=== PATIENT | male | born 1945 | race American Indian/Alaskan Native ===

== ENCOUNTER 2016-09-23 05:39 | Inpatient (IN) | payer MEDICARE ==
[2016-09-23] MEDS ORDERED: NACL 0.9% 1000 ML 1,000 ML ONE (06:32)
[2016-09-23] MEDS ORDERED: CARDIZEM IV ONE (06:32)
--- NOTE | 2016-09-23 06:32 | Emergency Department Report ---
ED Altered Mental Status HPI - General Chief Complaint: Altered Mental Status Stated Complaint: ALTERED MENTAL STATUS Time Seen by Provider: 09/23/16 06:21 Source: patient, EMS Mode of arrival: Stretcher Limitations: Altered Mental Status - History of Present Illness Initial Comments: 71-year-old -[place] male presented to the emergency department via EMS for evaluation of altered mental status. Per report, EMS states that patient was not acting his normal self when they picked him up for dialysis this morning. Patient states that he feels weak and was unable to walk. Other than that, he denies complaints. MD Complaint: altered mental status, weakness -: unknown Severity: mild Consistency of Symptoms: constant Context: unknown Associated Symptoms: weakness - Related Data Home Medications Medication Instructions Recorded Confirmed Last Taken Carvedilol [Coreg] 3.125 mg PO BID 09/23/16 09/23/16 Unknown Clopidogrel [Plavix] 75 mg PO QDAY 09/23/16 09/23/16 Unknown Furosemide [Lasix TAB] 40 mg PO QDAY 09/23/16 09/23/16 Unknown Hydralazine HCl [Apresoline TAB] 50 mg PO BID 09/23/16 09/23/16 Unknown ISOSORBIDE MONOnitrate [Monoket] 20 mg PO BID 09/23/16 09/23/16 Unknown Pantoprazole [Protonix] 40 mg PO QDAY 09/23/16 09/23/16 Unknown Sennosides/Docusate Sodium [Stool 1 each PO PRN PRN 09/23/16 09/23/16 Unknown Softener Tablet] Simvastatin [Zocor TAB] 20 mg PO QHS 09/23/16 09/23/16 Unknown Vit B Complex & C No.13/FA/D3 1 each PO AC 09/23/16 09/23/16 Unknown [Nephrocaps Qt Tablet] amLODIPine [Norvasc] 10 mg PO DAILY 09/23/16 09/23/16 Unknown cloNIDine [Catapres] 0.1 mg PO BID 09/23/16 09/23/16 Unknown Allergies Allergy/AdvReac Type Severity Reaction Status Date / Time No Known Allergies Allergy Verified 11/08/15 09:09 ED Review of Systems ROS: Stated complaint: ALTERED MENTAL STATUS Other details as noted in HPI Comment: All other systems reviewed and negative Constitutional: weakness ED Past Medical Hx - Past Medical History Previous Medical History?: Yes Hx Hypertension: Yes Hx Diabetes: Yes Hx Renal Disease: Yes ( HD M,W,F) - Surgical History Past Surgical History?: Yes Additional Surgical History: FISTULA LEFT ARM. BACK SURGERY - Family History Family history: no significant - Social History Smoking Status: Never Smoker Substance Use Type: None - Medications Home Medications: Home Medications Medication Instructions Recorded Confirmed Last Taken Type Carvedilol [Coreg] 3.125 mg PO BID 09/23/16 09/23/16 Unknown History Clopidogrel [Plavix] 75 mg PO QDAY 09/23/16 09/23/16 Unknown History Furosemide [Lasix TAB] 40 mg PO QDAY 09/23/16 09/23/16 Unknown History Hydralazine HCl [Apresoline TAB] 50 mg PO BID 09/23/16 09/23/16 Unknown History ISOSORBIDE MONOnitrate [Monoket] 20 mg PO BID 09/23/16 09/23/16 Unknown History Pantoprazole [Protonix] 40 mg PO QDAY 09/23/16 09/23/16 Unknown History Sennosides/Docusate Sodium [Stool 1 each PO PRN PRN 09/23/16 09/23/16 Unknown History Softener Tablet] Simvastatin [Zocor TAB] 20 mg PO QHS 09/23/16 09/23/16 Unknown History Vit B Complex & C No.13/FA/D3 1 each PO AC 09/23/16 09/23/16 Unknown History [Nephrocaps Qt Tablet] amLODIPine [Norvasc] 10 mg PO DAILY 09/23/16 09/23/16 Unknown History cloNIDine [Catapres] 0.1 mg PO BID 09/23/16 09/23/16 Unknown History ED Physical Exam - General Limitations: Altered Mental Status General appearance: alert, in no apparent distress, other (unkempt) - Head Head exam: Present: atraumatic, normocephalic - Eye Eye exam: Present: normal appearance, PERRL, EOMI - ENT ENT exam: Present: normal exam, normal orophraynx, mucous membranes moist - Neck Neck exam: Present: normal inspection, full ROM. Absent: tenderness - Respiratory Respiratory exam: Present: normal lung sounds bilaterally. Absent: respiratory distress - Cardiovascular Cardiovascular Exam: Present: tachycardia, irregular rhythm, normal heart sounds - GI/Abdominal GI/Abdominal exam: Present: soft, normal bowel sounds. Absent: distended, tenderness - Extremities Exam Extremities exam: Present: full ROM. Absent: normal inspection (AV fistula to left upper extremity with palpable thrill. 3+ edema noted to the right lower extremity, which is unchanged per EMS), tenderness - Back Exam Back exam: Present: normal inspection, full ROM. Absent: tenderness - Neurological Exam Neurological exam: Present: alert, oriented X3. Absent: motor sensory deficit - Skin Skin exam: Present: warm, dry, intact ED Course Vital Signs 09/23/16 09/23/16 09/23/16 05:50 06:00 06:03 Temperature 97.5 F L Pulse Rate 138 H 138 H 159 H Respiratory 15 19 18 Rate Blood Pressure 113/60 113/60 Blood Pressure 113/60 [Right] O2 Sat by Pulse 95 Oximetry 09/23/16 09/23/16 09/23/16 06:39 06:47 06:50 Temperature Pulse Rate 137 H 128 H Respiratory 18 16 Rate Blood Pressure 106/73 Blood Pressure 106/73 [Right] O2 Sat by Pulse 97 Oximetry 09/23/16 09/23/16 07:00 08:41 Temperature Pulse Rate 139 H 128 H Respiratory 25 H 21 Rate Blood Pressure 106/74 110/80 Blood Pressure [Right] O2 Sat by Pulse 95 91 Oximetry - Lab Data Result diagrams: 09/23/16 06:33 09/23/16 06:33 Lab Results 09/23/16 09/23/16 09/23/16 Range/Units 05:44 06:33 06:33 WBC 14.4 H (4.5-11.0) K/mm3 RBC 2.60 L (3.65-5.03) M/mm3 Hgb 8.4 L (11.8-15.2) gm/dl Hct 30.4 L (35.5-45.6) % MCV 117 H (84-94) fl MCH 32 (28-32) pg MCHC 28 L (32-34) % RDW 21.4 H (13.2-15.2) % Plt Count 176 (140-440) K/mm3 Baso % (Auto) Training Facilitator PT (12.2-14.9) Sec. INR (0.87-1.13) Sodium 133 L (137-145) mmol/L Potassium 5.4 H (3.6-5.0) mmol/L Carbon Dioxide 15 L (22-30) mmol/L BUN 96 H (9-20) mg/dL Creatinine 11.4 H (0.8-1.5) mg/dL Estimated GFR 5 ml/min BUN/Creatinine Ratio 8.42 % Glucose 228 H (75-100) mg/dL POC Glucose 247 H (70-105) Lactic Acid (0.7-2.0) mmol/L Calcium 9.5 (8.4-10.2) mg/dL Magnesium (1.7-2.3) mg/dL Troponin T 0.240 H* (0.00-0.029) ng/mL Triglycerides 199 H (2-149) mg/dL Cholesterol 140 (50-199) mg/dL LDL Cholesterol Direct 76 (50-130) mg/dL HDL Cholesterol 25 L (40-59) mg/dL Cholesterol/HDL Ratio 5.60 % 09/23/16 09/23/16 09/23/16 Range/Units 06:33 06:33 06:33 WBC (4.5-11.0) K/mm3 RBC (3.65-5.03) M/mm3 Hgb (11.8-15.2) gm/dl Hct (35.5-45.6) % MCV (84-94) fl MCH (28-32) pg MCHC (32-34) % RDW (13.2-15.2) % Plt Count (140-440) K/mm3 Baso % (Auto) PT 15.7 H (12.2-14.9) Sec. INR 1.26 H (0.87-1.13) Sodium (137-145) mmol/L Potassium (3.6-5.0) mmol/L Carbon Dioxide (22-30) mmol/L BUN (9-20) mg/dL Creatinine (0.8-1.5) mg/dL Estimated GFR ml/min BUN/Creatinine Ratio % Glucose (75-100) mg/dL POC Glucose (70-105) Lactic Acid 2.3 H* (0.7-2.0) mmol/L Calcium (8.4-10.2) mg/dL Magnesium 0.9 L* (1.7-2.3) mg/dL Troponin T (0.00-0.029) ng/mL Triglycerides (2-149) mg/dL Cholesterol (50-199) mg/dL LDL Cholesterol Direct (50-130) mg/dL HDL Cholesterol (40-59) mg/dL Cholesterol/HDL Ratio % - EKG Data -: EKG Interpreted by Me EKG shows normal: axis, QRS complexes Rate: tachycardia When compared to previous EKG there are: previous EKG unavailable Interpretation: nonspecific ST-T wave rossana, other (atrial fibrillation with rapid ventricular response) - Medical Decision Making Lab results reviewed and discussed with the patient. Following a 50 mg bolus of diltiazem, the patient's heart rate decreased from the 150s to the 120s. I have spoken with Dr. oRb, nephrology. Patient will be scheduled for dialysis once his heart rate is better under control. I have spoken with Dr. Contreras, cardiology. Patient is to be started on a Cardizem drip. Patient is to be admitted by the hospitalist. - Differential Diagnosis new-onset A. fib, electrolyte abnormality Critical Care Time: Yes Critical care time in (mins) excluding proc time.: 60 Critical care attestation.: If time is entered above; I have spent that time in minutes in the direct care of this critically ill patient, excluding procedure time. Critical Care Time: The high probability of a clinically significant, sudden or life threatening deterioration of the cardiovascular system(s) required my full and direct attention, intervention and personal management. The aggregate critical care time was 60 minutes. This time is in addition to time spent performing reported procedures but includes the following: [x] Data Review and interpretation [x] Patient assessment and monitoring of vital signs [x] Documentation [x] Medication orders and management ED Disposition Clinical Impression: New onset atrial fibrillation, End-stage renal disease on hemodialysis Disposition: OP ADMITTED IP TO THIS HOSP Is pt being admited?: Yes Condition: Stable Time of Disposition: 09:03
[2016-09-23 06:49] LABS: Mean Corpuscular HGB Conc 28 % (32-34); Mean Corpuscular Hemoglobin 32 pg (28-32); Platelet Count 176 K/mm3 (140-440); White Blood Count 14.4 K/mm3 (4.5-11.0)
[2016-09-23 06:54] LABS: Hematocrit 30.4 % (35.5-45.6); Hemoglobin 8.4 gm/dl (11.8-15.2); Mean Corpuscular Volume 117 fl (84-94); Red Cell Distribution Width 21.4 % (13.2-15.2)
[2016-09-23 07:01] LABS: INR 1.26 (0.87-1.13)
[2016-09-23 07:09] LABS: BUN/Creatinine Ratio 8.42; Calcium 9.5 mg/dL (8.4-10.2); Chloride 86.1 mmol/L (98-107); Potassium 5.4 mmol/L (3.6-5.0)
[2016-09-23] MEDS ORDERED: MAGNESIUM SULFATE 2GM/50ML 50 ML IV ONE (07:42)
--- NOTE | 2016-09-23 07:42 | Consultation ---
History of Present Illness - Reason for Consult Consult date: 09/23/16 end stage renal disease Requesting physician: ALYCE VIRK - History of Present Illness 71-year-old -Iranian male presented to the emergency department via EMS for evaluation of altered mental status. Per report, EMS states that patient was not acting his normal self when they picked him up for dialysis this morning. Patient states that he feels weak and was unable to walk. Other than that, he denies complaints. Past History Past Medical History: atrial fib, arrhythmia, anemia, dialysis, ESRD, hypertension, renal failure Past Surgical History: Other (av access) Social history: denies: prescription drug abuse, IV drug use Family history: hypertension Medications and Allergies Allergies Allergy/AdvReac Type Severity Reaction Status Date / Time No Known Allergies Allergy Verified 11/08/15 09:09 Home Medications Medication Instructions Recorded Confirmed Last Taken Type Carvedilol [Coreg] 3.125 mg PO BID 09/23/16 09/23/16 Unknown History Clopidogrel [Plavix] 75 mg PO QDAY 09/23/16 09/23/16 Unknown History Furosemide [Lasix TAB] 40 mg PO QDAY 09/23/16 09/23/16 Unknown History Hydralazine HCl [Apresoline TAB] 50 mg PO BID 09/23/16 09/23/16 Unknown History ISOSORBIDE MONOnitrate [Monoket] 20 mg PO BID 09/23/16 09/23/16 Unknown History Pantoprazole [Protonix] 40 mg PO QDAY 09/23/16 09/23/16 Unknown History Sennosides/Docusate Sodium [Stool 1 each PO PRN PRN 09/23/16 09/23/16 Unknown History Softener Tablet] Simvastatin [Zocor TAB] 20 mg PO QHS 09/23/16 09/23/16 Unknown History Vit B Complex & C No.13/FA/D3 1 each PO AC 09/23/16 09/23/16 Unknown History [Nephrocaps Qt Tablet] amLODIPine [Norvasc] 10 mg PO DAILY 09/23/16 09/23/16 Unknown History cloNIDine [Catapres] 0.1 mg PO BID 09/23/16 09/23/16 Unknown History Review of Systems Constitutional: anorexia, fatigue, weakness, malaise Cardiovascular: rapid/irregular heart beat, high blood pressure, decreased exercise tolerance Respiratory: dyspnea on exertion Exam - Vital Signs Vital signs: Vital Signs Temp Pulse Resp BP Pulse Ox 97.5 F L 159 H 18 113/60 95 09/23/16 06:03 09/23/16 06:03 09/23/16 06:03 09/23/16 06:03 09/23/16 06:03 - Physical Exam Narrative exam: - General Limitations: Altered Mental Status General appearance: alert, in no apparent distress, other (unkempt) - Head Head exam: Present: atraumatic, normocephalic - Eye Eye exam: Present: normal appearance, PERRL, EOMI - ENT ENT exam: Present: normal exam, normal orophraynx, mucous membranes moist - Neck Neck exam: Present: normal inspection, full ROM. Absent: tenderness - Respiratory Respiratory exam: Present: normal lung sounds bilaterally. Absent: respiratory distress - Cardiovascular Cardiovascular Exam: Present: tachycardia, irregular rhythm, normal heart sounds - GI/Abdominal GI/Abdominal exam: Present: soft, normal bowel sounds. Absent: distended, tenderness - Extremities Exam Extremities exam: Present: full ROM. Absent: normal inspection (AV fistula to left upper extremity with palpable thrill. 3+ edema noted to the right lower extremity, which is unchanged per EMS), tenderness - Back Exam Back exam: Present: normal inspection, full ROM. Absent: tenderness - Neurological Exam Neurological exam: Present: alert, oriented X3. Absent: motor sensory deficit - Skin Skin exam: Present: warm, dry, intact Results - Lab Results 09/23/16 06:33 09/23/16 06:33 Most recent lab results Calcium 9.5 mg/dL (8.4-10.2) 09/23/16 06:33 Magnesium 0.9 mg/dL (1.7-2.3) L* 09/23/16 06:33 Assessment and Plan Impression: * esrd * afib with rvr * anemia in esrd * htn * encephalopathy * hyperkalemia * metabolic acidosis Plan: * hd once arrythymia controlled today * follow up daily lytes * uf with hd at tolerated * replete mag * strict i/os * renal diet * cards to see
[2016-09-23] MEDS ORDERED: CARDIZEM/D5W 100MG/100ML 100 ML IV SCH (09:00)
--- NOTE | 2016-09-23 09:27 | XRay Report ---
PORTABLE CHEST: INDICATION: Altered mental status. COMPARISON: 05/07/2008 FINDINGS: Portable, frontal chest radiograph again demonstrates normal cardiomediastinal silhouette. Mild, approximately 3 mm peripheral right midlung density is new, possibly atelectasis or scarring. Clear remainder lungs, though inspiration somewhat poorer. Approximately 1.2 cm left paraspinal/hilar calcification also possible. EKG leads. Mild bony degenerative changes. CONCLUSION: Mild peripheral right midlung density, possibly atelectasis or scarring, though new since 2007. Follow-up on subsequent chest imaging as well. Thank you for the opportunity to participate in this patient's care.
--- NOTE | 2016-09-23 10:02 | Admit Criteria Form ---
Admission Criteria Documentation: ATRIAL FIBRILLATION Clinical Indications for Admission to Inpatient Care (Place 'X' for any and all applicable criteria): Admission indicated for ANY ONE of the following(1)(2)(3)(4)(5) : [ ]I. Myocardial ischemia [ ]II. Dyspnea or hypoxemia [ ]III. Hemodynamic instability [ ]IV. Heart failure (e.g., pulmonary edema) (7) [X ]V. New-onset (less than 48 hours) atrial fibrillation with high risk for causing complications secondary to comorbidities (eg, symptomatic heart failure ) [ ]. Altered mental status [ ]VII. Syncope [ ]VIII. Patient has implantable cardioverter defibrillator that has fired more than once within past 24hr or needs immediate adjustment of settings that cannot be done other than in inpatient setting. (8) [ ]IX. Suspected accessory pathway (e.g., [id number]-[id number]-Jznmh syndrome) on ECG [ ]X. Recent systemic thromboembolism (eg, stroke) [ ]XI. Medication toxicity (e.g., digitalis) causing arrhythmia(9) [ ]XII. Underlying medical condition that necessitates inpatient care (e.g., thyrotoxicosis, pneumonia) (10) [ ]XIII. Continuous ECG monitoring is required for condition causing arrhythmia (e.g., severe hyperkalemia, hypokalemia, acid-base disturbance).(11)(12)(13) [ ]XIV. Initiation of antiarrhythmic drug therapy is needed in patient at high risk of adverse effects as indicated by ANY ONE of the following: [ ]a) Significant structural heart disease (e.g., reduced ejection fraction, congenital heart disease, valvular heart disease) [ ]b) Prolonged QT interval [ ]c) Underlying sinus node or atrioventricular conduction disturbances [ ]d) Need for treatment with antiarrhythmic drugs that have significant proarrhythmic potential (e.g., dofetilide, sotalol, procainamide) [ ]e) Patient whose sinus rhythm has never been observed on ECG [ ]XV. Intolerable symptoms despite optimal outpatient treatment [ ]XVI. Elective or urgent cardioversion that cannot be performed on outpatient basis or during observation care. [A] (Use also Atrial Fibrillation: Observation Care ) as appropriate.(14) [ ]XVII.Contraindications and/or Inappropriate clinical situations for Observational Care in patients with Atrial Fibrillation, when ANY ONE of the following is required: [ ]a) Patient with High risk of cardiac embolism (e.g, patients with previous cardiac embolism, LVEF < 40%, age >75 and patients with prosthetic valve) 18 [ ]b) Patient with Moderate risk including DM patient, CAD and patient aged 65-75 18 [ ]c) Patient with any change in cardiac biomarker especially troponin should be managed as high risk in an inpatient setting 19 [ ]d) Physician judgement irrespective of ECG and other diagnostic findings 20 [X ]XVIII.General contraindications and/or Inappropriate clinical situations for Observational Care in patients with Atrial Fibrillation, when ANY ONE of the following is required: [X ]a) Prediction of prolongation of LOS based on ANY ONE of the following may be considered as a contraindication for observational care 2, 3, 4, 5, 6, 7, 8, 9, 10, 11 [ X]i) Age > 65 yrs. [ ]ii) Patient arriving by ambulance [ ]iii) Patient with high acuity [ ]iv) Patient requiring vital sign monitoring [ ]v) Patient on IV medication [ ]b) Systolic blood pressures 180mmHg 3,12 [ ]c) Patient with altered mental status including delirium and other alteration of consciousness3 [ ]d) Patient whose discharge disposition will be to a long-term home or rehabilitation home should not be managed in Emergency Department Observation Unit. CMS rule requires 3 days hospital stay before such placement.3,13 [ ]e) Patient with failure to thrive due to broad array of etiologies 3,16,17 [ ]f) Inability to ambulate 3,14 Extended stay beyond goal length of stay may be needed for (1)(25)(26): [ ]a) Unstable comorbidities [ ]b) Persistently uncontrolled atrial fibrillation or other arrhythmias [ ]c) Acute thromboembolic event (e.g., stroke, limb ischemia) [ ]d) Need for inpatient attainment of full anticoagulation The original [email or web address] content created by [email or web address] has been revised. The portions of the content which have been revised are identified through the use of italic text or in bold, and [facility] has neither reviewed nor approved the modified material. All other unmodified content is copyright [facility]. Please see references footnoted in the original [facility] edition 2016 Admission Criteria Met: Yes
[2016-09-23] MEDS ORDERED: SENOKOT S PO PRN (11:12)
[2016-09-23] MEDS ORDERED: ZOFRAN IV PRN (11:13)
[2016-09-23] MEDS ORDERED: MILK OF MAGNESIA PO PRN (11:13)
[2016-09-23] MEDS ORDERED: SODIUM CHLORIDE FLUSH SYRINGE 10 ML IV PRN (11:13)
[2016-09-23] MEDS ORDERED: DULCOLAX PR PRN (11:13)
[2016-09-23] MEDS ORDERED: D50W (25GM) IV PRN ×2 (11:13→17:36)
[2016-09-23] MEDS ORDERED: TYLENOL PO PRN (11:13)
--- NOTE | 2016-09-23 11:24 | History and Physical Report ---
History of Present Illness Chief complaint: weakness History of present illness: 71M with ESRD, when he was picked up for HD this morning, he was noted to not be quite himself. He admits to feeling very tired and generalized weakness, he denies CP, palpitations or SOB. he is compliant with his meds and rx. He has been feeling poorly for about a day now Past History Past Medical History: atrial fib, arrhythmia, anemia, dialysis, ESRD, hypertension, renal failure Past Surgical History: Other (av access) Social history: denies: prescription drug abuse, IV drug use Family history: hypertension Medications and Allergies Allergies Allergy/AdvReac Type Severity Reaction Status Date / Time No Known Allergies Allergy Verified 11/08/15 09:09 Home Medications Medication Instructions Recorded Confirmed Last Taken Type Carvedilol [Coreg] 3.125 mg PO BID 09/23/16 09/23/16 Unknown History Clopidogrel [Plavix] 75 mg PO QDAY 09/23/16 09/23/16 Unknown History Furosemide [Lasix TAB] 40 mg PO QDAY 09/23/16 09/23/16 Unknown History Hydralazine HCl [Apresoline TAB] 50 mg PO BID 09/23/16 09/23/16 Unknown History ISOSORBIDE MONOnitrate [Monoket] 20 mg PO BID 09/23/16 09/23/16 Unknown History Pantoprazole [Protonix] 40 mg PO QDAY 09/23/16 09/23/16 Unknown History Sennosides/Docusate Sodium [Stool 1 each PO PRN PRN 09/23/16 09/23/16 Unknown History Softener Tablet] Simvastatin [Zocor TAB] 20 mg PO QHS 09/23/16 09/23/16 Unknown History Vit B Complex & C No.13/FA/D3 1 each PO AC 09/23/16 09/23/16 Unknown History [Nephrocaps Qt Tablet] amLODIPine [Norvasc] 10 mg PO DAILY 09/23/16 09/23/16 Unknown History cloNIDine [Catapres] 0.1 mg PO BID 09/23/16 09/23/16 Unknown History Active Meds: Active Medications Acetaminophen (Tylenol) 650 mg PO Q4H PRN PRN Reason: Pain MILD(1-3)/Fever >100.5/POSADAS Amlodipine Besylate (Norvasc) 10 mg PO DAILY [facility] Bisacodyl (Dulcolax) 10 mg [place] QDAY PRN PRN Reason: Constipation unrelieved by MOM Carvedilol (Coreg) 3.125 mg PO BID [facility] Clonidine HCl (Catapres) 0.1 mg PO BID [facility] Clopidogrel Bisulfate (Plavix) 75 mg PO QDAY [facility] Dextrose (D50w (25gm)) 50 ml IV PRN PRN PRN Reason: Hypoglycemia Furosemide (Lasix) 40 mg PO QDAY [facility] Heparin Sodium (Porcine) (Heparin) 5,000 unit SUB-Q Q8HR [facility] Diltiazem HCl (Cardizem/D5w 100mg/100ml) 100 mls @ 5 mls/hr IV TITR [facility]; 5 MG/ HR PRN Reason: Protocol Last Titration: 09/23/16 09:39 Dose: 10 mg/hr Insulin Aspart (Novolog) 0 units SUB-Q AC [facility] PRN Reason: Protocol Isosorbide Mononitrate (Monoket) 20 mg PO BID [facility] Magnesium Hydroxide (Milk Of Magnesia) 30 ml PO Q4H PRN PRN Reason: Constipation Miscellaneous Medication (Hydralazine Hcl [Apresoline Tab]) 50 mg PO BID [facility] Miscellaneous Medication (Vit B Complex & C No.13/Fa/D3 [Nephrocaps Qt Tablet]) 1 each PO AC [facility] Ondansetron HCl (Zofran) 4 mg IV Q8H PRN PRN Reason: N/V unrelieved by Reglan Pantoprazole Sodium (Protonix) 40 mg PO QDAY [facility] Senna/Docusate Sodium (Senokot S) 1 tab PO PRN PRN PRN Reason: Constipation Simvastatin (Zocor) 20 mg PO QHS [facility] Sodium Chloride (Sodium Chloride Flush Syringe 10 Ml) 10 ml IV PRN PRN PRN Reason: LINE FLUSH Review of Systems All systems: negative Constitutional: fatigue, weakness, malaise, lethargy Cardiovascular: no chest pain, no orthopnea, no palpitations, no rapid/ irregular heart beat Exam - Constitutional Vitals: Temp Pulse Resp BP Pulse Ox 97.5 F L 123 H 18 105/62 94 09/23/16 06:03 09/23/16 10:00 09/23/16 10:00 09/23/16 10:00 09/23/16 10:00 General appearance: Present: no acute distress, well-nourished, other (appears exhausted) - EENT Eyes: Present: PERRL ENT: hearing intact, other (dry mucus membranes) - Neck Neck: Present: supple, normal ROM - Respiratory Respiratory effort: normal Respiratory: bilateral: CTA - Cardiovascular Heart Sounds: Present: S1 & S2. Absent: rub, click - Extremities Extremities: pulses symmetrical, No edema Peripheral Pulses: within normal limits - Abdominal General gastrointestinal: Present: soft, non-tender, non-distended, normal bowel sounds Male genitourinary: Present: normal - Integumentary Integumentary: Present: clear, warm, dry - Musculoskeletal Musculoskeletal: gait normal, strength equal bilaterally - Psychiatric Psychiatric: appropriate mood/affect, intact judgment & insight - Neurologic Neurologic: CNII-XII intact, moves all extremities Results - Labs CBC & Chem 7: 09/23/16 06:33 09/23/16 06:33 Labs: Laboratory Last Values WBC 14.4 K/mm3 (4.5-11.0) H 09/23/16 06:33 RBC 2.60 M/mm3 (3.65-5.03) L 09/23/16 06:33 Hgb 8.4 gm/dl (11.8-15.2) L 09/23/16 06:33 Hct 30.4 % (35.5-45.6) L 09/23/16 06:33 MCV 117 fl (84-94) H 09/23/16 06:33 MCH 32 pg (28-32) 09/23/16 06:33 MCHC 28 % (32-34) L 09/23/16 06:33 RDW 21.4 % (13.2-15.2) H 09/23/16 06:33 Plt Count 176 K/mm3 (140-440) 09/23/16 06:33 Baso % (Auto) Hydraulic Billet Maker 09/23/16 06:33 PT 15.7 Sec. (12.2-14.9) H 09/23/16 06:33 INR 1.26 (0.87-1.13) H 09/23/16 06:33 Sodium 133 mmol/L (137-145) L 09/23/16 06:33 Potassium 5.4 mmol/L (3.6-5.0) H 09/23/16 06:33 Carbon Dioxide 15 mmol/L (22-30) L 09/23/16 06:33 BUN 96 mg/dL (9-20) H 09/23/16 06:33 Creatinine 11.4 mg/dL (0.8-1.5) H 09/23/16 06:33 Estimated GFR 5 ml/min 09/23/16 06:33 BUN/Creatinine Ratio 8.42 % 09/23/16 06:33 Glucose 228 mg/dL (75-100) H 09/23/16 06:33 POC Glucose 247 (70-105) H 09/23/16 05:44 Lactic Acid 2.3 mmol/L (0.7-2.0) H* 09/23/16 06:33 Calcium 9.5 mg/dL (8.4-10.2) 09/23/16 06:33 Magnesium 0.9 mg/dL (1.7-2.3) L* 09/23/16 06:33 Troponin T 0.240 ng/mL (0.00-0.029) H* 09/23/16 06:33 Triglycerides 199 mg/dL (2-149) H 09/23/16 06:33 Cholesterol 140 mg/dL (50-199) 09/23/16 06:33 LDL Cholesterol Direct 76 mg/dL (50-130) 09/23/16 06:33 HDL Cholesterol 25 mg/dL (40-59) L 09/23/16 06:33 Cholesterol/HDL Ratio 5.60 % 09/23/16 06:33 - Imaging and Cardiology Chest x-ray: image reviewed (no infiltrate) Assessment and Plan Assessment and plan: 1. Afib with RVR on cardizem drip, will get TSH, T4, echo cardiology consulted will discuss with them if anticoagulation is recommended 2. HTN continue home meds 3. ESRD HD per renal 4. Weakness PT consult 5. DVT ppx heparin sq 6. Hyperkalemia, Hypomagnesemia will be rx with HD Plan of care discussed with patient/family: Yes
[2016-09-23] MEDS ORDERED: NOVOLOG SUB-Q SCH (11:30)
[2016-09-23] MEDS ORDERED: [UNRECOGNIZED DRUG - REMARK] PO SCH (11:30)
[2016-09-23 12:04] LABS: Creatine Kinase MB 4.2 ng/mL (0.0-4.0)
[2016-09-23] MEDS ORDERED: LOPRESSOR PO SCH (12:17)
[2016-09-23] MEDS ORDERED: LOPRESSOR ONE (12:20)
[2016-09-23] MEDS: PLAVIX PO SCH (12:26)
[2016-09-23] MEDS: Renal Caps PO SCH ×2 (13:30→15:36)
[2016-09-23] MEDS ORDERED: NACL 0.9% 1000 ML 100 ML IV PRN (13:35)
[2016-09-23 13:38] LABS: Basophils % (Manual) 0 % (0.0-1.8); Blastocytes % (Manual) 0 %; Eosinophils % (Manual) 0 % (0.0-4.3)
[2016-09-23 13:42] LABS: Anisocytosis 1+; Macrocytosis 1+
[2016-09-23 13:43] LABS: Smudge Cells 2+
[2016-09-23 13:44] LABS: Diff Status Complete; Polychromasia Few
[2016-09-23] MEDS: HEPARIN SUB-Q SCH ×2 (16:12→23:57)
[2016-09-23] MEDS: DUONEB 0.5 MG-3 MG/3 ML SOLN IH SCH ×2 (16:22→21:15)
[2016-09-23 17:20] LABS: Creatine Kinase MB 4.3 ng/mL (0.0-4.0)
[2016-09-23 19:52] LABS: Creatine Kinase MB 4.3 ng/mL (0.0-4.0)
[2016-09-23] MEDS ORDERED: NACL 0.9 (PRIMING MACHINE ONLY DIALYSIS) MC ONE (20:00)
[2016-09-23] MEDS ORDERED: PROCRIT ONE (20:02)
[2016-09-23] MEDS ORDERED: NON-FORMULARY (Hydralazine Hcl [Apresoline Tab] 50 MG) PO SCH (22:00)
[2016-09-23] MEDS ORDERED: COREG PO SCH (22:00)
[2016-09-23] MEDS: PROCRIT IV PRN (22:51)
[2016-09-23] MEDS: ZOCOR PO SCH (23:56)
[2016-09-23] MEDS: APRESOLINE PO SCH (23:58)
[2016-09-23] MEDS: CATAPRES PO SCH (23:59)
[2016-09-23] MEDS: MONOKET PO SCH (23:59)
[2016-09-24] MEDS: Renal Caps PO SCH ×4 (00:05→23:29)
[2016-09-24] MEDS: CARDIZEM PO SCH ×4 (00:06→17:35)
[2016-09-24] MEDS: LOPRESSOR PO SCH ×5 (00:07→17:35)
[2016-09-24] MEDS: DUONEB 0.5 MG-3 MG/3 ML SOLN IH SCH ×4 (01:13→19:58)
--- NOTE | 2016-09-24 05:03 | Consultation ---
HISTORY OF PRESENT ILLNESS: The patient is a 71-year-old gentleman with a history of multiple medical problems including end-stage renal disease, hypertension, diabetes, hyperlipidemia and multiple strokes. He was noted to have a change in mental status today. He was weak and unable to walk. When he was brought in, he was found to be in atrial fibrillation with a rapid ventricle response, which is listed as one of his previous medical problems as well. He is disoriented and unable to give a detailed history. He did not describe any heart failure, coronary artery disease, chest pain, but he has had some shortness of breath today. He states that he has had the rapid heart rate in the past. 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 As far as we know, he has been compliant with dialysis and his medications. PAST HISTORY AND MEDICATIONS: See the nurse's list. ALLERGIES: None. SOCIAL HISTORY: Smoking: Prior smoker. Alcohol: No heavy use described. PREVIOUS SURGERIES: Left arm fistula and back surgery. REVIEW OF SYSTEMS: No other complaints or medical problems described at this time. PHYSICAL EXAMINATION: GENERAL: Well-developed, well-nourished, no acute distress. HEENT: Alert, cooperative, disoriented, dysarthric speech. EYES, NOSE, AND THROAT: Unremarkable. NECK: Reveals JVD. There are no bruits. Neck is supple, no masses. LUNGS: A few scattered crackles without clear cut rales or rhonchi. No labored respirations at this time. CARDIOVASCULAR: Irregular rhythm. Tachycardia. No rubs, murmurs, gallops appreciable. ABDOMEN: Soft, nontender, no masses. EXTREMITIES: No cyanosis or clubbing. There is trace pedal edema. There are chronic changes on the lower extremities in the skin and no diminished pulses. NEUROLOGIC: Grossly there is severe right hemiparesis, left extremities are somewhat weak. LABORATORY DATA: EKG shows atrial fibrillation, rapid ventricular response, possible previous septal infarction, nonspecific ST-T changes. IMPRESSION: 1. Atrial fibrillation with a rapid ventricular response resulting in some shortness of breath, but no clearcut evidence of congestive heart failure. 2. End-stage renal disease, on hemodialysis with chronic anemia. 3. Hypertension: Controlled. 4. Diabetes. 5. Hyperlipidemia: Fair control. 6. History of three previous strokes with severe right hemiparesis. 7. Abnormal chest x-ray: The findings could be scar tissue or atelectasis, follow up chest x-ray would be in order. 8. Severe hypomagnesemia and hyperkalemia per nephrology. 9. Troponin of 0.2, consistent with chronic kidney disease, no suggestion of acute coronary syndrome. We will consider underlying coronary disease. Check for previous workup. 10. Evidence of peripheral vascular disease. PLAN: Heart rate control with calcium channel blockers and beta block, echocardiogram, anticoagulation, check for previous cardiac workup. Thank you for this consultation. JOB# [id number] ELMIRA/MARILEE
[2016-09-24 06:47] LABS: BUN/Creatinine Ratio 8.48; Calcium 8.8 mg/dL (8.4-10.2); Magnesium 2.5 mg/dL (1.7-2.3); Potassium 4.9 mmol/L (3.6-5.0)
[2016-09-24] MEDS: HEPARIN SUB-Q SCH (07:25)
--- NOTE | 2016-09-24 09:00 | Echocardiography Report ---
Transthoracic Echocardiogram Indication: A-fib BP: 117/56 Conclusions *1. Technically difficult study. *2. Well preserved LV systolic function, EF 50-55%. *3. Poor visualization of R heart chambers. Findings Procedure Info: The study quality is technically difficult. The study is technically limited due to poor acoustic windows. The study was technically limited due to the patient's inability to lay in the left lateral decubitus position. Left Ventricle: The left ventricle is not well visualized. The left ventricular chamber size is normal. Mild concentric left ventricular hypertrophy is observed. Global left ventricular systolic function is normal. The estimated ejection fraction is 50-55%. Left Atrium: The left atrium is not well visualized. The left atrial chamber size is normal. Right Ventricle: The right ventricle is not well visualized. The right ventricular cavity size is normal. Right Atrium: The right atrium is not well visualized. The right atrial cavity size is normal. The interatrial septum appears normal. Aortic Valve: The aortic valve is not well visualized. The aortic valve is trileaflet. The aortic valve leaflets are mildly thickened. There is no evidence of aortic regurgitation. There is no evidence of aortic stenosis. Mitral Valve: The mitral valve is not well visualized. The mitral valve leaflets appear myxomatous. The mitral valve leaflets are mildly thickened. Mild mitral leaflet calcification is visualized. There is trace of mitral regurgitation. There is no evidence of mitral stenosis. Tricuspid Valve: The tricuspid valve is not well visualized. The tricuspid valve leaflets are normal. There is mild tricuspid regurgitation. The right ventricular systolic pressure is calculated at 44 mmHg. There is evidence of mild pulmonary hypertension. There is no tricuspid stenosis. Pulmonic Valve: The pulmonic valve is not well visualized. Pericardium: There is no pericardial effusion. Aorta: There is no dilatation of the aortic root. Venous: The inferior vena cava is dilated. Measurements Chambers MM Name Value Normal Range Ao root diameter (MM) 3.4 cm (2 - 3.7) LA dimension (AP) MM 3.9 cm (1.9 - 4) LA:Ao ratio (MM) 1.15 ratio - AV cusp separation (MM) 1.6 cm (1.5 - 2.6) Chambers 2D Name Value Normal Range IVSd (2D) 1.07 cm (0.6 - 1.1) LVPWd (2D) 1.02 cm (0.6 - 1.1) IVS:LVPW ratio (2D) 1.05 ratio - LVIDd (2D) 3.74 cm (3.7 - 5.6) LVIDs (2D) 3.04 cm (2 - 3.8) LV FS (Teichholz) (2D) 18.7 % - LV FS (cube) (2D) 18.7 % - EF Teichholz (2D) 39.3 % - LA dimension (AP) 2D 3.7 cm (1.9 - 4) Volumes/Mass Name Value Normal Range LA ESV SP 4CH (MOD) 52 ml - LA ESV SP 2CH (MOD) 33 ml - LA ESV BP (MOD) 44 ml - LA ESV BP (MOD) index 21.9 ml/m2 - Diastolic/Systolic Function Name Value Normal Range MV E-wave Vmax 0.84 m/sec - MV deceleration time 144 msec - MV A-wave Vmax 0.72 m/sec - MV E:A ratio 1.2 ratio - LV septal e' Vmax 0.08 m/sec - LV lateral e' Vmax 0.09 m/sec - LV E:e' septal ratio 10.5 ratio - LV E:e' lateral ratio 9.7 ratio - Aortic Valve Name Value Normal Range AV VTI 25.5 cm - AV mean gradient 4 mmHg - LVOT diameter 2 cm - LVOT VTI 17.9 cm - LVOT mean gradient 2 mmHg - SV LVOT 56 ml - DARY (continuity VTI) 2.2 cm2 - Mitral Valve Name Value Normal Range MV PHT 48 msec - MVA (PHT) 4.58 cm2 - Tricuspid Valve Name Value Normal Range TR Vmax 3.01 m/sec - TR peak gradient 36 mmHg - RAP 8 mmHg - RVSP 44 mmHg -
[2016-09-24] MEDS ORDERED: NORVASC PO SCH (10:00)
[2016-09-24] MEDS ORDERED: Renal Caps PO SCH ×2 (10:00)
[2016-09-24] MEDS: MONOKET PO SCH ×2 (10:33→23:28)
[2016-09-24] MEDS: APRESOLINE PO SCH ×2 (10:33→22:45)
[2016-09-24] MEDS: LASIX PO SCH (10:33)
[2016-09-24] MEDS: PLAVIX PO SCH (10:33)
[2016-09-24] MEDS: PROTONIX PO SCH (10:33)
[2016-09-24] MEDS: CATAPRES PO SCH ×2 (10:34→22:45)
[2016-09-24] MEDS: NOVOLOG SUB-Q SCH ×3 (10:35→16:55)
--- NOTE | 2016-09-24 10:35 | Progress Note ---
Assessment and Plan Altered mental status -resolved Atrial fibrillation rate controlled; on cardizem and metoprolol ESRD on HD Hypertension Prior CVA Echocardiogram reports a technical difficult study, ejection fraction 50-55% Will recommend oral anticoagulation with low dose eliquis for stroke prophylaxis if no contraindications. Continue current medication for rate control of atrial fibrillation. Persantine stress thallium in the morning. Subjective Date of service: 09/24/16 Interval history: Patient alert and oriented. He denies chest pain, shortness of breath and palpitations. Objective Vital Signs Temp Pulse Pulse Pulse Resp Resp BP 09/24/16 09:27 50 L 20 09/24/16 09:17 46 L 18 09/24/16 07:32 97.5 F L 70 20 09/24/16 05:05 97.5 F L 47 L 22 09/24/16 01:23 98 H 09/24/16 01:21 90 22 09/24/16 01:10 91 H 24 09/24/16 00:25 97.7 F 101 H 22 09/24/16 00:06 101 H 116/60 09/23/16 22:45 97.5 F L 87 16 114/51 09/23/16 22:30 102 H 97/49 09/23/16 22:15 95 H 102/53 09/23/16 22:00 94 H 92/50 09/23/16 21:45 88 95/52 09/23/16 21:30 100 H 91/56 09/23/16 21:15 92 H 96/47 09/23/16 21:00 97 H 98/50 09/23/16 20:45 93 H 95/52 09/23/16 20:30 89 103/59 09/23/16 20:15 89 105/57 09/23/16 20:00 87 114/61 09/23/16 19:45 82 108/58 09/23/16 19:30 73 102/64 09/23/16 19:25 97.5 F L 84 18 106/52 09/23/16 17:59 97.6 F 108 H 16 09/23/16 17:15 83 17 106/47 09/23/16 17:00 80 15 109/54 09/23/16 16:56 87 17 117/63 09/23/16 16:46 94 H 16 117/63 09/23/16 16:30 81 16 90/52 09/23/16 16:15 82 15 100/54 09/23/16 16:00 92 H 18 101/60 09/23/16 15:45 88 16 105/59 09/23/16 15:42 84 09/23/16 15:34 87 18 104/62 09/23/16 15:30 79 18 104/62 09/23/16 15:16 109/61 09/23/16 15:14 109/61 09/23/16 14:45 85 21 110/63 09/23/16 14:30 82 16 102/57 09/23/16 14:15 79 19 102/68 09/23/16 14:00 83 15 107/77 09/23/16 13:45 84 17 117/78 09/23/16 13:30 80 18 116/80 09/23/16 13:15 85 13 111/73 09/23/16 13:06 90 14 116/80 09/23/16 13:00 105 H 20 116/80 09/23/16 12:45 106 H 19 121/77 09/23/16 12:30 116 H 19 109/77 09/23/16 12:26 112 H 115/72 09/23/16 12:15 107 H 16 119/72 09/23/16 12:00 107 H 17 128/75 09/23/16 11:45 112 H 22 119/81 09/23/16 11:33 121 H 20 113/65 09/23/16 11:30 112 H 14 113/65 09/23/16 11:15 123 H 13 120/71 BP Pulse Ox 09/24/16 09:27 09/24/16 09:17 99 09/24/16 07:32 116/63 99 09/24/16 05:05 117/56 96 09/24/16 01:23 09/24/16 01:21 09/24/16 01:10 09/24/16 00:25 116/60 98 09/24/16 00:06 09/23/16 22:45 09/23/16 22:30 09/23/16 22:15 09/23/16 22:00 09/23/16 21:45 09/23/16 21:30 09/23/16 21:15 09/23/16 21:00 09/23/16 20:45 09/23/16 20:30 09/23/16 20:15 09/23/16 20:00 09/23/16 19:45 09/23/16 19:30 09/23/16 19:25 09/23/16 17:59 89/48 100 09/23/16 17:15 96 09/23/16 17:00 92 09/23/16 16:56 94 09/23/16 16:46 93 09/23/16 16:30 94 09/23/16 16:15 96 09/23/16 16:00 97 09/23/16 15:45 97 09/23/16 15:42 09/23/16 15:34 97 09/23/16 15:30 100 09/23/16 15:16 98 09/23/16 15:14 96 09/23/16 14:45 97 09/23/16 14:30 95 09/23/16 14:15 94 09/23/16 14:00 85 09/23/16 13:45 92 09/23/16 13:30 97 09/23/16 13:15 98 09/23/16 13:06 98 09/23/16 13:00 94 09/23/16 12:45 96 09/23/16 12:30 99 09/23/16 12:26 09/23/16 12:15 96 09/23/16 12:00 96 09/23/16 11:45 96 09/23/16 11:33 96 09/23/16 11:30 95 09/23/16 11:15 93 - Physical Examination General: No Apparent Distress HEENT: Positive: PERRL Cardiac: Positive: irregularly irregular Lungs: Positive: Decreased Breath Sounds - Labs and Meds Cardiac Enzymes 09/23/16 09/23/16 09/23/16 Range/Units 11:28 16:42 18:42 CK-MB (CK-2) 4.2 H 4.3 H 4.3 H (0.0-4.0) ng/mL Comprehensive Metabolic Panel 09/24/16 Range/Units 04:59 Sodium 140 D (137-145) mmol/L Potassium 4.9 (3.6-5.0) mmol/L Chloride 94.0 L (98-107) mmol/L Carbon Dioxide 21 L (22-30) mmol/L BUN 67 H (9-20) mg/dL Creatinine 7.9 H (0.8-1.5) mg/dL Glucose 216 H (75-100) mg/dL Calcium 8.8 (8.4-10.2) mg/dL
--- NOTE | 2016-09-24 11:10 | Progress Note ---
Assessment and Plan Impression: * ESRD on HD MWF * Afib with RVR * Hypertension * Encephalopathy * Hyperkalemia - resolved * Anemia secondary to ESRD * Secondary hyperparathyroidism Plan: * HD MWF * UF as tolerated * Cardiology recommendations noted * Rate control and anticoagulation per cardiology * Note plans for stress test * Renal diet Subjective Date of service: 09/24/16 Interval history: Patient has no complaints today. Objective - Vital Signs Vital signs: Vital Signs - 12hr 09/24/16 09/24/16 09/24/16 00:06 00:25 01:10 Temperature 97.7 F Pulse Rate 101 H Pulse Rate [ 91 H Bilateral Throughout] Pulse Rate [ 101 H From Monitor] Respiratory 22 Rate Respiratory 24 Rate [Bilateral Throughout] Blood Pressure 116/60 Blood Pressure 116/60 [Left Arm] O2 Sat by Pulse 98 Oximetry 09/24/16 09/24/16 09/24/16 01:21 01:23 05:05 Temperature 97.5 F L Pulse Rate 98 H Pulse Rate [ 90 Bilateral Throughout] Pulse Rate [ 47 L From Monitor] Respiratory 22 Rate Respiratory 22 Rate [Bilateral Throughout] Blood Pressure Blood Pressure 117/56 [Left Arm] O2 Sat by Pulse 96 Oximetry 09/24/16 09/24/16 09/24/16 07:32 09:17 09:27 Temperature 97.5 F L Pulse Rate Pulse Rate [ 46 L 50 L Bilateral Throughout] Pulse Rate [ 70 From Monitor] Respiratory 20 Rate Respiratory 18 20 Rate [Bilateral Throughout] Blood Pressure Blood Pressure 116/63 [Left Arm] O2 Sat by Pulse 99 99 Oximetry - General Appearance General appearance: well-developed EENT: ATNC Respiratory: Present: Clear to Ascultation Cardiology: regular, S1S2 Gastrointestinal: normal Integumentary: other (Bilateral LE bandaged) Psychiatric: cooperative - Lab 09/23/16 06:33 09/24/16 04:59 Most recent lab results Calcium 8.8 mg/dL (8.4-10.2) 09/24/16 04:59 Magnesium 2.5 mg/dL (1.7-2.3) H 09/24/16 04:59
[2016-09-24] MEDS ORDERED: NACL 0.9% 250ML 250 ML IV ONE (18:12)
[2016-09-24] MEDS: ZOCOR PO SCH (23:28)
[2016-09-24] MEDS: ELIQUIS PO SCH (23:28)
[2016-09-25] MEDS: LOPRESSOR PO SCH ×5 (00:40→23:56)
[2016-09-25] MEDS: CARDIZEM PO SCH ×5 (00:40→23:56)
[2016-09-25] MEDS: DUONEB 0.5 MG-3 MG/3 ML SOLN IH SCH ×4 (01:18→19:41)
[2016-09-25] MEDS ORDERED: THORAZINE PO ONE ×2 (03:35→05:00)
[2016-09-25 06:44] LABS: BUN/Creatinine Ratio 9.65; Calcium 8.3 mg/dL (8.4-10.2); Chloride 91.6 mmol/L (98-107); Potassium 5.5 mmol/L (3.6-5.0)
--- NOTE | 2016-09-25 07:41 | Progress Note ---
Assessment and Plan Altered mental status -resolved Atrial fibrillation/flutter rate controlled; on cardizem and metoprolol ESRD on HD Hypertension Prior CVA Echocardiogram reports a technical difficult study, ejection fraction 50-55% Plan: Continue oral anticoagulation with low dose eliquis for stroke prophylaxis. Continue cardizem and metoprolol for rate control of atrial fibrillation. For persantine stress thallium today. Subjective Date of service: 09/25/16 Interval history: For persantine stress thallium today. Brief episode of wide complex tachycardia overnight. Patient remained asymptomatic. Objective Vital Signs Temp Pulse Pulse Pulse Resp Resp BP 09/25/16 06:09 128 H 123/67 09/25/16 06:08 128 H 123/67 09/25/16 04:15 97.4 F L 128 H 22 09/25/16 01:19 52 L 14 09/25/16 01:00 138 H 09/25/16 00:40 50 L 90/52 09/25/16 00:05 97.2 F L 50 L 22 09/24/16 22:45 48 L 89/53 09/24/16 22:00 48 L 18 09/24/16 21:38 52 L 14 09/24/16 20:22 97.3 F L 48 L 24 09/24/16 20:00 52 L 15 09/24/16 16:55 97.6 F 47 L 20 09/24/16 14:05 100 H 20 09/24/16 13:55 104 H 20 09/24/16 12:11 97.6 F 125 H 20 09/24/16 09:27 50 L 20 09/24/16 09:17 46 L 18 BP Pulse Ox 09/25/16 06:09 09/25/16 06:08 09/25/16 04:15 123/67 99 09/25/16 01:19 09/25/16 01:00 09/25/16 00:40 09/25/16 00:05 90/52 97 09/24/16 22:45 09/24/16 22:00 09/24/16 21:38 09/24/16 20:22 89/53 97 09/24/16 20:00 09/24/16 16:55 86/53 100 09/24/16 14:05 09/24/16 13:55 12/29/16 12:11 115/68 98 09/24/16 09:27 09/24/16 09:17 99 - Physical Examination General: No Apparent Distress Cardiac: Positive: Reg Rate and Rhythm - Labs and Meds Comprehensive Metabolic Panel 09/25/16 Range/Units 04:47 Sodium 137 (137-145) mmol/L Potassium 5.5 H (3.6-5.0) mmol/L Chloride 91.6 L (98-107) mmol/L Carbon Dioxide 17 L (22-30) mmol/L BUN 84 H (9-20) mg/dL Creatinine 8.7 H (0.8-1.5) mg/dL Glucose 225 H (75-100) mg/dL Calcium 8.3 L (8.4-10.2) mg/dL
--- NOTE | 2016-09-25 08:36 | Progress Note ---
Assessment and Plan Impression: * esrd * afib with rvr * anemia in esrd * htn * encephalopathy * hyperkalemia * metabolic acidosis Plan: * hd MWF * follow up daily lytes * uf with hd at tolerated * replete mag * strict i/os * renal diet * cards following, plans noted * home once ok with cardiology Subjective Date of service: 09/25/16 Principal diagnosis: esrd Interval history: resting well in bed today Objective - Exam Narrative Exam: - General Limitations: Altered Mental Status General appearance: alert, in no apparent distress, other (unkempt) - Head Head exam: Present: atraumatic, normocephalic - Eye Eye exam: Present: normal appearance, PERRL, EOMI - ENT ENT exam: Present: normal exam, normal orophraynx, mucous membranes moist - Neck Neck exam: Present: normal inspection, full ROM. Absent: tenderness - Respiratory Respiratory exam: Present: normal lung sounds bilaterally. Absent: respiratory distress - Cardiovascular Cardiovascular Exam: Present: tachycardia, irregular rhythm, normal heart sounds - GI/Abdominal GI/Abdominal exam: Present: soft, normal bowel sounds. Absent: distended, tenderness - Extremities Exam Extremities exam: Present: full ROM. Absent: normal inspection (AV fistula to left upper extremity with palpable thrill. 3+ edema noted to the right lower extremity, which is unchanged per EMS), tenderness - Back Exam Back exam: Present: normal inspection, full ROM. Absent: tenderness - Neurological Exam Neurological exam: Present: alert, oriented X3. Absent: motor sensory deficit - Skin Skin exam: Present: warm, dry, intact - Vital Signs Vital signs: Vital Signs - 12hr 09/24/16 09/24/16 09/24/16 21:38 22:00 22:45 Temperature Pulse Rate 48 L Pulse Rate [ 52 L Bilateral Throughout] Pulse Rate [ 48 L From Monitor] Respiratory 18 Rate Respiratory 14 Rate [Bilateral Throughout] Blood Pressure 89/53 Blood Pressure [Left Arm] O2 Sat by Pulse Oximetry 09/25/16 09/25/16 09/25/16 00:05 00:40 01:00 Temperature 97.2 F L Pulse Rate 50 L 138 H Pulse Rate [ Bilateral Throughout] Pulse Rate [ 50 L From Monitor] Respiratory 22 Rate Respiratory Rate [Bilateral Throughout] Blood Pressure 90/52 Blood Pressure 90/52 [Left Arm] O2 Sat by Pulse 97 Oximetry 09/25/16 09/25/16 09/25/16 01:19 04:15 06:08 Temperature 97.4 F L Pulse Rate 128 H Pulse Rate [ 52 L Bilateral Throughout] Pulse Rate [ 128 H From Monitor] Respiratory 22 Rate Respiratory 14 Rate [Bilateral Throughout] Blood Pressure 123/67 Blood Pressure 123/67 [Left Arm] O2 Sat by Pulse 99 Oximetry 09/25/16 09/25/16 06:09 07:48 Temperature 97.4 F L Pulse Rate 128 H Pulse Rate [ Bilateral Throughout] Pulse Rate [ 114 H From Monitor] Respiratory 20 Rate Respiratory Rate [Bilateral Throughout] Blood Pressure 123/67 Blood Pressure 104/56 [Left Arm] O2 Sat by Pulse 94 Oximetry - Lab 09/23/16 06:33 09/25/16 04:47 Most recent lab results Calcium 8.3 mg/dL (8.4-10.2) L 09/25/16 04:47 Magnesium 2.5 mg/dL (1.7-2.3) H 09/24/16 04:59
--- NOTE | 2016-09-25 10:26 | Progress Note ---
Assessment and Plan Assessment and plan: 1. Afib with RVR and NSTEMI cardiology input appreciatd NSTEMI likely due to Afib, still needs eval for ischemic cardiac disease continue rate control meds, still uncontrolled -Awaiting stress test, when HR is better controlled -continue eliquis for CVA ppx 2. Hypotension due to uncontrolled afib, rx underlying cause 3. ESRD HD per renal 4. Weakness PT consult 5. DVT ppx heparin sq Dispo: To SNF vs home with services, fup PT note History Interval history: continues to complain of weakness, and fatigue, no chest pain Hospitalist Physical - Physical exam Narrative exam: appears chronically ill HEENT: MMM, EOMI cardiac: S1-S2 heard lungs: clear to auscultation, abdomen: soft, nontender, nondistended bowel sounds positive extremities: no edema clubbing or cyanosis Skin: no rash or lesion Neuro: no focal deficit Psych: appropriate behavior and mood, cognition intact - Constitutional Vitals: Temp Pulse Resp BP Pulse Ox 97.4 F L 91 H 22 104/56 94 09/25/16 07:48 09/25/16 09:20 09/25/16 09:20 09/25/16 07:48 09/25/16 07:48 General appearance: Present: no acute distress, well-nourished, other (appears exhausted) Results - Labs CBC & Chem 7: 09/23/16 06:33 09/26/16 04:45 Labs: Laboratory Last Values WBC 14.4 K/mm3 (4.5-11.0) H 09/23/16 06:33 RBC 2.60 M/mm3 (3.65-5.03) L 09/23/16 06:33 Hgb 8.4 gm/dl (11.8-15.2) L 09/23/16 06:33 Hct 30.4 % (35.5-45.6) L 09/23/16 06:33 MCV 117 fl (84-94) H 09/23/16 06:33 MCH 32 pg (28-32) 09/23/16 06:33 MCHC 28 % (32-34) L 09/23/16 06:33 RDW 21.4 % (13.2-15.2) H 09/23/16 06:33 Plt Count 176 K/mm3 (140-440) 09/23/16 06:33 Baso % (Auto) [place] Machine Operator 09/23/16 06:33 Add Manual Diff Complete 09/23/16 06:33 Total Counted 100 09/23/16 06:33 Seg Neuts % (Manual) 71.0 % (40.0-70.0) H 09/23/16 06:33 Band Neutrophils % 5.0 % 09/23/16 06:33 Lymphocytes % (Manual) 13.0 % (13.4-35.0) L 09/23/16 06:33 Reactive Lymphs % (Man) 0 % 09/23/16 06:33 Monocytes % (Manual) 11.0 % (0.0-7.3) H 09/23/16 06:33 Eosinophils % (Manual) 0 % (0.0-4.3) 09/23/16 06:33 Basophils % (Manual) 0 % (0.0-1.8) 09/23/16 06:33 Metamyelocytes % 0 % 09/23/16 06:33 Myelocytes % 0 % 09/23/16 06:33 Promyelocytes % 0 % 09/23/16 06:33 Blast Cells % 0 % 09/23/16 06:33 Nucleated RBC % Not Reportable 09/23/16 06:33 Seg Neutrophils # Man 10.2 K/mm3 (1.8-7.7) H 09/23/16 06:33 Band Neutrophils # 0.7 K/mm3 09/23/16 06:33 Lymphocytes # (Manual) 1.9 K/mm3 (1.2-5.4) 09/23/16 06:33 Abs React Lymphs (Man) 0.0 K/mm3 09/23/16 06:33 Monocytes # (Manual) 1.6 K/mm3 (0.0-0.8) H 09/23/16 06:33 Eosinophils # (Manual) 0.0 K/mm3 (0.0-0.4) 09/23/16 06:33 Basophils # (Manual) 0.0 K/mm3 (0.0-0.1) 09/23/16 06:33 Metamyelocytes # 0.0 K/mm3 09/23/16 06:33 Myelocytes # 0.0 K/mm3 09/23/16 06:33 Promyelocytes # 0.0 K/mm3 09/23/16 06:33 Blast Cells # 0.0 K/mm3 09/23/16 06:33 Pathologist Review 09/23/16 06:33 WBC Morphology Not Reportable 09/23/16 06:33 Hypersegmented Neuts Not Reportable 09/23/16 06:33 Hyposegmented Neuts Not Reportable 09/23/16 06:33 Hypogranular Neuts Not Reportable 09/23/16 06:33 Smudge Cells 2+ 09/23/16 06:33 Toxic Granulation Not Reportable 09/23/16 06:33 Toxic Vacuolation Not Reportable 09/23/16 06:33 Dohle Bodies Not Reportable 09/23/16 06:33 Pelger-Huet Anomaly Not Reportable 09/23/16 06:33 Kody Rods Not Reportable 09/23/16 06:33 Platelet Estimate Not Reportable 09/23/16 06:33 Clumped Platelets Not Reportable 09/23/16 06:33 Plt Clumps, EDTA Not Reportable 09/23/16 06:33 Large Platelets Not Reportable 09/23/16 06:33 Giant Platelets Not Reportable 09/23/16 06:33 Platelet Satelliting Not Reportable 09/23/16 06:33 Plt Morphology Comment Not Reportable 09/23/16 06:33 RBC Morphology Not Reportable 09/23/16 06:33 Dimorphic RBCs Not Reportable 09/23/16 06:33 Polychromasia Few 09/23/16 06:33 Hypochromasia Not Reportable 09/23/16 06:33 Poikilocytosis Not Reportable 09/23/16 06:33 Anisocytosis 1+ 09/23/16 06:33 Microcytosis Not Reportable 09/23/16 06:33 Macrocytosis 1+ 09/23/16 06:33 Spherocytes Not Reportable 09/23/16 06:33 Pappenheimer Bodies Not Reportable 09/23/16 06:33 Sickle Cells Not Reportable 09/23/16 06:33 Target Cells Not Reportable 09/23/16 06:33 Tear Drop Cells Not Reportable 09/23/16 06:33 Ovalocytes Not Reportable 09/23/16 06:33 Helmet Cells Not Reportable 09/23/16 06:33 Cramer-[place] Bodies Not Reportable 09/23/16 06:33 [place] Rings Not Reportable 09/23/16 06:33 [place] Cells Not Reportable 09/23/16 06:33 Bite Cells Not Reportable 09/23/16 06:33 Crenated Cell Not Reportable 09/23/16 06:33 Elliptocytes Not Reportable 09/23/16 06:33 Acanthocytes (Spur) Not Reportable 09/23/16 06:33 Rouleaux Not Reportable 09/23/16 06:33 Hemoglobin C Crystals Not Reportable 09/23/16 06:33 Schistocytes Not Reportable 09/23/16 06:33 Malaria parasites Not Reportable 09/23/16 06:33 [place] Bodies Not Reportable 09/23/16 06:33 Hem Pathologist Commnt Sent to pathology 09/23/16 06:33 PT 15.7 Sec. (12.2-14.9) H 09/23/16 06:33 INR 1.26 (0.87-1.13) H 09/23/16 06:33 Sodium 137 mmol/L (137-145) 09/25/16 04:47 Potassium 5.5 mmol/L (3.6-5.0) H 09/25/16 04:47 Chloride 91.6 mmol/L (98-107) L 09/25/16 04:47 Carbon Dioxide 17 mmol/L (22-30) L 09/25/16 04:47 Anion Gap 34 mmol/L 09/25/16 04:47 BUN 84 mg/dL (9-20) H 09/25/16 04:47 Creatinine 8.7 mg/dL (0.8-1.5) H 09/25/16 04:47 Estimated GFR 7 ml/min 09/25/16 04:47 BUN/Creatinine Ratio 9.65 % 09/25/16 04:47 Glucose 225 mg/dL (75-100) H 09/25/16 04:47 POC Glucose 278 (70-105) H 09/24/16 16:04 Lactic Acid 2.3 mmol/L (0.7-2.0) H* 09/23/16 06:33 Calcium 8.3 mg/dL (8.4-10.2) L 09/25/16 04:47 Magnesium 2.5 mg/dL (1.7-2.3) H 09/24/16 04:59 Total Creatine Kinase 914 units/L (55-170) H 09/23/16 18:42 CK-MB (CK-2) 4.3 ng/mL (0.0-4.0) H 09/23/16 18:42 CK-MB (CK-2) Rel Index 0.4 (0-4) 09/23/16 18:42 Troponin T 0.221 ng/mL (0.00-0.029) H* 09/23/16 18:42 Triglycerides 199 mg/dL (2-149) H 09/23/16 06:33 Cholesterol 140 mg/dL (50-199) 09/23/16 06:33 LDL Cholesterol Direct 76 mg/dL (50-130) 09/23/16 06:33 HDL Cholesterol 25 mg/dL (40-59) L 09/23/16 06:33 Cholesterol/HDL Ratio 5.60 % 09/23/16 06:33 TSH 0.074 mlU/mL (0.270-4.200) L 09/23/16 11:28 Thyroxine (T4) 4.6 ug/dL (4.0-12.0) 09/23/16 11:28
[2016-09-25] MEDS: NOVOLOG SUB-Q SCH ×3 (13:24→19:46)
[2016-09-25] MEDS: Renal Caps PO SCH ×3 (13:58→23:55)
[2016-09-25] MEDS: PLAVIX PO SCH (14:02)
[2016-09-25] MEDS: ELIQUIS PO SCH ×2 (17:07→23:56)
[2016-09-25] MEDS: PROTONIX PO SCH (17:07)
[2016-09-25] MEDS: APRESOLINE PO SCH ×2 (17:09→23:55)
[2016-09-25] MEDS: CATAPRES PO SCH ×2 (17:09→23:56)
[2016-09-25] MEDS: MONOKET PO SCH ×2 (17:10→23:57)
[2016-09-25] MEDS: LASIX PO SCH (19:46)
[2016-09-25] MEDS: ZOCOR PO SCH (23:57)
[2016-09-26] MEDS: DUONEB 0.5 MG-3 MG/3 ML SOLN IH SCH ×4 (01:35→21:19)
[2016-09-26 06:06] LABS: BUN/Creatinine Ratio 9.4; Calcium 8.3 mg/dL (8.4-10.2); Potassium 5.3 mmol/L (3.6-5.0)
[2016-09-26] MEDS: CARDIZEM PO SCH ×5 (06:12→23:01)
[2016-09-26] MEDS: LOPRESSOR PO SCH ×6 (06:13→23:01)
[2016-09-26] MEDS ORDERED: NACL 0.9% 1000 ML 100 ML IV PRN (07:47)
--- NOTE | 2016-09-26 07:47 | Progress Note ---
Assessment and Plan Impression: * esrd * afib with rvr * anemia in esrd * htn * encephalopathy * hyperkalemia * metabolic acidosis Plan: * hd MWF, attempted yesterday but due to tachycardia, treatment stopped, plan on hd today if hr allows * follow up daily lytes * uf with hd at tolerated * replete mag * strict i/os * renal diet * cards following, plans noted Subjective Date of service: 09/26/16 Principal diagnosis: esrd Interval history: resting well in bed today Objective - Exam Narrative Exam: - General Limitations: Altered Mental Status General appearance: alert, in no apparent distress, other (unkempt) - Head Head exam: Present: atraumatic, normocephalic - Eye Eye exam: Present: normal appearance, PERRL, EOMI - ENT ENT exam: Present: normal exam, normal orophraynx, mucous membranes moist - Neck Neck exam: Present: normal inspection, full ROM. Absent: tenderness - Respiratory Respiratory exam: Present: normal lung sounds bilaterally. Absent: respiratory distress - Cardiovascular Cardiovascular Exam: Present: tachycardia, irregular rhythm, normal heart sounds - GI/Abdominal GI/Abdominal exam: Present: soft, normal bowel sounds. Absent: distended, tenderness - Extremities Exam Extremities exam: Present: full ROM. Absent: normal inspection (AV fistula to left upper extremity with palpable thrill. 3+ edema noted to the right lower extremity, which is unchanged per EMS), tenderness - Back Exam Back exam: Present: normal inspection, full ROM. Absent: tenderness - Neurological Exam Neurological exam: Present: alert, oriented X3. Absent: motor sensory deficit - Skin Skin exam: Present: warm, dry, intact - Vital Signs Vital signs: Vital Signs - 12hr 09/25/16 09/25/16 09/25/16 19:51 20:27 21:00 Temperature 97.8 F Pulse Rate 136 H 136 H Pulse Rate [ 72 Anterior Bilateral Throughout] Pulse Rate [ Right Radial] Respiratory 20 Rate Respiratory 20 Rate [Anterior Bilateral Throughout] Blood Pressure 106/58 Blood Pressure [Right Radial Artery] O2 Sat by Pulse Oximetry 09/25/16 09/25/16 09/25/16 21:15 21:30 21:45 Temperature Pulse Rate 147 H 144 H 140 H Pulse Rate [ Anterior Bilateral Throughout] Pulse Rate [ Right Radial] Respiratory Rate Respiratory Rate [Anterior Bilateral Throughout] Blood Pressure 108/66 97/56 96/58 Blood Pressure [Right Radial Artery] O2 Sat by Pulse Oximetry 09/25/16 09/25/16 09/26/16 22:00 23:56 00:58 Temperature 97.8 F Pulse Rate 137 H 142 H Pulse Rate [ Anterior Bilateral Throughout] Pulse Rate [ 137 H Right Radial] Respiratory 20 22 Rate Respiratory Rate [Anterior Bilateral Throughout] Blood Pressure 103/69 Blood Pressure 104/64 [Right Radial Artery] O2 Sat by Pulse 99 Oximetry 09/26/16 09/26/16 09/26/16 01:00 01:36 01:51 Temperature Pulse Rate 104 H Pulse Rate [ 52 L 78 Anterior Bilateral Throughout] Pulse Rate [ Right Radial] Respiratory Rate Respiratory 18 18 Rate [Anterior Bilateral Throughout] Blood Pressure Blood Pressure [Right Radial Artery] O2 Sat by Pulse Oximetry 09/26/16 09/26/16 09/26/16 02:09 05:59 06:12 Temperature 98.7 F Pulse Rate 92 H Pulse Rate [ 82 Anterior Bilateral Throughout] Pulse Rate [ 87 Right Radial] Respiratory 20 Rate Respiratory 18 Rate [Anterior Bilateral Throughout] Blood Pressure Blood Pressure 105/58 [Right Radial Artery] O2 Sat by Pulse 100 Oximetry 09/26/16 07:07 Temperature 98.9 F Pulse Rate Pulse Rate [ Anterior Bilateral Throughout] Pulse Rate [ 109 H Right Radial] Respiratory 22 Rate Respiratory Rate [Anterior Bilateral Throughout] Blood Pressure Blood Pressure 144/54 [Right Radial Artery] O2 Sat by Pulse 96 Oximetry - Lab 09/23/16 06:33 09/26/16 04:45 Most recent lab results Calcium 8.3 mg/dL (8.4-10.2) L 09/26/16 04:45 Magnesium 2.5 mg/dL (1.7-2.3) H 09/24/16 04:59
[2016-09-26] MEDS: NOVOLOG SUB-Q SCH ×4 (09:00→22:54)
[2016-09-26] MEDS: ELIQUIS PO SCH ×2 (10:00→22:54)
[2016-09-26] MEDS: APRESOLINE PO SCH (10:00)
[2016-09-26] MEDS: CATAPRES PO SCH (10:00)
[2016-09-26] MEDS: MONOKET PO SCH ×2 (11:40→23:05)
[2016-09-26] MEDS: LASIX PO SCH (11:40)
[2016-09-26] MEDS: PROTONIX PO SCH (11:40)
[2016-09-26] MEDS: Renal Caps PO SCH ×4 (11:40→23:05)
[2016-09-26] MEDS: PLAVIX PO SCH (11:40)
--- NOTE | 2016-09-26 11:46 | Progress Note ---
Assessment and Plan Assessment and plan: 1. Afib with RVR and NSTEMI cardiology input appreciatd Echo report reviewed, shows preserved systolic function NSTEMI likely due to Afib, still needs eval for ischemic cardiac disease continue rate control meds, heart rate is better controlled today -Awaiting stress test -continue eliquis for CVA ppx 2. Hypotension Was most likely due to uncontrolled A. fib, has improved and at the rate is better controlled 3. ESRD HD per renal 4. Weakness PT consult 5. DVT ppx heparin sq Dispo: To SNF vs home with services, fup PT note History Interval history: continues to complain of weakness, and fatigue, no chest pain Hospitalist Physical - Physical exam Narrative exam: appears chronically ill HEENT: MMM, EOMI cardiac: S1-S2 heard lungs: clear to auscultation, abdomen: soft, nontender, nondistended bowel sounds positive extremities: no edema clubbing or cyanosis Skin: no rash or lesion Neuro: no focal deficit Psych: appropriate behavior and mood, cognition intact - Constitutional Vitals: Temp Pulse Resp BP Pulse Ox 98.9 F 88 20 144/54 96 09/26/16 07:07 09/26/16 09:02 09/26/16 09:02 09/26/16 07:07 09/26/16 08:58 General appearance: Present: no acute distress, well-nourished, other (appears exhausted) Results - Labs CBC & Chem 7: 09/23/16 06:33 09/26/16 04:45 Labs: Laboratory Last Values WBC 14.4 K/mm3 (4.5-11.0) H 09/23/16 06:33 RBC 2.60 M/mm3 (3.65-5.03) L 09/23/16 06:33 Hgb 8.4 gm/dl (11.8-15.2) L 09/23/16 06:33 Hct 30.4 % (35.5-45.6) L 09/23/16 06:33 MCV 117 fl (84-94) H 09/23/16 06:33 MCH 32 pg (28-32) 09/23/16 06:33 MCHC 28 % (32-34) L 09/23/16 06:33 RDW 21.4 % (13.2-15.2) H 09/23/16 06:33 Plt Count 176 K/mm3 (140-440) 09/23/16 06:33 Baso % (Auto) Cell Plasterer 09/23/16 06:33 Add Manual Diff Complete 09/23/16 06:33 Total Counted 100 09/23/16 06:33 Seg Neuts % (Manual) 71.0 % (40.0-70.0) H 09/23/16 06:33 Band Neutrophils % 5.0 % 09/23/16 06:33 Lymphocytes % (Manual) 13.0 % (13.4-35.0) L 09/23/16 06:33 Reactive Lymphs % (Man) 0 % 09/23/16 06:33 Monocytes % (Manual) 11.0 % (0.0-7.3) H 09/23/16 06:33 Eosinophils % (Manual) 0 % (0.0-4.3) 09/23/16 06:33 Basophils % (Manual) 0 % (0.0-1.8) 09/23/16 06:33 Metamyelocytes % 0 % 09/23/16 06:33 Myelocytes % 0 % 09/23/16 06:33 Promyelocytes % 0 % 09/23/16 06:33 Blast Cells % 0 % 09/23/16 06:33 Nucleated RBC % Not Reportable 09/23/16 06:33 Seg Neutrophils # Man 10.2 K/mm3 (1.8-7.7) H 09/23/16 06:33 Band Neutrophils # 0.7 K/mm3 09/23/16 06:33 Lymphocytes # (Manual) 1.9 K/mm3 (1.2-5.4) 09/23/16 06:33 Abs React Lymphs (Man) 0.0 K/mm3 09/23/16 06:33 Monocytes # (Manual) 1.6 K/mm3 (0.0-0.8) H 09/23/16 06:33 Eosinophils # (Manual) 0.0 K/mm3 (0.0-0.4) 09/23/16 06:33 Basophils # (Manual) 0.0 K/mm3 (0.0-0.1) 09/23/16 06:33 Metamyelocytes # 0.0 K/mm3 09/23/16 06:33 Myelocytes # 0.0 K/mm3 09/23/16 06:33 Promyelocytes # 0.0 K/mm3 09/23/16 06:33 Blast Cells # 0.0 K/mm3 09/23/16 06:33 Pathologist Review 09/23/16 06:33 WBC Morphology Not Reportable 09/23/16 06:33 Hypersegmented Neuts Not Reportable 09/23/16 06:33 Hyposegmented Neuts Not Reportable 09/23/16 06:33 Hypogranular Neuts Not Reportable 09/23/16 06:33 Smudge Cells 2+ 09/23/16 06:33 Toxic Granulation Not Reportable 09/23/16 06:33 Toxic Vacuolation Not Reportable 09/23/16 06:33 Dohle Bodies Not Reportable 09/23/16 06:33 Pelger-Huet Anomaly Not Reportable 09/23/16 06:33 Kody Rods Not Reportable 09/23/16 06:33 Platelet Estimate Not Reportable 09/23/16 06:33 Clumped Platelets Not Reportable 09/23/16 06:33 Plt Clumps, EDTA Not Reportable 09/23/16 06:33 Large Platelets Not Reportable 09/23/16 06:33 Giant Platelets Not Reportable 09/23/16 06:33 Platelet Satelliting Not Reportable 09/23/16 06:33 Plt Morphology Comment Not Reportable 09/23/16 06:33 RBC Morphology Not Reportable 09/23/16 06:33 Dimorphic RBCs Not Reportable 09/23/16 06:33 Polychromasia Few 09/23/16 06:33 Hypochromasia Not Reportable 09/23/16 06:33 Poikilocytosis Not Reportable 09/23/16 06:33 Anisocytosis 1+ 09/23/16 06:33 Microcytosis Not Reportable 09/23/16 06:33 Macrocytosis 1+ 09/23/16 06:33 Spherocytes Not Reportable 09/23/16 06:33 Pappenheimer Bodies Not Reportable 09/23/16 06:33 Sickle Cells Not Reportable 09/23/16 06:33 Target Cells Not Reportable 09/23/16 06:33 Tear Drop Cells Not Reportable 09/23/16 06:33 Ovalocytes Not Reportable 09/23/16 06:33 Helmet Cells Not Reportable 09/23/16 06:33 Cramer-[place] Bodies Not Reportable 09/23/16 06:33 [place] Rings Not Reportable 09/23/16 06:33 [place] Cells Not Reportable 09/23/16 06:33 Bite Cells Not Reportable 09/23/16 06:33 Crenated Cell Not Reportable 09/23/16 06:33 Elliptocytes Not Reportable 09/23/16 06:33 Acanthocytes (Spur) Not Reportable 09/23/16 06:33 Rouleaux Not Reportable 09/23/16 06:33 Hemoglobin C Crystals Not Reportable 09/23/16 06:33 Schistocytes Not Reportable 09/23/16 06:33 Malaria parasites Not Reportable 09/23/16 06:33 Marcelino Bodies Not Reportable 09/23/16 06:33 Hem Pathologist Commnt Sent to pathology 09/23/16 06:33 PT 15.7 Sec. (12.2-14.9) H 09/23/16 06:33 INR 1.26 (0.87-1.13) H 09/23/16 06:33 Sodium 138 mmol/L (137-145) 09/26/16 04:45 Potassium 5.3 mmol/L (3.6-5.0) H 09/26/16 04:45 Chloride 93.0 mmol/L (98-107) L 09/26/16 04:45 Carbon Dioxide 20 mmol/L (22-30) L 09/26/16 04:45 Anion Gap 30 mmol/L 09/26/16 04:45 BUN 79 mg/dL (9-20) H 09/26/16 04:45 Creatinine 8.4 mg/dL (0.8-1.5) H 09/26/16 04:45 Estimated GFR 8 ml/min 09/26/16 04:45 BUN/Creatinine Ratio 9.40 % 09/26/16 04:45 Glucose 200 mg/dL (75-100) H 09/26/16 04:45 POC Glucose 321 (70-105) H 09/26/16 07:11 Lactic Acid 2.3 mmol/L (0.7-2.0) H* 09/23/16 06:33 Calcium 8.3 mg/dL (8.4-10.2) L 09/26/16 04:45 Magnesium 2.5 mg/dL (1.7-2.3) H 09/24/16 04:59 Total Creatine Kinase 914 units/L (55-170) H 09/23/16 18:42 CK-MB (CK-2) 4.3 ng/mL (0.0-4.0) H 09/23/16 18:42 CK-MB (CK-2) Rel Index 0.4 (0-4) 09/23/16 18:42 Troponin T 0.221 ng/mL (0.00-0.029) H* 09/23/16 18:42 Triglycerides 199 mg/dL (2-149) H 09/23/16 06:33 Cholesterol 140 mg/dL (50-199) 09/23/16 06:33 LDL Cholesterol Direct 76 mg/dL (50-130) 09/23/16 06:33 HDL Cholesterol 25 mg/dL (40-59) L 09/23/16 06:33 Cholesterol/HDL Ratio 5.60 % 09/23/16 06:33 TSH 0.074 mlU/mL (0.270-4.200) L 09/23/16 11:28 Thyroxine (T4) 4.6 ug/dL (4.0-12.0) 09/23/16 11:28
--- NOTE | 2016-09-26 12:16 | Progress Note ---
Assessment and Plan 1. Atrial fibrillation flutter currently stable 2. End-stage renal disease on hemodialysis 3. Essential hypertension 4. History of CVA 5. Dementia Plan. Continue present management not to candidate for invasive management at this time I will continue anticoagulation as well as ventricular rate control management strategy Subjective Date of service: 09/26/16 Principal diagnosis: Atrial fib Interval history: No specific cardiac problems. Objective Vital Signs Temp Pulse Pulse Pulse Pulse Pulse Resp 09/26/16 09:02 88 09/26/16 08:58 09/26/16 08:55 75 75 09/26/16 07:07 98.9 F 109 H 22 09/26/16 06:12 92 H 09/26/16 05:59 98.7 F 87 20 09/26/16 02:09 82 09/26/16 01:51 78 09/26/16 01:36 52 L 09/26/16 01:00 104 H 09/26/16 00:58 137 H 22 09/25/16 23:56 142 H 09/25/16 22:00 97.8 F 137 H 20 09/25/16 21:45 140 H 09/25/16 21:30 144 H 09/25/16 21:15 147 H 09/25/16 21:00 97.8 F 136 H 20 09/25/16 20:27 136 H 09/25/16 19:51 72 09/25/16 19:42 97.5 F L 66 18 09/25/16 19:41 68 09/25/16 16:09 97.8 F 95 H 20 09/25/16 15:30 71 09/25/16 15:20 70 09/25/16 14:02 130 H 09/25/16 14:01 130 H Resp Resp BP BP BP Pulse Ox 09/26/16 09:02 20 09/26/16 08:58 96 09/26/16 08:55 18 18 09/26/16 07:07 144/54 96 09/26/16 06:12 09/26/16 05:59 105/58 100 09/26/16 02:09 18 09/26/16 01:51 18 09/26/16 01:36 18 09/26/16 01:00 09/26/16 00:58 104/64 99 09/25/16 23:56 09/25/16 22:00 103/69 09/25/16 21:45 96/58 09/25/16 21:30 97/56 09/25/16 21:15 108/66 09/25/16 21:00 106/58 09/25/16 20:27 09/25/16 19:51 20 09/25/16 19:42 108/59 100 09/25/16 19:41 18 98 09/25/16 16:09 102/58 98 09/25/16 15:30 18 09/25/16 15:20 18 09/25/16 14:02 104/56 09/25/16 14:01 - Physical Examination General: No Apparent Distress HEENT: Positive: PERRL Neck: Positive: trachea midline. Negative: neck supple, JVD/HJR Cardiac: Positive: irregularly irregular, S1/S2, PMI, Laterally Displaced Lungs: Positive: clear to auscultation, No Wheeze, Rales, Rhonchi Extremities: Absent: edema - Labs and Meds Comprehensive Metabolic Panel 09/26/16 Range/Units 04:45 Sodium 138 (137-145) mmol/L Potassium 5.3 H (3.6-5.0) mmol/L Chloride 93.0 L (98-107) mmol/L Carbon Dioxide 20 L (22-30) mmol/L BUN 79 H (9-20) mg/dL Creatinine 8.4 H (0.8-1.5) mg/dL Glucose 200 H (75-100) mg/dL Calcium 8.3 L (8.4-10.2) mg/dL
[2016-09-26] MEDS ORDERED: VANCOMYCIN PHARMACY TO DOSE IV SCH (16:00)
[2016-09-26] MEDS ORDERED: NACL ONE (16:32)
[2016-09-26] MEDS ORDERED: VANCOMYCIN VIAL 1,500 MG in NACL 0.9% 500 ML 500 ML IV ONE (17:00)
[2016-09-26] MEDS: ZOCOR PO SCH (22:54)
[2016-09-26] MEDS: ZOSYN/NS 2.25 GM/50ML 50 ML IV SCH (22:55)
[2016-09-27] MEDS: DUONEB 0.5 MG-3 MG/3 ML SOLN IH SCH ×4 (01:12→23:31)
[2016-09-27] MEDS: ZOSYN/NS 2.25 GM/50ML 50 ML IV SCH ×3 (01:28→17:37)
[2016-09-27] MEDS: CATAPRES PO SCH ×3 (01:28→22:45)
[2016-09-27] MEDS: APRESOLINE PO SCH ×3 (01:28→22:45)
[2016-09-27] MEDS: CARDIZEM PO SCH ×3 (05:21→18:37)
[2016-09-27] MEDS: LOPRESSOR PO SCH ×3 (05:22→18:37)
[2016-09-27] MEDS: NOVOLOG SUB-Q SCH ×3 (09:36→16:30)
--- NOTE | 2016-09-27 10:17 | Progress Note ---
Assessment and Plan Assessment and plan: 1. Afib with RVR cardiology input appreciatd Echo report reviewed, shows preserved systolic function continue rate control meds, heart rate is better controlled today -Cardiology believes patient is not stable for invasive management at this time. -continue eliquis for CVA ppx 2. NSTEMI. As above. 2. Hypotension Etiology was most likely due to uncontrolled A. fib, has improved and at the rate is better controlled 3. ESRD Continued HD per renal 4. Generalized Weakness PT consult pending 5. DVT ppx Patient currently on eliquis 6. RLE stasis ulcer. Suspected infection. Follow-up CT scan and wound cultures of the lower extremity. Continue IV antibiotics and local wound care. 7. Disposition. Patient will be discharged to SNF per PT recommendations. History Interval history: No new issues overnight. No reports of chest pain or shortness of breath. Hospitalist Physical - Constitutional Vitals: Temp Pulse Resp BP Pulse Ox 98.8 F 94 H 20 111/59 99 09/27/16 08:20 09/27/16 08:20 09/27/16 08:20 09/27/16 08:20 09/27/16 08:20 General appearance: Present: no acute distress, well-nourished, other (appears exhausted) - EENT Eyes: Present: PERRL, EOM intact ENT: hearing intact, clear oral mucosa, dentition normal - Neck Neck: Present: supple, normal ROM - Respiratory Respiratory effort: normal Respiratory: bilateral: diminished - Cardiovascular Rhythm: irregularly irregular Heart Sounds: Present: S1 & S2. Absent: gallop, rub - Extremities Extremities: Full ROM Extremity abnormal: other (right foot stasis ulcer--dressing clean dry and intact) - Abdominal General gastrointestinal: soft, non-tender, non-distended, normal bowel sounds - Integumentary Integumentary: Present: clear, warm, dry - Neurologic Neurologic: CNII-XII intact, moves all extremities Results - Labs CBC & Chem 7: 09/23/16 06:33 09/26/16 04:45 Labs: Laboratory Last Values WBC 14.4 K/mm3 (4.5-11.0) H 09/23/16 06:33 RBC 2.60 M/mm3 (3.65-5.03) L 09/23/16 06:33 Hgb 8.4 gm/dl (11.8-15.2) L 09/23/16 06:33 Hct 30.4 % (35.5-45.6) L 09/23/16 06:33 MCV 117 fl (84-94) H 09/23/16 06:33 MCH 32 pg (28-32) 09/23/16 06:33 MCHC 28 % (32-34) L 09/23/16 06:33 RDW 21.4 % (13.2-15.2) H 09/23/16 06:33 Plt Count 176 K/mm3 (140-440) 09/23/16 06:33 Baso % (Auto) Rubber Flap Tuber Machine Operator 09/23/16 06:33 Add Manual Diff Complete 09/23/16 06:33 Total Counted 100 09/23/16 06:33 Seg Neuts % (Manual) 71.0 % (40.0-70.0) H 09/23/16 06:33 Band Neutrophils % 5.0 % 09/23/16 06:33 Lymphocytes % (Manual) 13.0 % (13.4-35.0) L 09/23/16 06:33 Reactive Lymphs % (Man) 0 % 09/23/16 06:33 Monocytes % (Manual) 11.0 % (0.0-7.3) H 09/23/16 06:33 Eosinophils % (Manual) 0 % (0.0-4.3) 09/23/16 06:33 Basophils % (Manual) 0 % (0.0-1.8) 09/23/16 06:33 Metamyelocytes % 0 % 09/23/16 06:33 Myelocytes % 0 % 09/23/16 06:33 Promyelocytes % 0 % 09/23/16 06:33 Blast Cells % 0 % 09/23/16 06:33 Nucleated RBC % Not Reportable 09/23/16 06:33 Seg Neutrophils # Man 10.2 K/mm3 (1.8-7.7) H 09/23/16 06:33 Band Neutrophils # 0.7 K/mm3 09/23/16 06:33 Lymphocytes # (Manual) 1.9 K/mm3 (1.2-5.4) 09/23/16 06:33 Abs React Lymphs (Man) 0.0 K/mm3 09/23/16 06:33 Monocytes # (Manual) 1.6 K/mm3 (0.0-0.8) H 09/23/16 06:33 Eosinophils # (Manual) 0.0 K/mm3 (0.0-0.4) 09/23/16 06:33 Basophils # (Manual) 0.0 K/mm3 (0.0-0.1) 09/23/16 06:33 Metamyelocytes # 0.0 K/mm3 09/23/16 06:33 Myelocytes # 0.0 K/mm3 09/23/16 06:33 Promyelocytes # 0.0 K/mm3 09/23/16 06:33 Blast Cells # 0.0 K/mm3 09/23/16 06:33 Pathologist Review 09/23/16 06:33 WBC Morphology Not Reportable 09/23/16 06:33 Hypersegmented Neuts Not Reportable 09/23/16 06:33 Hyposegmented Neuts Not Reportable 09/23/16 06:33 Hypogranular Neuts Not Reportable 09/23/16 06:33 Smudge Cells 2+ 09/23/16 06:33 Toxic Granulation Not Reportable 09/23/16 06:33 Toxic Vacuolation Not Reportable 09/23/16 06:33 Dohle Bodies Not Reportable 09/23/16 06:33 Pelger-Huet Anomaly Not Reportable 09/23/16 06:33 Kody Rods Not Reportable 09/23/16 06:33 Platelet Estimate Not Reportable 09/23/16 06:33 Clumped Platelets Not Reportable 09/23/16 06:33 Plt Clumps, EDTA Not Reportable 09/23/16 06:33 Large Platelets Not Reportable 09/23/16 06:33 Giant Platelets Not Reportable 09/23/16 06:33 Platelet Satelliting Not Reportable 09/23/16 06:33 Plt Morphology Comment Not Reportable 09/23/16 06:33 RBC Morphology Not Reportable 09/23/16 06:33 Dimorphic RBCs Not Reportable 09/23/16 06:33 Polychromasia Few 09/23/16 06:33 Hypochromasia Not Reportable 09/23/16 06:33 Poikilocytosis Not Reportable 09/23/16 06:33 Anisocytosis 1+ 09/23/16 06:33 Microcytosis Not Reportable 09/23/16 06:33 Macrocytosis 1+ 09/23/16 06:33 Spherocytes Not Reportable 09/23/16 06:33 Pappenheimer Bodies Not Reportable 09/23/16 06:33 Sickle Cells Not Reportable 09/23/16 06:33 Target Cells Not Reportable 09/23/16 06:33 Tear Drop Cells Not Reportable 09/23/16 06:33 Ovalocytes Not Reportable 09/23/16 06:33 Helmet Cells Not Reportable 09/23/16 06:33 Cramer-[place] Bodies Not Reportable 09/23/16 06:33 [place] Rings Not Reportable 09/23/16 06:33 Mary Cells Not Reportable 09/23/16 06:33 Bite Cells Not Reportable 09/23/16 06:33 Crenated Cell Not Reportable 09/23/16 06:33 Elliptocytes Not Reportable 09/23/16 06:33 Acanthocytes (Spur) Not Reportable 09/23/16 06:33 Rouleaux Not Reportable 09/23/16 06:33 Hemoglobin C Crystals Not Reportable 09/23/16 06:33 Schistocytes Not Reportable 09/23/16 06:33 Malaria parasites Not Reportable 09/23/16 06:33 Marcelino Bodies Not Reportable 09/23/16 06:33 Hem Pathologist Commnt Sent to pathology 09/23/16 06:33 PT 15.7 Sec. (12.2-14.9) H 09/23/16 06:33 INR 1.26 (0.87-1.13) H 09/23/16 06:33 Sodium 138 mmol/L (137-145) 09/26/16 04:45 Potassium 5.3 mmol/L (3.6-5.0) H 09/26/16 04:45 Chloride 93.0 mmol/L (98-107) L 09/26/16 04:45 Carbon Dioxide 20 mmol/L (22-30) L 09/26/16 04:45 Anion Gap 30 mmol/L 09/26/16 04:45 BUN 79 mg/dL (9-20) H 09/26/16 04:45 Creatinine 8.4 mg/dL (0.8-1.5) H 09/26/16 04:45 Estimated GFR 8 ml/min 09/26/16 04:45 BUN/Creatinine Ratio 9.40 % 09/26/16 04:45 Glucose 200 mg/dL (75-100) H 09/26/16 04:45 POC Glucose 197 (70-105) H 09/26/16 22:23 Lactic Acid 2.3 mmol/L (0.7-2.0) H* 09/23/16 06:33 Calcium 8.3 mg/dL (8.4-10.2) L 09/26/16 04:45 Magnesium 2.5 mg/dL (1.7-2.3) H 09/24/16 04:59 Total Creatine Kinase 914 units/L (55-170) H 09/23/16 18:42 CK-MB (CK-2) 4.3 ng/mL (0.0-4.0) H 09/23/16 18:42 CK-MB (CK-2) Rel Index 0.4 (0-4) 09/23/16 18:42 Troponin T 0.221 ng/mL (0.00-0.029) H* 09/23/16 18:42 Triglycerides 199 mg/dL (2-149) H 09/23/16 06:33 Cholesterol 140 mg/dL (50-199) 09/23/16 06:33 LDL Cholesterol Direct 76 mg/dL (50-130) 09/23/16 06:33 HDL Cholesterol 25 mg/dL (40-59) L 09/23/16 06:33 Cholesterol/HDL Ratio 5.60 % 09/23/16 06:33 TSH 0.074 mlU/mL (0.270-4.200) L 09/23/16 11:28 Thyroxine (T4) 4.6 ug/dL (4.0-12.0) 09/23/16 11:28
[2016-09-27] MEDS: Renal Caps PO SCH ×3 (10:23→22:45)
[2016-09-27] MEDS: LASIX PO SCH (10:24)
[2016-09-27] MEDS: MONOKET PO SCH ×2 (10:24→22:45)
[2016-09-27] MEDS: PROTONIX PO SCH (10:24)
[2016-09-27] MEDS: ELIQUIS PO SCH ×2 (10:24→22:45)
[2016-09-27] MEDS: PLAVIX PO SCH (10:24)
--- NOTE | 2016-09-27 10:54 | Progress Note ---
Assessment and Plan 1. Atrial fibrillation flutter currently stable 2. End-stage renal disease on hemodialysis 3. Essential hypertension 4. History of CVA 5. Dementia Plan. Continue present management not to candidate for invasive management at this time I will continue anticoagulation as well as ventricular rate control management strategy Subjective Date of service: 09/27/16 Principal diagnosis: Atrial fib Interval history: No specific cardiac problems. Patient is demented Objective Vital Signs Temp Pulse Pulse Pulse Pulse Resp Resp 09/27/16 08:20 98.8 F 94 H 20 09/27/16 07:45 09/27/16 05:22 123 H 09/27/16 05:21 123 H 09/27/16 04:52 98.3 F 78 20 09/27/16 01:28 09/27/16 01:11 97.5 F L 99 H 20 09/27/16 01:00 123 H 09/26/16 23:01 102 H 09/26/16 22:19 98.1 F 104 H 20 09/26/16 20:15 97.4 F L 138 H 18 09/26/16 20:00 144 H 09/26/16 19:45 135 H 09/26/16 19:30 115 H 09/26/16 19:15 109 H 09/26/16 19:00 103 H 09/26/16 18:45 105 H 09/26/16 18:30 103 H 09/26/16 18:15 92 H 09/26/16 18:00 93 H 09/26/16 17:45 97.4 F L 87 18 09/26/16 16:09 97.4 F L 99 H 22 09/26/16 15:19 92 H 20 09/26/16 15:12 96 H 20 09/26/16 13:17 73 09/26/16 13:00 79 BP BP Pulse Ox 09/27/16 08:20 111/59 99 09/27/16 07:45 95 09/27/16 05:22 09/27/16 05:21 09/27/16 04:52 120/66 100 09/27/16 01:28 93/51 09/27/16 01:11 93/57 09/27/16 01:00 09/26/16 23:01 09/26/16 22:19 118/64 94 09/26/16 20:15 117/72 09/26/16 20:00 113/67 09/26/16 19:45 109/61 09/26/16 19:30 114/63 09/26/16 19:15 100/66 09/26/16 19:00 118/64 09/26/16 18:45 117/73 09/26/16 18:30 123/63 09/26/16 18:15 114/55 09/26/16 18:00 116/64 09/26/16 17:45 120/56 09/26/16 16:09 140/56 96 09/26/16 15:19 09/26/16 15:12 09/26/16 13:17 100/54 09/26/16 13:00 - Physical Examination General: No Apparent Distress HEENT: Positive: PERRL Neck: Positive: trachea midline. Negative: neck supple, JVD/HJR Cardiac: Positive: Regular Rate, S1/S2, S3 Lungs: Positive: clear to auscultation, No Wheeze, Rales, Rhonchi Neuro: Positive: Grossly Intact Abdomen: Positive: Unremarkable, Soft Extremities: Absent: edema
--- NOTE | 2016-09-27 12:33 | Cat Scan Report ---
CT RIGHT FOOT AND ANKLE WITHOUT CONTRAST: 09/26/16 15:54:00 CLINICAL: Leg infection. TECHNIQUE: Volumetric acquisition and 1.25 mm axial scans reconstructions without contrast. Sagittal and coronal reformats performed. FINDINGS: The fifth toe is abnormal with penciling of the distal aspect of the proximal phalanx and disarticulation with the distal phalanx. There is extensive soft tissue edema involving the lower leg, ankle and foot in a generalized fashion. Extensive soft tissue air in the deep soft tissues of the forefoot with greater air laterally associated with the fifth toe. Deep soft tissue fluid collection to suggest abscess. The bones of the midfoot, hindfoot and lower leg are normal except for diffuse heterogeneous density which is typical of renal osteodystrophy. IMPRESSION: Cellulitis of the forefoot with osteomyelitis of the fifth toe and partial destruction of the proximal phalanx of the fifth toe. No other bones are suspect for osteomyelitis. Renal osteodystrophy. No abscess.
--- NOTE | 2016-09-27 13:35 | Progress Note ---
Assessment and Plan Impression: * esrd * afib with rvr * anemia in esrd * htn * encephalopathy * hyperkalemia * metabolic acidosis Plan: * hd MWF, attempted yesterday but due to tachycardia, treatment stopped, plan on hd in am if hr allows * follow up daily lytes * uf with hd at tolerated * replete mag * strict i/os * renal diet * cards following, plans noted Subjective Date of service: 09/27/16 Principal diagnosis: Atrial fib Interval history: resting well in bed today Objective - Exam Narrative Exam: - General Limitations: Altered Mental Status General appearance: alert, in no apparent distress, other (unkempt) - Head Head exam: Present: atraumatic, normocephalic - Eye Eye exam: Present: normal appearance, PERRL, EOMI - ENT ENT exam: Present: normal exam, normal orophraynx, mucous membranes moist - Neck Neck exam: Present: normal inspection, full ROM. Absent: tenderness - Respiratory Respiratory exam: Present: normal lung sounds bilaterally. Absent: respiratory distress - Cardiovascular Cardiovascular Exam: Present: tachycardia, irregular rhythm, normal heart sounds - GI/Abdominal GI/Abdominal exam: Present: soft, normal bowel sounds. Absent: distended, tenderness - Extremities Exam Extremities exam: Present: full ROM. Absent: normal inspection (AV fistula to left upper extremity with palpable thrill. 3+ edema noted to the right lower extremity, which is unchanged per EMS), tenderness - Back Exam Back exam: Present: normal inspection, full ROM. Absent: tenderness - Neurological Exam Neurological exam: Present: alert, oriented X3. Absent: motor sensory deficit - Skin Skin exam: Present: warm, dry, intact - Vital Signs Vital signs: Vital Signs - 12hr 09/27/16 09/27/16 09/27/16 04:52 05:21 05:22 Temperature 98.3 F Pulse Rate 123 H 123 H Pulse Rate [ Left Radial] Pulse Rate [ 78 Right Radial] Respiratory 20 Rate Blood Pressure 120/66 [Right Radial Artery] O2 Sat by Pulse 100 Oximetry 09/27/16 09/27/16 09/27/16 07:45 08:20 12:34 Temperature 98.8 F 98.3 F Pulse Rate Pulse Rate [ 94 H 99 H Left Radial] Pulse Rate [ Right Radial] Respiratory 20 20 Rate Blood Pressure 111/59 89/53 [Right Radial Artery] O2 Sat by Pulse 95 99 100 Oximetry - Lab 09/23/16 06:33 09/26/16 04:45 Most recent lab results Calcium 8.3 mg/dL (8.4-10.2) L 09/26/16 04:45 Magnesium 2.5 mg/dL (1.7-2.3) H 09/24/16 04:59
[2016-09-27 14:33] LABS: BUN/Creatinine Ratio 8.93; Calcium 7.9 mg/dL (8.4-10.2)
[2016-09-27 16:32] LABS: Chloride 90.1 mmol/L (98-107); Potassium 4.6 mmol/L (3.6-5.0)
[2016-09-27] MEDS: ZOCOR PO SCH (22:45)
[2016-09-28] MEDS: ZOSYN/NS 2.25 GM/50ML 50 ML IV SCH ×3 (01:30→20:01)
[2016-09-28] MEDS: DUONEB 0.5 MG-3 MG/3 ML SOLN IH SCH ×4 (02:01→19:24)
[2016-09-28] MEDS: CARDIZEM PO SCH ×4 (06:07→18:49)
[2016-09-28] MEDS: LOPRESSOR PO SCH ×4 (06:09→20:01)
[2016-09-28 06:19] LABS: Hematocrit 34.1 % (35.5-45.6); Hemoglobin 10.9 gm/dl (11.8-15.2); Mean Corpuscular HGB Conc 32 % (32-34); Mean Corpuscular Hemoglobin 32 pg (28-32); Mean Corpuscular Volume 100 fl (84-94); Red Blood Count 3.43 M/mm3 (3.65-5.03); Red Cell Distribution Width 17.4 % (13.2-15.2)
[2016-09-28 06:23] LABS: White Blood Count 28.6 K/mm3 (4.5-11.0)
[2016-09-28 07:05] LABS: Anion Gap TNR mmol/L; Blood Urea Nitrogen TNR mg/dL (9-20); Carbon Dioxide TNR mmol/L (22-30); Chloride TNR mmol/L (98-107); Sodium TNR mmol/L (137-145)
[2016-09-28 07:07] LABS: BUN/Creatinine Ratio TNR; Calcium TNR mg/dL (8.4-10.2); Glucose TNR mg/dL (75-100); Potassium TNR mmol/L (3.6-5.0)
[2016-09-28 08:06] LABS: Basophils % (Manual) 0 % (0.0-1.8); Blastocytes % (Manual) 0 %; Eosinophils % (Manual) 0 % (0.0-4.3)
[2016-09-28 08:07] LABS: Anisocytosis 1+
[2016-09-28 08:08] LABS: Diff Status Complete; Polychromasia Few
[2016-09-28 08:14] LABS: BUN/Creatinine Ratio 9.76; Calcium 8.1 mg/dL (8.4-10.2); Chloride 92.5 mmol/L (98-107); Potassium 4.8 mmol/L (3.6-5.0)
[2016-09-28 08:29] LABS: Platelet Count 192 K/mm3 (140-440)
[2016-09-28] MEDS: NOVOLOG SUB-Q SCH ×3 (08:47→16:35)
[2016-09-28] MEDS: Renal Caps PO SCH ×3 (08:48→20:01)
--- NOTE | 2016-09-28 09:16 | Progress Note ---
Assessment and Plan 1. Atrial fibrillation Fib with a rapid ventricular response 2. End-stage renal disease on hemodialysis 3. Essential hypertension 4. History of CVA 5. Dementia Plan. Continue present management not to candidate for invasive management at this time I will continue anticoagulation as well as ventricular rate control management strategy increase metoprolol dose to 50 mg Subjective Date of service: 09/28/16 Principal diagnosis: Atrial fib Interval history: No specific cardiac problems. Patient is demented Objective Vital Signs Temp Pulse Pulse Pulse Pulse Pulse Resp 09/28/16 08:41 117 H 117 H 09/28/16 07:17 98.4 F 108 H 20 09/28/16 04:00 98.2 F 117 H 22 09/28/16 02:55 106 H 09/28/16 01:20 98.2 F 107 H 22 09/27/16 22:00 09/27/16 21:32 97.9 F 89 22 09/27/16 16:16 98.5 F 100 H 20 09/27/16 15:50 85 09/27/16 12:34 98.3 F 99 H 20 Resp Resp BP Pulse Ox 09/28/16 08:41 20 20 09/28/16 07:17 103/71 98 09/28/16 04:00 112/60 99 09/28/16 02:55 09/28/16 01:20 105/68 100 09/27/16 22:00 98 09/27/16 21:32 96/57 98 09/27/16 16:16 101/57 99 09/27/16 15:50 09/27/16 12:34 89/53 100 - Physical Examination General: No Apparent Distress HEENT: Positive: PERRL Neck: Positive: trachea midline. Negative: neck supple, JVD/HJR Cardiac: Positive: irregularly irregular, PMI, Dilated, Laterally Displaced Lungs: Positive: clear to auscultation, No Wheeze, Rales, Rhonchi Neuro: Positive: Grossly Intact Abdomen: Positive: Unremarkable, Soft Extremities: Absent: edema - Labs and Meds CBC 09/28/16 Range/Units 04:22 WBC 28.6 H (4.5-11.0) K/mm3 RBC 3.43 L (3.65-5.03) M/mm3 Hgb 10.9 L (11.8-15.2) gm/dl Hct 34.1 L (35.5-45.6) % Plt Count 192 (140-440) K/mm3 Comprehensive Metabolic Panel 09/27/16 09/28/16 09/28/16 Range/Units 13:35 04:22 07:52 Sodium 131 L D TNR 134 L (137-145) mmol/L Potassium 4.6 TNR 4.8 (3.6-5.0) mmol/L Chloride 90.1 L TNR 92.5 L (98-107) mmol/L Carbon Dioxide 22 TNR 21 L (22-30) mmol/L BUN 67 H TNR 84 H (9-20) mg/dL Creatinine 7.5 H TNR 8.6 H (0.8-1.5) mg/dL Glucose 242 H TNR 158 H (75-100) mg/dL Calcium 7.9 L TNR 8.1 L (8.4-10.2) mg/dL
[2016-09-28] MEDS: MONOKET PO SCH ×2 (09:59→22:22)
[2016-09-28] MEDS: PROTONIX PO SCH (09:59)
[2016-09-28] MEDS: LASIX PO SCH (09:59)
[2016-09-28] MEDS: APRESOLINE PO SCH (09:59)
[2016-09-28] MEDS: ELIQUIS PO SCH ×2 (09:59→22:22)
[2016-09-28] MEDS: PLAVIX PO SCH (09:59)
[2016-09-28] MEDS: CATAPRES PO SCH (09:59)
--- NOTE | 2016-09-28 12:43 | Progress Note ---
Assessment and Plan Assessment and plan: 1. Afib with RVR cardiology input appreciatd Echo report reviewed, shows preserved systolic function continue rate control meds, heart rate is better controlled today -Cardiology believes patient is not stable for invasive management at this time. -continue eliquis for CVA ppx -increase metoprolol dose to 50mg 2. NSTEMI. As above. 2. Hypotension Etiology was most likely due to uncontrolled A. fib. Resolving 3. ESRD Continued HD per renal 4. Generalized Weakness PT consult pending 5. DVT ppx Patient currently on eliquis 6. RLE cellulitis. CT scan reveals findings of cellulitis of the forefoot. Continue IV antibiotics and local wound care. ID consultation 7. Left fifth toe Osteomyelitis. I did consultation pending. 8. Disposition. Patient will be discharged to SNF per PT recommendations. History Interval history: No new issues overnight. No reports of chest pain or shortness of breath. Hospitalist Physical - Constitutional Vitals: Temp Pulse Resp BP Pulse Ox 98.9 F 134 H 20 92/59 96 09/28/16 12:21 09/28/16 12:21 09/28/16 12:21 09/28/16 12:21 09/28/16 12:21 General appearance: Present: no acute distress, well-nourished, other (appears exhausted) - EENT Eyes: Present: PERRL, EOM intact ENT: hearing intact, clear oral mucosa, dentition normal - Neck Neck: Present: supple, normal ROM - Respiratory Respiratory effort: normal Respiratory: bilateral: CTA - Cardiovascular Rhythm: regular Heart Sounds: Present: S1 & S2. Absent: gallop, rub - Extremities Extremities: no ischemia, No edema, Full ROM - Abdominal General gastrointestinal: soft, non-tender, non-distended, normal bowel sounds - Integumentary Integumentary: Present: clear, warm, dry - Neurologic Neurologic: CNII-XII intact, moves all extremities Results - Labs CBC & Chem 7: 09/28/16 04:22 09/28/16 07:52 Labs: Laboratory Last Values WBC 28.6 K/mm3 (4.5-11.0) H 09/28/16 04:22 RBC 3.43 M/mm3 (3.65-5.03) L 09/28/16 04:22 Hgb 10.9 gm/dl (11.8-15.2) L 09/28/16 04:22 Hct 34.1 % (35.5-45.6) L 09/28/16 04:22 MCV 100 fl (84-94) H 09/28/16 04:22 MCH 32 pg (28-32) 09/28/16 04:22 MCHC 32 % (32-34) 09/28/16 04:22 RDW 17.4 % (13.2-15.2) H 09/28/16 04:22 Plt Count 192 K/mm3 (140-440) 09/28/16 04:22 Baso % (Auto) International Account Manager 09/23/16 06:33 Add Manual Diff Complete 09/28/16 04:22 Total Counted 100 09/28/16 04:22 Seg Neutrophils % International Account Manager 09/28/16 04:22 Seg Neuts % (Manual) 91.0 % (40.0-70.0) H 09/28/16 04:22 Band Neutrophils % 1.0 % 09/28/16 04:22 Lymphocytes % (Manual) 3.0 % (13.4-35.0) L 09/28/16 04:22 Reactive Lymphs % (Man) 0 % 09/28/16 04:22 Monocytes % (Manual) 5.0 % (0.0-7.3) 09/28/16 04:22 Eosinophils % (Manual) 0 % (0.0-4.3) 09/28/16 04:22 Basophils % (Manual) 0 % (0.0-1.8) 09/28/16 04:22 Metamyelocytes % 0 % 09/28/16 04:22 Myelocytes % 0 % 09/28/16 04:22 Promyelocytes % 0 % 09/28/16 04:22 Blast Cells % 0 % 09/28/16 04:22 Nucleated RBC % Not Reportable 09/28/16 04:22 Seg Neutrophils # Man 26.0 K/mm3 (1.8-7.7) H 09/28/16 04:22 Band Neutrophils # 0.3 K/mm3 09/28/16 04:22 Lymphocytes # (Manual) 0.9 K/mm3 (1.2-5.4) L 09/28/16 04:22 Abs React Lymphs (Man) 0.0 K/mm3 09/28/16 04:22 Monocytes # (Manual) 1.4 K/mm3 (0.0-0.8) H 09/28/16 04:22 Eosinophils # (Manual) 0.0 K/mm3 (0.0-0.4) 09/28/16 04:22 Basophils # (Manual) 0.0 K/mm3 (0.0-0.1) 09/28/16 04:22 Metamyelocytes # 0.0 K/mm3 09/28/16 04:22 Myelocytes # 0.0 K/mm3 09/28/16 04:22 Promyelocytes # 0.0 K/mm3 09/28/16 04:22 Blast Cells # 0.0 K/mm3 09/28/16 04:22 Pathologist Review 09/23/16 06:33 WBC Morphology Not Reportable 09/28/16 04:22 Hypersegmented Neuts Not Reportable 09/28/16 04:22 Hyposegmented Neuts Not Reportable 09/28/16 04:22 Hypogranular Neuts Not Reportable 09/28/16 04:22 Smudge Cells Not Reportable 09/28/16 04:22 Toxic Granulation Not Reportable 09/28/16 04:22 Toxic Vacuolation Not Reportable 09/28/16 04:22 Dohle Bodies Not Reportable 09/28/16 04:22 Pelger-Huet Anomaly Not Reportable 09/28/16 04:22 Kody Rods Not Reportable 09/28/16 04:22 Platelet Estimate Not Reportable 09/28/16 04:22 Clumped Platelets Not Reportable 09/28/16 04:22 Plt Clumps, EDTA Not Reportable 09/28/16 04:22 Large Platelets Not Reportable 09/28/16 04:22 Giant Platelets Not Reportable 09/28/16 04:22 Platelet Satelliting Not Reportable 09/28/16 04:22 Plt Morphology Comment Not Reportable 09/28/16 04:22 RBC Morphology Not Reportable 09/28/16 04:22 Dimorphic RBCs Not Reportable 09/28/16 04:22 Polychromasia Few 09/28/16 04:22 Hypochromasia Not Reportable 09/28/16 04:22 Poikilocytosis Not Reportable 09/28/16 04:22 Anisocytosis 1+ 09/28/16 04:22 Microcytosis Not Reportable 09/28/16 04:22 Macrocytosis Not Reportable 09/28/16 04:22 Spherocytes Not Reportable 09/28/16 04:22 Pappenheimer Bodies Not Reportable 09/28/16 04:22 Sickle Cells Not Reportable 09/28/16 04:22 Target Cells Not Reportable 09/28/16 04:22 Tear Drop Cells Not Reportable 09/28/16 04:22 Ovalocytes Not Reportable 09/28/16 04:22 Helmet Cells Not Reportable 09/28/16 04:22 C[place] Bodies Not Reportable 09/28/16 04:22 [place] Rings Not Reportable 09/28/16 04:22 Mary Cells Not Reportable 09/28/16 04:22 Bite Cells Not Reportable 09/28/16 04:22 Crenated Cell Not Reportable 09/28/16 04:22 Elliptocytes Not Reportable 09/28/16 04:22 Acanthocytes (Spur) Not Reportable 09/28/16 04:22 Rouleaux Not Reportable 09/28/16 04:22 Hemoglobin C Crystals Not Reportable 09/28/16 04:22 Schistocytes Not Reportable 09/28/16 04:22 Malaria parasites Not Reportable 09/28/16 04:22 Marcelino Bodies Not Reportable 09/28/16 04:22 Hem Pathologist Commnt No 09/28/16 04:22 PT 15.7 Sec. (12.2-14.9) H 09/23/16 06:33 INR 1.26 (0.87-1.13) H 09/23/16 06:33 Sodium 134 mmol/L (137-145) L 09/28/16 07:52 Potassium 4.8 mmol/L (3.6-5.0) 09/28/16 07:52 Chloride 92.5 mmol/L (98-107) L 09/28/16 07:52 Carbon Dioxide 21 mmol/L (22-30) L 09/28/16 07:52 Anion Gap 25 mmol/L 09/28/16 07:52 BUN 84 mg/dL (9-20) H 09/28/16 07:52 Creatinine 8.6 mg/dL (0.8-1.5) H 09/28/16 07:52 Estimated GFR 7 ml/min 09/28/16 07:52 BUN/Creatinine Ratio 9.76 % 09/28/16 07:52 Glucose 158 mg/dL (75-100) H 09/28/16 07:52 POC Glucose 202 (70-105) H 09/27/16 23:51 Lactic Acid 2.3 mmol/L (0.7-2.0) H* 09/23/16 06:33 Calcium 8.1 mg/dL (8.4-10.2) L 09/28/16 07:52 Magnesium 2.5 mg/dL (1.7-2.3) H 09/24/16 04:59 Total Creatine Kinase 914 units/L (55-170) H 09/23/16 18:42 CK-MB (CK-2) 4.3 ng/mL (0.0-4.0) H 09/23/16 18:42 CK-MB (CK-2) Rel Index 0.4 (0-4) 09/23/16 18:42 Troponin T 0.221 ng/mL (0.00-0.029) H* 09/23/16 18:42 Triglycerides 199 mg/dL (2-149) H 09/23/16 06:33 Cholesterol 140 mg/dL (50-199) 09/23/16 06:33 LDL Cholesterol Direct 76 mg/dL (50-130) 09/23/16 06:33 HDL Cholesterol 25 mg/dL (40-59) L 09/23/16 06:33 Cholesterol/HDL Ratio 5.60 % 09/23/16 06:33 TSH 0.074 mlU/mL (0.270-4.200) L 09/23/16 11:28 Thyroxine (T4) 4.6 ug/dL (4.0-12.0) 09/23/16 11:28
--- NOTE | 2016-09-28 14:34 | Fluoroscopy Report ---
Modified barium swallow: Examination performed in conjunction with speech therapy. The patient was given different consistencies of opaque material. There was delay and difficulty in swallowing. Mild pooling in the valleculae and piriform sinuses. No aspiration.
[2016-09-28] MEDS: PROCRIT IV PRN (16:56)
[2016-09-28] MEDS: VANCOMYCIN/NS 1 GM/250 ML 250 ML IV SCH (20:01)
[2016-09-28] MEDS ORDERED: PROVENTIL IH PRN (22:02)
[2016-09-28] MEDS: ZOCOR PO SCH (22:22)
[2016-09-29] MEDS: APRESOLINE PO SCH ×3 (00:53→22:32)
[2016-09-29] MEDS: CATAPRES PO SCH ×3 (00:54→22:32)
[2016-09-29] MEDS: CARDIZEM PO SCH ×4 (00:55→18:01)
[2016-09-29] MEDS: ZOSYN/NS 2.25 GM/50ML 50 ML IV SCH ×3 (00:55→18:01)
[2016-09-29 06:46] LABS: Hematocrit 31.4 % (35.5-45.6); Hemoglobin 10.1 gm/dl (11.8-15.2); Mean Corpuscular HGB Conc 32 % (32-34); Mean Corpuscular Hemoglobin 32 pg (28-32); Mean Corpuscular Volume 99 fl (84-94); Platelet Count 219 K/mm3 (140-440); Red Blood Count 3.18 M/mm3 (3.65-5.03); Red Cell Distribution Width 16.8 % (13.2-15.2)
[2016-09-29 06:50] LABS: White Blood Count 29.9 K/mm3 (4.5-11.0)
[2016-09-29 07:01] LABS: BUN/Creatinine Ratio 8.48; Calcium 7.9 mg/dL (8.4-10.2); Chloride 93.6 mmol/L (98-107); Potassium 4.1 mmol/L (3.6-5.0)
[2016-09-29 07:43] LABS: Anisocytosis 1+; Basophils % (Manual) 0 % (0.0-1.8); Blastocytes % (Manual) 0 %; Diff Status Complete; Eosinophils % (Manual) 0 % (0.0-4.3); Hypochromasia Few; Large Platelets Rare; Poikilocytosis 1+; Polychromasia Few; Target Cells Few
[2016-09-29] MEDS: ELIQUIS PO SCH ×2 (10:18→22:34)
[2016-09-29] MEDS: PROTONIX PO SCH (10:18)
[2016-09-29] MEDS: Renal Caps PO SCH ×3 (10:18→22:35)
[2016-09-29] MEDS: MONOKET PO SCH ×2 (10:18→22:34)
[2016-09-29] MEDS: LOPRESSOR PO SCH ×3 (10:18→22:35)
[2016-09-29] MEDS: LASIX PO SCH (10:18)
[2016-09-29] MEDS: PLAVIX PO SCH (10:18)
--- NOTE | 2016-09-29 10:23 | Progress Note ---
Assessment and Plan Impression: * esrd * afib with rvr * anemia in esrd * htn * encephalopathy * hyperkalemia * metabolic acidosis Plan: * hd MWF, * Patient had uneventful hemodialysis yesterday * follow up daily lytes * uf with hd at tolerated * Recheck magnesium level * strict i/os * renal diet * cards following, plans noted Subjective Date of service: 09/29/16 Principal diagnosis: Atrial fib Interval history: Patient is comfortable this morning. Denies any shortness of breath. Objective - Vital Signs Vital signs: Vital Signs - 12hr 09/29/16 09/29/16 09/29/16 00:28 00:53 04:00 Temperature 98.4 F 97.6 F Pulse Rate Pulse Rate [ 116 H 121 H Left Radial] Pulse Rate [ Right Radial] Respiratory 22 20 Rate Blood Pressure 99/53 Blood Pressure 99/57 93/57 [Right Radial Artery] O2 Sat by Pulse 98 Oximetry 09/29/16 09/29/16 09/29/16 05:00 05:49 07:33 Temperature 98.4 F Pulse Rate 105 H 111 H Pulse Rate [ Left Radial] Pulse Rate [ 95 H Right Radial] Respiratory 20 Rate Blood Pressure Blood Pressure 98/58 [Right Radial Artery] O2 Sat by Pulse 99 Oximetry 09/29/16 09:11 Temperature Pulse Rate Pulse Rate [ Left Radial] Pulse Rate [ Right Radial] Respiratory Rate Blood Pressure Blood Pressure [Right Radial Artery] O2 Sat by Pulse 98 Oximetry - General Appearance General appearance: well-developed, well-nourished, appears stated age EENT: PERRL, mucous membranes moist Neck: no JVD, no thyromegaly, no carotid bruit, supple Respiratory: Present: Clear to Ascultation Cardiology: irregularly irregular Gastrointestinal: normal, normoactive bowel sounds Integumentary: other (AV fistula in his left upper arm. Good bruit and thrill. Right foot wrapped with a bandage) - Lab 09/29/16 05:40 09/29/16 05:40 Most recent lab results Calcium 7.9 mg/dL (8.4-10.2) L 09/29/16 05:40 Magnesium 2.5 mg/dL (1.7-2.3) H 09/24/16 04:59
--- NOTE | 2016-09-29 10:29 | Query-Infection ---
Rigoberto Victor___Reji Date:____09/29/16 Paperhanger Supervisor/CDS:____Glynn Ruvalcaba Phone#:__[phone] Exercise your independent professional judgment when responding to this query. Questions asked do not imply a particular answer is desired or expected. We greatly appreciate your clarification on this issue. Clinical Documentation States: 71 year old male was admitted on 09/23/16. The progress note (09/27/16) states " RLE stasis ulcer. Suspected infection. Continue IV antibiotics " The Progress note (09/28/16) states " RLE cellulitis. Continue IV antibiotics", and " left fifith toe osteomyelitis " 09/23/16 09/28/16 09/29/16 WBC: 14.4 28.6 29.9 Pulse: 102 131 111 Temperature: 97.2 Clinical findings show: (please check applicable parameters) Infection, known /suspected, with some of the following indicators; Specify the infection: 3 General parameters [ ] Fever (core temp >38.30C or 100.40F) [x] Hypothermia (core temp <36C) [x] Heart rate >90 bpm [ ] Tachypnea: >20 bpm or pCO2 < 32 mmHg [ ] Altered mental status [ ] Significant edema / +ve fluid balance (>20 ml/kg 24 h) [ ] Hyperglycemia (Bl. glucose >110 mg/dl) w/o diabetes Inflammatory parameters [x] Leukocytosis (white blood cell count >12,000/l) [ ] Leukopenia (white blood cell count <4,000/l) [ ] Bandemia (immature WBC > 10%) [ ] Leucocyte Left Shift [ ] Plasma procalcitonin>2 SD above the normal value Hemodynamic and tissue perfusion parameters [ ] Arterial hypotension(SBP <90 mmHg, MAP <70 mmHg,or a SBP drop >40 mmHg in adults) [ ] Hyperlactatemia (>3 mmol/l) [ ] Anion Gap (> 11mEG/l) [ ] Decreased capillary refill or mottling Organ dysfunction parameters [ ] Arterial hypoxemia (PaO2/FIO2 <300) [ ] Creatinine increase =0.5 mg/dl [ ] Acute oliguria (urine output <0.5 ml | kg |h or 45 mM/l for at least 2 hrs) [ ] Coagulation abnormalities (INR >1.5 or activated partial thromboplastin time >60 s) [ ] Ileus (absent reilly wel sounds) [ ] Thrombocytopenia (platelet count <100,000/l) [ ] Hyperbilirubinemia (plasma total bilirubin >4 mg/dl) According to the clinical indications above, can Bacteremia be further specified? If so, please indicate below and in your Progress Notes and/ or Discharge Summary. Indicate if the condition was present on admission. PHYSICIAN RESPONSE: [ ] Sepsis [ ] Severe Sepsis [ ] Septic Shock [ ] Septicemia [ ] Sepsis now resolved [ ] SIRS due to non-infectious cause with organ dysfunction [ ] SIRS due to non-infectious cause without organ dysfunction [ ] Other: [ ] Comment/Explanation: Present on Admission: [ ] Yes (Y) [ ] Clinically undeterminable (W) [ ] No ( N) [ ] Ruled Out Please also document response in your Progress Notes and/or Discharge Summary and indicate if the condition was present on admission Notes: SIRS/ SIRS WITH ORGAN DYSFUNCTION Systemic inflammatory response syndrome (SIRS) generally refers to the systemic response to trauma/gaines or other insult such as Acute Myocardial Infarction, Acute Pancreatitis, and Major Surgery with symptoms including fever, tachycardia , tachypnea, and leukocytosis (1). BACTEREMIA Presence of viable bacteria in the circulating blood (2). This term is reserved for patients that do not manifest above SIRS response. SEPTICEMIA Generally refers to a systemic disease associated with the presence of pathological microorganisms or toxins in the blood, which can include bacteria, viruses, fungi or other organisms (1). SEPSIS Generally refers to SIRS due infection (1). SEVERE SEPSIS Generally refers to sepsis associated with acute organ dysfunction (1). SEPTIC SHOCK Generally refers to circulatory failure associated with severe sepsis (2), and defined as hypotension or hypoperfusion despite adequate fluid resuscitation (1 hour) (3). REFERENCES: 1. [employer]/Society of Critical Care Medicine Consensus Conference. Definitions for sepsis and organ failure and guidelines for the use of innovative therapies in sepsis. Critical Care Med 1992;20:864 - 74. 2. Juan joshi MM, Kevin MP, Claudio KIKI, Toan E, Vazquez D, Wayne D, Monroy J, Lancaster SM , Cristobal JL, Julianna G; International Sepsis Definitions Conference. 2001 SCCM/ESICM/ACCP/ATS/SIS International Sepsis Definitions Conference. Intensive Care Med. 2002;29(4):530-8. Epub 2002Dec 22. Review. PubMed PMID:[id number] 3. ICD-9-CM Official Guidelines for Coding and Reporting 4. Medscape Drugs, Diseases and Procedures references 5. [employer] Textbook of Internal Medicine. 18th Edition MTDD
[2016-09-29] MEDS: NOVOLOG SUB-Q SCH ×2 (12:51→18:00)
--- NOTE | 2016-09-29 13:16 | Consultation ---
History of Present Illness - Reason for Consult Consult date: 09/29/16 Right foot infection Requesting physician: MICKEY KHAN - History of Present Illness Jacoby Shoemaker is a 71-year-old male with end-stage renal failure on maintenance HD , previous left hemispheral stroke with right hemiparesis, hypertension, chronic atrial fibrillation and anemia who was admitted to [facility] on 09/23/16 with increased lethargy at the dialysis center. He has evidence of a right foot infection. Currently he has no specific complaints but is somewhat lethargic and actually dozes off during my interview. He is not having any pain and is not aware that his foot is infected. He has had no subjective chills nor fever. He has no history of previous foot infections. He does have chronic bilateral lower extremity edema. Review of systems General: See HPI HEENT: no odynophagia, no dysphagia, no oral lesions, no vision changes CV: no chest pain, no palpitations Chest: no dyspnea, no cough GI: no abdominal pain, no N/V, no diarrhea : no change in urinary frequency, no dysuria, no hematuria Skin: He HPI Ext: See HPI Neuro: Right sided weakness as per HPI Endocrine: No history of diabetes. Psych: no anxiety, no depression Infectious diseases: No HIV risk factors, No history of STDs, No significant travel or animal contact history. Past History Past Medical History: atrial fib, arrhythmia, anemia, dialysis, ESRD, hypertension, renal failure Past Surgical History: Other (av access) Social history: denies: prescription drug abuse, IV drug use Family history: hypertension Medications and Allergies Allergies Allergy/AdvReac Type Severity Reaction Status Date / Time No Known Allergies Allergy Verified 11/08/15 09:09 Home Medications Medication Instructions Recorded Confirmed Last Taken Type Carvedilol [Coreg] 3.125 mg PO BID 09/23/16 09/23/16 Unknown History Clopidogrel [Plavix] 75 mg PO QDAY 09/23/16 09/23/16 Unknown History Furosemide [Lasix TAB] 40 mg PO QDAY 09/23/16 09/23/16 Unknown History Hydralazine HCl [Apresoline TAB] 50 mg PO BID 09/23/16 09/23/16 Unknown History ISOSORBIDE MONOnitrate [Monoket] 20 mg PO BID 09/23/16 09/23/16 Unknown History Pantoprazole [Protonix] 40 mg PO QDAY 09/23/16 09/23/16 Unknown History Sennosides/Docusate Sodium [Stool 1 each PO PRN PRN 09/23/16 09/23/16 Unknown History Softener Tablet] Simvastatin [Zocor TAB] 20 mg PO QHS 09/23/16 09/23/16 Unknown History Vit B Complex & C No.13/FA/D3 1 each PO AC 09/23/16 09/23/16 Unknown History [Nephrocaps Qt Tablet] amLODIPine [Norvasc] 10 mg PO DAILY 09/23/16 09/23/16 Unknown History cloNIDine [Catapres] 0.1 mg PO BID 09/23/16 09/23/16 Unknown History Active Meds: Active Medications Acetaminophen (Tylenol) 650 mg PO Q4H PRN PRN Reason: Pain MILD(1-3)/Fever >100.5/POSADAS Albuterol (Proventil) 2.5 mg IH Q4HRT PRN PRN Reason: Shortness Of Breath Apixaban (Eliquis) 2.5 mg PO Q12HR [facility] Last Admin: 09/29/16 10:18 Dose: 2.5 mg Bisacodyl (Dulcolax) 10 mg NH QDAY PRN PRN Reason: Constipation unrelieved by MOM Clonidine HCl (Catapres) 0.1 mg PO BID [facility] Last Admin: 09/29/16 10:18 Dose: Not Given Clopidogrel Bisulfate (Plavix) 75 mg PO QDAY [facility] Last Admin: 09/29/16 10:18 Dose: 75 mg Dextrose (D50w (25gm)) 50 ml IV PRN PRN PRN Reason: Hypoglycemia Diltiazem HCl (Cardizem) 30 mg PO Q6HR [facility] Last Admin: 09/29/16 12:52 Dose: 30 mg Epoetin Pedro (Procrit) 10,000 unit IV ILENE PRN PRN Reason: hemodialysis Last Admin: 09/28/16 16:56 Dose: 10,000 unit Furosemide (Lasix) 40 mg PO QDAY [facility] Last Admin: 09/29/16 10:18 Dose: 40 mg Hydralazine HCl (Apresoline) 50 mg PO BID [facility] Last Admin: 09/29/16 10:18 Dose: Not Given Sodium Chloride (Nacl 0.9% 1000 Ml) 100 mls @ 999 mls/hr IV ILENE PRN PRN Reason: Hypotension Piperacillin Sod/Tazobactam Sod (Zosyn/Ns 2.25 Gm/50ml) 50 mls @ 100 mls/hr IV Q8H BRYSON PRN Reason: Protocol Last Admin: 09/29/16 10:17 Dose: 100 mls/hr Vancomycin HCl (Vancomycin/Ns 1 Gm/250 Ml) 250 mls @ 166.667 mls/hr IV MoWeFr [facility] Last Admin: 09/28/16 20:01 Dose: 166.667 mls/hr Insulin Aspart (Novolog) 0 units SUB-Q AC [facility] PRN Reason: Protocol Last Admin: 09/29/16 12:51 Dose: Not Given Isosorbide Mononitrate (Monoket) 20 mg PO BID [facility] Last Admin: 09/29/16 10:18 Dose: 20 mg Metoprolol Tartrate (Lopressor) 50 mg PO TID [facility] Last Admin: 09/29/16 10:18 Dose: 50 mg Multivit/Ca Carb/B Cmplx/FA/Prenat (Renal Caps) 1 cap PO TID [facility] Last Admin: 09/29/16 10:18 Dose: 1 cap Ondansetron HCl (Zofran) 4 mg IV Q8H PRN PRN Reason: N/V unrelieved by Reglan Pantoprazole Sodium (Protonix) 40 mg PO QDAY [facility] Last Admin: 09/29/16 10:18 Dose: 40 mg Senna/Docusate Sodium (Senokot S) 1 tab PO PRN PRN PRN Reason: Constipation Simvastatin (Zocor) 20 mg PO QHS [facility] Last Admin: 09/28/16 22:22 Dose: 20 mg Sodium Chloride (Sodium Chloride Flush Syringe 10 Ml) 10 ml IV PRN PRN PRN Reason: LINE FLUSH Vancomycin HCl (Vancomycin Pharmacy To Dose) 1 each IV PKCONSULT [facility] PRN Reason: Protocol Physical Examination - Physical Exam Narrative exam: GENERAL: Well-developed, clinically ill-appearing male is alert and in no acute distress but somewhat lethargic. HEAD: Normocephalic. No lesions seen. EYES: Pupils are equal reactive to light and accommodation. There is no scleral icterus. Optic fundi are not examined. Bilateral arcus senilis. EARS: External ears are normal. THROAT: Oropharynx is normal with no evidence of oral candidiasis or pharyngitis. Patient has extremely poor dentition with multiple missing teeth but no obvious dental infection. NECK: Supple. No enlargement of the thyroid gland. No significant cervical lymphadenopathy. No jugular venous distention at 30. LUNGS: Clear with no adventitious sounds. HEART: Irregularly irregular. There are no gallops, clicks or rubs heard. There is a grade III/ FELIX heard over the left upper sternal border. I hear no diastolic murmur. ABDOMEN: Soft and nontender. Liver and spleen are not palpably enlarged or tender. No palpable masses. Bowel sounds are normoactive. EXTREMITIES: Marked bilateral lower extremity edema with chronic stasis changes. There is an ulcer over the lateral aspect of the right foot involving the right fifth toe with some ischemic changes and marked purulent, malodorous drainage resident. There is mild surrounding erythema and warmth. Peripheral pulses are difficult to palpate in the lower extremities but exam is difficult because of the marked edema. SKIN: As above. AV graft in the left upper extremity with no signs of infection and good palpable thrill and audible bruit. : Normal external male except for some testicular atrophy. NEUROLOGIC: Right-sided weakness. - Constitutional Vitals: Vital Signs Temp Pulse Resp BP Pulse Ox 98.2 F 129 H 24 110/61 99 09/29/16 12:08 09/29/16 12:08 09/29/16 12:08 09/29/16 12:08 09/29/16 12:08 Temperature -Last 24 Hours Temperature 98.2 F Temperature 98.4 F Temperature 97.6 F Temperature 98.4 F Temperature 97.5 F Temperature 98.2 F Temperature 98.2 F Temperature 98.9 F Results - Labs CBC & Chem 7: 09/29/16 05:40 09/29/16 05:40 Labs: Abnormal lab results Microbiology 09/27/16 Unknown Foot - Right Wound Culture - Final Proteus mirabilis (resistant only to tetracycline) Gram stain: No PMNs, moderate gram-negative rods and few gram-positive cocci. Imagin/1: CT right foot: Cellulitis of the forefoot with osteomyelitis of the fifth toe and partial destruction of the proximal phalanx of the fifth toe. Extensive soft tissue edema involving the lower leg ankle and foot. Extensive soft tissue air in the deep soft tissues of the forefoot with greater air laterally associated with the fifth toe. Deep soft tissue fluid collection suggesting abscess. Assessment and Plan Current antibiotics: Vancomycin (pulse dosed) 09/26 --> Zosyn 2.25 g IV q8h 09/26 --> ASSESSMENT: Jacoby Shoemaker is a 71-year-old male with end-stage renal failure on maintenance HD , previous left hemispheral stroke with right hemiparesis, hypertension, chronic atrial fibrillation and anemia who was admitted to [facility] on 09/23/16 with increased lethargy at the dialysis center. He has evidence of a right foot infection. Problem list: 1. Right foot infection -CT scan shows evidence of osteomyelitis of the fifth toe as well as abscess formation in the forefoot -Likely mixed aerobic and anaerobic pathogens with the marked malodorous drainage 2. End-stage renal failure -Hemodialysis dependent 3. Hypertension 4. Chronic atrial fibrillation -Rapid ventricular response on admission with rate controlled now 5. Status post left hemispheral stroke -Chronic right hemiparesis 6. Leukocytosis -Secondary to #1 PLAN: 1. Will check blood cultures 2. Continue empiric antibiotics with Zosyn and vancomycin 3. Agree with orthopedic evaluation. Patient will need at least debridement possibly amputation 4. Aggressive local wound care Thank you for this consultation. We will follow with you. Lino Singh MD [facility] Office: [phone]
--- NOTE | 2016-09-29 13:17 | Progress Note ---
Assessment and Plan The patient is frail, cachectic, has multiple co-morbidities, not on optimal candidate for aggressive evaluation and therapies. We will recommend a conservative cardiac approach, with medical therapy for underlying cardiac disease and troph fibrillation. Subjective Date of service: 09/29/16 Principal diagnosis: Atrial fib Interval history: Patient appears lethargic, breathing comfortably no acute distress. Objective Vital Signs Temp Pulse Pulse Pulse Pulse Resp Resp 09/29/16 12:08 98.2 F 129 H 24 09/29/16 09:11 09/29/16 07:33 98.4 F 95 H 20 09/29/16 05:49 111 H 09/29/16 05:00 105 H 09/29/16 04:00 97.6 F 121 H 20 09/29/16 00:53 09/29/16 00:28 98.4 F 116 H 22 09/28/16 20:35 97.5 F L 112 H 22 09/28/16 19:37 102 H 18 09/28/16 19:30 09/28/16 19:25 101 H 18 09/28/16 17:35 98.2 F 108 H 18 09/28/16 17:30 102 H 09/28/16 17:18 111 H 09/28/16 17:15 103 H 09/28/16 17:00 104 H 09/28/16 16:45 97 H 09/28/16 16:30 99 H 09/28/16 16:17 98.2 F 95 H 20 09/28/16 16:15 100 H 09/28/16 16:00 95 H 09/28/16 15:45 100 H 09/28/16 15:30 98 H 09/28/16 15:15 108 H 09/28/16 15:00 97 H 09/28/16 14:45 111 H 09/28/16 14:30 131 H 09/28/16 14:25 98.9 F 130 H 20 09/28/16 13:24 BP BP Pulse Ox Pulse Ox 09/29/16 12:08 110/61 99 09/29/16 09:11 98 09/29/16 07:33 98/58 99 09/29/16 05:49 09/29/16 05:00 09/29/16 04:00 93/57 98 09/29/16 00:53 99/53 09/29/16 00:28 99/57 09/28/16 20:35 101/60 100 09/28/16 19:37 09/28/16 19:30 101 H 09/28/16 19:25 09/28/16 17:35 102/58 09/28/16 17:30 103/51 09/28/16 17:18 09/28/16 17:15 101/52 09/28/16 17:00 104/57 09/28/16 16:45 106/58 09/28/16 16:30 103/60 09/28/16 16:17 103/61 98 09/28/16 16:15 108/58 09/28/16 16:00 103/61 09/28/16 15:45 102/65 09/28/16 15:30 109/56 09/28/16 15:15 102/56 09/28/16 15:00 105/65 09/28/16 14:45 107/59 09/28/16 14:30 103/53 09/28/16 14:25 100/66 98 09/28/16 13:24 98 - Physical Examination General: No Apparent Distress, Cachectic HEENT: Positive: PERRL Neck: Positive: trachea midline. Negative: neck supple, JVD/HJR Cardiac: Positive: Reg Rate and Rhythm Lungs: Positive: Decreased Breath Sounds Neuro: Positive: Grossly Intact Abdomen: Positive: Unremarkable, Soft Skin: Positive: Clear Extremities: Absent: edema - Labs and Meds CBC 09/29/16 Range/Units 05:40 WBC 29.9 H (4.5-11.0) K/mm3 RBC 3.18 L (3.65-5.03) M/mm3 Hgb 10.1 L (11.8-15.2) gm/dl Hct 31.4 L (35.5-45.6) % Plt Count 219 (140-440) K/mm3 Comprehensive Metabolic Panel 09/29/16 Range/Units 05:40 Sodium 137 (137-145) mmol/L Potassium 4.1 (3.6-5.0) mmol/L Chloride 93.6 L (98-107) mmol/L Carbon Dioxide 24 (22-30) mmol/L BUN 56 H (9-20) mg/dL Creatinine 6.6 H (0.8-1.5) mg/dL Glucose 211 H (75-100) mg/dL Calcium 7.9 L (8.4-10.2) mg/dL
--- NOTE | 2016-09-29 16:16 | Progress Note ---
Assessment and Plan Assessment and plan: 1. Afib with RVR- cardiology input appreciated; cotn cardizema and metoprolol and adjust as needed; cotn eliquis; f/u cardiology 2. NSTEMI- cotn plavix; imdur; metoprolol; statin 3. ESRD- Continued HD per renal 4. Generalized Weakness - PT 5. Sepsis due to RLE cellulitis with necrosis and infected foot - consult ID; Continue IV antibiotics zosyn and vancomycin; local wound care. ID consultation appreciated; increasing WBC 6. Left fifth toe Osteomyelitis- consult ortho; cotn antibiotics 7. DVT prophylaxis-eliquis History Interval history: f/u RT foot infection; Lt foot OM; Atrial fibrillation Patient seen at the bedside; no complaints; foul smelling odor from the RT foot Hospitalist Physical - Constitutional Vitals: Temp Pulse Resp BP Pulse Ox 98.2 F 129 H 24 110/61 99 09/29/16 12:08 09/29/16 12:08 09/29/16 12:08 09/29/16 12:08 09/29/16 12:08 General appearance: Present: no acute distress, well-nourished, other (appears exhausted) - EENT Eyes: Present: PERRL, EOM intact. Absent: scleral icterus, conjunctival injection ENT: hearing intact, clear oral mucosa, no oropharyngeal erythema - Neck Neck: Present: supple, normal ROM. Absent: enlarged thyroid, masses or JVD - Respiratory Respiratory effort: normal Respiratory: bilateral: diminished, negative: rales, rhonchi, wheezing - Cardiovascular Rhythm: regular Heart Sounds: Present: S1 & S2. Absent: gallop - Extremities Extremity abnormal: other (ulcaer to lateral border of foot; foul smelling purulent discharge ) - Abdominal General gastrointestinal: soft, non-tender, non-distended - Integumentary Integumentary: Present: clear - Psychiatric Psychiatric: appropriate mood/affect, intact judgment & insight - Neurologic Neurologic: CNII-XII intact, moves all extremities Results - Labs CBC & Chem 7: 09/29/16 05:40 09/29/16 05:40 Labs: Laboratory Last Values WBC 29.9 K/mm3 (4.5-11.0) H 09/29/16 05:40 RBC 3.18 M/mm3 (3.65-5.03) L 09/29/16 05:40 Hgb 10.1 gm/dl (11.8-15.2) L 09/29/16 05:40 Hct 31.4 % (35.5-45.6) L 09/29/16 05:40 MCV 99 fl (84-94) H 09/29/16 05:40 MCH 32 pg (28-32) 09/29/16 05:40 MCHC 32 % (32-34) 09/29/16 05:40 RDW 16.8 % (13.2-15.2) H 09/29/16 05:40 Plt Count 219 K/mm3 (140-440) 09/29/16 05:40 Baso % (Auto) [employer] 09/23/16 06:33 Add Manual Diff Complete 09/29/16 05:40 Total Counted 100 09/29/16 05:40 Seg Neutrophils % [employer] 09/29/16 05:40 Seg Neuts % (Manual) 91.0 % (40.0-70.0) H 09/28/16 04:22 Band Neutrophils % 1.0 % 09/29/16 05:40 Lymphocytes % (Manual) 1.0 % (13.4-35.0) L 09/29/16 05:40 Reactive Lymphs % (Man) 0 % 09/29/16 05:40 Monocytes % (Manual) 2.0 % (0.0-7.3) 09/29/16 05:40 Eosinophils % (Manual) 0 % (0.0-4.3) 09/29/16 05:40 Basophils % (Manual) 0 % (0.0-1.8) 09/29/16 05:40 Metamyelocytes % 0 % 09/29/16 05:40 Myelocytes % 0 % 09/29/16 05:40 Promyelocytes % 0 % 09/29/16 05:40 Blast Cells % 0 % 09/29/16 05:40 Nucleated RBC % Not Reportable 09/29/16 05:40 Seg Neutrophils # Man 28.7 K/mm3 (1.8-7.7) H 09/29/16 05:40 Band Neutrophils # 0.3 K/mm3 09/29/16 05:40 Lymphocytes # (Manual) 0.3 K/mm3 (1.2-5.4) L 09/29/16 05:40 Abs React Lymphs (Man) 0.0 K/mm3 09/29/16 05:40 Monocytes # (Manual) 0.6 K/mm3 (0.0-0.8) 09/29/16 05:40 Eosinophils # (Manual) 0.0 K/mm3 (0.0-0.4) 09/29/16 05:40 Basophils # (Manual) 0.0 K/mm3 (0.0-0.1) 09/29/16 05:40 Metamyelocytes # 0.0 K/mm3 09/29/16 05:40 Myelocytes # 0.0 K/mm3 09/29/16 05:40 Promyelocytes # 0.0 K/mm3 09/29/16 05:40 Blast Cells # 0.0 K/mm3 09/29/16 05:40 Pathologist Review 09/23/16 06:33 WBC Morphology Not Reportable 09/29/16 05:40 Hypersegmented Neuts Not Reportable 09/29/16 05:40 Hyposegmented Neuts Not Reportable 09/29/16 05:40 Hypogranular Neuts Not Reportable 09/29/16 05:40 Smudge Cells Not Reportable 09/29/16 05:40 Toxic Granulation Not Reportable 09/29/16 05:40 Toxic Vacuolation Not Reportable 09/29/16 05:40 Dohle Bodies Not Reportable 09/29/16 05:40 Pelger-Huet Anomaly Not Reportable 09/29/16 05:40 Kody Rods Not Reportable 09/29/16 05:40 Platelet Estimate Appears normal 09/29/16 05:40 Clumped Platelets Not Reportable 09/29/16 05:40 Plt Clumps, EDTA Not Reportable 09/29/16 05:40 Large Platelets Rare 09/29/16 05:40 Giant Platelets Not Reportable 09/29/16 05:40 Platelet Satelliting Not Reportable 09/29/16 05:40 Plt Morphology Comment Not Reportable 09/29/16 05:40 RBC Morphology Not Reportable 09/29/16 05:40 Dimorphic RBCs Not Reportable 09/29/16 05:40 Polychromasia Few 09/29/16 05:40 Hypochromasia Few 09/29/16 05:40 Poikilocytosis 1+ 09/29/16 05:40 Anisocytosis 1+ 09/29/16 05:40 Microcytosis Not Reportable 09/29/16 05:40 Macrocytosis Not Reportable 09/29/16 05:40 Spherocytes Not Reportable 09/29/16 05:40 Pappenheimer Bodies Not Reportable 09/29/16 05:40 Sickle Cells Not Reportable 09/29/16 05:40 Target Cells Few 09/29/16 05:40 Tear Drop Cells Not Reportable 09/29/16 05:40 Ovalocytes Not Reportable 09/29/16 05:40 Helmet Cells Not Reportable 09/29/16 05:40 Cramer-Selah Bodies Not Reportable 09/29/16 05:40 Center Rings Not Reportable 09/29/16 05:40 Mouth Of Wilson Cells Not Reportable 09/29/16 05:40 Bite Cells Not Reportable 09/29/16 05:40 Crenated Cell Not Reportable 09/29/16 05:40 Elliptocytes Not Reportable 09/29/16 05:40 Acanthocytes (Spur) Not Reportable 09/29/16 05:40 Rouleaux Not Reportable 09/29/16 05:40 Hemoglobin C Crystals Not Reportable 09/29/16 05:40 Schistocytes Not Reportable 09/29/16 05:40 Malaria parasites Not Reportable 09/29/16 05:40 Marcelino Bodies Not Reportable 09/29/16 05:40 Hem Pathologist Commnt No 09/29/16 05:40 PT 15.7 Sec. (12.2-14.9) H 09/23/16 06:33 INR 1.26 (0.87-1.13) H 09/23/16 06:33 Sodium 137 mmol/L (137-145) 09/29/16 05:40 Potassium 4.1 mmol/L (3.6-5.0) 09/29/16 05:40 Chloride 93.6 mmol/L (98-107) L 09/29/16 05:40 Carbon Dioxide 24 mmol/L (22-30) 09/29/16 05:40 Anion Gap 24 mmol/L 09/29/16 05:40 BUN 56 mg/dL (9-20) H 09/29/16 05:40 Creatinine 6.6 mg/dL (0.8-1.5) H 09/29/16 05:40 Estimated GFR 10 ml/min 09/29/16 05:40 BUN/Creatinine Ratio 8.48 % 09/29/16 05:40 Glucose 211 mg/dL (75-100) H 09/29/16 05:40 POC Glucose 275 (70-105) H 09/29/16 15:39 Lactic Acid 2.3 mmol/L (0.7-2.0) H* 09/23/16 06:33 Calcium 7.9 mg/dL (8.4-10.2) L 09/29/16 05:40 Magnesium 2.5 mg/dL (1.7-2.3) H 09/24/16 04:59 Total Creatine Kinase 914 units/L (55-170) H 09/23/16 18:42 CK-MB (CK-2) 4.3 ng/mL (0.0-4.0) H 09/23/16 18:42 CK-MB (CK-2) Rel Index 0.4 (0-4) 09/23/16 18:42 Troponin T 0.221 ng/mL (0.00-0.029) H* 09/23/16 18:42 Triglycerides 199 mg/dL (2-149) H 09/23/16 06:33 Cholesterol 140 mg/dL (50-199) 09/23/16 06:33 LDL Cholesterol Direct 76 mg/dL (50-130) 09/23/16 06:33 HDL Cholesterol 25 mg/dL (40-59) L 09/23/16 06:33 Cholesterol/HDL Ratio 5.60 % 09/23/16 06:33 TSH 0.074 mlU/mL (0.270-4.200) L 09/23/16 11:28 Thyroxine (T4) 4.6 ug/dL (4.0-12.0) 09/23/16 11:28 CT right foot: Cellulitis of the forefoot with osteomyelitis of the fifth toe and partial destruction of the proximal phalanx of the fifth toe. Extensive soft tissue edema involving the lower leg ankle and foot. Extensive soft tissue air in the deep soft tissues of the forefoot with greater air laterally associated with the fifth toe. Deep soft tissue fluid collection suggesting abscess.
--- NOTE | 2016-09-29 17:31 | Consultation ---
History of Present Illness - HPI Consult date: 09/29/16 Consult reason: other History of present illness: 71-year-old man seen on consultation for open wound drainage is foul smell over the lateral aspect of the right foot, going on for 2 weeks or so. He does not give any history of injury He is known with diabetes mellitus, end-stage renal disease. Past History Past Medical History: atrial fib, arrhythmia, anemia, dialysis, ESRD, hypertension, renal failure Past Surgical History: Other (av access) Social history: denies: prescription drug abuse, IV drug use Family history: hypertension Medications and Allergies Allergies Allergy/AdvReac Type Severity Reaction Status Date / Time No Known Allergies Allergy Verified 11/08/15 09:09 Home Medications Medication Instructions Recorded Confirmed Last Taken Type Carvedilol [Coreg] 3.125 mg PO BID 09/23/16 09/23/16 Unknown History Clopidogrel [Plavix] 75 mg PO QDAY 09/23/16 09/23/16 Unknown History Furosemide [Lasix TAB] 40 mg PO QDAY 09/23/16 09/23/16 Unknown History Hydralazine HCl [Apresoline TAB] 50 mg PO BID 09/23/16 09/23/16 Unknown History ISOSORBIDE MONOnitrate [Monoket] 20 mg PO BID 09/23/16 09/23/16 Unknown History Pantoprazole [Protonix] 40 mg PO QDAY 09/23/16 09/23/16 Unknown History Sennosides/Docusate Sodium [Stool 1 each PO PRN PRN 09/23/16 09/23/16 Unknown History Softener Tablet] Simvastatin [Zocor TAB] 20 mg PO QHS 09/23/16 09/23/16 Unknown History Vit B Complex & C No.13/FA/D3 1 each PO AC 09/23/16 09/23/16 Unknown History [Nephrocaps Qt Tablet] amLODIPine [Norvasc] 10 mg PO DAILY 09/23/16 09/23/16 Unknown History cloNIDine [Catapres] 0.1 mg PO BID 09/23/16 09/23/16 Unknown History Active Meds: Active Medications Acetaminophen (Tylenol) 650 mg PO Q4H PRN PRN Reason: Pain MILD(1-3)/Fever >100.5/POSADAS Albuterol (Proventil) 2.5 mg IH Q4HRT PRN PRN Reason: Shortness Of Breath Apixaban (Eliquis) 2.5 mg PO Q12HR [facility] Last Admin: 09/29/16 10:18 Dose: 2.5 mg Bisacodyl (Dulcolax) 10 mg NC QDAY PRN PRN Reason: Constipation unrelieved by MOM Clonidine HCl (Catapres) 0.1 mg PO BID [facility] Last Admin: 09/29/16 10:18 Dose: Not Given Clopidogrel Bisulfate (Plavix) 75 mg PO QDAY [facility] Last Admin: 09/29/16 10:18 Dose: 75 mg Dextrose (D50w (25gm)) 50 ml IV PRN PRN PRN Reason: Hypoglycemia Diltiazem HCl (Cardizem) 30 mg PO Q6HR [facility] Last Admin: 09/29/16 12:52 Dose: 30 mg Epoetin Pedro (Procrit) 10,000 unit IV ILENE PRN PRN Reason: hemodialysis Last Admin: 09/28/16 16:56 Dose: 10,000 unit Furosemide (Lasix) 40 mg PO QDAY [facility] Last Admin: 09/29/16 10:18 Dose: 40 mg Hydralazine HCl (Apresoline) 50 mg PO BID [facility] Last Admin: 09/29/16 10:18 Dose: Not Given Sodium Chloride (Nacl 0.9% 1000 Ml) 100 mls @ 999 mls/hr IV ILENE PRN PRN Reason: Hypotension Piperacillin Sod/Tazobactam Sod (Zosyn/Ns 2.25 Gm/50ml) 50 mls @ 100 mls/hr IV Q8H [facility] PRN Reason: Protocol Last Admin: 09/29/16 10:17 Dose: 100 mls/hr Vancomycin HCl (Vancomycin/Ns 1 Gm/250 Ml) 250 mls @ 166.667 mls/hr IV MoWeFr [facility] Last Admin: 09/28/16 20:01 Dose: 166.667 mls/hr Insulin Aspart (Novolog) 0 units SUB-Q AC [facility] PRN Reason: Protocol Last Admin: 09/29/16 12:51 Dose: Not Given Isosorbide Mononitrate (Monoket) 20 mg PO BID [facility] Last Admin: 09/29/16 10:18 Dose: 20 mg Metoprolol Tartrate (Lopressor) 50 mg PO TID [facility] Last Admin: 09/29/16 13:23 Dose: 50 mg Multivit/Ca Carb/B Cmplx/FA/Prenat (Renal Caps) 1 cap PO TID [facility] Last Admin: 09/29/16 13:23 Dose: 1 cap Ondansetron HCl (Zofran) 4 mg IV Q8H PRN PRN Reason: N/V unrelieved by Reglan Pantoprazole Sodium (Protonix) 40 mg PO QDAY [facility] Last Admin: 09/29/16 10:18 Dose: 40 mg Senna/Docusate Sodium (Senokot S) 1 tab PO PRN PRN PRN Reason: Constipation Simvastatin (Zocor) 20 mg PO QHS [facility] Last Admin: 09/28/16 22:22 Dose: 20 mg Sodium Chloride (Sodium Chloride Flush Syringe 10 Ml) 10 ml IV PRN PRN PRN Reason: LINE FLUSH Vancomycin HCl (Vancomycin Pharmacy To Dose) 1 each IV PKCONSULT [facility] PRN Reason: Protocol Review of Systems All systems: negative Physical Examination - Physical exam Eyes: PERRL ENT: Positive: clear oral mucosa Respiratory effort: normal Respiratory: bilateral: CTA Rhythm: regular Heart Sounds: Positive: S1 & S2 General gastrointestinal: Positive: soft, non-tender, non-distended, normal bowel sounds Integumentary: clear, warm, dry Neurologic: Positive: CNII-XII intact, moves all extremities, gait normal. Negative: focal deficits - Ankle & Foot right Foot appearance: other (Right foot with mild diffuse swelling, extending into the ankle and distal leg. There is open wound over the lateral aspect of the big toe possibly 1-2 cm in length with purulent drainage, for swelling. Sensations are diminished. Discoloration of the toe.) - Cervical Spine Neck pain: none Tenderness with palpation: none Full ROM: yes ROM: flexion: normal ROM: extension: normal ROM: rotation right: normal ROM: rotation left: normal ROM: lateral flexion right: normal ROM: lateral flexion left: normal - Lumbar Spine Back pain: none Tenderness with palpation: none Appearance: normal Full ROM: yes ROM: flexion: normal ROM: extension: normal ROM: rotation right: normal ROM: rotation left: normal ROM: lateral flexion right: normal ROM: lateral flexion left: normal Assessment and Plan - Patient Problems (1) Right foot infection Current Visit: Yes Status: Chronic Plan to address problem: need debridment, ? amputation, will scheduleWith ongoing for smelling drainage, bony destruction, diabetes with possible neuropathy recommended extensive debridement, open wound management. There is significant risk of amputation of the toes, may need a proximal level amputation depending on what condition. I have discussed this with him, we'll tentatively scheduled for tomorrow.
[2016-09-29] MEDS: ZOCOR PO SCH (22:34)
[2016-09-30] MEDS: CARDIZEM PO SCH ×3 (00:57→21:50)
[2016-09-30] MEDS: ZOSYN/NS 2.25 GM/50ML 50 ML IV SCH (00:58)
[2016-09-30 05:58] LABS: Hematocrit 31.2 % (35.5-45.6); Hemoglobin 10.3 gm/dl (11.8-15.2); Mean Corpuscular HGB Conc 33 % (32-34); Mean Corpuscular Hemoglobin 32 pg (28-32); Mean Corpuscular Volume 98 fl (84-94); Platelet Count 228 K/mm3 (140-440); Red Blood Count 3.18 M/mm3 (3.65-5.03); Red Cell Distribution Width 16.9 % (13.2-15.2)
[2016-09-30 06:06] LABS: White Blood Count 27.6 K/mm3 (4.5-11.0)
[2016-09-30 06:13] LABS: BUN/Creatinine Ratio 8.73; Calcium 8.3 mg/dL (8.4-10.2); Chloride 90.8 mmol/L (98-107); Magnesium 2.2 mg/dL (1.7-2.3)
[2016-09-30 08:48] LABS: Basophils % (Manual) 0 % (0.0-1.8); Blastocytes % (Manual) 0 %; Eosinophils % (Manual) 0 % (0.0-4.3)
[2016-09-30 08:49] LABS: Anisocytosis 1+; Diff Status Complete; Large Platelets Rare; Platelet Clumps Rare; Polychromasia Few
--- NOTE | 2016-09-30 09:22 | Progress Note ---
Assessment and Plan Impression: * esrd * afib with rvr * anemia in esrd * htn * encephalopathy * hyperkalemia * metabolic acidosis * Leukocytosis * Right foot infection Plan: * Continue hd MWF, * uf with hd at tolerated * magnesium level is better at 2.2 * strict i/os * renal diet * Infectious disease and cardiology notes appreciated Subjective Date of service: 09/30/16 Principal diagnosis: Atrial fib Interval history: Patient is comfortable today. Denies any shortness of breath. Objective - Vital Signs Vital signs: Vital Signs - 12hr 09/29/16 09/29/16 09/29/16 22:32 22:35 23:38 Temperature Pulse Rate 111 H Pulse Rate [ Left Radial] Respiratory Rate Blood Pressure 95/59 95/59 Blood Pressure [Right Radial Artery] O2 Sat by Pulse Oximetry 09/29/16 09/30/16 09/30/16 23:49 00:00 04:00 Temperature 97.3 F L 98.7 F Pulse Rate Pulse Rate [ 111 H 116 H 104 H Left Radial] Respiratory 22 20 20 Rate Blood Pressure Blood Pressure 98/62 97/60 [Right Radial Artery] O2 Sat by Pulse 98 100 Oximetry 09/30/16 09/30/16 07:10 07:19 Temperature 97.0 F L Pulse Rate Pulse Rate [ 99 H Left Radial] Respiratory 20 Rate Blood Pressure Blood Pressure 114/65 [Right Radial Artery] O2 Sat by Pulse 96 97 Oximetry - General Appearance General appearance: well-developed, well-nourished, appears stated age EENT: PERRL, mucous membranes moist Neck: no JVD, no thyromegaly, no carotid bruit, supple Respiratory: Present: Clear to Ascultation Cardiology: regular, irregularly irregular Gastrointestinal: normal, normoactive bowel sounds Integumentary: other (AV fistula in his left upper arm. Good bruit and thrill. Right foot wrapped with a bandage) - Lab 09/30/16 04:38 09/30/16 04:38 Most recent lab results Calcium 8.3 mg/dL (8.4-10.2) L 09/30/16 04:38 Magnesium 2.2 mg/dL (1.7-2.3) 09/30/16 04:38
[2016-09-30] MEDS: Renal Caps PO SCH ×2 (09:39→21:37)
[2016-09-30] MEDS: MONOKET PO SCH ×2 (09:39→21:33)
[2016-09-30] MEDS: PROTONIX PO SCH (09:39)
[2016-09-30] MEDS: LOPRESSOR PO SCH ×2 (09:40→21:38)
[2016-09-30] MEDS: NOVOLOG SUB-Q SCH (09:42)
--- NOTE | 2016-09-30 09:56 | Progress Note ---
Assessment and Plan Altered mental status -resolved Atrial fibrillation/flutter rate controlled on cardizem and metoprolol ESRD on HD Hypertension Prior CVA Osteomyelitis needing wound debridment and possible toe amputation Echocardiogram reports a technical difficult study, ejection fraction 50-55% Recommendations: Continue cardizem and metoprolol for rate control of atrial fibrillation/ flutter. Resume eliquis when surgically feasible. Would favor local/regional anesthesia vs general anesthesia Moderate to high CV risk based on afib/flutter and episodes of NSVT Subjective Date of service: 09/30/16 Principal diagnosis: Atrial fib Interval history: Patient denies chest pain or shortness of breath this morning Tele is showing evidence of atrial flutter and occasional episodes of NSVT Objective Vital Signs Temp Pulse Pulse Pulse Resp BP BP 09/30/16 07:19 09/30/16 07:10 97.0 F L 99 H 20 114/65 09/30/16 04:00 98.7 F 104 H 20 97/60 09/30/16 00:00 97.3 F L 116 H 20 98/62 09/29/16 23:49 111 H 22 09/29/16 23:38 111 H 09/29/16 22:35 95/59 09/29/16 22:32 95/59 09/29/16 20:48 97.5 F L 109 H 20 95/59 09/29/16 16:23 98.0 F 131 H 22 102/66 09/29/16 12:08 98.2 F 129 H 24 110/61 Pulse Ox 09/30/16 07:19 97 09/30/16 07:10 96 09/30/16 04:00 100 09/30/16 00:00 98 09/29/16 23:49 09/29/16 23:38 09/29/16 22:35 09/29/16 22:32 09/29/16 20:48 99 09/29/16 16:23 98 09/29/16 12:08 99 - Physical Examination General: No Apparent Distress, Cachectic HEENT: Positive: PERRL Neck: Positive: trachea midline. Negative: neck supple, JVD/HJR Cardiac: Positive: irregularly irregular Lungs: Positive: Normal Breath Sounds Neuro: Positive: Grossly Intact Abdomen: Positive: Unremarkable, Soft Skin: Positive: Clear Extremities: Absent: edema - Labs and Meds CBC 09/30/16 Range/Units 04:38 WBC 27.6 H (4.5-11.0) K/mm3 RBC 3.18 L (3.65-5.03) M/mm3 Hgb 10.3 L (11.8-15.2) gm/dl Hct 31.2 L (35.5-45.6) % Plt Count 228 (140-440) K/mm3 Comprehensive Metabolic Panel 09/30/16 Range/Units 04:38 Sodium 136 L (137-145) mmol/L Potassium 4.0 (3.6-5.0) mmol/L Chloride 90.8 L (98-107) mmol/L Carbon Dioxide 22 (22-30) mmol/L BUN 69 H (9-20) mg/dL Creatinine 7.9 H (0.8-1.5) mg/dL Glucose 191 H (75-100) mg/dL Calcium 8.3 L (8.4-10.2) mg/dL
--- NOTE | 2016-09-30 10:05 | Anesthesia Consultation ---
Anesthesia Consult and Med Hx Date of service: 09/30/16 - Airway Anesthetic Teeth Evaluation: Poor ROM Head & Neck: Adequate Mental/Hyoid Distance: Adequate Mallampati Class: Class III Intubation Access Assessment: Probably Good - Pre-Operative Health Status ASA Pre-Surgery Classification: ASA3 Proposed Anesthetic Plan: General - Pre-Anesthesia Comment Pre-Anesthesia Comments: "Moderate to high CV risk based on Afib/flutter and episodes of NSVT" per cardiology 09/23/16. EF 50-55%. Lymphedema on left hand - Pulmonary Hx Smoking: No Home Oxygen Therapy: Yes (on oxygen NC on the floor) - Cardiovascular System Hx Hypertension: Yes - Central Nervous System CVA: Yes (3 years ago, right side weakness) - Endocrine Hx Renal Disease: Yes ( HD M,W,F) Hx End Stage Renal Disease: Yes Hx Non-Insulin Dependent Diabetes: Yes - Additional Comments Anesthesia Medical History Comments: NAC
--- NOTE | 2016-09-30 12:01 | Progress Note ---
Assessment and Plan Current antibiotics: Vancomycin (pulse dosed) 09/26 --> Zosyn 2.25 g IV q8h 09/26 --> ASSESSMENT: Jacoby Shoemaker is a 71-year-old male with end-stage renal failure on maintenance HD , previous left hemispheral stroke with right hemiparesis, hypertension, chronic atrial fibrillation and anemia who was admitted to [facility] on 09/23/16 with increased lethargy at the dialysis center. He has evidence of a right foot infection. Problem list: 1. Right foot infection -CT scan shows evidence of osteomyelitis of the fifth toe as well as abscess formation in the forefoot -Likely mixed aerobic and anaerobic pathogens with the marked malodorous drainage 2. End-stage renal failure -Hemodialysis dependent 3. Hypertension 4. Chronic atrial fibrillation -Rapid ventricular response on admission with rate controlled now 5. Status post left hemispheral stroke -Chronic right hemiparesis 6. Leukocytosis -Secondary to #1 PLAN: 1. Will follow-up on blood cultures (NGTD) 2. Continue empiric antibiotics with Zosyn and vancomycin 3. Dr. Salter's consult reviewed and appreciated. Patient for surgery later today. 4. Aggressive local wound care Lino Singh MD [facility] Office: [phone] Subjective Date of service: 09/30/16 Principal diagnosis: Atrial fib Objective - Exam Narrative Exam: GENERAL: Well-developed, clinically ill-appearing male is alert and in no acute distress but somewhat lethargic. HEAD: Normocephalic. No lesions seen. EYES: Pupils are equal reactive to light and accommodation. There is no scleral icterus. Optic fundi are not examined. Bilateral arcus senilis. EARS: External ears are normal. THROAT: Oropharynx is normal with no evidence of oral candidiasis or pharyngitis. Patient has extremely poor dentition with multiple missing teeth but no obvious dental infection. NECK: Supple. No enlargement of the thyroid gland. No significant cervical lymphadenopathy. No jugular venous distention at 30. LUNGS: Clear with no adventitious sounds. HEART: Irregularly irregular. There are no gallops, clicks or rubs heard. There is a grade III/ FELIX heard over the left upper sternal border. I hear no diastolic murmur. ABDOMEN: Soft and nontender. Liver and spleen are not palpably enlarged or tender. No palpable masses. Bowel sounds are normoactive. EXTREMITIES: Marked bilateral lower extremity edema with chronic stasis changes. There is an ulcer over the lateral aspect of the right foot involving the right fifth toe with some ischemic changes and marked purulent, malodorous drainage resident. There is mild surrounding erythema and warmth. Peripheral pulses are difficult to palpate in the lower extremities but exam is difficult because of the marked edema. SKIN: As above. AV graft in the left upper extremity with no signs of infection and good palpable thrill and audible bruit. : Normal external male except for some testicular atrophy. NEUROLOGIC: Right-sided weakness. - Constitutional Vitals: Vital Signs Temp Pulse Resp BP Pulse Ox 97.0 F L 99 H 20 114/65 97 09/30/16 07:10 09/30/16 07:10 09/30/16 07:10 09/30/16 07:10 09/30/16 07:19 Temperature -Last 24 Hours Temperature 97.0 F Temperature 98.7 F Temperature 97.3 F Temperature 97.5 F Temperature 98.0 F Temperature 98.2 F - Labs CBC & Chem 7: 09/30/16 04:38 09/30/16 04:38 Labs: Abnormal lab results Microbiology 09/29/16 16:18 Peripheral/Venous Blood Culture - Preliminary Culture in Progress 09/29/16 16:18 Peripheral/Venous Blood Culture - Preliminary Culture in Progress 09/27/16 Unknown Foot - Right Wound Culture - Final Proteus Mirabilis (resistant only to tetracycline)
--- NOTE | 2016-09-30 13:31 | Progress Note ---
Assessment and Plan Assessment and plan: 1. Sepsis due to RLE cellulitis with necrosis and infected foot - consult ID from appreciated; Continue IV antibiotics zosyn and vancomycin; local wound care ; f/u ortho for debridement or amputation 2. Afib with RVR- cardiology input appreciated; cotn cardizem and metoprolol and adjust as needed; cotn eliquis; f/u cardiology 3. NSTEMI- stable; imdur; metoprolol; statin; plavix held for debridement / amputation 4. ESRD- Continued HD per renal 5. Generalized Weakness - PT 6. DVT prophylaxis-eliquis on hold for amputation/ debridement History Interval history: f/u RT foot infection; Lt foot OM; Atrial fibrillation Patient seen at the bedside; no complaints; for debridement / amputation today Hospitalist Physical - Constitutional Vitals: Temp Pulse Resp BP Pulse Ox 97.6 F 114 H 20 105/65 97 09/30/16 12:06 09/30/16 12:06 09/30/16 12:06 09/30/16 12:06 09/30/16 12:06 General appearance: Present: no acute distress, well-nourished, other (appears exhausted) - EENT Eyes: Present: PERRL, EOM intact. Absent: scleral icterus, conjunctival injection ENT: hearing intact, clear oral mucosa, no oropharyngeal erythema, no poor dentition - Neck Neck: Present: supple, normal ROM. Absent: enlarged thyroid, masses or JVD - Respiratory Respiratory effort: normal Respiratory: negative: diminished, rales, rhonchi, wheezing - Cardiovascular Rhythm: regular Heart Sounds: Present: S1 & S2. Absent: gallop - Extremities Extremities: no ischemia, pulses intact, pulses symmetrical, No edema Extremity abnormal: other (dressing to RT foot; foul smelling) Peripheral Pulses: within normal limits - Abdominal General gastrointestinal: soft, non-tender, non-distended - Integumentary Integumentary: Present: warm - Psychiatric Psychiatric: cooperative - Neurologic Neurologic: CNII-XII intact Results - Labs CBC & Chem 7: 09/30/16 04:38 09/30/16 04:38 Labs: Laboratory Last Values WBC 27.6 K/mm3 (4.5-11.0) H 09/30/16 04:38 RBC 3.18 M/mm3 (3.65-5.03) L 09/30/16 04:38 Hgb 10.3 gm/dl (11.8-15.2) L 09/30/16 04:38 Hct 31.2 % (35.5-45.6) L 09/30/16 04:38 MCV 98 fl (84-94) H 09/30/16 04:38 MCH 32 pg (28-32) 09/30/16 04:38 MCHC 33 % (32-34) 09/30/16 04:38 RDW 16.9 % (13.2-15.2) H 09/30/16 04:38 Plt Count 228 K/mm3 (140-440) 09/30/16 04:38 Baso % (Auto) Staff [employer]mar[employer] 09/23/16 06:33 Add Manual Diff Complete 09/30/16 04:38 Total Counted 200 09/30/16 04:38 Seg Neutrophils % Staff [employer]isubmarine Officer 09/30/16 04:38 Seg Neuts % (Manual) 95.0 % (40.0-70.0) H 09/30/16 04:38 Band Neutrophils % 1.5 % 09/30/16 04:38 Lymphocytes % (Manual) 0.5 % (13.4-35.0) L 09/30/16 04:38 Reactive Lymphs % (Man) 0 % 09/30/16 04:38 Monocytes % (Manual) 2.5 % (0.0-7.3) 09/30/16 04:38 Eosinophils % (Manual) 0 % (0.0-4.3) 09/30/16 04:38 Basophils % (Manual) 0 % (0.0-1.8) 09/30/16 04:38 Metamyelocytes % 0.5 % 09/30/16 04:38 Myelocytes % 0 % 09/30/16 04:38 Promyelocytes % 0 % 09/30/16 04:38 Blast Cells % 0 % 09/30/16 04:38 Nucleated RBC % Not Reportable 09/30/16 04:38 Seg Neutrophils # Man 26.2 K/mm3 (1.8-7.7) H 09/30/16 04:38 Band Neutrophils # 0.4 K/mm3 09/30/16 04:38 Lymphocytes # (Manual) 0.1 K/mm3 (1.2-5.4) L 09/30/16 04:38 Abs React Lymphs (Man) 0.0 K/mm3 09/30/16 04:38 Monocytes # (Manual) 0.7 K/mm3 (0.0-0.8) 09/30/16 04:38 Eosinophils # (Manual) 0.0 K/mm3 (0.0-0.4) 09/30/16 04:38 Basophils # (Manual) 0.0 K/mm3 (0.0-0.1) 09/30/16 04:38 Metamyelocytes # 0.1 K/mm3 09/30/16 04:38 Myelocytes # 0.0 K/mm3 09/30/16 04:38 Promyelocytes # 0.0 K/mm3 09/30/16 04:38 Blast Cells # 0.0 K/mm3 09/30/16 04:38 Pathologist Review 09/23/16 06:33 WBC Morphology Not Reportable 09/30/16 04:38 Hypersegmented Neuts Not Reportable 09/30/16 04:38 Hyposegmented Neuts Not Reportable 09/30/16 04:38 Hypogranular Neuts Not Reportable 09/30/16 04:38 Smudge Cells Not Reportable 09/30/16 04:38 Toxic Granulation Not Reportable 09/30/16 04:38 Toxic Vacuolation Not Reportable 09/30/16 04:38 Dohle Bodies Not Reportable 09/30/16 04:38 Pelger-Huet Anomaly Not Reportable 09/30/16 04:38 Kody Rods Not Reportable 09/30/16 04:38 Platelet Estimate Appears normal 09/30/16 04:38 Clumped Platelets Rare 09/30/16 04:38 Plt Clumps, EDTA Not Reportable 09/30/16 04:38 Large Platelets Rare 09/30/16 04:38 Giant Platelets Not Reportable 09/30/16 04:38 Platelet Satelliting Not Reportable 09/30/16 04:38 Plt Morphology Comment Not Reportable 09/30/16 04:38 RBC Morphology Not Reportable 09/30/16 04:38 Dimorphic RBCs Not Reportable 09/30/16 04:38 Polychromasia Few 09/30/16 04:38 Hypochromasia Not Reportable 09/30/16 04:38 Poikilocytosis Not Reportable 09/30/16 04:38 Anisocytosis 1+ 09/30/16 04:38 Microcytosis Not Reportable 09/30/16 04:38 Macrocytosis Not Reportable 09/30/16 04:38 Spherocytes Not Reportable 09/30/16 04:38 Pappenheimer Bodies Not Reportable 09/30/16 04:38 Sickle Cells Not Reportable 09/30/16 04:38 Target Cells Not Reportable 09/30/16 04:38 Tear Drop Cells Not Reportable 09/30/16 04:38 Ovalocytes Not Reportable 09/30/16 04:38 Helmet Cells Not Reportable 09/30/16 04:38 Cramer-Assaria Bodies Not Reportable 09/30/16 04:38 [place] Rings Not Reportable 09/30/16 04:38 Mary Cells Not Reportable 09/30/16 04:38 Bite Cells Not Reportable 09/30/16 04:38 Crenated Cell Not Reportable 09/30/16 04:38 Elliptocytes Not Reportable 09/30/16 04:38 Acanthocytes (Spur) Not Reportable 09/30/16 04:38 Rouleaux Not Reportable 09/30/16 04:38 Hemoglobin C Crystals Not Reportable 09/30/16 04:38 Schistocytes Not Reportable 09/30/16 04:38 Malaria parasites Not Reportable 09/30/16 04:38 Marcelino Bodies Not Reportable 09/30/16 04:38 Hem Pathologist Commnt No 09/30/16 04:38 PT 15.7 Sec. (12.2-14.9) H 09/23/16 06:33 INR 1.26 (0.87-1.13) H 09/23/16 06:33 Sodium 136 mmol/L (137-145) L 09/30/16 04:38 Potassium 4.0 mmol/L (3.6-5.0) 09/30/16 04:38 Chloride 90.8 mmol/L (98-107) L 09/30/16 04:38 Carbon Dioxide 22 mmol/L (22-30) 09/30/16 04:38 Anion Gap 27 mmol/L 09/30/16 04:38 BUN 69 mg/dL (9-20) H 09/30/16 04:38 Creatinine 7.9 mg/dL (0.8-1.5) H 09/30/16 04:38 Estimated GFR 8 ml/min 09/30/16 04:38 BUN/Creatinine Ratio 8.73 % 09/30/16 04:38 Glucose 191 mg/dL (75-100) H 09/30/16 04:38 POC Glucose 267 (70-105) H 09/29/16 22:06 Lactic Acid 2.3 mmol/L (0.7-2.0) H* 09/23/16 06:33 Calcium 8.3 mg/dL (8.4-10.2) L 09/30/16 04:38 Magnesium 2.2 mg/dL (1.7-2.3) 09/30/16 04:38 Total Creatine Kinase 914 units/L (55-170) H 09/23/16 18:42 CK-MB (CK-2) 4.3 ng/mL (0.0-4.0) H 09/23/16 18:42 CK-MB (CK-2) Rel Index 0.4 (0-4) 09/23/16 18:42 Troponin T 0.221 ng/mL (0.00-0.029) H* 09/23/16 18:42 Triglycerides 199 mg/dL (2-149) H 09/23/16 06:33 Cholesterol 140 mg/dL (50-199) 09/23/16 06:33 LDL Cholesterol Direct 76 mg/dL (50-130) 09/23/16 06:33 HDL Cholesterol 25 mg/dL (40-59) L 09/23/16 06:33 Cholesterol/HDL Ratio 5.60 % 09/23/16 06:33 TSH 0.074 mlU/mL (0.270-4.200) L 09/23/16 11:28 Thyroxine (T4) 4.6 ug/dL (4.0-12.0) 09/23/16 11:28 Microbiology 09/29/16 16:18 Peripheral/Venous Blood Culture - Preliminary Culture in Progress 09/29/16 16:18 Peripheral/Venous Blood Culture - Preliminary Culture in Progress 09/27/16 Unknown Foot - Right Wound Culture - Final Proteus Mirabilis
[2016-09-30] MEDS ORDERED: XYLOCAINE MPF 2% ONE (15:00)
[2016-09-30] MEDS ORDERED: DIPRIVAN 10 MG/ML IV ONE (15:39)
[2016-09-30] MEDS ORDERED: DILAUDID ONE (15:41)
[2016-09-30] MEDS ORDERED: NACL 0.9% 100 ML ONE (16:11)
[2016-09-30] MEDS ORDERED: NEO SYNEPHRINE ONE (16:11)
[2016-09-30] MEDS ORDERED: [UNRECOGNIZED DRUG - OTHER] IV SCH (16:15)
[2016-09-30] MEDS ORDERED: NEOSPORIN GU IR ONE (16:20)
[2016-09-30] MEDS ORDERED: NACL 0.9% IR ONE (16:21)
--- NOTE | 2016-09-30 16:30 | Procedure Note ---
Date of procedure: 09/30/16 Pre-op diagnosis: infection right foot Post-op diagnosis: same Procedure: Excisional debridment/ of foot/ray amputation of 5th toe. 4th metatarsal Anesthesia: GETA Surgeon: VANIA LOCKWOOD Estimated blood loss: minimal Pathology: list Specimen disposition: to lab Condition: stable Disposition: PACU
[2016-09-30] MEDS ORDERED: NORCO 5/325 PO PRN (16:33)
[2016-09-30] MEDS ORDERED: MORPHINE IV PRN (16:33)
[2016-09-30] MEDS ORDERED: ZOFRAN ONE (16:56)
[2016-09-30] MEDS ORDERED: OFIRMEV 1000 MG/100 ML IV SCH (17:00)
--- NOTE | 2016-09-30 17:24 | Post Anesthesia Evaluation ---
- Post Anesthesia Evaluation Patient Participated: Yes Airway Patent: Yes Stable Respiratory Function: Yes Nausea/Vomiting: No Temp > 96.8F: Yes Pain Manageable: Yes Adequeate Hydration: Yes Anesthesia Complications: No Block Receding Appropriately: Not Applicable Patient on Ventilator: No
--- NOTE | 2016-09-30 17:25 | Anesthesia Day of Surgery ---
Anesthesia Day of Surgery - Day of Surgery Patient Examined: Yes Patient H&P Reviewed: Yes Patient is NPO: Yes
--- NOTE | 2016-09-30 18:54 | Operative Report ---
PREOPERATIVE DIAGNOSIS: Diabetic gangrene, right foot with abscess formation. POSTOPERATIVE DIAGNOSIS: Diabetic gangrene, right foot with abscess formation. OPERATIVE PROCEDURE: Extensive debridement, excision of right foot with ray amputation fifth toe, excision of fourth metatarsal. SURGEON: Desiree Salter MD ACLS NURSE: Chio Arriaga CSA. ANESTHESIA: General. BLOOD LOSS: Minimal. DESCRIPTION OF PROCEDURE: The patient was taken to surgery suite. Satisfactory analgesia obtained via general anesthetics. The right lower limb was prepped and satisfactorily draped in the standard fashion. The abscess was noticed over the lateral aspect of the fifth metatarsal head region. Necrotic tissue approximately 3 cm surrounding and a very severe foul-smelling drainage. Incision was made in the abscess cavity and the cavity was explored, was found extending for approximately 3 inches into the plantar aspect of the foot at the base of the second metatarsal, into the plantar arch and dorsally into the third and fourth tarsometatarsal region, severe necrosis of the muscle layers were noticed over the plantar aspect of the foot. The necrotic tissues were excised by sharp dissection and the fifth metatarsal appeared severely osteoporotic with purulent drainage exuding from the metatarsal shaft. Therefore, it was resected at the base and it was removed along with the fifth toe. Fourth metatarsal also appeared in a similar fashion. The metatarsal was debrided of the infected necrotic bone. The proximal half of the proximal phalanx of the fourth toe was excised. The distal portion was left intact as the skin appears relatively satisfactory. Necrotic tissue appeared extending into the plantar arch. This was excised by sharp and blunt dissection. Wound was then irrigated with pulse irrigation system and open packed with iodoform gauze. The patient was transferred to recovery room in satisfactory condition. He tolerated the procedure well and at the completion of procedure, counts were accurate. Prognosis is extremely poor due to the severe diabetic necrotic gangrene of the foot and the leg appears very precarious circulation. It is my belief that he would be better of with an above knee amputation as an urgent elective procedure once acute condition was stabilized. Therefore, I will also request a vascular surgery evaluation to evaluate for any circulatory status whether there was adequate blood flow that a below knee amputation would be feasible. JOB# [id number] JORGE LUISN/NTS
[2016-09-30] MEDS: VANCOMYCIN/NS 1 GM/250 ML 250 ML IV SCH (21:32)
[2016-09-30] MEDS: APRESOLINE PO SCH (21:33)
[2016-09-30] MEDS: CATAPRES PO SCH (21:36)
[2016-09-30] MEDS: ZOCOR PO SCH (21:37)
[2016-10-01] MEDS: ZOSYN/NS 2.25 GM/50ML 50 ML IV SCH ×4 (01:09→17:48)
[2016-10-01] MEDS: CARDIZEM PO SCH ×4 (01:11→15:11)
[2016-10-01 08:00] LABS: Hematocrit 31.8 % (35.5-45.6); Hemoglobin 10.1 gm/dl (11.8-15.2); Mean Corpuscular HGB Conc 32 % (32-34); Mean Corpuscular Hemoglobin 32 pg (28-32); Mean Corpuscular Volume 100 fl (84-94); Platelet Count 255 K/mm3 (140-440); Red Blood Count 3.19 M/mm3 (3.65-5.03); Red Cell Distribution Width 16.9 % (13.2-15.2)
[2016-10-01 08:05] LABS: White Blood Count 43.3 K/mm3 (4.5-11.0)
[2016-10-01 08:16] LABS: BUN/Creatinine Ratio 8.33; Calcium 8.1 mg/dL (8.4-10.2); Chloride 94.6 mmol/L (98-107); Potassium 4.2 mmol/L (3.6-5.0)
[2016-10-01] MEDS: NOVOLOG SUB-Q SCH ×4 (09:02→17:46)
[2016-10-01] MEDS: LOPRESSOR PO SCH ×4 (09:03→22:08)
[2016-10-01] MEDS: Renal Caps PO SCH ×4 (09:04→22:06)
[2016-10-01 09:13] LABS: Hematocrit 32.6 % (35.5-45.6); Hemoglobin 10.4 gm/dl (11.8-15.2); Mean Corpuscular HGB Conc 32 % (32-34); Mean Corpuscular Hemoglobin 32 pg (28-32); Mean Corpuscular Volume 99 fl (84-94); Platelet Count 231 K/mm3 (140-440); Red Blood Count 3.29 M/mm3 (3.65-5.03); Red Cell Distribution Width 16.6 % (13.2-15.2)
[2016-10-01 09:25] LABS: White Blood Count 38.9 K/mm3 (4.5-11.0)
--- NOTE | 2016-10-01 09:26 | Progress Note ---
Assessment and Plan Impression: * esrd * afib with rvr * anemia in esrd * htn * encephalopathy * hyperkalemia * metabolic acidosis * Leukocytosis * Right foot infection Plan: * Continue hd MWF, * uf with hd at tolerated * magnesium level is better at 2.2 * strict i/os * renal diet * Infectious disease and cardiology notes appreciated * Status post debridement of right foot and amputation of right fifth toe on 09/30/2016 Subjective Date of service: 10/01/16 Principal diagnosis: Atrial fib Interval history: Status post debridement of his right foot and amputation of fifth toe. Patient is comfortable. Uneventful hemodialysis yesterday. Objective - Vital Signs Vital signs: Vital Signs - 12hr 09/30/16 09/30/16 09/30/16 21:30 21:36 21:38 Temperature Pulse Rate 122 H 127 H 127 H Pulse Rate [ Left Radial] Pulse Rate [ Right Radial] Respiratory Rate Blood Pressure 114/74 124/74 124/74 Blood Pressure [Right Radial Artery] O2 Sat by Pulse Oximetry 09/30/16 09/30/16 09/30/16 21:45 21:50 22:00 Temperature Pulse Rate 125 H 127 H 126 H Pulse Rate [ 120 H Left Radial] Pulse Rate [ Right Radial] Respiratory 22 Rate Blood Pressure 118/79 124/74 130/73 Blood Pressure [Right Radial Artery] O2 Sat by Pulse Oximetry 09/30/16 09/30/16 09/30/16 22:15 22:30 23:00 Temperature 98.1 F Pulse Rate 141 H 142 H 138 H Pulse Rate [ Left Radial] Pulse Rate [ Right Radial] Respiratory 20 Rate Blood Pressure 120/70 107/74 116/69 Blood Pressure [Right Radial Artery] O2 Sat by Pulse Oximetry 09/30/16 10/01/16 10/01/16 23:56 01:11 04:00 Temperature 98.1 F 98.4 F Pulse Rate 90 Pulse Rate [ Left Radial] Pulse Rate [ 95 H 129 H Right Radial] Respiratory 20 22 Rate Blood Pressure 100/68 Blood Pressure 107/72 115/73 [Right Radial Artery] O2 Sat by Pulse 100 99 Oximetry 10/01/16 10/01/16 10/01/16 05:52 07:18 09:03 Temperature 97.2 F L Pulse Rate 129 H Pulse Rate [ 113 H Left Radial] Pulse Rate [ Right Radial] Respiratory 20 Rate Blood Pressure 105/64 104/71 Blood Pressure 104/65 [Right Radial Artery] O2 Sat by Pulse 96 Oximetry - General Appearance General appearance: well-developed, well-nourished, appears stated age EENT: PERRL, mucous membranes moist Neck: no JVD, no thyromegaly, no carotid bruit, supple Respiratory: Present: Clear to Ascultation Cardiology: regular, S1S2 Gastrointestinal: normal, normoactive bowel sounds Integumentary: no rash, warm and dry, other (AV fistula in his left upper arm. Good bruit and thrill) Neurologic: no focal deficit - Lab 10/01/16 07:42 10/01/16 07:42 Most recent lab results Calcium 8.1 mg/dL (8.4-10.2) L 10/01/16 07:42 Magnesium 2.2 mg/dL (1.7-2.3) 09/30/16 04:38
[2016-10-01] MEDS: APRESOLINE PO SCH ×2 (09:45→22:09)
[2016-10-01 10:00] LABS: Anisocytosis 1+; Basophils % (Manual) 0 % (0.0-1.8); Blastocytes % (Manual) 0 %; Eosinophils % (Manual) 0 % (0.0-4.3); Polychromasia Few; Target Cells 1+
[2016-10-01] MEDS: CATAPRES PO SCH ×3 (10:00→22:10)
[2016-10-01 10:03] LABS: Diff Status Complete; Platelet Clumps Few
--- NOTE | 2016-10-01 11:16 | Progress Note ---
Assessment and Plan Patient is status post orthopedic surgery with right foot and toe amputation. Continue medical therapy for atrial fibrillation rate control, and contemplate long-term oral anticoagulation. Subjective Date of service: 10/01/16 Principal diagnosis: Atrial fib Interval history: The patient is lethargic, but breathing comfortably, no new cardiac complaints. Objective Vital Signs Temp Pulse Pulse Pulse Resp BP BP 10/01/16 09:03 104/71 10/01/16 07:18 97.2 F L 113 H 20 104/65 10/01/16 05:52 129 H 105/64 10/01/16 04:00 98.4 F 129 H 22 115/73 10/01/16 01:11 90 100/68 09/30/16 23:56 98.1 F 95 H 20 107/72 09/30/16 23:00 98.1 F 138 H 20 116/69 09/30/16 22:30 142 H 107/74 09/30/16 22:15 141 H 120/70 09/30/16 22:00 126 H 120 H 22 130/73 09/30/16 21:50 127 H 124/74 09/30/16 21:45 125 H 118/79 09/30/16 21:38 127 H 124/74 09/30/16 21:36 127 H 124/74 09/30/16 21:30 122 H 114/74 09/30/16 21:15 122 H 122/64 09/30/16 21:00 122 H 102/70 09/30/16 20:45 126 H 109/65 09/30/16 20:30 125 H 118/70 09/30/16 20:15 123 H 107/66 09/30/16 20:00 125 H 108/65 09/30/16 19:45 125 H 111/67 09/30/16 19:30 123 H 107/65 09/30/16 19:25 98.2 F 130 H 20 100/62 09/30/16 18:15 98.2 F 119 H 13 113/67 09/30/16 18:00 122 H 13 107/76 09/30/16 17:45 107 H 15 99/65 09/30/16 17:30 99 H 13 93/66 09/30/16 17:15 105 H 105 H 108/67 09/30/16 17:00 121 H 19 95/65 09/30/16 16:55 105 H 19 101/65 09/30/16 16:50 108 H 19 /09/30/16 16:45 122 H 19 101/65 09/30/16 16:42 98.6 F 93 H 18 93/61 09/30/16 12:06 97.6 F 114 H 20 105/65 Pulse Ox 10/01/16 09:03 10/01/16 07:18 96 10/01/16 05:52 10/01/16 04:00 99 10/01/16 01:11 09/30/16 23:56 100 09/30/16 23:00 09/30/16 22:30 09/30/16 22:15 09/30/16 22:00 09/30/16 21:50 09/30/16 21:45 09/30/16 21:38 09/30/16 21:36 09/30/16 21:30 09/30/16 21:15 09/30/16 21:00 09/30/16 20:45 09/30/16 20:30 09/30/16 20:15 09/30/16 20:00 09/30/16 19:45 09/30/16 19:30 09/30/16 19:25 09/30/16 18:15 97 09/30/16 18:00 99 09/30/16 17:45 100 09/30/16 17:30 100 09/30/16 17:15 100 09/30/16 17:00 100 09/30/16 16:55 100 09/30/16 16:50 100 09/30/16 16:45 100 09/30/16 16:42 98 09/30/16 12:06 97 - Physical Examination General: No Apparent Distress, Cachectic HEENT: Positive: PERRL Neck: Positive: trachea midline. Negative: neck supple, JVD/HJR Cardiac: Positive: Irregularly Regular Lungs: Positive: Decreased Breath Sounds Neuro: Positive: Grossly Intact Abdomen: Positive: Unremarkable, Soft Skin: Positive: Clear Extremities: Absent: edema - Labs and Meds CBC 10/01/16 10/01/16 Range/Units 07:42 09:08 WBC 43.3 H* 38.9 H (4.5-11.0) K/mm3 RBC 3.19 L 3.29 L (3.65-5.03) M/mm3 Hgb 10.1 L 10.4 L (11.8-15.2) gm/dl Hct 31.8 L 32.6 L (35.5-45.6) % Plt Count 255 231 (140-440) K/mm3 Comprehensive Metabolic Panel 10/01/16 Range/Units 07:42 Sodium 140 (137-145) mmol/L Potassium 4.2 (3.6-5.0) mmol/L Chloride 94.6 L (98-107) mmol/L Carbon Dioxide 18 L (22-30) mmol/L BUN 55 H (9-20) mg/dL Creatinine 6.6 H (0.8-1.5) mg/dL Glucose 148 H (75-100) mg/dL Calcium 8.1 L (8.4-10.2) mg/dL
--- NOTE | 2016-10-01 12:45 | Consultation ---
History of Present Illness - Reason for Consult Consult date: 10/01/16 ESRD with RLE abscess Requesting physician: VANIA LOCKWOOD - History of Present Illness 71-year-old male with end-stage renal failure on maintenance HD, previous left hemispheral stroke with right hemiparesis, hypertension, chronic atrial fibrillation and anemia who was admitted to [facility] on 09/23/16 with increased lethargy at the dialysis center and found to have a right foot infection. The patient is status post debridement by Dr. Lockwood, and the abscess was deeper than expected and encompassed most of the midfoot making the foot not salvageable. Dr. Lockwood consult at [facility] vascular to assess for AKA versus BKA. Vascular ultrasound was performed. The patient currently denies any pain in his right lower extremity despite a large open wound, and has decreased sensation of his right lower extremity. He still has motor function of his right lower extremity. The patient reports that home he was ambulatory, and upon discussion with his sister, the patient was ambulating with rolling walker at home. He would like to preserve as much tissue as possible. Past History Past Medical History: atrial fib, arrhythmia, anemia, dialysis, ESRD, hypertension, renal failure Past Surgical History: Other (av access) Social history: denies: prescription drug abuse, IV drug use Family history: hypertension Medications and Allergies Allergies Allergy/AdvReac Type Severity Reaction Status Date / Time No Known Allergies Allergy Verified 11/08/15 09:09 Home Medications Medication Instructions Recorded Confirmed Last Taken Type Carvedilol [Coreg] 3.125 mg PO BID 09/23/16 09/23/16 Unknown History Clopidogrel [Plavix] 75 mg PO QDAY 09/23/16 09/23/16 Unknown History Furosemide [Lasix TAB] 40 mg PO QDAY 09/23/16 09/23/16 Unknown History Hydralazine HCl [Apresoline TAB] 50 mg PO BID 09/23/16 09/23/16 Unknown History ISOSORBIDE MONOnitrate [Monoket] 20 mg PO BID 09/23/16 09/23/16 Unknown History Pantoprazole [Protonix] 40 mg PO QDAY 09/23/16 09/23/16 Unknown History Sennosides/Docusate Sodium [Stool 1 each PO PRN PRN 09/23/16 09/23/16 Unknown History Softener Tablet] Simvastatin [Zocor TAB] 20 mg PO QHS 09/23/16 09/23/16 Unknown History Vit B Complex & C No.13/FA/D3 1 each PO AC 09/23/16 09/23/16 Unknown History [Nephrocaps Qt Tablet] amLODIPine [Norvasc] 10 mg PO DAILY 09/23/16 09/23/16 Unknown History cloNIDine [Catapres] 0.1 mg PO BID 09/23/16 09/23/16 Unknown History Active Meds: Active Medications Acetaminophen (Tylenol) 650 mg PO Q4H PRN PRN Reason: Pain MILD(1-3)/Fever >100.5/POSADAS Acetaminophen/Hydrocodone Bitart (Marlow 5/325) 1 each PO Q6H PRN PRN Reason: Pain, Moderate (4-6) Albuterol (Proventil) 2.5 mg IH Q4HRT PRN PRN Reason: Shortness Of Breath Bisacodyl (Dulcolax) 10 mg [place] QDAY PRN PRN Reason: Constipation unrelieved by MOM Clonidine HCl (Catapres) 0.1 mg PO BID [facility] Last Admin: 09/30/16 21:36 Dose: Not Given Dextrose (D50w (25gm)) 50 ml IV PRN PRN PRN Reason: Hypoglycemia Diltiazem HCl (Cardizem) 30 mg PO Q6HR [facility] Last Admin: 10/01/16 05:52 Dose: 30 mg Epoetin Pedro (Epogen) 10,000 unit IV ILENE PRN PRN Reason: hemodialysis Last Admin: 09/30/16 21:43 Dose: 10,000 unit Furosemide (Lasix) 40 mg PO QDAY [facility] Last Admin: 09/29/16 10:18 Dose: 40 mg Hydralazine HCl (Apresoline) 50 mg PO BID [facility] Last Admin: 09/29/16 22:32 Dose: Not Given Sodium Chloride (Nacl 0.9% 1000 Ml) 100 mls @ 999 mls/hr IV ILENE PRN PRN Reason: Hypotension Piperacillin Sod/Tazobactam Sod (Zosyn/Ns 2.25 Gm/50ml) 50 mls @ 100 mls/hr IV Q8H BRYSON PRN Reason: Protocol Last Admin: 10/01/16 09:01 Dose: Not Given Vancomycin HCl (Vancomycin/Ns 1 Gm/250 Ml) 250 mls @ 166.667 mls/hr IV MoWeFr [facility] Last Admin: 09/30/16 21:32 Dose: 166.667 mls/hr Insulin Aspart (Novolog) 0 units SUB-Q AC [facility] PRN Reason: Protocol Last Admin: 10/01/16 09:02 Dose: Not Given Isosorbide Mononitrate (Monoket) 20 mg PO BID [facility] Last Admin: 09/30/16 21:33 Dose: 20 mg Metoprolol Tartrate (Lopressor) 50 mg PO TID [facility] Last Admin: 10/01/16 09:03 Dose: Not Given Morphine Sulfate (Morphine) 2 mg IV Q4H PRN PRN Reason: Pain , Severe (7-10) Multivit/Ca Carb/B Cmplx/FA/Prenat (Renal Caps) 1 cap PO TID [facility] Last Admin: 10/01/16 09:04 Dose: Not Given Ondansetron HCl (Zofran) 4 mg IV Q8H PRN PRN Reason: N/V unrelieved by Reglan Pantoprazole Sodium (Protonix) 40 mg PO QDAY [facility] Last Admin: 09/30/16 09:39 Dose: 40 mg Senna/Docusate Sodium (Senokot S) 1 tab PO PRN PRN PRN Reason: Constipation Simvastatin (Zocor) 20 mg PO QHS [facility] Last Admin: 09/30/16 21:37 Dose: 20 mg Sodium Chloride (Sodium Chloride Flush Syringe 10 Ml) 10 ml IV PRN PRN PRN Reason: LINE FLUSH Vancomycin HCl (Vancomycin Pharmacy To Dose) 1 each IV PKCONSULT [facility] PRN Reason: Protocol Review of Systems All systems: negative (see HPI) Exam - Constitutional Vitals: Temp Pulse Resp BP Pulse Ox 97.1 F L 124 H 22 112/68 96 10/01/16 12:06 10/01/16 12:06 10/01/16 12:06 10/01/16 12:06 10/01/16 12:06 General appearance: Present: no acute distress - EENT Eyes: Present: EOM intact ENT: hearing intact - Respiratory Respiratory effort: normal - Cardiovascular Rhythm: irregularly irregular - Extremities Extremities: normal temperature Extremity abnormal: pulses diminished (RLE), other (large defect in the right midfoot with exposed tissue without evidence of significant purulence; amputation of the right fifth digit) - Psychiatric Psychiatric: cooperative Results - Labs CBC & Chem 7: 10/01/16 09:08 10/01/16 07:42 Labs: Abnormal lab results 09/30/16 09/30/16 10/01/16 Range/Units 07:05 11:36 00:01 WBC (4.5-11.0) K/mm3 RBC (3.65-5.03) M/mm3 Hgb (11.8-15.2) gm/dl Hct (35.5-45.6) % MCV (84-94) fl RDW (13.2-15.2) % Seg Neuts % (Manual) (40.0-70.0) % Lymphocytes % (Manual) (13.4-35.0) % Seg Neutrophils # Man (1.8-7.7) K/mm3 Lymphocytes # (Manual) (1.2-5.4) K/mm3 Monocytes # (Manual) (0.0-0.8) K/mm3 Chloride (98-107) mmol/L Carbon Dioxide (22-30) mmol/L BUN (9-20) mg/dL Creatinine (0.8-1.5) mg/dL Glucose (75-100) mg/dL POC Glucose 236 H 183 H 147 H (70-105) Calcium (8.4-10.2) mg/dL 10/01/16 10/01/16 10/01/16 Range/Units 01:28 07:42 07:42 WBC 43.3 H* (4.5-11.0) K/mm3 RBC 3.19 L (3.65-5.03) M/mm3 Hgb 10.1 L (11.8-15.2) gm/dl Hct 31.8 L (35.5-45.6) % MCV 100 H (84-94) fl RDW 16.9 H (13.2-15.2) % Seg Neuts % (Manual) 93.0 H (40.0-70.0) % Lymphocytes % (Manual) 2.0 L (13.4-35.0) % Seg Neutrophils # Man 40.3 H (1.8-7.7) K/mm3 Lymphocytes # (Manual) 0.9 L (1.2-5.4) K/mm3 Monocytes # (Manual) 1.7 H (0.0-0.8) K/mm3 Chloride 94.6 L (98-107) mmol/L Carbon Dioxide 18 L (22-30) mmol/L BUN 55 H (9-20) mg/dL Creatinine 6.6 H (0.8-1.5) mg/dL Glucose 148 H (75-100) mg/dL POC Glucose 155 H (70-105) Calcium 8.1 L (8.4-10.2) mg/dL 10/01/16 Range/Units 09:08 WBC 38.9 H (4.5-11.0) K/mm3 RBC 3.29 L (3.65-5.03) M/mm3 Hgb 10.4 L (11.8-15.2) gm/dl Hct 32.6 L (35.5-45.6) % MCV 99 H (84-94) fl RDW 16.6 H (13.2-15.2) % Seg Neuts % (Manual) (40.0-70.0) % Lymphocytes % (Manual) (13.4-35.0) % Seg Neutrophils # Man (1.8-7.7) K/mm3 Lymphocytes # (Manual) (1.2-5.4) K/mm3 Monocytes # (Manual) (0.0-0.8) K/mm3 Chloride (98-107) mmol/L Carbon Dioxide (22-30) mmol/L BUN (9-20) mg/dL Creatinine (0.8-1.5) mg/dL Glucose (75-100) mg/dL POC Glucose (70-105) Calcium (8.4-10.2) mg/dL - Imaging and Cardiology Venous US: report reviewed, image reviewed (arterial) Assessment and Plan 31-year-old male with end-stage renal disease and right diabetic foot infection status post debridement by Dr. Lockwood with unsalvageable right lower extremity due to the extent of the infection. The patient was ambulatory at home and would benefit from a below-knee amputation if possible. Arterial Doppler demonstrates monophasic waveforms in the profunda and popliteal of the right lower extremity and he would benefit from pre below-knee amputation angiography with revascularization. The patient was made nothing by mouth except for meds, but unfortunately his leukocytosis has increased significantly. This was discussed with Dr. Lockwood. The patient may benefit from guillotine/open below-knee amputation prior to revascularization with definitive below-knee amputation performed afterwards. Once leukocytosis improves, angiography can be performed.
--- NOTE | 2016-10-01 13:17 | Progress Note ---
Assessment and Plan alert oprientated in NAD Dressing dry, no complaits.. Doing well after amputation toes. Subjective Date of service: 10/01/16 Principal diagnosis: Atrial fib Objective Vital signs: Vital Signs - 12hr 10/01/16 10/01/16 10/01/16 04:00 05:52 07:18 Temperature 98.4 F 97.2 F L Pulse Rate 129 H Pulse Rate [ 113 H Left Radial] Pulse Rate [ 129 H Right Radial] Respiratory 22 20 Rate Blood Pressure 105/64 Blood Pressure 115/73 104/65 [Right Radial Artery] O2 Sat by Pulse 99 96 Oximetry 10/01/16 10/01/16 09:03 12:06 Temperature 97.1 F L Pulse Rate Pulse Rate [ 124 H Left Radial] Pulse Rate [ Right Radial] Respiratory 22 Rate Blood Pressure 104/71 Blood Pressure 112/68 [Right Radial Artery] O2 Sat by Pulse 96 Oximetry - Labs CBC & BMP: 10/01/16 09:08 10/01/16 07:42 Labs: Abnormal lab results 09/30/16 09/30/16 10/01/16 Range/Units 07:05 11:36 00:01 WBC (4.5-11.0) K/mm3 RBC (3.65-5.03) M/mm3 Hgb (11.8-15.2) gm/dl Hct (35.5-45.6) % MCV (84-94) fl RDW (13.2-15.2) % Seg Neuts % (Manual) (40.0-70.0) % Lymphocytes % (Manual) (13.4-35.0) % Seg Neutrophils # Man (1.8-7.7) K/mm3 Lymphocytes # (Manual) (1.2-5.4) K/mm3 Monocytes # (Manual) (0.0-0.8) K/mm3 Chloride (98-107) mmol/L Carbon Dioxide (22-30) mmol/L BUN (9-20) mg/dL Creatinine (0.8-1.5) mg/dL Glucose (75-100) mg/dL POC Glucose 236 H 183 H 147 H (70-105) Calcium (8.4-10.2) mg/dL 10/01/16 10/01/16 10/01/16 Range/Units 01:28 07:42 07:42 WBC 43.3 H* (4.5-11.0) K/mm3 RBC 3.19 L (3.65-5.03) M/mm3 Hgb 10.1 L (11.8-15.2) gm/dl Hct 31.8 L (35.5-45.6) % MCV 100 H (84-94) fl RDW 16.9 H (13.2-15.2) % Seg Neuts % (Manual) 93.0 H (40.0-70.0) % Lymphocytes % (Manual) 2.0 L (13.4-35.0) % Seg Neutrophils # Man 40.3 H (1.8-7.7) K/mm3 Lymphocytes # (Manual) 0.9 L (1.2-5.4) K/mm3 Monocytes # (Manual) 1.7 H (0.0-0.8) K/mm3 Chloride 94.6 L (98-107) mmol/L Carbon Dioxide 18 L (22-30) mmol/L BUN 55 H (9-20) mg/dL Creatinine 6.6 H (0.8-1.5) mg/dL Glucose 148 H (75-100) mg/dL POC Glucose 155 H (70-105) Calcium 8.1 L (8.4-10.2) mg/dL 10/01/16 Range/Units 09:08 WBC 38.9 H (4.5-11.0) K/mm3 RBC 3.29 L (3.65-5.03) M/mm3 Hgb 10.4 L (11.8-15.2) gm/dl Hct 32.6 L (35.5-45.6) % MCV 99 H (84-94) fl RDW 16.6 H (13.2-15.2) % Seg Neuts % (Manual) (40.0-70.0) % Lymphocytes % (Manual) (13.4-35.0) % Seg Neutrophils # Man (1.8-7.7) K/mm3 Lymphocytes # (Manual) (1.2-5.4) K/mm3 Monocytes # (Manual) (0.0-0.8) K/mm3 Chloride (98-107) mmol/L Carbon Dioxide (22-30) mmol/L BUN (9-20) mg/dL Creatinine (0.8-1.5) mg/dL Glucose (75-100) mg/dL POC Glucose (70-105) Calcium (8.4-10.2) mg/dL
--- NOTE | 2016-10-01 13:51 | Progress Note ---
Assessment and Plan Current antibiotics: Vancomycin (pulse dosed) 09/26 --> Zosyn 2.25 g IV q8h 09/26 --> ASSESSMENT: Jacoby Shoemaker is a 71-year-old male with end-stage renal failure on maintenance HD , previous left hemispheral stroke with right hemiparesis, hypertension, chronic atrial fibrillation and anemia who was admitted to [facility] on 09/23/16 with increased lethargy at the dialysis center. He has evidence of a right foot infection. Problem list: 1. Right foot infection -CT scan shows evidence of osteomyelitis of the fifth toe as well as abscess formation in the forefoot -Likely mixed aerobic and anaerobic pathogens with the marked malodorous drainage -Status post abscess drainage and right fifth toe and fourth metatarsal amputation 09/30 -Limb not felt to be salvageable as per Dr. Salter's note 2. End-stage renal failure -Hemodialysis dependent 3. Hypertension 4. Chronic atrial fibrillation -Rapid ventricular response on admission with rate controlled now 5. Status post left hemispheral stroke -Chronic right hemiparesis 6. Leukocytosis -Secondary to #1 PLAN: 1. Continue empiric antibiotics with Zosyn and vancomycin pending surgical cultures 3. Discussed with Dr. Corbett and patient could have BKA as opposed to AKA 4. Continue aggressive local wound care Lino Singh MD [facility] Office: [phone] Subjective Date of service: 10/01/16 Principal diagnosis: Atrial fib Interval history: No complaints at present. No significant pain. Status post drainage of an abscess and amputation of the right fifth toe and fourth metatarsal by Dr. Salter on 09/30. Objective - Exam Narrative Exam: GENERAL: Well-developed, clinically ill-appearing male is alert and in no acute distress but somewhat lethargic. HEAD: Normocephalic. No lesions seen. EYES: Pupils are equal reactive to light and accommodation. There is no scleral icterus. Optic fundi are not examined. Bilateral arcus senilis. EARS: External ears are normal. THROAT: Oropharynx is normal with no evidence of oral candidiasis or pharyngitis. Patient has extremely poor dentition with multiple missing teeth but no obvious dental infection. NECK: Supple. No enlargement of the thyroid gland. No significant cervical lymphadenopathy. No jugular venous distention at 30. LUNGS: Clear with no adventitious sounds. HEART: Irregularly irregular. There are no gallops, clicks or rubs heard. There is a grade III/ FELIX heard over the left upper sternal border. I hear no diastolic murmur. ABDOMEN: Soft and nontender. Liver and spleen are not palpably enlarged or tender. No palpable masses. Bowel sounds are normoactive. EXTREMITIES: Marked bilateral lower extremity edema with chronic stasis changes. Right foot dressings in place with no signs of proximal infection or ischemia. Peripheral pulses are difficult to palpate in the lower extremities but exam is difficult because of the marked edema. Operative note reviewed. SKIN: As above. AV graft in the left upper extremity with no signs of infection and good palpable thrill and audible bruit. : Not examined today. NEUROLOGIC: Right-sided weakness. - Constitutional Vitals: Vital Signs Temp Pulse Resp BP Pulse Ox 97.1 F L 124 H 22 112/68 96 10/01/16 12:06 10/01/16 12:06 10/01/16 12:06 10/01/16 12:06 10/01/16 12:06 Temperature -Last 24 Hours Temperature 97.1 F Temperature 97.2 F Temperature 98.4 F Temperature 98.1 F Temperature 98.1 F Temperature 98.2 F Temperature 98.2 F Temperature 98.6 F - Labs CBC & Chem 7: 10/01/16 09:08 10/01/16 07:42 Labs: Abnormal lab results Microbiology 09/30/16 16:16 Foot - Right Surgical Biopsy Culture - Preliminary Gram Negative Ashutosh. Gram stain with few PMNs, rare gram-negative ashutosh and rare gram-positive cocci in pairs) 09/29/16 16:18 Peripheral/Venous Blood Culture - Preliminary NO GROWTH AFTER 24 HOURS 09/29/16 16:18 Peripheral/Venous Blood Culture - Preliminary NO GROWTH AFTER 24 HOURS 09/27/16 Unknown Foot - Right Wound Culture - Final Proteus Mirabilis (resistant only to tetracycline)
[2016-10-01] MEDS: LASIX PO SCH (14:49)
[2016-10-01] MEDS: MONOKET PO SCH ×2 (14:49→22:07)
[2016-10-01] MEDS: PROTONIX PO SCH (15:11)
--- NOTE | 2016-10-01 16:23 | Progress Note ---
Assessment and Plan Assessment and plan: 1. Sepsis due to RLE cellulitis with necrosis and proteus infected foot - psot debridement and amputation of toes; ID f/u appreciated; Continue IV antibiotics zosyn and vancomycin; local wound care; f/u ortho noted; vascular consult noted with recommendations that The patient may benefit from guillotine/open below- knee amputation prior to revascularization with definitive below-knee amputation performed afterwards. 2. Afib with RVR- cardiology input appreciated; cotn cardizem and metoprolol and adjust as needed; eliquis on hold in the event that further surgical porcedure needed; will cover with lovenox when ok with ortho; f/u cardiology 3. NSTEMI- stable; imdur; metoprolol; statin; plavix held for debridement / amputation 4. ESRD- Continued HD per renal 5. Generalized Weakness - PT 6. DVT prophylaxis-hold eliquis on hold for possibe further amputation; will start lovenox as bridge when ok with ortho; scd History Interval history: f/u RT foot infection; Lt foot OM; Atrial fibrillation Patient seen at the bedside; no complaints; had debridement / amputation of toes of RT foot yesterday Hospitalist Physical - Constitutional Vitals: Temp Pulse Resp BP Pulse Ox 97.0 F L 116 H 20 114/74 96 10/01/16 15:43 10/01/16 15:43 10/01/16 15:43 10/01/16 15:43 10/01/16 15:43 General appearance: Present: no acute distress - EENT Eyes: Present: PERRL, EOM intact. Absent: scleral icterus, conjunctival injection ENT: hearing intact, clear oral mucosa, no oropharyngeal erythema, no poor dentition - Neck Neck: Present: supple. Absent: enlarged thyroid, masses or JVD - Respiratory Respiratory effort: normal Respiratory: bilateral: diminished, negative: rales, rhonchi, wheezing - Cardiovascular Rhythm: regular Heart Sounds: Present: S1 & S2. Absent: gallop - Extremities Extremities: no ischemia, pulses intact, pulses symmetrical Extremity abnormal: other (dressing to RT foot) - Abdominal General gastrointestinal: soft, non-tender, non-distended, normal bowel sounds - Integumentary Integumentary: Present: warm - Psychiatric Psychiatric: appropriate mood/affect, intact judgment & insight, cooperative - Neurologic Neurologic: CNII-XII intact, moves all extremities Results - Labs CBC & Chem 7: 10/01/16 09:08 10/01/16 07:42 Labs: Laboratory Last Values WBC 38.9 K/mm3 (4.5-11.0) H 10/01/16 09:08 RBC 3.29 M/mm3 (3.65-5.03) L 10/01/16 09:08 Hgb 10.4 gm/dl (11.8-15.2) L 10/01/16 09:08 Hct 32.6 % (35.5-45.6) L 10/01/16 09:08 MCV 99 fl (84-94) H 10/01/16 09:08 MCH 32 pg (28-32) 10/01/16 09:08 MCHC 32 % (32-34) 10/01/16 09:08 RDW 16.6 % (13.2-15.2) H 10/01/16 09:08 Plt Count 231 K/mm3 (140-440) 10/01/16 09:08 Baso % (Auto) Aluminum Pool Installer 09/23/16 06:33 Add Manual Diff Complete 10/01/16 07:42 Total Counted 100 10/01/16 07:42 Seg Neutrophils % Aluminum Pool Installer 10/01/16 07:42 Seg Neuts % (Manual) 93.0 % (40.0-70.0) H 10/01/16 07:42 Band Neutrophils % 1.0 % 10/01/16 07:42 Lymphocytes % (Manual) 2.0 % (13.4-35.0) L 10/01/16 07:42 Reactive Lymphs % (Man) 0 % 10/01/16 07:42 Monocytes % (Manual) 4.0 % (0.0-7.3) 10/01/16 07:42 Eosinophils % (Manual) 0 % (0.0-4.3) 10/01/16 07:42 Basophils % (Manual) 0 % (0.0-1.8) 10/01/16 07:42 Metamyelocytes % 0 % 10/01/16 07:42 Myelocytes % 0 % 10/01/16 07:42 Promyelocytes % 0 % 10/01/16 07:42 Blast Cells % 0 % 10/01/16 07:42 Nucleated RBC % Not Reportable 10/01/16 07:42 Seg Neutrophils # Man 40.3 K/mm3 (1.8-7.7) H 10/01/16 07:42 Band Neutrophils # 0.4 K/mm3 10/01/16 07:42 Lymphocytes # (Manual) 0.9 K/mm3 (1.2-5.4) L 10/01/16 07:42 Abs React Lymphs (Man) 0.0 K/mm3 10/01/16 07:42 Monocytes # (Manual) 1.7 K/mm3 (0.0-0.8) H 10/01/16 07:42 Eosinophils # (Manual) 0.0 K/mm3 (0.0-0.4) 10/01/16 07:42 Basophils # (Manual) 0.0 K/mm3 (0.0-0.1) 10/01/16 07:42 Metamyelocytes # 0.0 K/mm3 10/01/16 07:42 Myelocytes # 0.0 K/mm3 10/01/16 07:42 Promyelocytes # 0.0 K/mm3 10/01/16 07:42 Blast Cells # 0.0 K/mm3 10/01/16 07:42 Pathologist Review 09/23/16 06:33 WBC Morphology Not Reportable 10/01/16 07:42 Hypersegmented Neuts Not Reportable 10/01/16 07:42 Hyposegmented Neuts Not Reportable 10/01/16 07:42 Hypogranular Neuts Not Reportable 10/01/16 07:42 Smudge Cells Not Reportable 10/01/16 07:42 Toxic Granulation Not Reportable 10/01/16 07:42 Toxic Vacuolation Not Reportable 10/01/16 07:42 Dohle Bodies Not Reportable 10/01/16 07:42 Pelger-Huet Anomaly Not Reportable 10/01/16 07:42 Kody Rods Not Reportable 10/01/16 07:42 Platelet Estimate Appears normal 10/01/16 07:42 Clumped Platelets Few 10/01/16 07:42 Plt Clumps, EDTA Not Reportable 10/01/16 07:42 Large Platelets Not Reportable 10/01/16 07:42 Giant Platelets Not Reportable 10/01/16 07:42 Platelet Satelliting Not Reportable 10/01/16 07:42 Plt Morphology Comment Not Reportable 10/01/16 07:42 RBC Morphology Not Reportable 10/01/16 07:42 Dimorphic RBCs Not Reportable 10/01/16 07:42 Polychromasia Few 10/01/16 07:42 Hypochromasia Not Reportable 10/01/16 07:42 Poikilocytosis Not Reportable 10/01/16 07:42 Anisocytosis 1+ 10/01/16 07:42 Microcytosis Not Reportable 10/01/16 07:42 Macrocytosis Not Reportable 10/01/16 07:42 Spherocytes Not Reportable 10/01/16 07:42 Pappenheimer Bodies Not Reportable 10/01/16 07:42 Sickle Cells Not Reportable 10/01/16 07:42 Target Cells 1+ 10/01/16 07:42 Tear Drop Cells Not Reportable 10/01/16 07:42 Ovalocytes Not Reportable 10/01/16 07:42 Helmet Cells Not Reportable 10/01/16 07:42 Cramer-[place]ash Bodies Not Reportable 10/01/16 07:42 [place] Rings Not Reportable 10/01/16 07:42 [place] Cells Not Reportable 10/01/16 07:42 Bite Cells Not Reportable 10/01/16 07:42 Crenated Cell Not Reportable 10/01/16 07:42 Elliptocytes Not Reportable 10/01/16 07:42 Acanthocytes (Spur) Not Reportable 10/01/16 07:42 Rouleaux Not Reportable 10/01/16 07:42 Hemoglobin C Crystals Not Reportable 10/01/16 07:42 Schistocytes Not Reportable 10/01/16 07:42 Malaria parasites Not Reportable 10/01/16 07:42 Marcelino Bodies Not Reportable 10/01/16 07:42 Hem Pathologist Commnt No 10/01/16 07:42 PT 15.7 Sec. (12.2-14.9) H 09/23/16 06:33 INR 1.26 (0.87-1.13) H 09/23/16 06:33 Sodium 140 mmol/L (137-145) 10/01/16 07:42 Potassium 4.2 mmol/L (3.6-5.0) 10/01/16 07:42 Chloride 94.6 mmol/L (98-107) L 10/01/16 07:42 Carbon Dioxide 18 mmol/L (22-30) L 10/01/16 07:42 Anion Gap 32 mmol/L 10/01/16 07:42 BUN 55 mg/dL (9-20) H 10/01/16 07:42 Creatinine 6.6 mg/dL (0.8-1.5) H 10/01/16 07:42 Estimated GFR 10 ml/min 10/01/16 07:42 BUN/Creatinine Ratio 8.33 % 10/01/16 07:42 Glucose 148 mg/dL (75-100) H 10/01/16 07:42 POC Glucose 155 (70-105) H 10/01/16 01:28 Lactic Acid 2.3 mmol/L (0.7-2.0) H* 09/23/16 06:33 Calcium 8.1 mg/dL (8.4-10.2) L 10/01/16 07:42 Magnesium 2.2 mg/dL (1.7-2.3) 09/30/16 04:38 Total Creatine Kinase 914 units/L (55-170) H 09/23/16 18:42 CK-MB (CK-2) 4.3 ng/mL (0.0-4.0) H 09/23/16 18:42 CK-MB (CK-2) Rel Index 0.4 (0-4) 09/23/16 18:42 Troponin T 0.221 ng/mL (0.00-0.029) H* 09/23/16 18:42 Triglycerides 199 mg/dL (2-149) H 09/23/16 06:33 Cholesterol 140 mg/dL (50-199) 09/23/16 06:33 LDL Cholesterol Direct 76 mg/dL (50-130) 09/23/16 06:33 HDL Cholesterol 25 mg/dL (40-59) L 09/23/16 06:33 Cholesterol/HDL Ratio 5.60 % 09/23/16 06:33 TSH 0.074 mlU/mL (0.270-4.200) L 09/23/16 11:28 Thyroxine (T4) 4.6 ug/dL (4.0-12.0) 09/23/16 11:28 Microbiology 09/30/16 16:16 Foot - Right Surgical Biopsy Culture - Preliminary Gram Negative Ashutosh 09/29/16 16:18 Peripheral/Venous Blood Culture - Preliminary NO GROWTH AFTER 24 HOURS 09/29/16 16:18 Peripheral/Venous Blood Culture - Preliminary NO GROWTH AFTER 24 HOURS 09/27/16 Unknown Foot - Right Wound Culture - Final Proteus Mirabilis
[2016-10-01] MEDS: ZOCOR PO SCH (22:07)
[2016-10-02] MEDS: CARDIZEM PO SCH ×4 (00:02→17:21)
[2016-10-02] MEDS: ZOSYN/NS 2.25 GM/50ML 50 ML IV SCH ×2 (00:02→10:48)
--- NOTE | 2016-10-02 07:32 | Vascular Lab Report ---
LOWER EXTREMITY ARTERIAL PHYSIOLOGIC STUDY: REASON FOR EXAM: Peripheral arterial disease. COMMENTS ON THE RIGHT: Ankle brachial index is not obtained due to incompressibility of the vessels. Toe brachial index is not obtained due to bandages. Pulse volume recording at the level of the ankle is abnormal. Exercise testing was not done. Digital waveforms are abnormal COMMENTS ON THE LEFT: Ankle brachial index is not obtained due to incompressibility of the vessels. Toe brachial index is 0.76. This value is normal. Wound healing is likely. Pulse volume recording at the level of the ankle is normal. Exercise testing was not done Digital waveforms are normal. IMPRESSION: RIGHT: Nonocclusive calcified arterial disease. The degree of flow compromise cannot be ascertained. Clinical correlation recommended Possible small vessel disease in the foot. LEFT:Calcified nonocclusive peripheral vascular disease
--- NOTE | 2016-10-02 07:34 | Vascular Lab Report ---
LOWER EXTREMITY ARTERIAL DUPLEX: REASON FOR EXAM: Peripheral arterial disease. COMMENTS ON THE RIGHT: Monophasic waveforms are seen proximally. Monophasic waveforms are seen distally. No significant velocity gradients are identified. No focal significant plaque is identified. Findings are consistent with abnormal perfusion. Findings are in consistent with the ability to heal distal wounds. COMMENTS ON THE LEFT: Triphasic waveforms are seen proximally. Biphasic waveforms are seen distally. No significant velocity gradients are identified. No focal significant plaque is identified. Findings are consistent with normal perfusion. Findings are consistent with the ability to heal distal wounds. IMPRESSION: RIGHT: No identifiable stenosis in the vessels examined. The quality of waveforms suggest inflow disease. Clinical correlation is recommended LEFT:Essentially normal arterial flow.
[2016-10-02 08:34] LABS: Hematocrit 29.2 % (35.5-45.6); Hemoglobin 9.5 gm/dl (11.8-15.2); Mean Corpuscular HGB Conc 33 % (32-34); Mean Corpuscular Hemoglobin 32 pg (28-32); Mean Corpuscular Volume 98 fl (84-94); Platelet Count 220 K/mm3 (140-440); Red Blood Count 2.97 M/mm3 (3.65-5.03); Red Cell Distribution Width 17.1 % (13.2-15.2); White Blood Count 31.6 K/mm3 (4.5-11.0)
[2016-10-02] MEDS: APRESOLINE PO SCH ×2 (10:14→23:33)
[2016-10-02] MEDS: LASIX PO SCH (10:15)
[2016-10-02] MEDS: Renal Caps PO SCH ×3 (10:16→23:31)
[2016-10-02] MEDS: LOPRESSOR PO SCH ×3 (10:16→23:31)
[2016-10-02] MEDS: PROTONIX PO SCH (10:17)
[2016-10-02] MEDS: MONOKET PO SCH ×2 (10:17→23:32)
[2016-10-02] MEDS: CATAPRES PO SCH (10:18)
[2016-10-02 10:21] LABS: BUN/Creatinine Ratio 8.39; Calcium 6.9 mg/dL (8.4-10.2); Chloride 92.2 mmol/L (98-107); Potassium 3.8 mmol/L (3.6-5.0)
[2016-10-02 10:41] LABS: Basophils % (Manual) 0 % (0.0-1.8); Blastocytes % (Manual) 0 %; Eosinophils % (Manual) 0 % (0.0-4.3); Total Cells Counted Percent 2.5
[2016-10-02 10:42] LABS: Hypochromasia 1+; RBC Morphology Normal
[2016-10-02 10:43] LABS: Diff Status Complete
--- NOTE | 2016-10-02 10:46 | Progress Note ---
Assessment and Plan Altered mental status -resolved Atrial fibrillation/flutter rate controlled on cardizem and metoprolol ESRD on HD Hypertension Prior CVA Osteomyelitis s/p toe amputation Echocardiogram reports a technical difficult study, ejection fraction 50-55% Recommendations: Resume eliquis 5 mg po bid when surgically feasible. No further cardiac recommendations Will sign off Please call again if needed Subjective Date of service: 10/02/16 Principal diagnosis: Atrial fib Interval history: Patient is doing well. He denies chest pain or shortness of breath. Objective Vital Signs Temp Pulse Pulse Pulse Resp BP BP 10/02/16 10:18 90 110/58 10/02/16 10:16 90 110/58 10/02/16 10:14 90 110/58 10/02/16 09:44 97.6 F 96 H 24 120/64 10/02/16 05:52 97.9 F 95 H 20 109/57 10/02/16 05:25 95 H 109/57 10/02/16 00:58 97.9 F 86 22 104/65 10/02/16 00:02 86 104/65 10/01/16 23:00 94 H 10/01/16 22:10 96 H 106/75 10/01/16 22:09 96 H 106/75 10/01/16 22:08 96 H 106/75 10/01/16 20:25 98.1 F 96 H 22 106/57 10/01/16 17:49 114/70 10/01/16 15:43 97.0 F L 116 H 20 114/74 10/01/16 15:11 72 10/01/16 14:50 121/70 10/01/16 12:06 97.1 F L 124 H 22 112/68 Pulse Ox 10/02/16 10:18 10/02/16 10:16 10/02/16 10:14 10/02/16 09:44 99 10/02/16 05:52 98 10/02/16 05:25 10/02/16 00:58 10/02/16 00:02 10/01/16 23:00 10/01/16 22:10 10/01/16 22:09 10/01/16 22:08 10/01/16 20:25 96 10/01/16 17:49 10/01/16 15:43 96 10/01/16 15:11 10/01/16 14:50 10/01/16 12:06 96 - Physical Examination General: No Apparent Distress, Cachectic HEENT: Positive: PERRL Neck: Positive: trachea midline. Negative: neck supple, JVD/HJR Cardiac: Positive: irregularly irregular Lungs: Positive: Normal Exam Neuro: Positive: Grossly Intact Abdomen: Positive: Unremarkable, Soft Skin: Positive: Clear Extremities: Absent: edema - Labs and Meds CBC 10/02/16 Range/Units 08:05 WBC 31.6 H (4.5-11.0) K/mm3 RBC 2.97 L (3.65-5.03) M/mm3 Hgb 9.5 L (11.8-15.2) gm/dl Hct 29.2 L (35.5-45.6) % Plt Count 220 (140-440) K/mm3 Comprehensive Metabolic Panel 10/02/16 Range/Units 08:05 Sodium 133 L (137-145) mmol/L Potassium 3.8 (3.6-5.0) mmol/L Chloride 92.2 L (98-107) mmol/L Carbon Dioxide 18 L (22-30) mmol/L BUN 68 H (9-20) mg/dL Creatinine 8.1 H (0.8-1.5) mg/dL Glucose 257 H (75-100) mg/dL Calcium 6.9 L (8.4-10.2) mg/dL
[2016-10-02] MEDS: NOVOLOG SUB-Q SCH ×5 (10:49→16:33)
--- NOTE | 2016-10-02 12:10 | Progress Note ---
Assessment and Plan Current antibiotics: Vancomycin (pulse dosed) 09/26 --> Zosyn 2.25 g IV q8h 09/26 --> ASSESSMENT: Jacoby Shoemaker is a 71-year-old male with end-stage renal failure on maintenance HD , previous left hemispheral stroke with right hemiparesis, hypertension, chronic atrial fibrillation and anemia who was admitted to [facility] on 09/23/16 with increased lethargy at the dialysis center. He has evidence of a right foot infection. Problem list: 1. Right foot infection -CT scan shows evidence of osteomyelitis of the fifth toe as well as abscess formation in the forefoot -Likely mixed aerobic and anaerobic pathogens with the marked malodorous drainage -Status post abscess drainage and right fifth toe and fourth metatarsal amputation 09/30 -Surgical Gram stain 09/30 with few polys, rare gram-negative rods and rare gram- positive cocci in pairs; culture positive for Proteus mirabilis. (Previous Proteus mirabilis on superficial wound culture 09/27/16) -Limb not felt to be salvageable as per Dr. Salter's note 2. End-stage renal failure -Hemodialysis dependent 3. Hypertension 4. Chronic atrial fibrillation -Rapid ventricular response on admission with rate controlled now 5. Status post left hemispheral stroke -Chronic right hemiparesis 6. Leukocytosis -Secondary to #1 PLAN: 1. At this point in time, based on recent cultures, will treat with IV ceftriaxone 2 g daily. Previous drainage with foul odor. Will also give IV Flagyl, 500 mg every 8 hours. 2. Await further decisions in regards to possible lower extremity amputation 3. Continue aggressive local wound care 4. Follow serial WBC#s. 5. If patient documented with diarrhea would check stool for white cells and C. difficile. ( Note patient on MRA with prn Dulcolax ) Subjective Date of service: 10/02/16 Principal diagnosis: Atrial fib Interval history: Complains of feeling bad all over. Describes occasional diarrhea. Objective - Exam Narrative Exam: Chronically ill-appearing. No acute distress. HEENT: Pupils are equal reactive to light and accommodation. Conjunctiva clear. Oropharynx is normal with no evidence of oral candidiasis or pharyngitis. NECK: Supple. No enlargement of the thyroid gland. No significant cervical lymphadenopathy. No jugular venous distention at 30. LUNGS: Coarse breath sounds bilaterally. HEART: Irregular rhythm. S1 and S2 are normal. There are no murmurs, gallops, clicks or rubs heard. ABDOMEN: Soft and nontender. Liver and spleen are not palpably enlarged or tender. No palpable masses. Bowel sounds are normoactive. EXTREMITIES: 1+ distal lower extremity swelling with marked skin stasis changes. Right foot wraps not removed. Left upper extremity fistula site with positive thrill and bruit. SKIN: No other rash, ulcers or wounds. NEUROLOGIC: No focal findings. - Constitutional Vitals: Vital Signs Temp Pulse Resp BP Pulse Ox 97.6 F 100 H 24 110/58 99 10/02/16 09:44 10/02/16 11:00 10/02/16 09:44 10/02/16 10:18 10/02/16 09:44 Temperature -Last 24 Hours Temperature 97.6 F Temperature 97.9 F Temperature 97.9 F Temperature 98.1 F Temperature 97.0 F - Labs CBC & Chem 7: 10/02/16 08:05 10/02/16 08:05 Labs: Abnormal lab results 10/01/16 10/01/16 10/01/16 Range/Units 07:17 12:06 15:57 WBC (4.5-11.0) K/mm3 RBC (3.65-5.03) M/mm3 Hgb (11.8-15.2) gm/dl Hct (35.5-45.6) % MCV (84-94) fl RDW (13.2-15.2) % Seg Neuts % (Manual) (40.0-70.0) % Lymphocytes % (Manual) (13.4-35.0) % Seg Neutrophils # Man (1.8-7.7) K/mm3 Sodium (137-145) mmol/L Chloride (98-107) mmol/L Carbon Dioxide (22-30) mmol/L BUN (9-20) mg/dL Creatinine (0.8-1.5) mg/dL Glucose (75-100) mg/dL POC Glucose 139 H 222 H 408 H (70-105) Calcium (8.4-10.2) mg/dL 10/01/16 10/02/16 10/02/16 Range/Units 21:42 07:51 08:05 WBC 31.6 H (4.5-11.0) K/mm3 RBC 2.97 L (3.65-5.03) M/mm3 Hgb 9.5 L (11.8-15.2) gm/dl Hct 29.2 L (35.5-45.6) % MCV 98 H (84-94) fl RDW 17.1 H (13.2-15.2) % Seg Neuts % (Manual) 91.5 H (40.0-70.0) % Lymphocytes % (Manual) 6.0 L (13.4-35.0) % Seg Neutrophils # Man 28.9 H (1.8-7.7) K/mm3 Sodium (137-145) mmol/L Chloride (98-107) mmol/L Carbon Dioxide (22-30) mmol/L BUN (9-20) mg/dL Creatinine (0.8-1.5) mg/dL Glucose (75-100) mg/dL POC Glucose 320 H 333 H (70-105) Calcium (8.4-10.2) mg/dL 10/02/16 10/02/16 Range/Units 08:05 11:17 WBC (4.5-11.0) K/mm3 RBC (3.65-5.03) M/mm3 Hgb (11.8-15.2) gm/dl Hct (35.5-45.6) % MCV (84-94) fl RDW (13.2-15.2) % Seg Neuts % (Manual) (40.0-70.0) % Lymphocytes % (Manual) (13.4-35.0) % Seg Neutrophils # Man (1.8-7.7) K/mm3 Sodium 133 L (137-145) mmol/L Chloride 92.2 L (98-107) mmol/L Carbon Dioxide 18 L (22-30) mmol/L BUN 68 H (9-20) mg/dL Creatinine 8.1 H (0.8-1.5) mg/dL Glucose 257 H (75-100) mg/dL POC Glucose 329 H (70-105) Calcium 6.9 L (8.4-10.2) mg/dL
--- NOTE | 2016-10-02 13:48 | Progress Note ---
[id number] Status: Chronic Plan to address problem: To start local wound care, dressing changes.? Wound Vac for temporization. Once medically stable need to complete vascular evaluation, will need a proximal level amputation. Subjective Date of service: 10/02/16 Principal diagnosis: Atrial fib Interval history: Status post debridement foot, partial amputation. Dressings are dry, no drainage. Patient remains confused. Objective Vital signs: Vital Signs - 12hr 10/02/16 10/02/16 10/02/16 05:25 05:52 09:44 Temperature 97.9 F 97.6 F Pulse Rate 95 H Pulse Rate [ 95 H Left Radial] Pulse Rate [ 96 H Right Radial] Respiratory 20 24 Rate Blood Pressure 109/57 Blood Pressure 109/57 120/64 [Right Radial Artery] O2 Sat by Pulse 98 99 Oximetry 10/02/16 10/02/16 10/02/16 10:00 10:14 10:16 Temperature Pulse Rate 90 90 Pulse Rate [ 108 H Left Radial] Pulse Rate [ Right Radial] Respiratory Rate Blood Pressure 110/58 110/58 Blood Pressure [Right Radial Artery] O2 Sat by Pulse Oximetry 10/02/16 10/02/16 10:18 11:00 Temperature Pulse Rate 90 100 H Pulse Rate [ Left Radial] Pulse Rate [ Right Radial] Respiratory Rate Blood Pressure 110/58 Blood Pressure [Right Radial Artery] O2 Sat by Pulse Oximetry - Labs CBC & BMP: 10/02/16 08:05 10/02/16 08:05 Labs: Abnormal lab results 10/01/16 10/01/16 10/01/16 Range/Units 07:17 12:06 15:57 WBC (4.5-11.0) K/mm3 RBC (3.65-5.03) M/mm3 Hgb (11.8-15.2) gm/dl Hct (35.5-45.6) % MCV (84-94) fl RDW (13.2-15.2) % Seg Neuts % (Manual) (40.0-70.0) % Lymphocytes % (Manual) (13.4-35.0) % Seg Neutrophils # Man (1.8-7.7) K/mm3 Sodium (137-145) mmol/L Chloride (98-107) mmol/L Carbon Dioxide (22-30) mmol/L BUN (9-20) mg/dL Creatinine (0.8-1.5) mg/dL Glucose (75-100) mg/dL POC Glucose 139 H 222 H 408 H (70-105) Calcium (8.4-10.2) mg/dL 10/01/16 10/02/16 10/02/16 Range/Units 21:42 07:51 08:05 WBC 31.6 H (4.5-11.0) K/mm3 RBC 2.97 L (3.65-5.03) M/mm3 Hgb 9.5 L (11.8-15.2) gm/dl Hct 29.2 L (35.5-45.6) % MCV 98 H (84-94) fl RDW 17.1 H (13.2-15.2) % Seg Neuts % (Manual) 91.5 H (40.0-70.0) % Lymphocytes % (Manual) 6.0 L (13.4-35.0) % Seg Neutrophils # Man 28.9 H (1.8-7.7) K/mm3 Sodium (137-145) mmol/L Chloride (98-107) mmol/L Carbon Dioxide (22-30) mmol/L BUN (9-20) mg/dL Creatinine (0.8-1.5) mg/dL Glucose (75-100) mg/dL POC Glucose 320 H 333 H (70-105) Calcium (8.4-10.2) mg/dL 10/02/16 10/02/16 Range/Units 08:05 11:17 WBC (4.5-11.0) K/mm3 RBC (3.65-5.03) M/mm3 Hgb (11.8-15.2) gm/dl Hct (35.5-45.6) % MCV (84-94) fl RDW (13.2-15.2) % Seg Neuts % (Manual) (40.0-70.0) % Lymphocytes % (Manual) (13.4-35.0) % Seg Neutrophils # Man (1.8-7.7) K/mm3 Sodium 133 L (137-145) mmol/L Chloride 92.2 L (98-107) mmol/L Carbon Dioxide 18 L (22-30) mmol/L BUN 68 H (9-20) mg/dL Creatinine 8.1 H (0.8-1.5) mg/dL Glucose 257 H (75-100) mg/dL POC Glucose 329 H (70-105) Calcium 6.9 L (8.4-10.2) mg/dL
--- NOTE | 2016-10-02 14:38 | Progress Note ---
Assessment and Plan Assessment and plan: 1. Sepsis due to RLE cellulitis with necrosis and proteus infected foot - post debridement and amputation of toes; ID f/u appreciated; Continue IV antibiotics zosyn and vancomycin; local wound care; f/u ortho noted; vascular consult noted with recommendations that The patient may benefit from guillotine/open below- knee amputation prior to revascularization with definitive below-knee amputation performed afterwards. 2. Afib with RVR- cardiology input appreciated; cotn cardizem and metoprolol and adjust as needed; full dose lovenox; will restart eliquis once sx decided and done; f/u cardiology 3. NSTEMI- stable; imdur; metoprolol; statin; plavix held for debridement / amputation 4. ESRD- Continued HD per renal 5. Generalized Weakness - PT 6. DVT prophylaxis-start full dose lovenon until decision regarding sx finalized ; restart eliquis after sx; possibe further amputation; History Interval history: f/u RT foot infection; Lt foot OM; Atrial fibrillation Patient seen at the bedside; no complaints; Hospitalist Physical - Constitutional Vitals: Temp Pulse Resp BP Pulse Ox 97.8 F 104 H 24 118/68 99 10/02/16 14:02 10/02/16 14:31 10/02/16 14:02 10/02/16 14:31 10/02/16 14:02 General appearance: Present: no acute distress - EENT Eyes: Present: PERRL, EOM intact. Absent: scleral icterus, conjunctival injection ENT: hearing intact, clear oral mucosa, no oropharyngeal erythema, no poor dentition - Neck Neck: Present: supple, normal ROM. Absent: enlarged thyroid, masses or JVD - Respiratory Respiratory effort: normal Respiratory: negative: diminished, rales, rhonchi, wheezing - Cardiovascular Rhythm: regular Heart Sounds: Present: S1 & S2. Absent: gallop - Extremities Extremities: no ischemia, pulses intact, abnormal (dressing to RT foot) Peripheral Pulses: within normal limits - Abdominal General gastrointestinal: soft, non-tender, non-distended - Integumentary Integumentary: Present: clear - Psychiatric Psychiatric: appropriate mood/affect, intact judgment & insight - Neurologic Neurologic: CNII-XII intact, moves all extremities Results - Labs CBC & Chem 7: 10/02/16 08:05 10/02/16 08:05 Labs: Laboratory Last Values WBC 31.6 K/mm3 (4.5-11.0) H 10/02/16 08:05 RBC 2.97 M/mm3 (3.65-5.03) L 10/02/16 08:05 Hgb 9.5 gm/dl (11.8-15.2) L 10/02/16 08:05 Hct 29.2 % (35.5-45.6) L 10/02/16 08:05 MCV 98 fl (84-94) H 10/02/16 08:05 MCH 32 pg (28-32) 10/02/16 08:05 MCHC 33 % (32-34) 10/02/16 08:05 RDW 17.1 % (13.2-15.2) H 10/02/16 08:05 Plt Count 220 K/mm3 (140-440) 10/02/16 08:05 Baso % (Auto) [employer] 09/23/16 06:33 Add Manual Diff Complete 10/02/16 08:05 Total Counted 200 10/02/16 08:05 Seg Neutrophils % [employer] Maker 10/02/16 08:05 Seg Neuts % (Manual) 91.5 % (40.0-70.0) H 10/02/16 08:05 Band Neutrophils % 0 % 10/02/16 08:05 Lymphocytes % (Manual) 6.0 % (13.4-35.0) L 10/02/16 08:05 Reactive Lymphs % (Man) 0 % 10/02/16 08:05 Monocytes % (Manual) 2.5 % (0.0-7.3) 10/02/16 08:05 Eosinophils % (Manual) 0 % (0.0-4.3) 10/02/16 08:05 Basophils % (Manual) 0 % (0.0-1.8) 10/02/16 08:05 Metamyelocytes % 0 % 10/02/16 08:05 Myelocytes % 0 % 10/02/16 08:05 Promyelocytes % 0 % 10/02/16 08:05 Blast Cells % 0 % 10/02/16 08:05 Nucleated RBC % Not Reportable 10/02/16 08:05 Seg Neutrophils # Man 28.9 K/mm3 (1.8-7.7) H 10/02/16 08:05 Band Neutrophils # 0.0 K/mm3 10/02/16 08:05 Lymphocytes # (Manual) 1.9 K/mm3 (1.2-5.4) 10/02/16 08:05 Abs React Lymphs (Man) 0.0 K/mm3 10/02/16 08:05 Monocytes # (Manual) 0.8 K/mm3 (0.0-0.8) 10/02/16 08:05 Eosinophils # (Manual) 0.0 K/mm3 (0.0-0.4) 10/02/16 08:05 Basophils # (Manual) 0.0 K/mm3 (0.0-0.1) 10/02/16 08:05 Metamyelocytes # 0.0 K/mm3 10/02/16 08:05 Myelocytes # 0.0 K/mm3 10/02/16 08:05 Promyelocytes # 0.0 K/mm3 10/02/16 08:05 Blast Cells # 0.0 K/mm3 10/02/16 08:05 Pathologist Review 09/23/16 06:33 WBC Morphology Not Reportable 10/02/16 08:05 Hypersegmented Neuts Not Reportable 10/02/16 08:05 Hyposegmented Neuts Not Reportable 10/02/16 08:05 Hypogranular Neuts Not Reportable 10/02/16 08:05 Smudge Cells Not Reportable 10/02/16 08:05 Toxic Granulation Not Reportable 10/02/16 08:05 Toxic Vacuolation Not Reportable 10/02/16 08:05 Dohle Bodies Not Reportable 10/02/16 08:05 Pelger-Huet Anomaly Not Reportable 10/02/16 08:05 Kody Rods Not Reportable 10/02/16 08:05 Platelet Estimate Appears normal 10/02/16 08:05 Clumped Platelets Not Reportable 10/02/16 08:05 Plt Clumps, EDTA Not Reportable 10/02/16 08:05 Large Platelets Not Reportable 10/02/16 08:05 Giant Platelets Not Reportable 10/02/16 08:05 Platelet Satelliting Not Reportable 10/02/16 08:05 Plt Morphology Comment Not Reportable 10/02/16 08:05 RBC Morphology Normal 10/02/16 08:05 Dimorphic RBCs Not Reportable 10/02/16 08:05 Polychromasia Not Reportable 10/02/16 08:05 Hypochromasia 1+ 10/02/16 08:05 Poikilocytosis Not Reportable 10/02/16 08:05 Anisocytosis Not Reportable 10/02/16 08:05 Microcytosis Not Reportable 10/02/16 08:05 Macrocytosis Not Reportable 10/02/16 08:05 Spherocytes Not Reportable 10/02/16 08:05 Pappenheimer Bodies Not Reportable 10/02/16 08:05 Sickle Cells Not Reportable 10/02/16 08:05 Target Cells Not Reportable 10/02/16 08:05 Tear Drop Cells Not Reportable 10/02/16 08:05 Ovalocytes Not Reportable 10/02/16 08:05 Helmet Cells Not Reportable 10/02/16 08:05 Cramer-[place]ou[place] Bodies Not Reportable 10/02/16 08:05 [place] Rings Not Reportable 10/02/16 08:05 [place] Cells Not Reportable 10/02/16 08:05 Bite Cells Not Reportable 10/02/16 08:05 Crenated Cell Not Reportable 10/02/16 08:05 Elliptocytes Not Reportable 10/02/16 08:05 Acanthocytes (Spur) Not Reportable 10/02/16 08:05 Rouleaux Not Reportable 10/02/16 08:05 Hemoglobin C Crystals Not Reportable 10/02/16 08:05 Schistocytes Not Reportable 10/02/16 08:05 Malaria parasites Not Reportable 10/02/16 08:05 Marcelino Bodies Not Reportable 10/02/16 08:05 Hem Pathologist Commnt No 10/02/16 08:05 PT 15.7 Sec. (12.2-14.9) H 09/23/16 06:33 INR 1.26 (0.87-1.13) H 09/23/16 06:33 Sodium 133 mmol/L (137-145) L 10/02/16 08:05 Potassium 3.8 mmol/L (3.6-5.0) 10/02/16 08:05 Chloride 92.2 mmol/L (98-107) L 10/02/16 08:05 Carbon Dioxide 18 mmol/L (22-30) L 10/02/16 08:05 Anion Gap 27 mmol/L 10/02/16 08:05 BUN 68 mg/dL (9-20) H 10/02/16 08:05 Creatinine 8.1 mg/dL (0.8-1.5) H 10/02/16 08:05 Estimated GFR 8 ml/min 10/02/16 08:05 BUN/Creatinine Ratio 8.39 % 10/02/16 08:05 Glucose 257 mg/dL (75-100) H 10/02/16 08:05 POC Glucose 329 (70-105) H 10/02/16 11:17 Lactic Acid 2.3 mmol/L (0.7-2.0) H* 09/23/16 06:33 Calcium 6.9 mg/dL (8.4-10.2) L 10/02/16 08:05 Magnesium 2.2 mg/dL (1.7-2.3) 09/30/16 04:38 Total Creatine Kinase 914 units/L (55-170) H 09/23/16 18:42 CK-MB (CK-2) 4.3 ng/mL (0.0-4.0) H 09/23/16 18:42 CK-MB (CK-2) Rel Index 0.4 (0-4) 09/23/16 18:42 Troponin T 0.221 ng/mL (0.00-0.029) H* 09/23/16 18:42 Triglycerides 199 mg/dL (2-149) H 09/23/16 06:33 Cholesterol 140 mg/dL (50-199) 09/23/16 06:33 LDL Cholesterol Direct 76 mg/dL (50-130) 09/23/16 06:33 HDL Cholesterol 25 mg/dL (40-59) L 09/23/16 06:33 Cholesterol/HDL Ratio 5.60 % 09/23/16 06:33 TSH 0.074 mlU/mL (0.270-4.200) L 09/23/16 11:28 Thyroxine (T4) 4.6 ug/dL (4.0-12.0) 09/23/16 11:28 Random Vancomycin 21.7 ug/mL (0-40.0) 10/02/16 08:05 Microbiology 09/30/16 16:16 Foot - Right Surgical Biopsy Culture - Final Proteus Mirabilis 09/29/16 16:18 Peripheral/Venous Blood Culture - Preliminary NO GROWTH AFTER 48 HOURS 09/29/16 16:18 Peripheral/Venous Blood Culture - Preliminary NO GROWTH AFTER 48 HOURS 09/27/16 Unknown Foot - Right Wound Culture - Final Proteus Mirabilis
[2016-10-02] MEDS: ROCEPHIN/NS 2 GM/100 ML 100 ML IV SCH (15:38)
[2016-10-02] MEDS: FLAGYL 500 MG/100 ML 100 ML IV SCH ×2 (15:38→23:30)
--- NOTE | 2016-10-02 20:04 | Progress Note ---
Assessment and Plan end-stage renal disease patient is currently dialysis dependent on Wednesday We'll continue to receive his dialysis as tolerated ultrafiltration as tolerated History of atrial fibrillation monitored Anemia and end-stage renal disease monitor erythropoietin as needed Malnutrition risk is high this consider high protein diet Leukocytosis appears to be improving electrolytes appear to be stable at this time,patient will benefit from nutritional evaluation and follow-up blood pressure has been low normal monitor carefully we'll discontinue clonidine for now and follow Secondary hyperparathyroidism monitor phosphorus as well as PTH level periodically Hypertension systolic blood pressures under 150 and his case Subjective Principal diagnosis: Atrial fib Interval history: patient was seen today for follow-up around 130 after his resting in bed comfortably Events of this hospitalization were noted Vitals labs intake output medications were reviewed Objective - Vital Signs Vital signs: Vital Signs - 12hr 10/02/16 10/02/16 10/02/16 09:44 10:00 10:14 Temperature 97.6 F Pulse Rate 90 Pulse Rate [ 108 H Left Radial] Pulse Rate [ 96 H Right Radial] Respiratory 24 Rate Blood Pressure 110/58 Blood Pressure 120/64 [Right Radial Artery] O2 Sat by Pulse 99 Oximetry 10/02/16 10/02/16 10/02/16 10:16 10:18 11:00 Temperature Pulse Rate 90 90 100 H Pulse Rate [ Left Radial] Pulse Rate [ Right Radial] Respiratory Rate Blood Pressure 110/58 110/58 Blood Pressure [Right Radial Artery] O2 Sat by Pulse Oximetry 10/02/16 10/02/16 10/02/16 12:00 14:02 14:31 Temperature 97.8 F Pulse Rate 96 H 104 H Pulse Rate [ Left Radial] Pulse Rate [ 105 H Right Radial] Respiratory 24 Rate Blood Pressure 108/58 118/68 Blood Pressure 119/69 [Right Radial Artery] O2 Sat by Pulse 99 Oximetry 10/02/16 10/02/16 10/02/16 16:23 17:25 17:30 Temperature 98.0 F 97.8 F Pulse Rate 87 77 Pulse Rate [ Left Radial] Pulse Rate [ 104 H Right Radial] Respiratory 22 22 Rate Blood Pressure 100/54 78/60 Blood Pressure 124/56 [Right Radial Artery] O2 Sat by Pulse 98 Oximetry 10/02/16 10/02/16 10/02/16 17:35 17:45 18:00 Temperature Pulse Rate 87 97 H 79 Pulse Rate [ Left Radial] Pulse Rate [ Right Radial] Respiratory Rate Blood Pressure 104/57 95/55 79/50 Blood Pressure [Right Radial Artery] O2 Sat by Pulse Oximetry 10/02/16 10/02/16 10/02/16 18:05 18:15 18:30 Temperature Pulse Rate 90 101 H 120 H Pulse Rate [ Left Radial] Pulse Rate [ Right Radial] Respiratory Rate Blood Pressure 112/54 91/49 102/57 Blood Pressure [Right Radial Artery] O2 Sat by Pulse Oximetry 10/02/16 10/02/16 10/02/16 18:45 19:00 19:15 Temperature Pulse Rate 67 63 62 Pulse Rate [ Left Radial] Pulse Rate [ Right Radial] Respiratory Rate Blood Pressure 115/49 104/54 95/58 Blood Pressure [Right Radial Artery] O2 Sat by Pulse Oximetry 10/02/16 19:30 Temperature Pulse Rate 72 Pulse Rate [ Left Radial] Pulse Rate [ Right Radial] Respiratory Rate Blood Pressure 107/56 Blood Pressure [Right Radial Artery] O2 Sat by Pulse Oximetry - General Appearance General appearance: appears stated age (elderly male) EENT: mucous membranes moist Neck: no JVD Respiratory: Present: Clear to Ascultation Cardiology: regular - Lab 10/02/16 08:05 10/02/16 08:05 Most recent lab results Calcium 6.9 mg/dL (8.4-10.2) L 10/02/16 08:05 Magnesium 2.2 mg/dL (1.7-2.3) 09/30/16 04:38
[2016-10-02] MEDS ORDERED: LOVENOX SUB-Q SCH (22:00)
[2016-10-02] MEDS: ZOCOR PO SCH (23:32)
[2016-10-03] MEDS: CARDIZEM PO SCH ×4 (01:22→20:46)
[2016-10-03] MEDS: FLAGYL 500 MG/100 ML 100 ML IV SCH ×3 (06:38→22:02)
[2016-10-03] MEDS: NOVOLOG SUB-Q SCH ×3 (08:42→20:46)
[2016-10-03] MEDS: LOPRESSOR PO SCH ×3 (09:21→20:59)
[2016-10-03] MEDS: MONOKET PO SCH ×2 (10:00→22:04)
[2016-10-03] MEDS ORDERED: LOVENOX SUB-Q SCH (10:00)
[2016-10-03] MEDS: PROTONIX PO SCH (10:01)
[2016-10-03] MEDS: APRESOLINE PO SCH ×2 (10:01→22:05)
[2016-10-03] MEDS: Renal Caps PO SCH ×3 (10:01→20:58)
[2016-10-03] MEDS: LASIX PO SCH (10:01)
[2016-10-03] MEDS: LOVENOX SUB-Q SCH (10:01)
[2016-10-03] MEDS: ROCEPHIN/NS 2 GM/100 ML 100 ML IV SCH (10:02)
--- NOTE | 2016-10-03 12:58 | Progress Note ---
Assessment and Plan Current antibiotics: Ceftriaxone 2 g IV q24h 10/02 --> Flagyl 500 mg IV q8h 10/02 --> Previous antibiotics: Vancomycin (pulse dosed) 09/26-10/02 Zosyn 2.25 g IV q8h 09/26-10/02 ASSESSMENT: Jacoby Shoemaker is a 71-year-old male with end-stage renal failure on maintenance HD , previous left hemispheral stroke with right hemiparesis, hypertension, chronic atrial fibrillation and anemia who was admitted to [facility] on 09/23/16 with increased lethargy at the dialysis center. He has evidence of a right foot infection. Problem list: 1. Right foot infection -CT scan shows evidence of osteomyelitis of the fifth toe as well as abscess formation in the forefoot -Likely mixed aerobic and anaerobic pathogens with the marked malodorous drainage. 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 Salter's note 2. End-stage renal failure -Hemodialysis dependent 3. Hypertension 4. Chronic atrial fibrillation -Rapid ventricular response on admission with rate controlled now 5. Status post left hemispheral stroke -Chronic right hemiparesis 6. Leukocytosis -Leukemoid reaction likely secondary to #1 PLAN: 1. Continue empiric antibiotics with Zosyn and vancomycin pending surgical cultures 3. Discussed with Dr. Corbett and patient could have BKA as opposed to AKA 4. Continue aggressive local wound care 5. Will check stool for C diff if he develops diarrhea. Lino Singh MD [facility] Office: [phone] Subjective Date of service: 10/03/16 Principal diagnosis: right foot infection Interval history: No complaints at present. No significant pain. No diarrhea. Objective - Exam Narrative Exam: GENERAL: Well-developed, clinically ill-appearing male is alert and in no acute distress but somewhat lethargic. HEAD: Normocephalic. No lesions seen. EYES: Pupils are equal reactive to light and accommodation. There is no scleral icterus. Optic fundi are not examined. Bilateral arcus senilis. EARS: External ears are normal. THROAT: Oropharynx is normal with no evidence of oral candidiasis or pharyngitis. Patient has extremely poor dentition with multiple missing teeth but no obvious dental infection. NECK: Supple. No enlargement of the thyroid gland. No significant cervical lymphadenopathy. No jugular venous distention at 30. LUNGS: Clear with no adventitious sounds. HEART: Irregularly irregular. There are no gallops, clicks or rubs heard. There is a grade III/ FELIX heard over the left upper sternal border. I hear no diastolic murmur. ABDOMEN: Soft and nontender. Liver and spleen are not palpably enlarged or tender. No palpable masses. Bowel sounds are normoactive. EXTREMITIES: Marked bilateral lower extremity edema with chronic stasis changes. Right foot dressings in place with no signs of proximal infection or ischemia. Peripheral pulses are difficult to palpate in the lower extremities but exam is difficult because of the marked edema. Operative note reviewed. SKIN: As above. AV graft in the left upper extremity with no signs of infection and good palpable thrill and audible bruit. : Not examined today. NEUROLOGIC: Right-sided weakness. - Constitutional Vitals: Vital Signs Temp Pulse Resp BP Pulse Ox 99.0 F 113 H 22 109/61 98 10/03/16 08:55 10/03/16 11:00 10/03/16 10:00 10/03/16 10:01 10/03/16 10:00 Temperature -Last 24 Hours Temperature 99.0 F Temperature 99.0 F Temperature 97.9 F Temperature 97.8 F Temperature 97.8 F Temperature 98.0 F Temperature 97.8 F - Labs CBC & Chem 7: 10/02/16 08:05 10/02/16 08:05 Labs: Abnormal lab results Microbiology 09/30/16 16:16 Foot - Right Surgical Biopsy Culture - Preliminary Proteus Mirabilis (resistant only to tetracycline). Gram stain with few PMNs, rare gram-negative flash and rare gram-positive cocci in pairs 09/29/16 16:18 Peripheral/Venous Blood Culture - Preliminary NO GROWTH AFTER 24 HOURS 09/29/16 16:18 Peripheral/Venous Blood Culture - Preliminary NO GROWTH AFTER 24 HOURS 09/27/16 Unknown Foot - Right Wound Culture - Final Proteus Mirabilis (resistant only to tetracycline)
--- NOTE | 2016-10-03 13:06 | Progress Note ---
Assessment and Plan Assessment and plan: 1. Sepsis due to RLE cellulitis with necrosis and proteus infected foot - post debridement and amputation of toes; ID f/u appreciated; Continue IV antibiotics rocephin and vancomycin as per ID; local wound care; f/u ortho noted; vascular consult noted with recommendations that The patient may benefit from guillotine /open below-knee amputation prior to revascularization with definitive below- knee amputation performed afterwards. 2. Afib with RVR- cardiology input appreciated; cotn cardizem and metoprolol and adjust as needed; full dose lovenox; will restart eliquis once sx decided and done; f/u cardiology 3. NSTEMI- stable; imdur; metoprolol; statin; plavix held for debridement / amputation 4. ESRD- Continued HD per renal 5. Generalized Weakness - PT 6. DVT prophylaxis-start full dose lovenon until decision regarding sx finalized ; restart eliquis after sx; possibe further amputation; History Interval history: f/u RT foot infection; Lt foot OM; Atrial fibrillation Patient seen at the bedside; no complaints Hospitalist Physical - Constitutional Vitals: Temp Pulse Resp BP Pulse Ox 99.0 F 113 H 22 109/61 98 10/03/16 08:55 10/03/16 11:00 10/03/16 10:00 10/03/16 10:01 10/03/16 10:00 General appearance: Present: no acute distress - EENT Eyes: Present: PERRL, EOM intact. Absent: scleral icterus, conjunctival injection ENT: hearing intact, clear oral mucosa, no oropharyngeal erythema, no poor dentition - Neck Neck: Present: supple, normal ROM. Absent: enlarged thyroid, masses or JVD - Respiratory Respiratory effort: normal Respiratory: negative: diminished, rales, rhonchi, wheezing - Cardiovascular Rhythm: regular Heart Sounds: Present: S1 & S2. Absent: gallop - Extremities Extremities: no ischemia, pulses intact, pulses symmetrical, abnormal (dressing to LT foot) Peripheral Pulses: within normal limits - Abdominal General gastrointestinal: soft, non-tender, non-distended - Integumentary Integumentary: Present: clear - Psychiatric Psychiatric: appropriate mood/affect, intact judgment & insight - Neurologic Neurologic: CNII-XII intact Results - Labs CBC & Chem 7: 10/02/16 08:05 10/02/16 08:05 Labs: Laboratory Last Values WBC 31.6 K/mm3 (4.5-11.0) H 10/02/16 08:05 RBC 2.97 M/mm3 (3.65-5.03) L 10/02/16 08:05 Hgb 9.5 gm/dl (11.8-15.2) L 10/02/16 08:05 Hct 29.2 % (35.5-45.6) L 10/02/16 08:05 MCV 98 fl (84-94) H 10/02/16 08:05 MCH 32 pg (28-32) 10/02/16 08:05 MCHC 33 % (32-34) 10/02/16 08:05 RDW 17.1 % (13.2-15.2) H 10/02/16 08:05 Plt Count 220 K/mm3 (140-440) 10/02/16 08:05 Baso % (Auto) [employer] 09/23/16 06:33 Add Manual Diff Complete 10/02/16 08:05 Total Counted 200 10/02/16 08:05 Seg Neutrophils % [employer] 10/02/16 08:05 Seg Neuts % (Manual) 91.5 % (40.0-70.0) H 10/02/16 08:05 Band Neutrophils % 0 % 10/02/16 08:05 Lymphocytes % (Manual) 6.0 % (13.4-35.0) L 10/02/16 08:05 Reactive Lymphs % (Man) 0 % 10/02/16 08:05 Monocytes % (Manual) 2.5 % (0.0-7.3) 10/02/16 08:05 Eosinophils % (Manual) 0 % (0.0-4.3) 10/02/16 08:05 Basophils % (Manual) 0 % (0.0-1.8) 10/02/16 08:05 Metamyelocytes % 0 % 10/02/16 08:05 Myelocytes % 0 % 10/02/16 08:05 Promyelocytes % 0 % 10/02/16 08:05 Blast Cells % 0 % 10/02/16 08:05 Nucleated RBC % Not Reportable 10/02/16 08:05 Seg Neutrophils # Man 28.9 K/mm3 (1.8-7.7) H 10/02/16 08:05 Band Neutrophils # 0.0 K/mm3 10/02/16 08:05 Lymphocytes # (Manual) 1.9 K/mm3 (1.2-5.4) 10/02/16 08:05 Abs React Lymphs (Man) 0.0 K/mm3 10/02/16 08:05 Monocytes # (Manual) 0.8 K/mm3 (0.0-0.8) 10/02/16 08:05 Eosinophils # (Manual) 0.0 K/mm3 (0.0-0.4) 10/02/16 08:05 Basophils # (Manual) 0.0 K/mm3 (0.0-0.1) 10/02/16 08:05 Metamyelocytes # 0.0 K/mm3 10/02/16 08:05 Myelocytes # 0.0 K/mm3 10/02/16 08:05 Promyelocytes # 0.0 K/mm3 10/02/16 08:05 Blast Cells # 0.0 K/mm3 10/02/16 08:05 Pathologist Review 09/23/16 06:33 WBC Morphology Not Reportable 10/02/16 08:05 Hypersegmented Neuts Not Reportable 10/02/16 08:05 Hyposegmented Neuts Not Reportable 10/02/16 08:05 Hypogranular Neuts Not Reportable 10/02/16 08:05 Smudge Cells Not Reportable 10/02/16 08:05 Toxic Granulation Not Reportable 10/02/16 08:05 Toxic Vacuolation Not Reportable 10/02/16 08:05 Dohle Bodies Not Reportable 10/02/16 08:05 Pelger-Huet Anomaly Not Reportable 10/02/16 08:05 Kody Rods Not Reportable 10/02/16 08:05 Platelet Estimate Appears normal 10/02/16 08:05 Clumped Platelets Not Reportable 10/02/16 08:05 Plt Clumps, EDTA Not Reportable 10/02/16 08:05 Large Platelets Not Reportable 10/02/16 08:05 Giant Platelets Not Reportable 10/02/16 08:05 Platelet Satelliting Not Reportable 10/02/16 08:05 Plt Morphology Comment Not Reportable 10/02/16 08:05 RBC Morphology Normal 10/02/16 08:05 Dimorphic RBCs Not Reportable 10/02/16 08:05 Polychromasia Not Reportable 10/02/16 08:05 Hypochromasia 1+ 10/02/16 08:05 Poikilocytosis Not Reportable 10/02/16 08:05 Anisocytosis Not Reportable 10/02/16 08:05 Microcytosis Not Reportable 10/02/16 08:05 Macrocytosis Not Reportable 10/02/16 08:05 Spherocytes Not Reportable 10/02/16 08:05 Pappenheimer Bodies Not Reportable 10/02/16 08:05 Sickle Cells Not Reportable 10/02/16 08:05 Target Cells Not Reportable 10/02/16 08:05 Tear Drop Cells Not Reportable 10/02/16 08:05 Ovalocytes Not Reportable 10/02/16 08:05 Helmet Cells Not Reportable 10/02/16 08:05 Cramer-[place] Neck Bodies Not Reportable 10/02/16 08:05 [place] Rings Not Reportable 10/02/16 08:05 [place] Cells Not Reportable 10/02/16 08:05 Bite Cells Not Reportable 10/02/16 08:05 Crenated Cell Not Reportable 10/02/16 08:05 Elliptocytes Not Reportable 10/02/16 08:05 Acanthocytes (Spur) Not Reportable 10/02/16 08:05 Rouleaux Not Reportable 10/02/16 08:05 Hemoglobin C Crystals Not Reportable 10/02/16 08:05 Schistocytes Not Reportable 10/02/16 08:05 Malaria parasites Not Reportable 10/02/16 08:05 Marcelino Bodies Not Reportable 10/02/16 08:05 Hem Pathologist Commnt No 10/02/16 08:05 PT 15.7 Sec. (12.2-14.9) H 09/23/16 06:33 INR 1.26 (0.87-1.13) H 09/23/16 06:33 Sodium 133 mmol/L (137-145) L 10/02/16 08:05 Potassium 3.8 mmol/L (3.6-5.0) 10/02/16 08:05 Chloride 92.2 mmol/L (98-107) L 10/02/16 08:05 Carbon Dioxide 18 mmol/L (22-30) L 10/02/16 08:05 Anion Gap 27 mmol/L 10/02/16 08:05 BUN 68 mg/dL (9-20) H 10/02/16 08:05 Creatinine 8.1 mg/dL (0.8-1.5) H 10/02/16 08:05 Estimated GFR 8 ml/min 10/02/16 08:05 BUN/Creatinine Ratio 8.39 % 10/02/16 08:05 Glucose 257 mg/dL (75-100) H 10/02/16 08:05 POC Glucose 132 (70-105) H 10/02/16 21:51 Lactic Acid 2.3 mmol/L (0.7-2.0) H* 09/23/16 06:33 Calcium 6.9 mg/dL (8.4-10.2) L 10/02/16 08:05 Magnesium 2.2 mg/dL (1.7-2.3) 09/30/16 04:38 Total Creatine Kinase 914 units/L (55-170) H 09/23/16 18:42 CK-MB (CK-2) 4.3 ng/mL (0.0-4.0) H 09/23/16 18:42 CK-MB (CK-2) Rel Index 0.4 (0-4) 09/23/16 18:42 Troponin T 0.221 ng/mL (0.00-0.029) H* 09/23/16 18:42 Triglycerides 199 mg/dL (2-149) H 09/23/16 06:33 Cholesterol 140 mg/dL (50-199) 09/23/16 06:33 LDL Cholesterol Direct 76 mg/dL (50-130) 09/23/16 06:33 HDL Cholesterol 25 mg/dL (40-59) L 09/23/16 06:33 Cholesterol/HDL Ratio 5.60 % 09/23/16 06:33 TSH 0.074 mlU/mL (0.270-4.200) L 09/23/16 11:28 Thyroxine (T4) 4.6 ug/dL (4.0-12.0) 09/23/16 11:28 Random Vancomycin 21.7 ug/mL (0-40.0) 10/02/16 08:05
[2016-10-03] MEDS: ZOCOR PO SCH (22:04)
[2016-10-04] MEDS: CARDIZEM PO SCH ×5 (01:19→23:25)
[2016-10-04] MEDS: FLAGYL 500 MG/100 ML 100 ML IV SCH ×3 (06:47→21:32)
[2016-10-04 08:19] LABS: Hematocrit 28.3 % (35.5-45.6); Hemoglobin 8.9 gm/dl (11.8-15.2); Mean Corpuscular HGB Conc 32 % (32-34); Mean Corpuscular Hemoglobin 32 pg (28-32); Mean Corpuscular Volume 100 fl (84-94); Platelet Count 271 K/mm3 (140-440); Red Blood Count 2.82 M/mm3 (3.65-5.03); Red Cell Distribution Width 16.7 % (13.2-15.2)
[2016-10-04 08:20] LABS: White Blood Count 23.3 K/mm3 (4.5-11.0)
[2016-10-04 08:21] LABS: BUN/Creatinine Ratio 6.66; Calcium 7.1 mg/dL (8.4-10.2); Chloride 92.9 mmol/L (98-107); Potassium 3.3 mmol/L (3.6-5.0)
[2016-10-04] MEDS: APRESOLINE PO SCH ×2 (09:23→21:31)
[2016-10-04] MEDS: ROCEPHIN/NS 2 GM/100 ML 100 ML IV SCH (09:44)
[2016-10-04] MEDS: PROTONIX PO SCH (09:45)
[2016-10-04] MEDS: LOPRESSOR PO SCH ×3 (09:45→21:32)
[2016-10-04] MEDS: MONOKET PO SCH ×2 (09:45→21:30)
[2016-10-04] MEDS: LOVENOX SUB-Q SCH (09:45)
[2016-10-04] MEDS: Renal Caps PO SCH ×3 (09:45→21:29)
[2016-10-04] MEDS: LASIX PO SCH (09:45)
[2016-10-04] MEDS: NOVOLOG SUB-Q SCH ×3 (09:46→17:53)
[2016-10-04 10:15] LABS: Basophils % (Manual) 0 % (0.0-1.8); Blastocytes % (Manual) 0 %; Eosinophils % (Manual) 0.5 % (0.0-4.3); Total Cells Counted Percent 4.5
[2016-10-04 10:16] LABS: Anisocytosis 1+; Diff Status Complete; Platelet Estimate Consistent w Auto; Polychromasia Rare
--- NOTE | 2016-10-04 11:10 | Progress Note ---
[id number] Status: Chronic Plan to address problem: Continue with local wound care, medical management. Subjective Date of service: 10/04/16 Principal diagnosis: right foot infection Interval history: He remains confused. Foot dressings intact. Seen by wound care. Objective Vital signs: Vital Signs - 12hr 10/03/16 10/04/16 10/04/16 23:20 00:00 01:19 Temperature 98.7 F Pulse Rate 97 H 120 H Pulse Rate [ 125 H Left Radial] Respiratory 18 Rate Blood Pressure 117/66 Blood Pressure 117/66 [Right Radial Artery] O2 Sat by Pulse 97 Oximetry 10/04/16 10/04/16 10/04/16 05:00 06:48 08:01 Temperature 98.6 F 98.2 F Pulse Rate 87 Pulse Rate [ 87 92 H Left Radial] Respiratory 18 20 Rate Blood Pressure 110/55 Blood Pressure 110/55 107/55 [Right Radial Artery] O2 Sat by Pulse 100 99 Oximetry - Labs CBC & BMP: 10/04/16 07:27 10/04/16 07:27 Labs: Abnormal lab results 10/03/16 10/03/16 10/03/16 Range/Units 11:25 16:06 21:34 WBC (4.5-11.0) K/mm3 RBC (3.65-5.03) M/mm3 Hgb (11.8-15.2) gm/dl Hct (35.5-45.6) % MCV (84-94) fl RDW (13.2-15.2) % Seg Neuts % (Manual) (40.0-70.0) % Lymphocytes % (Manual) (13.4-35.0) % Seg Neutrophils # Man (1.8-7.7) K/mm3 Lymphocytes # (Manual) (1.2-5.4) K/mm3 Monocytes # (Manual) (0.0-0.8) K/mm3 Sodium (137-145) mmol/L Potassium (3.6-5.0) mmol/L Chloride (98-107) mmol/L Carbon Dioxide (22-30) mmol/L BUN (9-20) mg/dL Creatinine (0.8-1.5) mg/dL Glucose (75-100) mg/dL POC Glucose 424 H 268 H 143 H (70-105) Calcium (8.4-10.2) mg/dL 10/04/16 10/04/16 10/04/16 Range/Units 07:27 07:27 07:59 WBC 23.3 H (4.5-11.0) K/mm3 RBC 2.82 L (3.65-5.03) M/mm3 Hgb 8.9 L (11.8-15.2) gm/dl Hct 28.3 L (35.5-45.6) % MCV 100 H (84-94) fl RDW 16.7 H (13.2-15.2) % Seg Neuts % (Manual) 91.0 H (40.0-70.0) % Lymphocytes % (Manual) 4.5 L (13.4-35.0) % Seg Neutrophils # Man 21.2 H (1.8-7.7) K/mm3 Lymphocytes # (Manual) 1.0 L (1.2-5.4) K/mm3 Monocytes # (Manual) 0.9 H (0.0-0.8) K/mm3 Sodium 134 L (137-145) mmol/L Potassium 3.3 L (3.6-5.0) mmol/L Chloride 92.9 L (98-107) mmol/L Carbon Dioxide 21 L (22-30) mmol/L BUN 42 H (9-20) mg/dL Creatinine 6.3 H (0.8-1.5) mg/dL Glucose 194 H (75-100) mg/dL POC Glucose 264 H (70-105) Calcium 7.1 L (8.4-10.2) mg/dL
--- NOTE | 2016-10-04 14:44 | Progress Note ---
Assessment and Plan Assessment and plan: 1. Sepsis due to RLE cellulitis with necrosis and proteus infected foot - post debridement and amputation of toes; ID f/u appreciated; Continue IV antibiotics rocephin and vancomycin as per ID; local wound care; f/u ortho noted; vascular consult noted with recommendations that The patient may benefit from guillotine /open below-knee amputation prior to revascularization with definitive below- knee amputation performed afterwards. WBC trending down 2. Afib with RVR- cardiology input appreciated; cotn cardizem and metoprolol and adjust as needed; full dose lovenox; will restart eliquis once sx decided and done; f/u cardiology 3. NSTEMI- stable; imdur; metoprolol; statin; plavix held for debridement / amputation 4. ESRD- Continued HD per renal 5. Generalized Weakness - PT 6. DVT prophylaxis- lovenox until decision regarding sx finalized; restart eliquis after sx; possibe further amputation; History Interval history: f/u RT foot infection; Lt foot OM; Atrial fibrillation Patient seen at the bedside; no complaints Hospitalist Physical - Constitutional Vitals: Temp Pulse Resp BP Pulse Ox 98.7 F 86 20 99/56 97 10/04/16 11:15 10/04/16 11:15 10/04/16 11:15 10/04/16 11:15 10/04/16 11:15 General appearance: Present: no acute distress - EENT Eyes: Present: PERRL, EOM intact. Absent: scleral icterus, conjunctival injection ENT: hearing intact, clear oral mucosa, no oropharyngeal erythema, no poor dentition - Neck Neck: Present: supple, normal ROM. Absent: enlarged thyroid, masses or JVD - Respiratory Respiratory effort: normal Respiratory: bilateral: diminished, negative: rales, rhonchi, wheezing - Cardiovascular Rhythm: regular Heart Sounds: Present: S1 & S2. Absent: gallop - Extremities Extremities: no ischemia, pulses intact, pulses symmetrical, No edema Peripheral Pulses: within normal limits - Abdominal General gastrointestinal: soft, non-tender, non-distended, normal bowel sounds - Integumentary Integumentary: Present: clear - Psychiatric Psychiatric: appropriate mood/affect, intact judgment & insight, cooperative - Neurologic Neurologic: CNII-XII intact, moves all extremities Results - Labs CBC & Chem 7: 10/04/16 07:27 10/04/16 07:27 Labs: Laboratory Last Values WBC 23.3 K/mm3 (4.5-11.0) H 10/04/16 07:27 RBC 2.82 M/mm3 (3.65-5.03) L 10/04/16 07:27 Hgb 8.9 gm/dl (11.8-15.2) L 10/04/16 07:27 Hct 28.3 % (35.5-45.6) L 10/04/16 07:27 MCV 100 fl (84-94) H 10/04/16 07:27 MCH 32 pg (28-32) 10/04/16 07:27 MCHC 32 % (32-34) 10/04/16 07:27 RDW 16.7 % (13.2-15.2) H 10/04/16 07:27 Plt Count 271 K/mm3 (140-440) 10/04/16 07:27 Lymph % (Auto) Gas Or Water Meter Installer 10/04/16 07:27 Cuming % (Auto) Gas Or Water Meter Installer 10/04/16 07:27 Eos % (Auto) Gas Or Water Meter Installer 10/04/16 07:27 Baso % (Auto) Gas Or Water Meter Installer 10/04/16 07:27 Lymph # Gas Or Water Meter Installer 10/04/16 07:27 Cuming # Gas Or Water Meter Installer 10/04/16 07:27 Eos # Gas Or Water Meter Installer 10/04/16 07:27 Baso # Gas Or Water Meter Installer 10/04/16 07:27 Add Manual Diff Complete 10/04/16 07:27 Total Counted 200 10/04/16 07:27 Seg Neutrophils % Gas [employer] Water Meter Installer 10/04/16 07:27 Seg Neuts % (Manual) 91.0 % (40.0-70.0) H 10/04/16 07:27 Band Neutrophils % 0 % 10/04/16 07:27 Lymphocytes % (Manual) 4.5 % (13.4-35.0) L 10/04/16 07:27 Reactive Lymphs % (Man) 0 % 10/04/16 07:27 Monocytes % (Manual) 4.0 % (0.0-7.3) 10/04/16 07:27 Eosinophils % (Manual) 0.5 % (0.0-4.3) 10/04/16 07:27 Basophils % (Manual) 0 % (0.0-1.8) 10/04/16 07:27 Metamyelocytes % 0 % 10/04/16 07:27 Myelocytes % 0 % 10/04/16 07:27 Promyelocytes % 0 % 10/04/16 07:27 Blast Cells % 0 % 10/04/16 07:27 Nucleated RBC % Not Reportable 10/04/16 07:27 Seg Neutrophils # Gas Or Water Meter Installer 10/04/16 07:27 Seg Neutrophils # Man 21.2 K/mm3 (1.8-7.7) H 10/04/16 07:27 Band Neutrophils # 0.0 K/mm3 10/04/16 07:27 Lymphocytes # (Manual) 1.0 K/mm3 (1.2-5.4) L 10/04/16 07:27 Abs React Lymphs (Man) 0.0 K/mm3 10/04/16 07:27 Monocytes # (Manual) 0.9 K/mm3 (0.0-0.8) H 10/04/16 07:27 Eosinophils # (Manual) 0.1 K/mm3 (0.0-0.4) 10/04/16 07:27 Basophils # (Manual) 0.0 K/mm3 (0.0-0.1) 10/04/16 07:27 Metamyelocytes # 0.0 K/mm3 10/04/16 07:27 Myelocytes # 0.0 K/mm3 10/04/16 07:27 Promyelocytes # 0.0 K/mm3 10/04/16 07:27 Blast Cells # 0.0 K/mm3 10/04/16 07:27 Pathologist Review 09/23/16 06:33 WBC Morphology Not Reportable 10/04/16 07:27 Hypersegmented Neuts Not Reportable 10/04/16 07:27 Hyposegmented Neuts Not Reportable 10/04/16 07:27 Hypogranular Neuts Not Reportable 10/04/16 07:27 Smudge Cells Not Reportable 10/04/16 07:27 Toxic Granulation Not Reportable 10/04/16 07:27 Toxic Vacuolation Not Reportable 10/04/16 07:27 Dohle Bodies Not Reportable 10/04/16 07:27 Pelger-Huet Anomaly Not Reportable 10/04/16 07:27 Kody Rods Not Reportable 10/04/16 07:27 Platelet Estimate Consistent w auto 10/04/16 07:27 Clumped Platelets Not Reportable 10/04/16 07:27 Plt Clumps, EDTA Not Reportable 10/04/16 07:27 Large Platelets Not Reportable 10/04/16 07:27 Giant Platelets Not Reportable 10/04/16 07:27 Platelet Satelliting Not Reportable 10/04/16 07:27 Plt Morphology Comment Not Reportable 10/04/16 07:27 RBC Morphology Not Reportable 10/04/16 07:27 Dimorphic RBCs Not Reportable 10/04/16 07:27 Polychromasia Rare 10/04/16 07:27 Hypochromasia Not Reportable 10/04/16 07:27 Poikilocytosis Not Reportable 10/04/16 07:27 Anisocytosis 1+ 10/04/16 07:27 Microcytosis Not Reportable 10/04/16 07:27 Macrocytosis Not Reportable 10/04/16 07:27 Spherocytes Not Reportable 10/04/16 07:27 Pappenheimer Bodies Not Reportable 10/04/16 07:27 Sickle Cells Not Reportable 10/04/16 07:27 Target Cells Not Reportable 10/04/16 07:27 Tear Drop Cells Not Reportable 10/04/16 07:27 Ovalocytes Not Reportable 10/04/16 07:27 Helmet Cells Not Reportable 10/04/16 07:27 [place] Bodies Not Reportable 10/04/16 07:27 [place] Rings Not Reportable 10/04/16 07:27 [place] Cells Not Reportable 10/04/16 07:27 Bite Cells Not Reportable 10/04/16 07:27 Crenated Cell Not Reportable 10/04/16 07:27 Elliptocytes Not Reportable 10/04/16 07:27 Acanthocytes (Spur) Not Reportable 10/04/16 07:27 Rouleaux Not Reportable 10/04/16 07:27 Hemoglobin C Crystals Not Reportable 10/04/16 07:27 Schistocytes Not Reportable 10/04/16 07:27 Malaria parasites Not Reportable 10/04/16 07:27 Marcelino Bodies Not Reportable 10/04/16 07:27 Hem Pathologist Commnt No 10/04/16 07:27 PT 15.7 Sec. (12.2-14.9) H 09/23/16 06:33 INR 1.26 (0.87-1.13) H 09/23/16 06:33 Sodium 134 mmol/L (137-145) L 10/04/16 07:27 Potassium 3.3 mmol/L (3.6-5.0) L 10/04/16 07:27 Chloride 92.9 mmol/L (98-107) L 10/04/16 07:27 Carbon Dioxide 21 mmol/L (22-30) L 10/04/16 07:27 Anion Gap 23 mmol/L 10/04/16 07:27 BUN 42 mg/dL (9-20) H 10/04/16 07:27 Creatinine 6.3 mg/dL (0.8-1.5) H 10/04/16 07:27 Estimated GFR 11 ml/min 10/04/16 07:27 BUN/Creatinine Ratio 6.66 % 10/04/16 07:27 Glucose 194 mg/dL (75-100) H 10/04/16 07:27 POC Glucose 264 (70-105) H 10/04/16 07:59 Lactic Acid 2.3 mmol/L (0.7-2.0) H* 09/23/16 06:33 Calcium 7.1 mg/dL (8.4-10.2) L 10/04/16 07:27 Magnesium 2.2 mg/dL (1.7-2.3) 09/30/16 04:38 Total Creatine Kinase 914 units/L (55-170) H 09/23/16 18:42 CK-MB (CK-2) 4.3 ng/mL (0.0-4.0) H 09/23/16 18:42 CK-MB (CK-2) Rel Index 0.4 (0-4) 09/23/16 18:42 Troponin T 0.221 ng/mL (0.00-0.029) H* 09/23/16 18:42 Triglycerides 199 mg/dL (2-149) H 09/23/16 06:33 Cholesterol 140 mg/dL (50-199) 09/23/16 06:33 LDL Cholesterol Direct 76 mg/dL (50-130) 09/23/16 06:33 HDL Cholesterol 25 mg/dL (40-59) L 09/23/16 06:33 Cholesterol/HDL Ratio 5.60 % 09/23/16 06:33 TSH 0.074 mlU/mL (0.270-4.200) L 09/23/16 11:28 Thyroxine (T4) 4.6 ug/dL (4.0-12.0) 09/23/16 11:28 Random Vancomycin 21.7 ug/mL (0-40.0) 10/02/16 08:05
--- NOTE | 2016-10-04 16:59 | Progress Note ---
Assessment and Plan Current antibiotics: Ceftriaxone 2 g IV q24h 10/02 --> Flagyl 500 mg IV q8h 10/02 --> Previous antibiotics: Vancomycin (pulse dosed) 09/26-10/02 Zosyn 2.25 g IV q8h 09/26-10/02 ASSESSMENT: Jacoby Shoemaker is a 71-year-old male with end-stage renal failure on maintenance HD , previous left hemispheral stroke with right hemiparesis, hypertension, chronic atrial fibrillation and anemia who was admitted to [facility] on 09/23/16 with increased lethargy at the dialysis center. He has evidence of a right foot infection. Problem list: 1. Right foot infection -CT scan shows evidence of osteomyelitis of the fifth toe as well as abscess formation in the forefoot -Likely mixed aerobic and anaerobic pathogens with the marked malodorous drainage. 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 Salter's note 2. End-stage renal failure -Hemodialysis dependent 3. Hypertension 4. Chronic atrial fibrillation -Rapid ventricular response on admission with rate controlled now 5. Status post left hemispheral stroke -Chronic right hemiparesis 6. Leukocytosis -Leukemoid reaction likely secondary to #1 -? trending downward PLAN: 1. Continue empiric antibiotics with Zosyn and vancomycin pending surgical cultures 3. Discussed with Dr. Corbett and patient could have BKA as opposed to AKA 4. Continue aggressive local wound care 5. Will check stool for C diff if he develops diarrhea. Lino Singh MD [facility] Office: [phone] Subjective Date of service: 10/04/16 Principal diagnosis: right foot infection Interval history: No discernible complaints. Confused. Objective - Exam Narrative Exam: GENERAL: Well-developed, clinically ill-appearing male is alert and in no acute distress but somewhat lethargic. HEAD: Normocephalic. No lesions seen. EYES: Pupils are equal reactive to light and accommodation. There is no scleral icterus. Optic fundi are not examined. Bilateral arcus senilis. EARS: External ears are normal. THROAT: Oropharynx is normal with no evidence of oral candidiasis or pharyngitis. Patient has extremely poor dentition with multiple missing teeth but no obvious dental infection. NECK: Supple. No enlargement of the thyroid gland. No significant cervical lymphadenopathy. No jugular venous distention at 30. LUNGS: Clear with no adventitious sounds. HEART: Irregularly irregular. There are no gallops, clicks or rubs heard. There is a grade III/ FELIX heard over the left upper sternal border. I hear no diastolic murmur. ABDOMEN: Soft and nontender. Liver and spleen are not palpably enlarged or tender. No palpable masses. Bowel sounds are normoactive. EXTREMITIES: Marked bilateral lower extremity edema with chronic stasis changes. Right foot dressings in place with no signs of proximal infection or ischemia. Peripheral pulses are difficult to palpate in the lower extremities but exam is difficult because of the marked edema. Operative note reviewed. SKIN: As above. AV graft in the left upper extremity with no signs of infection and good palpable thrill and audible bruit. : Not examined today. NEUROLOGIC: Right-sided weakness. - Constitutional Vitals: Vital Signs Temp Pulse Resp BP Pulse Ox 100.1 F H 86 20 110/62 96 10/04/16 15:29 10/04/16 15:29 10/04/16 15:29 10/04/16 15:29 10/04/16 15:29 Temperature -Last 24 Hours Temperature 100.1 F Temperature 98.7 F Temperature 98.2 F Temperature 98.6 F Temperature 98.7 F Temperature 99.3 F Temperature 98.0 F - Labs CBC & Chem 7: 10/04/16 07:27 10/04/16 07:27 Labs: Abnormal lab results Microbiology 09/30/16 16:16 Foot - Right Surgical Biopsy Culture - Proteus Mirabilis (resistant only to tetracycline). Gram stain with few PMNs, rare gram-negative flash and rare gram-positive cocci in pairs 09/29/16 16:18 Peripheral/Venous Blood Culture - Preliminary NO GROWTH 09/29/16 16:18 Peripheral/Venous Blood Culture - Preliminary NO GROWTH 09/27/16 Unknown Foot - Right Wound Culture - Final Proteus Mirabilis (resistant only to tetracycline)
--- NOTE | 2016-10-04 17:59 | Progress Note ---
Assessment and Plan end-stage renal disease patient is currently dialysis dependent on Wednesday,in outpatient setting is currently followed by Dr. Ugalde's Judicious ultrafiltration with hemodialysis given the history of atrial fibrillation anemia and end-stage renal disease continue to monitor and support him as needed plan discussed with patient's today at length right foot infection may require amputation currently in antibiotic followed by orthopedics I discussed the malnutrition patient's appetite did consider protein supplements electrolytes appear to be stable at this time,patient will benefit from nutritional evaluation and follow-up blood pressure medications were adjusted patient seems to be doing better Secondary hyperparathyroidism monitor phosphorus as well as PTH level periodically Hypertension systolic blood pressures under 150 and his case Subjective Principal diagnosis: right foot infection Interval history: seen today at around 11:15 in the morningfor follow-up patient is currently doing well is at the bedside He appears to be certainly much more alert awake and communicative Patient indicates that he is normally seen by Dr. Ugalde's group at [place] dialysis [facility] He does have access in his left arm which has been working well currently he is on maintenance hemodialysis Objective - Vital Signs Vital signs: Vital Signs - 12hr 10/04/16 10/04/16 10/04/16 06:48 08:01 11:00 Temperature 98.2 F Pulse Rate 87 103 H Pulse Rate [ 92 H Left Radial] Respiratory 20 Rate Blood Pressure 110/55 Blood Pressure 107/55 [Right Radial Artery] O2 Sat by Pulse 99 Oximetry 10/04/16 10/04/16 11:15 15:29 Temperature 98.7 F 100.1 F H Pulse Rate Pulse Rate [ 86 86 Left Radial] Respiratory 20 20 Rate Blood Pressure Blood Pressure 99/56 110/62 [Right Radial Artery] O2 Sat by Pulse 97 96 Oximetry - General Appearance General appearance: appears stated age (much more alert awake) EENT: mucous membranes moist Neck: no JVD (no thyromegaly or mass or JVD) Respiratory: Present: Clear to Ascultation (no crackles rales wheezes) Cardiology: regular (S1 and S2 normal) Gastrointestinal: normal (nontender abdomen) Integumentary: other (has AV fistula in his left arm) - Lab 10/04/16 07:27 10/04/16 07:27 Most recent lab results Calcium 7.1 mg/dL (8.4-10.2) L 10/04/16 07:27 Magnesium 2.2 mg/dL (1.7-2.3) 09/30/16 04:38
[2016-10-04] MEDS: ZOCOR PO SCH (21:30)
[2016-10-05] MEDS: FLAGYL 500 MG/100 ML 100 ML IV SCH (05:08)
[2016-10-05] MEDS: CARDIZEM PO SCH ×2 (05:09→13:47)
--- NOTE | 2016-10-05 09:20 | Progress Note ---
Assessment and Plan - Patient Problems (1) End-stage renal disease on hemodialysis Current Visit: Yes Status: Chronic Plan to address problem: HD on M/W/F. Chronic deconditioning, malnutrition. Increase dietary protein intake and supplements. Adjust meds per renal function. (2) Right foot infection Current Visit: Yes Status: Chronic Plan to address problem: ID notes reviewed. Antibiotics as ordered. (3) Atrial fibrillation Current Visit: Yes Status: Chronic (4) PVD (peripheral vascular disease) Current Visit: Yes Status: Chronic (5) Leucocytosis Current Visit: Yes Status: Acute (6) Anemia Current Visit: Yes Status: Chronic (7) Diabetes Current Visit: Yes Status: Chronic Qualifiers: Diabetes mellitus type: type 2 (8) HTN (hypertension) Current Visit: Yes Status: Chronic Subjective Date of service: 10/05/16 Principal diagnosis: right foot infection Interval history: more alert today, not in distress, denies CP or SOB Objective - Vital Signs Vital signs: Vital Signs - 12hr 10/04/16 10/04/16 10/04/16 21:31 21:32 22:00 Temperature Pulse Rate 84 84 Pulse Rate [ Left Radial] Respiratory 20 Rate Blood Pressure 107/58 107/58 Blood Pressure [Right Radial Artery] O2 Sat by Pulse Oximetry 10/04/16 10/04/16 10/05/16 23:00 23:25 00:05 Temperature 98.8 F Pulse Rate 81 98 H Pulse Rate [ 88 Left Radial] Respiratory 20 Rate Blood Pressure 111/68 Blood Pressure 107/58 [Right Radial Artery] O2 Sat by Pulse 100 Oximetry 10/05/16 10/05/16 10/05/16 00:15 05:09 07:06 Temperature 97.2 F L 98.4 F Pulse Rate 104 H Pulse Rate [ 96 H 82 Left Radial] Respiratory 20 20 Rate Blood Pressure 114/56 Blood Pressure 111/68 106/60 [Right Radial Artery] O2 Sat by Pulse 98 100 Oximetry 10/05/16 09:10 Temperature Pulse Rate 94 H Pulse Rate [ Left Radial] Respiratory Rate Blood Pressure Blood Pressure [Right Radial Artery] O2 Sat by Pulse Oximetry - General Appearance General appearance: chronically ill EENT: mucous membranes dry Neck: no JVD Respiratory: Present: Decreased Breath Sounds Cardiology: irregular Gastrointestinal: normoactive bowel sounds Neurologic: other Musculoskeletal: other (1+, dressing over right foot) - Lab 10/05/16 10:15 10/04/16 07:27 Most recent lab results Calcium 7.1 mg/dL (8.4-10.2) L 10/04/16 07:27 Magnesium 2.2 mg/dL (1.7-2.3) 09/30/16 04:38
[2016-10-05] MEDS: ROCEPHIN/NS 2 GM/100 ML 100 ML IV SCH (09:32)
[2016-10-05] MEDS: Renal Caps PO SCH ×3 (09:33→22:25)
[2016-10-05] MEDS: APRESOLINE PO SCH ×2 (09:33→22:29)
[2016-10-05] MEDS: LOPRESSOR PO SCH ×4 (09:33→22:28)
[2016-10-05] MEDS: LASIX PO SCH (09:33)
[2016-10-05] MEDS: PROTONIX PO SCH (09:33)
[2016-10-05] MEDS: NOVOLOG SUB-Q SCH ×3 (09:33→16:51)
[2016-10-05] MEDS: MONOKET PO SCH ×2 (09:33→22:25)
[2016-10-05] MEDS: LOVENOX SUB-Q SCH (09:34)
--- NOTE | 2016-10-05 10:20 | Progress Note ---
Assessment and Plan Current antibiotics: Ceftriaxone 2 g IV q24h 10/02 --> Flagyl 500 mg IV q8h 10/02 --> Previous antibiotics: Vancomycin (pulse dosed) 09/26-10/02 Zosyn 2.25 g IV q8h 09/26-10/02 ASSESSMENT: Jacoby Shoemaker is a 71-year-old male with end-stage renal failure on maintenance HD , previous left hemispheral stroke with right hemiparesis, hypertension, chronic atrial fibrillation and anemia who was admitted to [facility] on 09/23/16 with increased lethargy at the dialysis center. He has evidence of a right foot infection. Problem list: 1. Right foot infection -CT scan shows evidence of osteomyelitis of the fifth toe as well as abscess formation in the forefoot -Likely mixed aerobic and anaerobic pathogens with the marked malodorous drainage. 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 Salter's note 2. End-stage renal failure -Hemodialysis dependent 3. Hypertension 4. Chronic atrial fibrillation -Rapid ventricular response on admission with rate controlled now 5. Status post left hemispheral stroke -Chronic right hemiparesis 6. Leukocytosis -Leukemoid reaction likely secondary to #1 Trending downward PLAN: 1. Continue Ceftriaxone and flagyl ( can give flagyl po) 2. Continue aggressive local wound care 3. Await further Ortho. opinion. Subjective Date of service: 10/05/16 Principal diagnosis: right foot infection Interval history: No complaints. Objective - Exam Narrative Exam: Chronically ill-appearing. No acute distress. HEENT: Pupils are equal reactive to light and accommodation. Conjunctiva clear. Oropharynx is normal with no evidence of oral candidiasis or pharyngitis. NECK: Supple. No enlargement of the thyroid gland. No significant cervical lymphadenopathy. No jugular venous distention at 30. LUNGS: Coarse breath sounds bilaterally. HEART: Irregular rhythm. S1 and S2 are normal. There are no murmurs, gallops, clicks or rubs heard. ABDOMEN: Soft and nontender. Liver and spleen are not palpably enlarged or tender. No palpable masses. Bowel sounds are normoactive. EXTREMITIES: 1+ distal lower extremity swelling with marked skin stasis changes. Right foot wraps not removed. Left upper extremity fistula site with positive thrill and bruit. SKIN: No other rash, ulcers or wounds. NEUROLOGIC: No focal findings. - Constitutional Vitals: Vital Signs Temp Pulse Resp BP Pulse Ox 98.4 F 94 H 20 106/60 100 10/05/16 07:06 10/05/16 09:10 10/05/16 07:06 10/05/16 07:06 10/05/16 07:06 Temperature -Last 24 Hours Temperature 98.4 F Temperature 97.2 F Temperature 98.8 F Temperature 98.4 F Temperature 100.1 F Temperature 98.7 F - Labs CBC & Chem 7: 10/04/16 07:27 10/04/16 07:27 Labs: Abnormal lab results 10/03/16 10/04/16 10/04/16 Range/Units 11:25 11:18 15:28 POC Glucose 424 H 329 H 232 H (70-105) 10/04/16 Range/Units 22:59 POC Glucose 242 H (70-105)
[2016-10-05 11:06] LABS: Hematocrit 26.7 % (35.5-45.6); Hemoglobin 8.7 gm/dl (11.8-15.2); Mean Corpuscular HGB Conc 33 % (32-34); Mean Corpuscular Hemoglobin 33 pg (28-32); Mean Corpuscular Volume 101 fl (84-94); Platelet Count 285 K/mm3 (140-440); Red Blood Count 2.65 M/mm3 (3.65-5.03); Red Cell Distribution Width 16.6 % (13.2-15.2); White Blood Count 20.1 K/mm3 (4.5-11.0)
[2016-10-05 12:46] LABS: Basophils % (Manual) 0 % (0.0-1.8); Blastocytes % (Manual) 0 %
[2016-10-05 12:47] LABS: Anisocytosis 1+; Diff Status Complete
--- NOTE | 2016-10-05 12:56 | Progress Note ---
Assessment and Plan Assessment and plan: 1. Sepsis due to RLE cellulitis with necrosis and proteus infected foot - post debridement and amputation of toes; ID f/u appreciated; Continue IV antibiotics rocephin and po flagyl as per ID; local wound care; f/u ortho noted; vascular consult noted with recommendations that The patient may benefit from guillotine /open below-knee amputation prior to revascularization with definitive below- knee amputation performed afterwards. WBC continues to trend down 2. Afib with RVR- cardiology input appreciated; cotn cardizem and metoprolol and adjust as needed; full dose lovenox; will restart eliquis once sx decided and done; f/u cardiology 3. NSTEMI- stable; imdur; metoprolol; statin; plavix held for debridement / amputation 4. ESRD- Continued HD per renal 5. Generalized Weakness - PT 6. DVT prophylaxis- lovenox until decision regarding sx finalized; restart eliquis after sx; possibe further amputation; History Interval history: f/u RT foot infection; Lt foot OM; Atrial fibrillation Patient seen at the bedside; no complaints Hospitalist Physical - Constitutional Vitals: Temp Pulse Resp BP Pulse Ox 98.4 F 94 H 20 106/60 100 10/05/16 07:06 10/05/16 09:10 10/05/16 07:06 10/05/16 07:06 10/05/16 07:06 General appearance: Present: no acute distress - EENT Eyes: Present: PERRL, EOM intact. Absent: scleral icterus, conjunctival injection ENT: hearing intact, clear oral mucosa, no oropharyngeal erythema - Neck Neck: Present: supple, normal ROM. Absent: enlarged thyroid, masses or JVD - Respiratory Respiratory effort: normal Respiratory: negative: diminished, rales, rhonchi, wheezing - Cardiovascular Rhythm: regular Heart Sounds: Present: S1 & S2. Absent: gallop - Extremities Extremities: pulses intact, abnormal (dressing to RT foot; chronic skin changes with thick lichenified skin ) - Abdominal General gastrointestinal: soft, non-tender, non-distended, normal bowel sounds - Integumentary Integumentary: Present: warm - Psychiatric Psychiatric: appropriate mood/affect, cooperative - Neurologic Neurologic: CNII-XII intact, moves all extremities Results - Labs CBC & Chem 7: 10/05/16 10:15 10/04/16 07:27 Labs: Laboratory Last Values WBC 20.1 K/mm3 (4.5-11.0) H 10/05/16 10:15 RBC 2.65 M/mm3 (3.65-5.03) L 10/05/16 10:15 Hgb 8.7 gm/dl (11.8-15.2) L 10/05/16 10:15 Hct 26.7 % (35.5-45.6) L 10/05/16 10:15 MCV 101 fl (84-94) H 10/05/16 10:15 MCH 33 pg (28-32) H 10/05/16 10:15 MCHC 33 % (32-34) 10/05/16 10:15 RDW 16.6 % (13.2-15.2) H 10/05/16 10:15 Plt Count 285 K/mm3 (140-440) 10/05/16 10:15 Lymph % (Auto) Staff Respiratory Therapist 10/04/16 07:27 [place] % (Auto) Staff Respiratory Therapist 10/04/16 07:27 Eos % (Auto) Staff Respiratory Therapist 10/04/16 07:27 Baso % (Auto) Staff Respiratory Therapist 10/04/16 07:27 Lymph # Staff Respiratory Therapist 10/04/16 07:27 [place] # Staff Respiratory Therapist 10/04/16 07:27 Eos # Staff Respiratory Therapist 10/04/16 07:27 Baso # Staff Respiratory Therapist 10/04/16 07:27 Add Manual Diff Complete 10/05/16 10:15 Total Counted 100 10/05/16 10:15 Seg Neutrophils % Staff Respiratory Therapist 10/04/16 07:27 Seg Neuts % (Manual) 87.0 % (40.0-70.0) H 10/05/16 10:15 Band Neutrophils % 0 % 10/05/16 10:15 Lymphocytes % (Manual) 6.0 % (13.4-35.0) L 10/05/16 10:15 Reactive Lymphs % (Man) 0 % 10/05/16 10:15 Monocytes % (Manual) 6.0 % (0.0-7.3) 10/05/16 10:15 Eosinophils % (Manual) 1.0 % (0.0-4.3) 10/05/16 10:15 Basophils % (Manual) 0 % (0.0-1.8) 10/05/16 10:15 Metamyelocytes % 0 % 10/05/16 10:15 Myelocytes % 0 % 10/05/16 10:15 Promyelocytes % 0 % 10/05/16 10:15 Blast Cells % 0 % 10/05/16 10:15 Nucleated RBC % Not Reportable 10/05/16 10:15 Seg Neutrophils # Staff Respiratory Therapist 10/04/16 07:27 Seg Neutrophils # Man 17.5 K/mm3 (1.8-7.7) H 10/05/16 10:15 Band Neutrophils # 0.0 K/mm3 10/05/16 10:15 Lymphocytes # (Manual) 1.2 K/mm3 (1.2-5.4) 10/05/16 10:15 Abs React Lymphs (Man) 0.0 K/mm3 10/05/16 10:15 Monocytes # (Manual) 1.2 K/mm3 (0.0-0.8) H 10/05/16 10:15 Eosinophils # (Manual) 0.2 K/mm3 (0.0-0.4) 10/05/16 10:15 Basophils # (Manual) 0.0 K/mm3 (0.0-0.1) 10/05/16 10:15 Metamyelocytes # 0.0 K/mm3 10/05/16 10:15 Myelocytes # 0.0 K/mm3 10/05/16 10:15 Promyelocytes # 0.0 K/mm3 10/05/16 10:15 Blast Cells # 0.0 K/mm3 10/05/16 10:15 Pathologist Review 09/23/16 06:33 WBC Morphology Not Reportable 10/05/16 10:15 Hypersegmented Neuts Not Reportable 10/05/16 10:15 Hyposegmented Neuts Not Reportable 10/05/16 10:15 Hypogranular Neuts Not Reportable 10/05/16 10:15 Smudge Cells Not Reportable 10/05/16 10:15 Toxic Granulation Not Reportable 10/05/16 10:15 Toxic Vacuolation Not Reportable 10/05/16 10:15 Dohle Bodies Not Reportable 10/05/16 10:15 Pelger-Huet Anomaly Not Reportable 10/05/16 10:15 [place] Rods Not Reportable 10/05/16 10:15 Platelet Estimate Appears normal 10/05/16 10:15 Clumped Platelets Not Reportable 10/05/16 10:15 Plt Clumps, EDTA Not Reportable 10/05/16 10:15 Large Platelets Not Reportable 10/05/16 10:15 Giant Platelets Not Reportable 10/05/16 10:15 Platelet Satelliting Not Reportable 10/05/16 10:15 Plt Morphology Comment Not Reportable 10/05/16 10:15 RBC Morphology Not Reportable 10/05/16 10:15 Dimorphic RBCs Not Reportable 10/05/16 10:15 Polychromasia Not Reportable 10/05/16 10:15 Hypochromasia Not Reportable 10/05/16 10:15 Poikilocytosis Not Reportable 10/05/16 10:15 Anisocytosis 1+ 10/05/16 10:15 Microcytosis Not Reportable 10/05/16 10:15 Macrocytosis Not Reportable 10/05/16 10:15 Spherocytes Not Reportable 10/05/16 10:15 Pappenheimer Bodies Not Reportable 10/05/16 10:15 Sickle Cells Not Reportable 10/05/16 10:15 Target Cells Not Reportable 10/05/16 10:15 Tear Drop Cells Not Reportable 10/05/16 10:15 Ovalocytes Not Reportable 10/05/16 10:15 Helmet Cells Not Reportable 10/05/16 10:15 [place] Bodies Not Reportable 10/05/16 10:15 [place] Rings Not Reportable 10/05/16 10:15 Mary Cells Not Reportable 10/05/16 10:15 Bite Cells Not Reportable 10/05/16 10:15 Crenated Cell Not Reportable 10/05/16 10:15 Elliptocytes Not Reportable 10/05/16 10:15 Acanthocytes (Spur) Not Reportable 10/05/16 10:15 Rouleaux Not Reportable 10/05/16 10:15 Hemoglobin C Crystals Not Reportable 10/05/16 10:15 Schistocytes Not Reportable 10/05/16 10:15 Malaria parasites Not Reportable 10/05/16 10:15 Marcelino Bodies Not Reportable 10/05/16 10:15 Hem Pathologist Commnt No 10/05/16 10:15 PT 15.7 Sec. (12.2-14.9) H 09/23/16 06:33 INR 1.26 (0.87-1.13) H 09/23/16 06:33 Sodium 134 mmol/L (137-145) L 10/04/16 07:27 Potassium 3.3 mmol/L (3.6-5.0) L 10/04/16 07:27 Chloride 92.9 mmol/L (98-107) L 10/04/16 07:27 Carbon Dioxide 21 mmol/L (22-30) L 10/04/16 07:27 Anion Gap 23 mmol/L 10/04/16 07:27 BUN 42 mg/dL (9-20) H 10/04/16 07:27 Creatinine 6.3 mg/dL (0.8-1.5) H 10/04/16 07:27 Estimated GFR 11 ml/min 10/04/16 07:27 BUN/Creatinine Ratio 6.66 % 10/04/16 07:27 Glucose 194 mg/dL (75-100) H 10/04/16 07:27 POC Glucose 242 (70-105) H 10/04/16 22:59 Lactic Acid 2.3 mmol/L (0.7-2.0) H* 09/23/16 06:33 Calcium 7.1 mg/dL (8.4-10.2) L 10/04/16 07:27 Magnesium 2.2 mg/dL (1.7-2.3) 09/30/16 04:38 Total Creatine Kinase 914 units/L (55-170) H 09/23/16 18:42 CK-MB (CK-2) 4.3 ng/mL (0.0-4.0) H 09/23/16 18:42 CK-MB (CK-2) Rel Index 0.4 (0-4) 09/23/16 18:42 Troponin T 0.221 ng/mL (0.00-0.029) H* 09/23/16 18:42 Triglycerides 199 mg/dL (2-149) H 09/23/16 06:33 Cholesterol 140 mg/dL (50-199) 09/23/16 06:33 LDL Cholesterol Direct 76 mg/dL (50-130) 09/23/16 06:33 HDL Cholesterol 25 mg/dL (40-59) L 09/23/16 06:33 Cholesterol/HDL Ratio 5.60 % 09/23/16 06:33 TSH 0.074 mlU/mL (0.270-4.200) L 09/23/16 11:28 Thyroxine (T4) 4.6 ug/dL (4.0-12.0) 09/23/16 11:28 Random Vancomycin 21.7 ug/mL (0-40.0) 10/02/16 08:05 Microbiology 09/29/16 16:18 Peripheral/Venous Blood Culture - Final NO GROWTH AFTER 5 DAYS 09/29/16 16:18 Peripheral/Venous Blood Culture - Final NO GROWTH AFTER 5 DAYS 09/30/16 16:16 Foot - Right Surgical Biopsy Culture - Final Proteus Mirabilis 09/27/16 Unknown Foot - Right Wound Culture - Final Proteus Mirabilis
--- NOTE | 2016-10-05 13:43 | Progress Note ---
Assessment and Plan - Patient Problems (1) Right foot infection Current Visit: Yes Status: Chronic Plan to address problem: Continue with local wound care, medical management. Subjective Date of service: 10/05/16 Principal diagnosis: right foot infection Interval history: He remains confused. Foot dressings intact. Seen by wound care. Objective Vital signs: Vital Signs - 12hr 10/05/16 10/05/16 10/05/16 05:09 07:06 09:10 Temperature 98.4 F Pulse Rate 104 H 94 H Pulse Rate [ 82 Left Radial] Respiratory 20 Rate Blood Pressure 114/56 Blood Pressure 106/60 [Right Radial Artery] O2 Sat by Pulse 100 Oximetry 10/05/16 12:05 Temperature 98.1 F Pulse Rate Pulse Rate [ 82 Left Radial] Respiratory 20 Rate Blood Pressure Blood Pressure 106/56 [Right Radial Artery] O2 Sat by Pulse 99 Oximetry Narrative Exam: The dressings are dry, clinically stable. Discussed with vascular surgery regarding further workup to evaluate for amputation level, we'll wait vascular recommendations. It is my belief that he may very well be better off with an above-knee amputation rather than a below-knee amputation. Also there has been some confusion as to the family member who is able to give a surgical consent. I have discussed this with risk management today. To these issues are resolved, we'll continue with local wound care and antibiotics. - Labs CBC & BMP: 10/05/16 10:15 10/04/16 07:27 Labs: Abnormal lab results 10/04/16 10/04/16 10/04/16 Range/Units 11:18 15:28 22:59 WBC (4.5-11.0) K/mm3 RBC (3.65-5.03) M/mm3 Hgb (11.8-15.2) gm/dl Hct (35.5-45.6) % MCV (84-94) fl MCH (28-32) pg RDW (13.2-15.2) % Seg Neuts % (Manual) (40.0-70.0) % Lymphocytes % (Manual) (13.4-35.0) % Seg Neutrophils # Man (1.8-7.7) K/mm3 Monocytes # (Manual) (0.0-0.8) K/mm3 POC Glucose 329 H 232 H 242 H (70-105) 10/05/16 Range/Units 10:15 WBC 20.1 H (4.5-11.0) K/mm3 RBC 2.65 L (3.65-5.03) M/mm3 Hgb 8.7 L (11.8-15.2) gm/dl Hct 26.7 L (35.5-45.6) % MCV 101 H (84-94) fl MCH 33 H (28-32) pg RDW 16.6 H (13.2-15.2) % Seg Neuts % (Manual) 87.0 H (40.0-70.0) % Lymphocytes % (Manual) 6.0 L (13.4-35.0) % Seg Neutrophils # Man 17.5 H (1.8-7.7) K/mm3 Monocytes # (Manual) 1.2 H (0.0-0.8) K/mm3 POC Glucose (70-105)
[2016-10-05] MEDS: FLAGYL PO SCH ×2 (13:48→22:25)
--- NOTE | 2016-10-05 13:58 | Progress Note ---
Assessment and Plan Nonsalvageable necrotic right foot. Patient will require an amputation. Given palpable popliteal pulse patient has a chance of healing a below-knee amputation from the circulation standpoint of about 80%. In this case angiogram is not required preoperatively. However, given the poor condition of the skin he has a higher chance of nonhealing of below-knee amputation despite adequate circulation. Also, given for cardiac history patient may not have enough of cardiac output reserve the effectively use his knee for ambulation and may become nonambulatory despite preserving the knee. Recommend cardiology evaluation for possible cardiac output reserve to ambulate with the BKA. If patient lacks enough of the cardiac output to ambulate with BKA will recommend right above-knee amputation. Otherwise, below-knee amputation can be considered because with above-knee amputation this patient will certainly be nonambulatory. Subjective Principal diagnosis: right foot infection Interval history: Patient reports walking prior to hospitalization. Patient also reports several MIs in the past with severe compromising cardiac function. As per orthopedic surgeon the foot is nonviable and the patient require some kind of an amputation. Patient lives in a retirement. It is unclear what his social status is. Objective - Exam Narrative Exam: Right foot bandaged. Palpable right popliteal pulse. Very dry lower leg skin with an open ulcer on the lateral portion of the lower leg. - Constitutional Vitals: Vital Signs - 12hr 10/05/16 10/05/16 10/05/16 05:09 07:06 09:10 Temperature 98.4 F Pulse Rate 104 H 94 H Pulse Rate [ 82 Left Radial] Respiratory 20 Rate Blood Pressure 114/56 Blood Pressure 106/60 [Right Radial Artery] O2 Sat by Pulse 100 Oximetry 10/05/16 12:05 Temperature 98.1 F Pulse Rate Pulse Rate [ 82 Left Radial] Respiratory 20 Rate Blood Pressure Blood Pressure 106/56 [Right Radial Artery] O2 Sat by Pulse 99 Oximetry - Labs CBC & Chem 7: 10/05/16 10:15 10/04/16 07:27 Labs: Abnormal lab results 10/04/16 10/04/16 10/04/16 Range/Units 11:18 15:28 22:59 WBC (4.5-11.0) K/mm3 RBC (3.65-5.03) M/mm3 Hgb (11.8-15.2) gm/dl Hct (35.5-45.6) % MCV (84-94) fl MCH (28-32) pg RDW (13.2-15.2) % Seg Neuts % (Manual) (40.0-70.0) % Lymphocytes % (Manual) (13.4-35.0) % Seg Neutrophils # Man (1.8-7.7) K/mm3 Monocytes # (Manual) (0.0-0.8) K/mm3 POC Glucose 329 H 232 H 242 H (70-105) 10/05/16 Range/Units 10:15 WBC 20.1 H (4.5-11.0) K/mm3 RBC 2.65 L (3.65-5.03) M/mm3 Hgb 8.7 L (11.8-15.2) gm/dl Hct 26.7 L (35.5-45.6) % MCV 101 H (84-94) fl MCH 33 H (28-32) pg RDW 16.6 H (13.2-15.2) % Seg Neuts % (Manual) 87.0 H (40.0-70.0) % Lymphocytes % (Manual) 6.0 L (13.4-35.0) % Seg Neutrophils # Man 17.5 H (1.8-7.7) K/mm3 Monocytes # (Manual) 1.2 H (0.0-0.8) K/mm3 POC Glucose (70-105)
--- NOTE | 2016-10-05 16:05 | Event Note ---
Date: 10/05/16 The patient initially stable, discussed with vascular surgery regarding further workup to determine the amputation level. At believe that he is better off with an above-knee amputation rather than below -knee due to local condition of the leg. There is some confusion as to who could give the or consent, I have discussed this with was management. Once this is sorted out and vascular evaluation is completed, and then may plan for definitive amputation. He'll then continue with local wound care,? Wound VAC, antibiotics and medical management.
--- NOTE | 2016-10-05 16:30 | Progress Note ---
Assessment and Plan Assessment and plan: 1. Sepsis due to RLE cellulitis with necrosis and proteus infected foot - post debridement and amputation of toes; ID f/u appreciated; Continue IV antibiotics rocephin and po flagyl as per ID; local wound care; f/u ortho noted; vascular consult noted with recommendations that Ortho input appreciated, needs amputation, considering AKA vs BKA. WBC continues to trend down, cont current abx, ID input appreciated 2. Afib with RVR- cardiology input appreciated; cotn cardizem and metoprolol and adjust as needed; full dose lovenox; will restart eliquis once sx decided and done; f/u cardiology 3. NSTEMI- stable; imdur; metoprolol; statin; plavix held for debridement / amputation 4. ESRD- Continued HD per renal 5. Generalized Weakness - PT History Interval history: no complaints at present, no fevers, no chills Hospitalist Physical - Physical exam Narrative exam: appears chronically ill HEENT: MMM, EOMI cardiac: S1-S2 heard lungs: clear to auscultation, abdomen: soft, nontender, nondistended bowel sounds positive extremities: 1+ distal lower extremity swelling with marked skin stasis changes , Right foot dressed, dressing not removed Skin: no rash or lesion Neuro: no focal deficit Psych: appropriate behavior and mood, cognition intact - Constitutional Vitals: Temp Pulse Resp BP Pulse Ox 98.1 F 82 20 110/66 99 10/05/16 15:30 10/05/16 16:00 10/05/16 15:30 10/05/16 16:00 10/05/16 12:05 General appearance: Present: no acute distress Results - Labs CBC & Chem 7: 10/05/16 10:15 10/04/16 07:27 Labs: Laboratory Last Values WBC 20.1 K/mm3 (4.5-11.0) H 10/05/16 10:15 RBC 2.65 M/mm3 (3.65-5.03) L 10/05/16 10:15 Hgb 8.7 gm/dl (11.8-15.2) L 10/05/16 10:15 Hct 26.7 % (35.5-45.6) L 10/05/16 10:15 MCV 101 fl (84-94) H 10/05/16 10:15 MCH 33 pg (28-32) H 10/05/16 10:15 MCHC 33 % (32-34) 10/05/16 10:15 RDW 16.6 % (13.2-15.2) H 10/05/16 10:15 Plt Count 285 K/mm3 (140-440) 10/05/16 10:15 Lymph % (Auto) [employer] 10/04/16 07:27 [place] % (Auto) [employer] 10/04/16 07:27 Eos % (Auto) [employer] 10/04/16 07:27 Baso % (Auto) [employer] 10/04/16 07:27 Lymph # [employer] 10/04/16 07:27 [place] # [employer] 10/04/16 07:27 Eos # [employer] 10/04/16 07:27 Baso # [employer] 10/04/16 07:27 Add Manual Diff Complete 10/05/16 10:15 Total Counted 100 10/05/16 10:15 Seg Neutrophils % [employer] 10/04/16 07:27 Seg Neuts % (Manual) 87.0 % (40.0-70.0) H 10/05/16 10:15 Band Neutrophils % 0 % 10/05/16 10:15 Lymphocytes % (Manual) 6.0 % (13.4-35.0) L 10/05/16 10:15 Reactive Lymphs % (Man) 0 % 10/05/16 10:15 Monocytes % (Manual) 6.0 % (0.0-7.3) 10/05/16 10:15 Eosinophils % (Manual) 1.0 % (0.0-4.3) 10/05/16 10:15 Basophils % (Manual) 0 % (0.0-1.8) 10/05/16 10:15 Metamyelocytes % 0 % 10/05/16 10:15 Myelocytes % 0 % 10/05/16 10:15 Promyelocytes % 0 % 10/05/16 10:15 Blast Cells % 0 % 10/05/16 10:15 Nucleated RBC % Not Reportable 10/05/16 10:15 Seg Neutrophils # [employer] 10/04/16 07:27 Seg Neutrophils # Man 17.5 K/mm3 (1.8-7.7) H 10/05/16 10:15 Band Neutrophils # 0.0 K/mm3 10/05/16 10:15 Lymphocytes # (Manual) 1.2 K/mm3 (1.2-5.4) 10/05/16 10:15 Abs React Lymphs (Man) 0.0 K/mm3 10/05/16 10:15 Monocytes # (Manual) 1.2 K/mm3 (0.0-0.8) H 10/05/16 10:15 Eosinophils # (Manual) 0.2 K/mm3 (0.0-0.4) 10/05/16 10:15 Basophils # (Manual) 0.0 K/mm3 (0.0-0.1) 10/05/16 10:15 Metamyelocytes # 0.0 K/mm3 10/05/16 10:15 Myelocytes # 0.0 K/mm3 10/05/16 10:15 Promyelocytes # 0.0 K/mm3 10/05/16 10:15 Blast Cells # 0.0 K/mm3 10/05/16 10:15 Pathologist Review 09/23/16 06:33 WBC Morphology Not Reportable 10/05/16 10:15 Hypersegmented Neuts Not Reportable 10/05/16 10:15 Hyposegmented Neuts Not Reportable 10/05/16 10:15 Hypogranular Neuts Not Reportable 10/05/16 10:15 Smudge Cells Not Reportable 10/05/16 10:15 Toxic Granulation Not Reportable 10/05/16 10:15 Toxic Vacuolation Not Reportable 10/05/16 10:15 Dohle Bodies Not Reportable 10/05/16 10:15 Pelger-Huet Anomaly Not Reportable 10/05/16 10:15 [place] Rods Not Reportable 10/05/16 10:15 Platelet Estimate Appears normal 10/05/16 10:15 Clumped Platelets Not Reportable 10/05/16 10:15 Plt Clumps, EDTA Not Reportable 10/05/16 10:15 Large Platelets Not Reportable 10/05/16 10:15 Giant Platelets Not Reportable 10/05/16 10:15 Platelet Satelliting Not Reportable 10/05/16 10:15 Plt Morphology Comment Not Reportable 10/05/16 10:15 RBC Morphology Not Reportable 10/05/16 10:15 Dimorphic RBCs Not Reportable 10/05/16 10:15 Polychromasia Not Reportable 10/05/16 10:15 Hypochromasia Not Reportable 10/05/16 10:15 Poikilocytosis Not Reportable 10/05/16 10:15 Anisocytosis 1+ 10/05/16 10:15 Microcytosis Not Reportable 10/05/16 10:15 Macrocytosis Not Reportable 10/05/16 10:15 Spherocytes Not Reportable 10/05/16 10:15 Pappenheimer Bodies Not Reportable 10/05/16 10:15 Sickle Cells Not Reportable 10/05/16 10:15 Target Cells Not Reportable 10/05/16 10:15 Tear Drop Cells Not Reportable 10/05/16 10:15 Ovalocytes Not Reportable 10/05/16 10:15 Helmet Cells Not Reportable 10/05/16 10:15 Cramer-[place] Bodies Not Reportable 10/05/16 10:15 [place] Rings Not Reportable 10/05/16 10:15 [place] Cells Not Reportable 10/05/16 10:15 Bite Cells Not Reportable 10/05/16 10:15 Crenated Cell Not Reportable 10/05/16 10:15 Elliptocytes Not Reportable 10/05/16 10:15 Acanthocytes (Spur) Not Reportable 10/05/16 10:15 Rouleaux Not Reportable 10/05/16 10:15 Hemoglobin C Crystals Not Reportable 10/05/16 10:15 Schistocytes Not Reportable 10/05/16 10:15 Malaria parasites Not Reportable 10/05/16 10:15 Marcelino Bodies Not Reportable 10/05/16 10:15 Hem Pathologist Commnt No 10/05/16 10:15 PT 15.7 Sec. (12.2-14.9) H 09/23/16 06:33 INR 1.26 (0.87-1.13) H 09/23/16 06:33 Sodium 134 mmol/L (137-145) L 10/04/16 07:27 Potassium 3.3 mmol/L (3.6-5.0) L 10/04/16 07:27 Chloride 92.9 mmol/L (98-107) L 10/04/16 07:27 Carbon Dioxide 21 mmol/L (22-30) L 10/04/16 07:27 Anion Gap 23 mmol/L 10/04/16 07:27 BUN 42 mg/dL (9-20) H 10/04/16 07:27 Creatinine 6.3 mg/dL (0.8-1.5) H 10/04/16 07:27 Estimated GFR 11 ml/min 10/04/16 07:27 BUN/Creatinine Ratio 6.66 % 10/04/16 07:27 Glucose 194 mg/dL (75-100) H 10/04/16 07:27 POC Glucose 242 (70-105) H 10/04/16 22:59 Lactic Acid 2.3 mmol/L (0.7-2.0) H* 09/23/16 06:33 Calcium 7.1 mg/dL (8.4-10.2) L 10/04/16 07:27 Magnesium 2.2 mg/dL (1.7-2.3) 09/30/16 04:38 Total Creatine Kinase 914 units/L (55-170) H 09/23/16 18:42 CK-MB (CK-2) 4.3 ng/mL (0.0-4.0) H 09/23/16 18:42 CK-MB (CK-2) Rel Index 0.4 (0-4) 09/23/16 18:42 Troponin T 0.221 ng/mL (0.00-0.029) H* 09/23/16 18:42 Triglycerides 199 mg/dL (2-149) H 09/23/16 06:33 Cholesterol 140 mg/dL (50-199) 09/23/16 06:33 LDL Cholesterol Direct 76 mg/dL (50-130) 09/23/16 06:33 HDL Cholesterol 25 mg/dL (40-59) L 09/23/16 06:33 Cholesterol/HDL Ratio 5.60 % 09/23/16 06:33 TSH 0.074 mlU/mL (0.270-4.200) L 09/23/16 11:28 Thyroxine (T4) 4.6 ug/dL (4.0-12.0) 09/23/16 11:28 Random Vancomycin 21.7 ug/mL (0-40.0) 10/02/16 08:05
[2016-10-05] MEDS: ZOCOR PO SCH (22:24)
[2016-10-06] MEDS: CARDIZEM PO SCH ×4 (00:10→17:44)
[2016-10-06] MEDS: FLAGYL PO SCH ×3 (06:11→22:14)
[2016-10-06] MEDS: NOVOLOG SUB-Q SCH ×3 (08:42→17:44)
[2016-10-06] MEDS: Renal Caps PO SCH ×3 (08:42→22:14)
--- NOTE | 2016-10-06 09:28 | Progress Note ---
Assessment and Plan - Patient Problems (1) End-stage renal disease on hemodialysis Current Visit: Yes Status: Chronic Plan to address problem: HD on M/W/F. Chronic deconditioning, malnutrition. Adjust meds per renal function. HD tomorrow. ID notes reviewed-antibiotics switched to oral (2) Right foot infection Current Visit: Yes Status: Chronic Plan to address problem: . vascular and ID notes reviewed (3) Atrial fibrillation Current Visit: Yes Status: Chronic (4) PVD (peripheral vascular disease) Current Visit: Yes Status: Chronic (5) Leucocytosis Current Visit: Yes Status: Acute (6) Anemia Current Visit: Yes Status: Chronic (7) Diabetes Current Visit: Yes Status: Chronic Qualifiers: Diabetes mellitus type: type 2 (8) HTN (hypertension) Current Visit: Yes Status: Chronic Subjective Date of service: 10/06/16 Principal diagnosis: right foot infection Interval history: alert today, not in distress, denies CP or SOB Objective - Vital Signs Vital signs: Vital Signs - 12hr 10/05/16 10/05/16 10/05/16 22:00 22:28 22:29 Temperature Pulse Rate 129 H 129 H Pulse Rate [ Left Radial] Respiratory 22 Rate Blood Pressure 109/66 109/66 Blood Pressure [Right Radial Artery] O2 Sat by Pulse Oximetry 10/06/16 10/06/16 10/06/16 00:10 03:30 06:08 Temperature Pulse Rate 86 108 H 115 H Pulse Rate [ Left Radial] Respiratory Rate Blood Pressure 96/56 100/63 Blood Pressure [Right Radial Artery] O2 Sat by Pulse Oximetry 10/06/16 07:00 Temperature 97.8 F Pulse Rate Pulse Rate [ 82 Left Radial] Respiratory 18 Rate Blood Pressure Blood Pressure 94/63 [Right Radial Artery] O2 Sat by Pulse 96 Oximetry - General Appearance General appearance: chronically ill EENT: mucous membranes dry Neck: no JVD Respiratory: Present: Clear to Ascultation Cardiology: irregular Gastrointestinal: normoactive bowel sounds Musculoskeletal: other (dressing over right foot) - Lab 10/06/16 10:13 10/06/16 10:13 Most recent lab results Calcium 7.1 mg/dL (8.4-10.2) L 10/04/16 07:27 Magnesium 2.2 mg/dL (1.7-2.3) 09/30/16 04:38
[2016-10-06] MEDS: MONOKET PO SCH ×2 (09:54→22:33)
[2016-10-06] MEDS: LOVENOX SUB-Q SCH (09:54)
[2016-10-06] MEDS: LOPRESSOR PO SCH ×3 (09:55→22:27)
[2016-10-06] MEDS: PROTONIX PO SCH (09:55)
[2016-10-06] MEDS: APRESOLINE PO SCH ×2 (09:56→22:28)
[2016-10-06] MEDS: LASIX PO SCH (09:56)
--- NOTE | 2016-10-06 10:24 | Progress Note ---
Assessment and Plan Assessment and plan: 1. Sepsis due to RLE cellulitis with necrosis and proteus infected foot - post debridement and amputation of toes; ID f/u appreciated; Continue IV antibiotics rocephin and po flagyl as per ID; local wound care; f/u ortho noted; vascular consult noted with recommendations that Ortho input appreciated, needs amputation, considering AKA vs BKA. WBC continues to trend down, cont current abx, ID input appreciated 2. Afib with RVR- cardiology input appreciated; cotn cardizem and metoprolol and adjust as needed; full dose lovenox; will restart eliquis once sx decided and done; f/u cardiology 3. NSTEMI- stable; imdur; metoprolol; statin; plavix held for debridement / amputation 4. ESRD- Continued HD per renal 5. Generalized Weakness - PT 6. Uncontrolled DM with hyperglycemia Levemir started 10/06, SSI History Interval history: no complaints at present, no fevers, no chills, had some tachycardia overnight, but max was 111 Hospitalist Physical - Physical exam Narrative exam: appears chronically ill HEENT: MMM, EOMI cardiac: S1-S2 heard lungs: clear to auscultation, abdomen: soft, nontender, nondistended bowel sounds positive extremities: 1+ distal lower extremity swelling with marked skin stasis changes , Right foot dressed, dressing not removed Skin: no rash or lesion Neuro: no focal deficit Psych: appropriate behavior and mood, cognition intact - Constitutional Vitals: Temp Pulse Resp BP Pulse Ox 97.8 F 82 18 94/63 96 10/06/16 07:00 10/06/16 09:56 10/06/16 07:00 10/06/16 09:56 10/06/16 07:00 General appearance: Present: no acute distress Results - Labs CBC & Chem 7: 10/05/16 10:15 10/04/16 07:27 Labs: Laboratory Last Values WBC 20.1 K/mm3 (4.5-11.0) H 10/05/16 10:15 RBC 2.65 M/mm3 (3.65-5.03) L 10/05/16 10:15 Hgb 8.7 gm/dl (11.8-15.2) L 10/05/16 10:15 Hct 26.7 % (35.5-45.6) L 10/05/16 10:15 MCV 101 fl (84-94) H 10/05/16 10:15 MCH 33 pg (28-32) H 10/05/16 10:15 MCHC 33 % (32-34) 10/05/16 10:15 RDW 16.6 % (13.2-15.2) H 10/05/16 10:15 Plt Count 285 K/mm3 (140-440) 10/05/16 10:15 Lymph % (Auto) Stock Clipper 10/04/16 07:27 Cataño % (Auto) Stock Clipper 10/04/16 07:27 Eos % (Auto) Stock Clipper 10/04/16 07:27 Baso % (Auto) Stock Clipper 10/04/16 07:27 Lymph # Stock Clipper 10/04/16 07:27 Cataño # Stock Clipper 10/04/16 07:27 Eos # Stock Clipper 10/04/16 07:27 Baso # Stock Clipper 10/04/16 07:27 Add Manual Diff Complete 10/05/16 10:15 Total Counted 100 10/05/16 10:15 Seg Neutrophils % Stock Clipper 10/04/16 07:27 Seg Neuts % (Manual) 87.0 % (40.0-70.0) H 10/05/16 10:15 Band Neutrophils % 0 % 10/05/16 10:15 Lymphocytes % (Manual) 6.0 % (13.4-35.0) L 10/05/16 10:15 Reactive Lymphs % (Man) 0 % 10/05/16 10:15 Monocytes % (Manual) 6.0 % (0.0-7.3) 10/05/16 10:15 Eosinophils % (Manual) 1.0 % (0.0-4.3) 10/05/16 10:15 Basophils % (Manual) 0 % (0.0-1.8) 10/05/16 10:15 Metamyelocytes % 0 % 10/05/16 10:15 Myelocytes % 0 % 10/05/16 10:15 Promyelocytes % 0 % 10/05/16 10:15 Blast Cells % 0 % 10/05/16 10:15 Nucleated RBC % Not Reportable 10/05/16 10:15 Seg Neutrophils # Stock Clipper 10/04/16 07:27 Seg Neutrophils # Man 17.5 K/mm3 (1.8-7.7) H 10/05/16 10:15 Band Neutrophils # 0.0 K/mm3 10/05/16 10:15 Lymphocytes # (Manual) 1.2 K/mm3 (1.2-5.4) 10/05/16 10:15 Abs React Lymphs (Man) 0.0 K/mm3 10/05/16 10:15 Monocytes # (Manual) 1.2 K/mm3 (0.0-0.8) H 10/05/16 10:15 Eosinophils # (Manual) 0.2 K/mm3 (0.0-0.4) 10/05/16 10:15 Basophils # (Manual) 0.0 K/mm3 (0.0-0.1) 10/05/16 10:15 Metamyelocytes # 0.0 K/mm3 10/05/16 10:15 Myelocytes # 0.0 K/mm3 10/05/16 10:15 Promyelocytes # 0.0 K/mm3 10/05/16 10:15 Blast Cells # 0.0 K/mm3 10/05/16 10:15 Pathologist Review 09/23/16 06:33 WBC Morphology Not Reportable 10/05/16 10:15 Hypersegmented Neuts Not Reportable 10/05/16 10:15 Hyposegmented Neuts Not Reportable 10/05/16 10:15 Hypogranular Neuts Not Reportable 10/05/16 10:15 Smudge Cells Not Reportable 10/05/16 10:15 Toxic Granulation Not Reportable 10/05/16 10:15 Toxic Vacuolation Not Reportable 10/05/16 10:15 Dohle Bodies Not Reportable 10/05/16 10:15 Pelger-Huet Anomaly Not Reportable 10/05/16 10:15 Kody Rods Not Reportable 10/05/16 10:15 Platelet Estimate Appears normal 10/05/16 10:15 Clumped Platelets Not Reportable 10/05/16 10:15 Plt Clumps, EDTA Not Reportable 10/05/16 10:15 Large Platelets Not Reportable 10/05/16 10:15 Giant Platelets Not Reportable 10/05/16 10:15 Platelet Satelliting Not Reportable 10/05/16 10:15 Plt Morphology Comment Not Reportable 10/05/16 10:15 RBC Morphology Not Reportable 10/05/16 10:15 Dimorphic RBCs Not Reportable 10/05/16 10:15 Polychromasia Not Reportable 10/05/16 10:15 Hypochromasia Not Reportable 10/05/16 10:15 Poikilocytosis Not Reportable 10/05/16 10:15 Anisocytosis 1+ 10/05/16 10:15 Microcytosis Not Reportable 10/05/16 10:15 Macrocytosis Not Reportable 10/05/16 10:15 Spherocytes Not Reportable 10/05/16 10:15 Pappenheimer Bodies Not Reportable 10/05/16 10:15 Sickle Cells Not Reportable 10/05/16 10:15 Target Cells Not Reportable 10/05/16 10:15 Tear Drop Cells Not Reportable 10/05/16 10:15 Ovalocytes Not Reportable 10/05/16 10:15 Helmet Cells Not Reportable 10/05/16 10:15 Cramer-Wooster Bodies Not Reportable 10/05/16 10:15 Trenton Rings Not Reportable 10/05/16 10:15 Mary Cells Not Reportable 10/05/16 10:15 Bite Cells Not Reportable 10/05/16 10:15 Crenated Cell Not Reportable 10/05/16 10:15 Elliptocytes Not Reportable 10/05/16 10:15 Acanthocytes (Spur) Not Reportable 10/05/16 10:15 Rouleaux Not Reportable 10/05/16 10:15 Hemoglobin C Crystals Not Reportable 10/05/16 10:15 Schistocytes Not Reportable 10/05/16 10:15 Malaria parasites Not Reportable 10/05/16 10:15 Marcelino Bodies Not Reportable 10/05/16 10:15 Hem Pathologist Commnt No 10/05/16 10:15 PT 15.7 Sec. (12.2-14.9) H 09/23/16 06:33 INR 1.26 (0.87-1.13) H 09/23/16 06:33 Sodium 134 mmol/L (137-145) L 10/04/16 07:27 Potassium 3.3 mmol/L (3.6-5.0) L 10/04/16 07:27 Chloride 92.9 mmol/L (98-107) L 10/04/16 07:27 Carbon Dioxide 21 mmol/L (22-30) L 10/04/16 07:27 Anion Gap 23 mmol/L 10/04/16 07:27 BUN 42 mg/dL (9-20) H 10/04/16 07:27 Creatinine 6.3 mg/dL (0.8-1.5) H 10/04/16 07:27 Estimated GFR 11 ml/min 10/04/16 07:27 BUN/Creatinine Ratio 6.66 % 10/04/16 07:27 Glucose 194 mg/dL (75-100) H 10/04/16 07:27 POC Glucose 307 (70-105) H 10/05/16 13:20 Lactic Acid 2.3 mmol/L (0.7-2.0) H* 09/23/16 06:33 Calcium 7.1 mg/dL (8.4-10.2) L 10/04/16 07:27 Magnesium 2.2 mg/dL (1.7-2.3) 09/30/16 04:38 Total Creatine Kinase 914 units/L (55-170) H 09/23/16 18:42 CK-MB (CK-2) 4.3 ng/mL (0.0-4.0) H 09/23/16 18:42 CK-MB (CK-2) Rel Index 0.4 (0-4) 09/23/16 18:42 Troponin T 0.221 ng/mL (0.00-0.029) H* 09/23/16 18:42 Triglycerides 199 mg/dL (2-149) H 09/23/16 06:33 Cholesterol 140 mg/dL (50-199) 09/23/16 06:33 LDL Cholesterol Direct 76 mg/dL (50-130) 09/23/16 06:33 HDL Cholesterol 25 mg/dL (40-59) L 09/23/16 06:33 Cholesterol/HDL Ratio 5.60 % 09/23/16 06:33 TSH 0.074 mlU/mL (0.270-4.200) L 09/23/16 11:28 Thyroxine (T4) 4.6 ug/dL (4.0-12.0) 09/23/16 11:28 Random Vancomycin 21.7 ug/mL (0-40.0) 10/02/16 08:05
[2016-10-06 10:36] LABS: Hematocrit 28.3 % (35.5-45.6); Hemoglobin 9.1 gm/dl (11.8-15.2); Mean Corpuscular HGB Conc 32 % (32-34); Mean Corpuscular Hemoglobin 32 pg (28-32); Mean Corpuscular Volume 100 fl (84-94); Platelet Count 290 K/mm3 (140-440); Red Blood Count 2.83 M/mm3 (3.65-5.03); Red Cell Distribution Width 16.4 % (13.2-15.2)
--- NOTE | 2016-10-06 10:39 | Progress Note ---
Assessment and Plan Current antibiotics: Ceftriaxone 2 g IV q24h 10/02 --> Flagyl 500 mg IV q8h 10/02 --> Previous antibiotics: Vancomycin (pulse dosed) 09/26-10/02 Zosyn 2.25 g IV q8h 09/26-10/02 ASSESSMENT: Jacoby Shoemaker is a 71-year-old male with end-stage renal failure on maintenance HD , previous left hemispheral stroke with right hemiparesis, hypertension, chronic atrial fibrillation and anemia who was admitted to [facility] on 09/23/16 with increased lethargy at the dialysis center. He has evidence of a right foot infection. Problem list: 1. Right foot infection -CT scan shows evidence of osteomyelitis of the fifth toe as well as abscess formation in the forefoot -Likely mixed aerobic and anaerobic pathogens with the marked malodorous drainage. 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 Salter's note 2. End-stage renal failure -Hemodialysis dependent 3. Hypertension 4. Chronic atrial fibrillation -Rapid ventricular response on admission with rate controlled now 5. Status post left hemispheral stroke -Chronic right hemiparesis 6. Leukocytosis -Leukemoid reaction likely secondary to #1 Trending down slowly. PLAN: 1. Continue Ceftriaxone and po flagyl 2. Continue aggressive local wound care 3. Await further surgical plans in regards to right leg amputation. Subjective Date of service: 10/06/16 Principal diagnosis: right foot infection Interval history: No complaints. Denies lower extremity pain. No diarrhea. Objective - Exam Narrative Exam: Chronically ill-appearing. No acute distress. HEENT: Pupils are equal reactive to light and accommodation. Conjunctiva clear. Oropharynx is normal with no evidence of oral candidiasis or pharyngitis. NECK: Supple. No enlargement of the thyroid gland. No significant cervical lymphadenopathy. No jugular venous distention at 30. LUNGS: Coarse breath sounds bilaterally. HEART: Irregular rhythm. S1 and S2 are normal. There are no murmurs, gallops, clicks or rubs heard. ABDOMEN: Soft and nontender. Liver and spleen are not palpably enlarged or tender. No palpable masses. Bowel sounds are normoactive. EXTREMITIES: 1+ distal lower extremity swelling with marked skin stasis changes. Right foot wraps not removed. Left upper extremity fistula site with positive thrill and bruit. SKIN: No other rash, ulcers or wounds. NEUROLOGIC: No focal findings. - Constitutional Vitals: Vital Signs Temp Pulse Resp BP Pulse Ox 97.8 F 82 20 94/63 96 10/06/16 07:00 10/06/16 10:00 10/06/16 10:00 10/06/16 09:56 10/06/16 07:00 Temperature -Last 24 Hours Temperature 97.8 F Temperature 97.6 F Temperature 98.1 F Temperature 98.1 F - Labs CBC & Chem 7: 10/05/16 10:15 10/04/16 07:27 Labs: Abnormal lab results 10/05/16 10/05/16 Range/Units 10:15 13:20 WBC 20.1 H (4.5-11.0) K/mm3 RBC 2.65 L (3.65-5.03) M/mm3 Hgb 8.7 L (11.8-15.2) gm/dl Hct 26.7 L (35.5-45.6) % MCV 101 H (84-94) fl MCH 33 H (28-32) pg RDW 16.6 H (13.2-15.2) % Seg Neuts % (Manual) 87.0 H (40.0-70.0) % Lymphocytes % (Manual) 6.0 L (13.4-35.0) % Seg Neutrophils # Man 17.5 H (1.8-7.7) K/mm3 Monocytes # (Manual) 1.2 H (0.0-0.8) K/mm3 POC Glucose 307 H (70-105)
[2016-10-06 10:48] LABS: BUN/Creatinine Ratio 6.76; Calcium 7.1 mg/dL (8.4-10.2)
[2016-10-06 10:49] LABS: Chloride 91.6 mmol/L (98-107); Potassium 3.6 mmol/L (3.6-5.0)
[2016-10-06] MEDS: ROCEPHIN/NS 2 GM/100 ML 100 ML IV SCH (11:37)
[2016-10-06 12:06] LABS: Anisocytosis 1+; Basophils % (Manual) 0 % (0.0-1.8); Blastocytes % (Manual) 0 %; Diff Status Complete
[2016-10-06 12:07] LABS: Platelet Estimate Cons
[2016-10-06] MEDS ORDERED: LEVEMIR SUB-Q SCH (22:00)
[2016-10-06] MEDS: ZOCOR PO SCH (22:14)
[2016-10-07] MEDS: CARDIZEM PO SCH ×3 (06:14→17:25)
[2016-10-07] MEDS: FLAGYL PO SCH ×3 (06:28→21:56)
[2016-10-07] MEDS: LOVENOX SUB-Q SCH (09:02)
[2016-10-07] MEDS: APRESOLINE PO SCH ×2 (09:02→21:56)
[2016-10-07] MEDS: LOPRESSOR PO SCH ×3 (09:03→21:55)
[2016-10-07] MEDS: MONOKET PO SCH ×2 (09:03→21:57)
[2016-10-07] MEDS: PROTONIX PO SCH (09:03)
[2016-10-07] MEDS: Renal Caps PO SCH ×3 (09:03→21:55)
[2016-10-07] MEDS: LASIX PO SCH (09:04)
[2016-10-07] MEDS: NOVOLOG SUB-Q SCH ×3 (09:04→17:24)
--- NOTE | 2016-10-07 09:31 | Progress Note ---
Assessment and Plan - Patient Problems (1) End-stage renal disease on hemodialysis Current Visit: Yes Status: Chronic Plan to address problem: Pt was seen and examined during HD around 9.45AM. BP-102/60, P-79, afebrile, tolerating UF. Pt goes to [facility] under for outpt dialysis. (2) Right foot infection Current Visit: Yes Status: Chronic Plan to address problem: . vascular and ID notes reviewed (3) Atrial fibrillation Current Visit: Yes Status: Chronic (4) PVD (peripheral vascular disease) Current Visit: Yes Status: Chronic (5) Leucocytosis Current Visit: Yes Status: Acute (6) Anemia Current Visit: Yes Status: Chronic (7) Diabetes Current Visit: Yes Status: Chronic Qualifiers: Diabetes mellitus type: type 2 (8) HTN (hypertension) Current Visit: Yes Status: Chronic Subjective Date of service: 10/07/16 Principal diagnosis: right foot infection Interval history: alert today, not in distress, denies CP or SOB. Currently on HD Objective - Vital Signs Vital signs: Vital Signs - 12hr 10/06/16 10/06/16 10/06/16 22:00 22:15 22:24 Temperature Pulse Rate 86 Pulse Rate [ Apical] Pulse Rate [ Left Radial] Respiratory 20 Rate Blood Pressure Blood Pressure 91/50 [Right Arm] O2 Sat by Pulse Oximetry 10/06/16 10/06/16 10/07/16 22:27 22:28 00:00 Temperature 98 F Pulse Rate Pulse Rate [ Apical] Pulse Rate [ 89 Left Radial] Respiratory 17 Rate Blood Pressure 91/50 91/50 Blood Pressure 94/51 [Right Arm] O2 Sat by Pulse 99 Oximetry 10/07/16 10/07/16 10/07/16 04:49 07:27 08:30 Temperature 98.1 F 97.6 F Pulse Rate 88 Pulse Rate [ 67 Apical] Pulse Rate [ 94 H Left Radial] Respiratory 18 18 Rate Blood Pressure 116/65 Blood Pressure 108/62 103/63 [Right Arm] O2 Sat by Pulse 100 100 Oximetry 10/07/16 10/07/16 10/07/16 08:45 09:00 09:02 Temperature Pulse Rate 87 87 94 H Pulse Rate [ Apical] Pulse Rate [ Left Radial] Respiratory Rate Blood Pressure 115/59 119/51 110/65 Blood Pressure [Right Arm] O2 Sat by Pulse Oximetry 10/07/16 10/07/16 09:03 09:15 Temperature Pulse Rate 94 H 96 H Pulse Rate [ Apical] Pulse Rate [ Left Radial] Respiratory Rate Blood Pressure 110/65 114/64 Blood Pressure [Right Arm] O2 Sat by Pulse Oximetry - General Appearance General appearance: chronically ill EENT: mucous membranes moist Neck: no JVD Respiratory: Present: Decreased Breath Sounds Cardiology: regular Gastrointestinal: normoactive bowel sounds Neurologic: alert and oriented x3 Psychiatric: mood/affect appropriate, cooperative - Lab 10/06/16 10:13 10/06/16 10:13 Most recent lab results Calcium 7.1 mg/dL (8.4-10.2) L 10/06/16 10:13 Magnesium 2.2 mg/dL (1.7-2.3) 09/30/16 04:38
[2016-10-07] MEDS ORDERED: PROCRIT IV PRN (09:54)
--- NOTE | 2016-10-07 11:28 | Progress Note ---
[id number] Status: Chronic Subjective Date of service: 10/07/16 Principal diagnosis: right foot infection Interval history: Undergoing dialysis, chart reviewed. Continue with local wound care, definitive management below or above-knee amputation, elective. Objective Vital signs: Vital Signs - 12hr 10/07/16 10/07/16 10/07/16 00:00 04:49 07:27 Temperature 98 F 98.1 F 97.6 F Pulse Rate Pulse Rate [ 67 Apical] Pulse Rate [ 89 94 H Left Radial] Respiratory 17 18 18 Rate Blood Pressure Blood Pressure 94/51 108/62 103/63 [Right Arm] O2 Sat by Pulse 99 100 100 Oximetry 10/07/16 10/07/16 10/07/16 08:25 08:30 08:45 Temperature 97.6 F Pulse Rate 94 H 88 87 Pulse Rate [ Apical] Pulse Rate [ Left Radial] Respiratory 18 Rate Blood Pressure 109/65 116/65 115/59 Blood Pressure [Right Arm] O2 Sat by Pulse Oximetry 10/07/16 10/07/16 10/07/16 09:00 09:02 09:03 Temperature Pulse Rate 87 94 H 94 H Pulse Rate [ Apical] Pulse Rate [ Left Radial] Respiratory Rate Blood Pressure 119/51 110/65 110/65 Blood Pressure [Right Arm] O2 Sat by Pulse Oximetry 10/07/16 10/07/16 10/07/16 09:15 09:30 09:45 Temperature Pulse Rate 96 H 83 92 H Pulse Rate [ Apical] Pulse Rate [ Left Radial] Respiratory Rate Blood Pressure 114/64 112/53 106/61 Blood Pressure [Right Arm] O2 Sat by Pulse Oximetry 10/07/16 10/07/16 10/07/16 10:00 10:15 10:30 Temperature Pulse Rate 79 95 H 94 H Pulse Rate [ Apical] Pulse Rate [ Left Radial] Respiratory Rate Blood Pressure 102/60 110/59 112/64 Blood Pressure [Right Arm] O2 Sat by Pulse Oximetry 10/07/16 10/07/16 10/07/16 10:45 11:00 11:15 Temperature Pulse Rate 92 H 94 H 92 H Pulse Rate [ Apical] Pulse Rate [ Left Radial] Respiratory Rate Blood Pressure 103/69 110/62 106/68 Blood Pressure [Right Arm] O2 Sat by Pulse Oximetry - Labs CBC & BMP: 10/06/16 10:13 10/06/16 10:13 Labs: Abnormal lab results 10/05/16 10/05/16 10/06/16 Range/Units 07:04 21:42 07:37 Seg Neuts % (Manual) (40.0-70.0) % Lymphocytes % (Manual) (13.4-35.0) % Seg Neutrophils # Man (1.8-7.7) K/mm3 Lymphocytes # (Manual) (1.2-5.4) K/mm3 Monocytes # (Manual) (0.0-0.8) K/mm3 POC Glucose 244 H 234 H 240 H (70-105) 10/06/16 10/06/16 10/06/16 Range/Units 10:13 13:14 17:22 Seg Neuts % (Manual) 86.0 H (40.0-70.0) % Lymphocytes % (Manual) 5.0 L (13.4-35.0) % Seg Neutrophils # Man 18.9 H (1.8-7.7) K/mm3 Lymphocytes # (Manual) 1.1 L (1.2-5.4) K/mm3 Monocytes # (Manual) 1.5 H (0.0-0.8) K/mm3 POC Glucose 204 H 205 H (70-105) 10/06/16 10/07/16 Range/Units 21:02 07:24 Seg Neuts % (Manual) (40.0-70.0) % Lymphocytes % (Manual) (13.4-35.0) % Seg Neutrophils # Man (1.8-7.7) K/mm3 Lymphocytes # (Manual) (1.2-5.4) K/mm3 Monocytes # (Manual) (0.0-0.8) K/mm3 POC Glucose 173 H 55 L (70-105)
[2016-10-07] MEDS: ROCEPHIN/NS 2 GM/100 ML 100 ML IV SCH (11:58)
[2016-10-07] MEDS ORDERED: LEVEMIR SUB-Q SCH (12:07)
--- NOTE | 2016-10-07 16:56 | Progress Note ---
Assessment and Plan alert orientated in NAD Dressing dry, Wound inspected. Wound clean; large defect. Doing well after amputation toes Agree c dr Salter. Will require eventual elective amputation.. Subjective Date of service: 10/07/16 Principal diagnosis: right foot infection Objective Vital signs: Vital Signs - 12hr 10/07/16 10/07/16 10/07/16 07:27 08:25 08:30 Temperature 97.6 F 97.6 F Pulse Rate 94 H 88 Pulse Rate [ 67 Apical] Respiratory 18 18 Rate Blood Pressure 109/65 116/65 Blood Pressure 103/63 [Right Arm] O2 Sat by Pulse 100 Oximetry 10/07/16 10/07/16 10/07/16 08:45 09:00 09:02 Temperature Pulse Rate 87 87 94 H Pulse Rate [ Apical] Respiratory Rate Blood Pressure 115/59 119/51 110/65 Blood Pressure [Right Arm] O2 Sat by Pulse Oximetry 10/07/16 10/07/16 10/07/16 09:03 09:15 09:30 Temperature Pulse Rate 94 H 96 H 83 Pulse Rate [ Apical] Respiratory Rate Blood Pressure 110/65 114/64 112/53 Blood Pressure [Right Arm] O2 Sat by Pulse Oximetry 10/07/16 10/07/16 10/07/16 09:45 10:00 10:15 Temperature Pulse Rate 92 H 79 95 H Pulse Rate [ Apical] Respiratory Rate Blood Pressure 106/61 102/60 110/59 Blood Pressure [Right Arm] O2 Sat by Pulse Oximetry 10/07/16 10/07/16 10/07/16 10:30 10:45 11:00 Temperature 98.6 F Pulse Rate 94 H 92 H 94 H Pulse Rate [ 88 Apical] Respiratory 20 Rate Blood Pressure 112/64 103/69 110/62 Blood Pressure 107/67 [Right Arm] O2 Sat by Pulse 100 Oximetry 10/07/16 10/07/16 10/07/16 11:15 11:30 11:45 Temperature Pulse Rate 92 H 92 H 90 Pulse Rate [ Apical] Respiratory Rate Blood Pressure 106/68 119/75 113/63 Blood Pressure [Right Arm] O2 Sat by Pulse Oximetry 10/07/16 10/07/16 10/07/16 12:00 12:05 13:15 Temperature 98.0 F Pulse Rate 96 H 90 93 H Pulse Rate [ Apical] Respiratory 18 Rate Blood Pressure 101/74 112/70 112/76 Blood Pressure [Right Arm] O2 Sat by Pulse Oximetry 10/07/16 14:00 Temperature Pulse Rate 90 Pulse Rate [ Apical] Respiratory Rate Blood Pressure 110/78 Blood Pressure [Right Arm] O2 Sat by Pulse Oximetry - Labs CBC & BMP: 10/06/16 10:13 10/06/16 10:13 Labs: Abnormal lab results 10/05/16 10/06/16 10/06/16 Range/Units 07:04 17:22 21:02 POC Glucose 244 H 205 H 173 H (70-105) 10/07/16 Range/Units 07:24 POC Glucose 55 L (70-105)
--- NOTE | 2016-10-07 17:55 | Progress Note ---
Assessment and Plan Assessment and plan: 1. Sepsis due to RLE cellulitis with necrosis and proteus infected foot - post debridement and amputation of toes; ID f/u appreciated; Continue IV antibiotics rocephin and po flagyl as per ID; local wound care; f/u ortho noted; vascular consult noted with recommendations that Ortho input appreciated,sp R foot debridement and amputation of 5th toe on 10/01/2016, needs elective amputation, considering AKA vs BKA. WBC continues to trend down, cont current abx, ID input appreciated 2. Afib with RVR- cardiology input appreciated; continue rate control meds; full dose lovenox; will restart eliquis once sx decided and done; f/u cardiology 3. NSTEMI- stable; imdur; metoprolol; statin; plavix held for debridement / amputation 4. ESRD- Continued HD per renal 5. Generalized Weakness - PT 6. Uncontrolled DM with hyperglycemia was hypoglycemic this am, will half the dose of Levemir History Interval history: no complaints at present, no fevers, no chills, feels better Hospitalist Physical - Physical exam Narrative exam: appears chronically ill HEENT: MMM, EOMI cardiac: S1-S2 heard lungs: clear to auscultation, abdomen: soft, nontender, nondistended bowel sounds positive extremities: 1+ distal lower extremity swelling with marked skin stasis changes , Right foot dressed, dressing not removed Skin: no rash or lesion Neuro: no focal deficit Psych: appropriate behavior and mood, cognition intact - Constitutional Vitals: Temp Pulse Resp BP Pulse Ox 97.2 F L 86 18 100/55 99 10/07/16 16:30 10/07/16 16:30 10/07/16 16:30 10/07/16 16:30 10/07/16 16:30 General appearance: Present: no acute distress Results - Labs CBC & Chem 7: 10/06/16 10:13 10/06/16 10:13 Labs: Laboratory Last Values WBC 22.0 K/mm3 (4.5-11.0) H 10/06/16 10:13 RBC 2.83 M/mm3 (3.65-5.03) L 10/06/16 10:13 Hgb 9.1 gm/dl (11.8-15.2) L 10/06/16 10:13 Hct 28.3 % (35.5-45.6) L 10/06/16 10:13 MCV 100 fl (84-94) H 10/06/16 10:13 MCH 32 pg (28-32) 10/06/16 10:13 MCHC 32 % (32-34) 10/06/16 10:13 RDW 16.4 % (13.2-15.2) H 10/06/16 10:13 Plt Count 290 K/mm3 (140-440) 10/06/16 10:13 Lymph % (Auto) [employer] 10/04/16 07:27 [place] % (Auto) [employer] 10/04/16 07:27 Eos % (Auto) [employer] 10/04/16 07:27 Baso % (Auto) [employer] 10/04/16 07:27 Lymph # [employer] 10/04/16 07:27 [place] # [employer] 10/04/16 07:27 Eos # [employer] 10/04/16 07:27 Baso # [employer] 10/04/16 07:27 Add Manual Diff Complete 10/06/16 10:13 Total Counted 100 10/06/16 10:13 Seg Neutrophils % [employer] 10/04/16 07:27 Seg Neuts % (Manual) 86.0 % (40.0-70.0) H 10/06/16 10:13 Band Neutrophils % 1.0 % 10/06/16 10:13 Lymphocytes % (Manual) 5.0 % (13.4-35.0) L 10/06/16 10:13 Reactive Lymphs % (Man) 0 % 10/06/16 10:13 Monocytes % (Manual) 7.0 % (0.0-7.3) 10/06/16 10:13 Eosinophils % (Manual) 1.0 % (0.0-4.3) 10/06/16 10:13 Basophils % (Manual) 0 % (0.0-1.8) 10/06/16 10:13 Metamyelocytes % 0 % 10/06/16 10:13 Myelocytes % 0 % 10/06/16 10:13 Promyelocytes % 0 % 10/06/16 10:13 Blast Cells % 0 % 10/06/16 10:13 Nucleated RBC % Not Reportable 10/06/16 10:13 Seg Neutrophils # [employer] 10/04/16 07:27 Seg Neutrophils # Man 18.9 K/mm3 (1.8-7.7) H 10/06/16 10:13 Band Neutrophils # 0.2 K/mm3 10/06/16 10:13 Lymphocytes # (Manual) 1.1 K/mm3 (1.2-5.4) L 10/06/16 10:13 Abs React Lymphs (Man) 0.0 K/mm3 10/06/16 10:13 Monocytes # (Manual) 1.5 K/mm3 (0.0-0.8) H 10/06/16 10:13 Eosinophils # (Manual) 0.2 K/mm3 (0.0-0.4) 10/06/16 10:13 Basophils # (Manual) 0.0 K/mm3 (0.0-0.1) 10/06/16 10:13 Metamyelocytes # 0.0 K/mm3 10/06/16 10:13 Myelocytes # 0.0 K/mm3 10/06/16 10:13 Promyelocytes # 0.0 K/mm3 10/06/16 10:13 Blast Cells # 0.0 K/mm3 10/06/16 10:13 Pathologist Review 09/23/16 06:33 WBC Morphology Not Reportable 10/06/16 10:13 Hypersegmented Neuts Not Reportable 10/06/16 10:13 Hyposegmented Neuts Not Reportable 10/06/16 10:13 Hypogranular Neuts Not Reportable 10/06/16 10:13 Smudge Cells Not Reportable 10/06/16 10:13 Toxic Granulation Not Reportable 10/06/16 10:13 Toxic Vacuolation Not Reportable 10/06/16 10:13 Dohle Bodies Not Reportable 10/06/16 10:13 Pelger-Huet Anomaly Not Reportable 10/06/16 10:13 Kody Rods Not Reportable 10/06/16 10:13 Platelet Estimate Cons 10/06/16 10:13 Clumped Platelets Not Reportable 10/06/16 10:13 Plt Clumps, EDTA Not Reportable 10/06/16 10:13 Large Platelets Not Reportable 10/06/16 10:13 Giant Platelets Not Reportable 10/06/16 10:13 Platelet Satelliting Not Reportable 10/06/16 10:13 Plt Morphology Comment Not Reportable 10/06/16 10:13 RBC Morphology Not Reportable 10/06/16 10:13 Dimorphic RBCs Not Reportable 10/06/16 10:13 Polychromasia Not Reportable 10/06/16 10:13 Hypochromasia Not Reportable 10/06/16 10:13 Poikilocytosis Not Reportable 10/06/16 10:13 Anisocytosis 1+ 10/06/16 10:13 Microcytosis Not Reportable 10/06/16 10:13 Macrocytosis Not Reportable 10/06/16 10:13 Spherocytes Not Reportable 10/06/16 10:13 Pappenheimer Bodies Not Reportable 10/06/16 10:13 Sickle Cells Not Reportable 10/06/16 10:13 Target Cells Not Reportable 10/06/16 10:13 Tear Drop Cells Not Reportable 10/06/16 10:13 Ovalocytes Not Reportable 10/06/16 10:13 Helmet Cells Not Reportable 10/06/16 10:13 [place] Bodies Not Reportable 10/06/16 10:13 [place] Rings Not Reportable 10/06/16 10:13 Mary Cells Not Reportable 10/06/16 10:13 Bite Cells Not Reportable 10/06/16 10:13 Crenated Cell Not Reportable 10/06/16 10:13 Elliptocytes Not Reportable 10/06/16 10:13 Acanthocytes (Spur) Not Reportable 10/06/16 10:13 Rouleaux Not Reportable 10/06/16 10:13 Hemoglobin C Crystals Not Reportable 10/06/16 10:13 Schistocytes Not Reportable 10/06/16 10:13 Malaria parasites Not Reportable 10/06/16 10:13 Marcelino Bodies Not Reportable 10/06/16 10:13 Hem Pathologist Commnt No 10/06/16 10:13 PT 15.7 Sec. (12.2-14.9) H 09/23/16 06:33 INR 1.26 (0.87-1.13) H 09/23/16 06:33 Sodium 134 mmol/L (137-145) L 10/06/16 10:13 Potassium 3.6 mmol/L (3.6-5.0) 10/06/16 10:13 Chloride 91.6 mmol/L (98-107) L 10/06/16 10:13 Carbon Dioxide 20 mmol/L (22-30) L 10/06/16 10:13 Anion Gap 26 mmol/L 10/06/16 10:13 BUN 48 mg/dL (9-20) H 10/06/16 10:13 Creatinine 7.1 mg/dL (0.8-1.5) H 10/06/16 10:13 Estimated GFR 9 ml/min 10/06/16 10:13 BUN/Creatinine Ratio 6.76 % 10/06/16 10:13 Glucose 228 mg/dL (75-100) H 10/06/16 10:13 POC Glucose 55 (70-105) L 10/07/16 07:24 Lactic Acid 2.3 mmol/L (0.7-2.0) H* 09/23/16 06:33 Calcium 7.1 mg/dL (8.4-10.2) L 10/06/16 10:13 Magnesium 2.2 mg/dL (1.7-2.3) 09/30/16 04:38 Total Creatine Kinase 914 units/L (55-170) H 09/23/16 18:42 CK-MB (CK-2) 4.3 ng/mL (0.0-4.0) H 09/23/16 18:42 CK-MB (CK-2) Rel Index 0.4 (0-4) 09/23/16 18:42 Troponin T 0.221 ng/mL (0.00-0.029) H* 09/23/16 18:42 Triglycerides 199 mg/dL (2-149) H 09/23/16 06:33 Cholesterol 140 mg/dL (50-199) 09/23/16 06:33 LDL Cholesterol Direct 76 mg/dL (50-130) 09/23/16 06:33 HDL Cholesterol 25 mg/dL (40-59) L 09/23/16 06:33 Cholesterol/HDL Ratio 5.60 % 09/23/16 06:33 TSH 0.074 mlU/mL (0.270-4.200) L 09/23/16 11:28 Thyroxine (T4) 4.6 ug/dL (4.0-12.0) 09/23/16 11:28 Random Vancomycin 21.7 ug/mL (0-40.0) 10/02/16 08:05
[2016-10-07] MEDS: ZOCOR PO SCH (21:57)
[2016-10-08] MEDS: CARDIZEM PO SCH ×4 (00:54→17:11)
[2016-10-08] MEDS: FLAGYL PO SCH ×2 (05:17→13:12)
[2016-10-08] MEDS: NOVOLOG SUB-Q SCH ×3 (08:16→17:26)
[2016-10-08 08:18] LABS: Basophils % (Auto) 0.5 % (0.0-1.8); Hematocrit 26.9 % (35.5-45.6); Hemoglobin 8.7 gm/dl (11.8-15.2); Mean Corpuscular HGB Conc 32 % (32-34); Mean Corpuscular Hemoglobin 33 pg (28-32); Mean Corpuscular Volume 101 fl (84-94); Platelet Count 281 K/mm3 (140-440); Red Blood Count 2.66 M/mm3 (3.65-5.03); Red Cell Distribution Width 16.4 % (13.2-15.2); White Blood Count 16.1 K/mm3 (4.5-11.0)
--- NOTE | 2016-10-08 09:07 | Discharge Summary ---
Providers - Providers Date of Admission: 09/23/16 11:14 Attending physician: MARCUS RUSH MD 09/28/16 12:43 Consult to Physician [CONS] Routine Consulting Provider: ELDER WASSERMAN Reason For Exam: RLE ulcer infection Place consult to:: YESY Notified:: lauri service Phone number called:: [phone] Was contact made?: Yes If yes, spoke with:: matti Smith called:: 16:24 09/29/16 10:01 Consult to Physician [CONS] Routine Consulting Provider: VAINA LOCKWOOD V Reason For Exam: OM Lt 5 th toe; ? abscess formation Place consult to:: marine Notified:: office Phone number called:: [phone] Was contact made?: Yes If yes, spoke with:: barak Smith called:: 13:00 09/30/16 12:53 Consult to Wound/ET Nurse [CONS] Routine Reason For Exam: wound eval 09/30/16 16:34 Consult to Physician [CONS] Routine Consulting Provider: ELICEO ROBLES Reason For Exam: vasc eval/ ? above knee amputation Place consult to:: Dr. Robles Notified:: [place] Phone number called:: Was contact made?: Yes If yes, spoke with:: Barak Smith called:: 18:05 10/02/16 13:50 Consult to Wound/ET Nurse [CONS] Routine Reason For Exam: wound / dressing change/ ? 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 1. Sepsis due to RLE cellulitis with necrosis and proteus infected foot - He received post debridement and amputation of fifth toes; Infectious disease input was appreciated, he was continued on antibiotics and he is being discharged her antibiotic course He will need to follow-up with orthopedic and vascular surgery as an outpatient , because he will eventually need elective amputation of right lower extremity AKA versus BKA 2. Afib with RVR- cardiology input appreciated; He was treated with rate control medications, and he was started on anticoagulation Echo showed preserved systolic function 3. NSTEMI- mild increase in Trop was most likely due to poor clearance due to ESRD and rapid heart rate, patient denied chest pain throughout hospital stay Most likely due to rapid ventricular rates, his rate was controlled and meds were optimized cardiology input appreciated 4. ESRD- Dialysis was administered per nephrology, and his medications are renally dosed 5. Generalized Weakness - PT Patient is going to rehabilitation facilities to improve strength and transferring. 6. Uncontrolled DM with hyperglycemia He was treated with long-acting insulin and sliding scale, his glucose improved Disposition: DC/TX SNF W [facility] Time spent for discharge: 35 minutes Core Measure Documentation - Palliative Care Palliative Care/ Comfort Measures: Not Applicable - Core Measures Any of the following diagnoses?: none Exam - Physical Exam Narrative exam: appears chronically ill HEENT: MMM, EOMI cardiac: S1-S2 heard lungs: clear to auscultation, abdomen: soft, nontender, nondistended bowel sounds positive extremities: 1+ distal lower extremity swelling with marked skin stasis changes , Right foot dressed, dressing not removed Skin: no rash or lesion Neuro: no focal deficit Psych: appropriate behavior and mood, cognition intact - Constitutional Vitals: Temp Pulse Resp BP Pulse Ox 97.8 F 97 H 20 115/71 100 10/08/16 07:07 10/08/16 07:07 10/08/16 07:07 10/08/16 07:07 10/08/16 07:07 Plan Follow up with: PRIMARY CAREMD [Primary Care Provider] - 3-5 Days Prescriptions: HYDROcodone/APAP 5-325 [[place] 5-325 mg TAB] 1 each PO Q6H PRN #6 tablet PRN Reason: Pain, Moderate (4-6)
--- NOTE | 2016-10-08 09:26 | Progress Note ---
Assessment and Plan - Patient Problems (1) End-stage renal disease on hemodialysis Current Visit: Yes Status: Chronic (2) Right foot infection Current Visit: Yes Status: Chronic (3) Atrial fibrillation Current Visit: Yes Status: Chronic (4) PVD (peripheral vascular disease) Current Visit: Yes Status: Chronic (5) Leucocytosis Current Visit: Yes Status: Acute (6) Anemia Current Visit: Yes Status: Chronic (7) Diabetes Current Visit: Yes Status: Chronic Qualifiers: Diabetes mellitus type: type 2 (8) HTN (hypertension) Current Visit: Yes Status: Chronic Subjective Date of service: 10/08/16 Principal diagnosis: right foot infection Objective - Vital Signs Vital signs: Vital Signs - 12hr 10/08/16 10/08/16 10/08/16 00:25 04:20 07:07 Temperature 98.3 F 98.0 F 97.8 F Pulse Rate [ 92 H 136 H Apical] Pulse Rate [ 97 H Right Radial] Respiratory 20 22 20 Rate Blood Pressure 98/76 99/57 115/71 [Right Arm] O2 Sat by Pulse 99 99 100 Oximetry - Lab 10/08/16 07:29 10/06/16 10:13 Most recent lab results Calcium 7.1 mg/dL (8.4-10.2) L 10/06/16 10:13 Magnesium 2.2 mg/dL (1.7-2.3) 09/30/16 04:38
[2016-10-08] MEDS: Renal Caps PO SCH ×2 (09:46→13:12)
[2016-10-08] MEDS: MONOKET PO SCH (09:46)
[2016-10-08] MEDS: PROTONIX PO SCH (09:47)
[2016-10-08] MEDS: LOPRESSOR PO SCH ×2 (09:47→13:11)
[2016-10-08] MEDS: LOVENOX SUB-Q SCH (09:48)
[2016-10-08] MEDS: ROCEPHIN/NS 2 GM/100 ML 100 ML IV SCH (09:48)
[2016-10-08] MEDS: LASIX PO SCH (09:48)
--- NOTE | 2016-10-08 12:07 | Progress Note ---
Assessment and Plan Current antibiotics: Ceftriaxone 2 g IV q24h 10/02 --> Flagyl 500 mg IV q8h 10/02 --> Previous antibiotics: Vancomycin (pulse dosed) 09/26-10/02 Zosyn 2.25 g IV q8h 09/26-10/02 ASSESSMENT: Jacoby Shoemaker is a 71-year-old male with end-stage renal failure on maintenance HD , previous left hemispheral stroke with right hemiparesis, hypertension, chronic atrial fibrillation and anemia who was admitted to [facility] on 09/23/16 with increased lethargy at the dialysis center. He has evidence of a right foot infection. Problem list: 1. Right foot infection -CT scan shows evidence of osteomyelitis of the fifth toe as well as abscess formation in the forefoot -Likely mixed aerobic and anaerobic pathogens with the marked malodorous drainage. 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 Salter's note -At this point no further surgical plans contemplated 2. End-stage renal failure -Hemodialysis dependent 3. Hypertension 4. Chronic atrial fibrillation -Rapid ventricular response on admission with rate controlled now 5. Status post left hemispheral stroke -Chronic right hemiparesis 6. Leukocytosis -Leukemoid reaction likely secondary to #1 Trending down slowly. PLAN: 1. Suggest changing to oral Cipro 250 mg daily along with continued Flagyl formative milligrams by mouth 3 times a day for 2 weeks time. 2. Continue local wound care 3. Await discharge plans Subjective Date of service: 10/08/16 Principal diagnosis: right foot infection Objective - Constitutional Vitals: Vital Signs Temp Pulse Resp BP Pulse Ox 98.0 F 112 H 20 104/56 100 10/08/16 10:59 10/08/16 10:59 10/08/16 10:59 10/08/16 10:59 10/08/16 10:59 Temperature -Last 24 Hours Temperature 98.0 F Temperature 97.8 F Temperature 98.0 F Temperature 98.3 F Temperature 98.4 F Temperature 97.2 F - Labs CBC & Chem 7: 10/08/16 07:29 10/06/16 10:13 Labs: Abnormal lab results 10/07/16 10/07/16 10/07/16 Range/Units 11:46 16:48 21:38 WBC (4.5-11.0) K/mm3 RBC (3.65-5.03) M/mm3 Hgb (11.8-15.2) gm/dl Hct (35.5-45.6) % MCV (84-94) fl MCH (28-32) pg RDW (13.2-15.2) % Lymph % (Auto) (13.4-35.0) % Lymph # (1.2-5.4) K/mm3 [place] # (0.0-0.8) K/mm3 Seg Neutrophils % (40.0-70.0) % Seg Neutrophils # (1.8-7.7) K/mm3 POC Glucose 140 H 278 H 191 H (70-105) 10/08/16 10/08/16 Range/Units 07:07 07:29 WBC 16.1 H (4.5-11.0) K/mm3 RBC 2.66 L (3.65-5.03) M/mm3 Hgb 8.7 L (11.8-15.2) gm/dl Hct 26.9 L (35.5-45.6) % MCV 101 H (84-94) fl MCH 33 H (28-32) pg RDW 16.4 H (13.2-15.2) % Lymph % (Auto) 6.2 L (13.4-35.0) % Lymph # 1.0 L (1.2-5.4) K/mm3 [place] # 1.1 H (0.0-0.8) K/mm3 Seg Neutrophils % 85.3 H (40.0-70.0) % Seg Neutrophils # 13.8 H (1.8-7.7) K/mm3 POC Glucose 143 H (70-105)
[2016-10-08 15:02] VITALS: BP 92/52
== END 2016-10-08 17:41 | DRG 853 ==
LOC: ED 05:39 → 4A 11:14
PROVIDERS: ADMIT Internal Medicine; ATTEND Internal Medicine
PROC: 5A1D60Z (ICD-10-PCS; 2016-09-23)
PROC: 0JBQ0ZZ Excision of Right Foot Subcutaneous Tissue and Fascia, Open Approach (ICD-10-PCS; principal; 2016-09-30)
PROC: 0Y6X0Z0 Detachment at Right 5th Toe, Complete, Open Approach (ICD-10-PCS; principal; 2016-09-30)
DX: A41.9 Sepsis, unspecified organism (principal); I21.4 Non-ST elevation (NSTEMI) myocardial infarction; N18.6 End stage renal disease; G93.40 Encephalopathy, unspecified; L03.115 Cellulitis of right lower limb; M86.9 Osteomyelitis, unspecified; I12.0 Hypertensive chronic kidney disease with stage 5 chronic kidney disease or end stage renal disease; I48.92 Unspecified atrial flutter; E11.52 Type 2 diabetes mellitus with diabetic peripheral angiopathy with gangrene; I69.354 Hemiplegia and hemiparesis following cerebral infarction affecting left non-dominant side; E87.5 Hyperkalemia; I95.9 Hypotension, unspecified; E11.22 Type 2 diabetes mellitus with diabetic chronic kidney disease; D63.1 Anemia in chronic kidney disease; E83.42 Hypomagnesemia; I83.015 Varicose veins of right lower extremity with ulcer other part of foot; F03.90 Unspecified dementia, unspecified severity, without behavioral disturbance, psychotic disturbance, mood disturbance, and anxiety; I48.2 Chronic atrial fibrillation; I73.9 Peripheral vascular disease, unspecified; E11.65 Type 2 diabetes mellitus with hyperglycemia; Z98.890 Other specified postprocedural states; Z82.49 Family history of ischemic heart disease and other diseases of the circulatory system; Z87.891 Personal history of nicotine dependence; Z79.01 Long term (current) use of anticoagulants
CPT/HCPCS: 36415; 71010; 74230; 80048; 80061; 80202; 82140; 82550; 82553; 82962; 83735; 84436; 84443; 84484; 85007; 85025; 85027; 85610; 87040; 87076; 87116; 87186; 88302; 88305; 88311; 93005; 93010; 93306; 93922; 93925; 94640; 94760; 96365; 96366; 96367; A4217; G8996-GN; G8997-GN; G8998-GN; J0131; J0696; J0885; J1170; J1644; J1650; J1815; J1818; J2370; J2405; J2543; J2704; J3370; J3475; J7030; J7040; J7050; Q0161; Q9967

== ENCOUNTER 2017-09-11 05:33 | Inpatient (IN) | payer MEDICARE ==
[2017-09-11] MEDS ORDERED: NACL 0.9% 500 ML 500 ML IV ONE (06:08)
[2017-09-11] MEDS ORDERED: PROTONIX IV ONE (06:08)
[2017-09-11] MEDS ORDERED: ZOFRAN IV ONE (06:08)
[2017-09-11] MEDS ORDERED: NACL 0.9% 500 ML 500 ML ONE (06:13)
[2017-09-11] MEDS ORDERED: ZOFRAN ONE (06:13)
[2017-09-11] MEDS ORDERED: DDAVP IV ONE ×3 (06:36→07:00)
--- NOTE | 2017-09-11 06:38 | Emergency Department Report ---
ED GI Bleed HPI - General Chief complaint: GI Bleed Stated complaint: NAUSEA/VOMITING Time Seen by Provider: 09/11/17 06:25 Source: patient, EMS (ems notes not available at time of chart dictation), RN notes reviewed, old records reviewed Mode of arrival: Stretcher Limitations: No Limitations - History of Present Illness Initial comments: Primary care Dr.: Dr. Haro Nephrology: Kidney DrJanny: Antony Herring at [facility] dialysis Phone Number: Past medical history: End-stage renal disease on dialysis, bilateral lower extremity below-knee amputation, paroxysmal atrial fibrillation, not currently on systemic anticoagulation, hypertension, Is a 72-year-old male who was previously unknown to this provider, into the ER from a local senior care for coffee-ground emesis and vomiting blood. Patient reports that this is painless. He cannot describe exacerbating or relieving factors. It does not radiate anywhere. Patient admits to generalized weakness and complains of bilateral phantom limb pain. As per senior care documentation , patient was using accessory muscles to breathe, was saturating at 89-95% on 2 L, and had coffee-ground emesis 3. MD complaint: coffee ground emesis, gross hematemesis -: Gradual Severity scale (0 -10): 8 Quality: painless Consistency: other (per hpi) Improves with: other (per hpi) Context: other Associated Symptoms: nausea, vomiting, shortness of breath, weakness. denies: epistaxis, fever/chills - Related Data Home Medications Medication Instructions Recorded Confirmed Last Taken Clopidogrel [Plavix] 75 mg PO QDAY 09/23/16 09/23/16 Unknown Furosemide [Lasix TAB] 40 mg PO QDAY 09/23/16 09/23/16 Unknown ISOSORBIDE MONOnitrate [Monoket] 20 mg PO BID 09/23/16 09/23/16 Unknown Pantoprazole [Protonix TAB] 40 mg PO QDAY 09/23/16 09/23/16 Unknown Sennosides/Docusate Sodium [Stool 1 each PO PRN PRN 09/23/16 09/23/16 Unknown Softener Tablet] Simvastatin [Zocor TAB] 20 mg PO QHS 09/23/16 09/23/16 Unknown Vit B Cplx C No.13/Folic AC/D3 1 each PO AC 09/23/16 09/23/16 Unknown [Nephrocaps Qt Tablet] Previous Rx's Medication Instructions Recorded Last Taken Type Apixaban [Eliquis] 2.5 mg PO BID #10 tablet 10/08/16 Unknown Rx Ciprofloxacin HCl [Ciprofloxacin 250 mg PO DAILY #14 tablet 10/08/16 Unknown Rx TAB] HYDROcodone/APAP 5-325 [[place] 1 each PO Q6H PRN #6 tablet 10/08/16 Unknown Rx 5-325 mg TAB] Insulin Detemir [Levemir] 5 units SUB-Q QHS units 10/08/16 Unknown Rx Metoprolol [Lopressor TAB] 50 mg PO TID tablet 10/08/16 Unknown Rx metroNIDAZOLE [Flagyl] 500 mg PO Q8HR #42 tablet 10/08/16 Unknown Rx Allergies Allergy/AdvReac Type Severity Reaction Status Date / Time No Known Allergies Allergy Verified 11/08/15 09:09 ED Review of Systems ROS: Stated complaint: NAUSEA/VOMITING Other details as noted in HPI ED Past Medical Hx - Past Medical History Previous Medical History?: Yes Hx Hypertension: Yes Hx Diabetes: Yes Hx Renal Disease: Yes (HD TUE, THR, SAT) - Surgical History Past Surgical History?: Yes Additional Surgical History: FISTULA LEFT ARM. BACK SURGERY - Social History Smoking Status: Former Smoker Substance Use Type: None - Medications Home Medications: Home Medications Medication Instructions Recorded Confirmed Last Taken Type Clopidogrel [Plavix] 75 mg PO QDAY 09/23/16 09/23/16 Unknown History Furosemide [Lasix TAB] 40 mg PO QDAY 09/23/16 09/23/16 Unknown History ISOSORBIDE MONOnitrate [Monoket] 20 mg PO BID 09/23/16 09/23/16 Unknown History Pantoprazole [Protonix TAB] 40 mg PO QDAY 09/23/16 09/23/16 Unknown History Sennosides/Docusate Sodium [Stool 1 each PO PRN PRN 09/23/16 09/23/16 Unknown History Softener Tablet] Simvastatin [Zocor TAB] 20 mg PO QHS 09/23/16 09/23/16 Unknown History Vit B Cplx C No.13/Folic AC/D3 1 each PO AC 09/23/16 09/23/16 Unknown History [Nephrocaps Qt Tablet] Apixaban [Eliquis] 2.5 mg PO BID #10 tablet 10/08/16 Unknown Rx Ciprofloxacin HCl [Ciprofloxacin 250 mg PO DAILY #14 tablet 10/08/16 Unknown Rx TAB] HYDROcodone/APAP 5-325 [[place] 1 each PO Q6H PRN #6 tablet 10/08/16 Unknown Rx 5-325 mg TAB] Insulin Detemir [Levemir] 5 units SUB-Q QHS units 10/08/16 Unknown Rx Metoprolol [Lopressor TAB] 50 mg PO TID tablet 10/08/16 Unknown Rx metroNIDAZOLE [Flagyl] 500 mg PO Q8HR #42 tablet 10/08/16 Unknown Rx ED Physical Exam - General Limitations: No Limitations, Physical Limitation General appearance: alert, in distress - Head Head exam: Present: atraumatic, normocephalic - Eye Eye exam: Present: normal appearance, EOMI - ENT ENT exam: Present: normal orophraynx, mucous membranes moist - Neck Neck exam: Present: normal inspection, full ROM - Respiratory Respiratory exam: Present: rhonchi (rhonchi noted in the lower lung sher), other (there is a right-sided vascular access catheter noted, with no redness, pus or streaking). Absent: respiratory distress, chest wall tenderness - Cardiovascular Cardiovascular Exam: Present: regular rate, normal rhythm, normal heart sounds. Absent: bradycardia, tachycardia, irregular rhythm, systolic murmur, diastolic murmur, rubs, gallop - GI/Abdominal GI/Abdominal exam: Present: soft, normal bowel sounds. Absent: distended, tenderness, guarding, rebound, rigid, pulsatile mass - Rectal Rectal exam: Present: normal inspection, normal rectal tone, heme (-) stool - Extremities Exam Extremities exam: Present: normal inspection, full ROM, other (bilateral below- knee amputations. Right upper extremity AV fistula, appropriate throat, no redness, pus or streaking) - Back Exam Back exam: Present: normal inspection, full ROM. Absent: tenderness, CVA tenderness (R), paraspinal tenderness, vertebral tenderness - Neurological Exam Neurological exam: Present: alert, other (Extraocular movements intact. Tongue midline. No facial droop. Facial sensation intact to light touch in the V1, V2 , V3 distribution bilaterally. 5 and 5 strength in 4 extremities.. Sensation is intact to light touch in 4 extremities.) - Psychiatric Psychiatric exam: Present: normal affect, normal mood - Skin Skin exam: Present: warm, dry, intact, normal color. Absent: rash ED Course Vital Signs 09/11/17 09/11/17 09/11/17 05:48 05:58 06:01 Temperature 97.8 F Pulse Rate 88 85 Respiratory 16 14 Rate Blood Pressure 168/78 162/70 Blood Pressure 168/78 [Left] O2 Sat by Pulse 100 100 100 Oximetry 09/11/17 09/11/17 09/11/17 06:21 06:31 07:00 Temperature Pulse Rate 78 75 Respiratory 16 13 14 Rate Blood Pressure 150/61 158/64 Blood Pressure [Left] O2 Sat by Pulse 100 99 97 Oximetry 09/11/17 09/11/17 07:30 08:01 Temperature Pulse Rate 78 79 Respiratory 17 19 Rate Blood Pressure 137/68 131/69 Blood Pressure [Left] O2 Sat by Pulse 98 98 Oximetry ED Medical Decision Making - Lab Data Result diagrams: 09/11/17 06:21 09/11/17 06:21 Vital Signs 09/11/17 09/11/17 09/11/17 05:48 05:58 06:01 Temperature 97.8 F Pulse Rate 88 85 Respiratory 16 14 Rate Blood Pressure 168/78 162/70 Blood Pressure 168/78 [Left] O2 Sat by Pulse 100 100 100 Oximetry 09/11/17 09/11/17 09/11/17 06:21 06:31 07:00 Temperature Pulse Rate 78 75 Respiratory 16 13 14 Rate Blood Pressure 150/61 158/64 Blood Pressure [Left] O2 Sat by Pulse 100 99 97 Oximetry 09/11/17 09/11/17 07:30 08:01 Temperature Pulse Rate 78 79 Respiratory 17 19 Rate Blood Pressure 137/68 131/69 Blood Pressure [Left] O2 Sat by Pulse 98 98 Oximetry Lab Results 09/11/17 09/11/17 09/11/17 Range/Units 06:21 06:21 06:21 WBC 22.0 H (4.5-11.0) K/mm3 RBC 3.46 L (3.65-5.03) M/mm3 Hgb 10.7 L (11.8-15.2) gm/dl Hct 33.1 L (35.5-45.6) % MCV 96 H (84-94) fl MCH 31 (28-32) pg MCHC 32 (32-34) % RDW 19.2 H (13.2-15.2) % Plt Count 351 (140-440) K/mm3 PT 14.3 (12.2-14.9) Sec. INR 1.06 (0.87-1.13) APTT 42.6 H (24.2-36.6) Sec. Sodium 138 (137-145) mmol/L Potassium 4.5 (3.6-5.0) mmol/L Chloride 93.5 L (98-107) mmol/L Carbon Dioxide 31 H (22-30) mmol/L Anion Gap 18 mmol/L BUN 32 H (9-20) mg/dL Creatinine 4.3 H (0.8-1.5) mg/dL Estimated GFR 17 ml/min BUN/Creatinine Ratio 7 % Glucose 121 H (75-100) mg/dL Calcium 9.1 (8.4-10.2) mg/dL Total Bilirubin 0.30 (0.1-1.2) mg/dL AST 14 (5-40) units/L ALT 11 (7-56) units/L Alkaline Phosphatase 103 (35-129) units/L Total Protein 6.7 (6.3-8.2) g/dL Albumin 3.1 L (3.9-5) g/dL Albumin/Globulin Ratio 0.9 % Lipase 8 L (13-60) units/L - EKG Data -: EKG Interpreted by [place] EKG shows normal: sinus rhythm - EKG Data Interpretation: other 09/11/17 08:36 Normal sinus, 76 bpm, normal axis, QTC prolonged, motion artifact, appears change with compared to prior, atrial fibrillation has resolved, it is not consistent with ST elevation myocardial infarction - Radiology Data Radiology results: report reviewed, image reviewed Differential diagnosis, including but not limited to: Upper GI bleed, Rhiannon- Hutton tear, aspiration pneumonitis, electrolyte derangement Assessment and plan: 72-year-old male with painless upper GI bleed/coffee- ground emesis. He is afebrile with reassuring vital signs and protecting his airway at this time. Given IV Protonix, desmopressin and Zofran. X-ray of the chest negative for pneumonia, may have early pneumonitis. Case presents to the Hospital physician, Dr. Penny, who will admit the patient to the medical service. Case also presented to gastroenterology, Dr. Parks, who will consult on the patient, in case discussed with covering system development engineer, Dr. Pedraza, who will follow in consultation from a nephrology perspective. Critical care attestation.: If time is entered above; I have spent that time in minutes in the direct care of this critically ill patient, excluding procedure time. ED Disposition Clinical Impression: End-stage renal disease on hemodialysis, UGIB (upper gastrointestinal bleed) Disposition: -09 OP ADMIT IP TO THIS HOSP Is pt being admited?: Yes Condition: Good Referrals: PRIMARY CARE, [Primary Care Provider] - 3-5 Days Forms: Accompanied Note
[2017-09-11 06:56] LABS: Hematocrit 33.1 % (35.5-45.6); Hemoglobin 10.7 gm/dl (11.8-15.2); Mean Corpuscular HGB Conc 32 % (32-34); Mean Corpuscular Hemoglobin 31 pg (28-32); Mean Corpuscular Volume 96 fl (84-94); Platelet Count 351 K/mm3 (140-440); Red Blood Count 3.46 M/mm3 (3.65-5.03); Red Cell Distribution Width 19.2 % (13.2-15.2)
[2017-09-11] MEDS ORDERED: NACL 0.9% IV ONE ×2 (07:00)
[2017-09-11 07:05] LABS: Albumin 3.1 g/dL (3.9-5); Calcium 9.1 mg/dL (8.4-10.2)
[2017-09-11 07:13] LABS: INR 1.06 (0.87-1.13)
[2017-09-11 07:14] LABS: Partial Thromboplastin Time 42.6 Sec. (24.2-36.6)
--- NOTE | 2017-09-11 07:30 | XRay Report ---
FINAL REPORT EXAM: XR CHEST 1V AP HISTORY: hematemesis? aspiration TECHNIQUE: AP portable view(s) of the chest obtained. PRIORS: None. FINDINGS: Right chest central line terminates near the superior cavoatrial junction. Left subclavian/axillary vascular stent. No mediastinal shift. Cardiac silhouette is not enlarged. No pneumothorax, effusion, or focal pulmonary opacity identified. No acute skeletal findings. IMPRESSION: No no pneumothorax or obvious effusion.
[2017-09-11] MEDS ORDERED: LASIX PO SCH (10:00)
[2017-09-11] MEDS ORDERED: PROTONIX PO SCH (10:00)
--- NOTE | 2017-09-11 10:03 | History and Physical Report ---
History of Present Illness Date of examination: 09/11/17 Date of admission: 09/11/17 08:49 Chief complaint: Coffee ground emesis History of present illness: This Is a 72-year-old male with h/o ESRD on HD, s/p b/l BKA, atrial fib, presented into the ER from a local retirement for coffee-ground emesis and vomiting blood. Patient reported no abdominal pain and cannot describe exacerbating or relieving factors. Patient admits to generalized weakness and complains of bilateral phantom limb pain. As per retirement documentation, patient was using accessory muscles to breathe, was saturating at 89-95% on 2 L , and had coffee-ground emesis 3. In the ER his Hb was at 10, no further emesis since admission. he will be admitted for further evaluation and management. Primary care Dr.: Dr. Haro Nephrology: Kidney Dr. Antony Herring at [facility] dialysis Phone Number: [phone] Past medical History: h/o End-stage renal disease on dialysis, bilateral lower extremity below-knee amputation, paroxysmal atrial fibrillation, not currently on systemic anticoagulation, hypertension, Past surgical History: s/p bilateral BKA Social History: Lives in a retirement, denies any smoking, drinking and elicit drug abuse. Family History: Significant for hypertension Review of System: Constitutional: no fever, no chills, no weight loss Ears, eyes, nose, mouth and throat: no nasal congestion, no nasal discharge, no sinus pressure, no vision change, no red eye. Neck: No neck pain or rigidity. Cardiovascular: No chest pain, no orthopnea, no palpitations, no leg swelling Respiratory: + shortness of breath, no cough, no congestion, no wheezing Gastrointestinal: no abdominal pain, + nausea, + vomiting Genitourinary : no dysuria, no hematuria Musculoskeletal: no joint swelling or muscle ache Integumentary: no rash, no pruritis Neurological: no parathesias, no numbness, no tingling Endocrine: no cold or heat intolerance, no polyuria or polydipsia Hematologic/Lymphatic: no easy bruising, no easy bleeding, no gland swelling Allergic/Immunologic: no urticaria, no angioedema. Medications and Allergies Allergies Allergy/AdvReac Type Severity Reaction Status Date / Time No Known Allergies Allergy Verified 11/08/15 09:09 Home Medications Medication Instructions Recorded Confirmed Last Taken Type Clopidogrel [Plavix] 75 mg PO QDAY 09/23/16 09/23/16 Unknown History Furosemide [Lasix TAB] 40 mg PO QDAY 09/23/16 09/23/16 Unknown History ISOSORBIDE MONOnitrate [Monoket] 20 mg PO BID 09/23/16 09/23/16 Unknown History Pantoprazole [Protonix TAB] 40 mg PO QDAY 09/23/16 09/23/16 Unknown History Sennosides/Docusate Sodium [Stool 1 each PO PRN PRN 09/23/16 09/23/16 Unknown History Softener Tablet] Simvastatin [Zocor TAB] 20 mg PO QHS 09/23/16 09/23/16 Unknown History Vit B Cplx C No.13/Folic AC/D3 1 each PO AC 09/23/16 09/23/16 Unknown History [Nephrocaps Qt Tablet] Apixaban [Eliquis] 2.5 mg PO BID #10 tablet 10/08/16 Unknown Rx Ciprofloxacin HCl [Ciprofloxacin 250 mg PO DAILY #14 tablet 10/08/16 Unknown Rx TAB] HYDROcodone/APAP 5-325 [[place] 1 each PO Q6H PRN #6 tablet 10/08/16 Unknown Rx 5-325 mg TAB] Insulin Detemir [Levemir] 5 units SUB-Q QHS units 10/08/16 Unknown Rx Metoprolol [Lopressor TAB] 50 mg PO TID tablet 10/08/16 Unknown Rx metroNIDAZOLE [Flagyl] 500 mg PO Q8HR #42 tablet 10/08/16 Unknown Rx Coreg 3.125 mg PO BID 09/12/17 09/12/17 Unknown History hydrALAZINE 50 mg PO BID 09/12/17 09/12/17 Unknown History Active Meds: Active Medications Furosemide (Lasix) 40 mg PO QDAY [facility] Insulin Detemir (Levemir) 5 units SUB-Q QHS [facility] Metoprolol Tartrate (Lopressor) 50 mg PO TID [facility] Miscellaneous Medication (Simvastatin) 20 mg PO QHS [facility] Miscellaneous Medication (Vit B Cplx C No.13/Folic Ac/D3 [Nephrocaps Qt Tablet] ) 1 each PO AC [facility] Pantoprazole Sodium (Protonix) 40 mg PO QDAY [facility] Senna/Docusate Sodium (Senokot S) 1 tab PO PRN PRN PRN Reason: Constipation Exam - Physical Exam Narrative exam: Hospitalist Physical exam: GENERAL: elderly AAM lying on bed appeared to be in no discomfort. HEENT: Normocephalic. Atraumatic. No conjunctival congestion or icterus. Patient has moist mucous membranes. NECK: Supple. Trachea midline. CHEST/LUNGS: Clear to auscultated bilaterally, breathing nonlabored. No wheezes crackles or rhonchi. HEART/CARDIOVASCULAR: S1 and S2 positive. ABDOMEN: Abdomen is soft, nontender. Patient has normal bowel sounds. SKIN: There is no rash. Warm and dry. NEURO: Follows command. MUSCULOSKELETAL: No joint effusion or tenderness. EXTRIMITY: b/l BKA PSYCH: Cooperative. - Constitutional Vitals: Temp Pulse Resp BP Pulse Ox 98.7 F 85 18 137/75 98 09/11/17 09:30 09/11/17 09:30 09/11/17 09:30 09/11/17 09:30 09/11/17 09:30 Results - Labs CBC & Chem 7: 09/12/17 09:08 09/11/17 06:21 Labs: Abnormal lab results 09/11/17 09/11/17 09/11/17 Range/Units 06:21 06:21 06:21 WBC 22.0 H (4.5-11.0) K/mm3 RBC 3.46 L (3.65-5.03) M/mm3 Hgb 10.7 L (11.8-15.2) gm/dl Hct 33.1 L (35.5-45.6) % MCV 96 H (84-94) fl RDW 19.2 H (13.2-15.2) % APTT 42.6 H (24.2-36.6) Sec. 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
[2017-09-11 11:00] LABS: Anisocytosis 1+; Band Neutrophils # (Manual) 0.1 K/mm3; Basophils % (Manual) 0 % (0.0-1.8); Total Cells Counted 200
[2017-09-11] MEDS ORDERED: D5NS 1,000 ML IV SCH (11:00)
[2017-09-11 11:01] LABS: Platelet Estimate Consistent w Auto
[2017-09-11] MEDS ORDERED: [UNRECOGNIZED DRUG - REMARK] PO SCH (11:30)
[2017-09-11] MEDS: Renal Caps PO SCH (12:23)
[2017-09-11] MEDS: LOPRESSOR PO SCH ×2 (13:08→21:24)
--- NOTE | 2017-09-11 15:13 | Consultation ---
History of Present Illness - Reason for Consult Consult date: 09/11/17 end stage renal disease - History of Present Illness 72yr M adm c/o N/V ? GIB. ESRD pt on HD - 1yr, says he dialyzes qTTS but does not know his dialysis clinic or location Past History Past Medical History: diabetes, ESRD, hypertension, PVD (S/p Trevor BKA) Social history: denies: smoking, alcohol abuse Family history: other (assisted resident) Medications and Allergies Allergies Allergy/AdvReac Type Severity Reaction Status Date / Time No Known Allergies Allergy Verified 11/08/15 09:09 Home Medications Medication Instructions Recorded Confirmed Last Taken Type Clopidogrel [Plavix] 75 mg PO QDAY 09/23/16 09/23/16 Unknown History Furosemide [Lasix TAB] 40 mg PO QDAY 09/23/16 09/23/16 Unknown History ISOSORBIDE MONOnitrate [Monoket] 20 mg PO BID 09/23/16 09/23/16 Unknown History Pantoprazole [Protonix TAB] 40 mg PO QDAY 09/23/16 09/23/16 Unknown History Sennosides/Docusate Sodium [Stool 1 each PO PRN PRN 09/23/16 09/23/16 Unknown History Softener Tablet] Simvastatin [Zocor TAB] 20 mg PO QHS 09/23/16 09/23/16 Unknown History Vit B Cplx C No.13/Folic AC/D3 1 each PO AC 09/23/16 09/23/16 Unknown History [Nephrocaps Qt Tablet] Apixaban [Eliquis] 2.5 mg PO BID #10 tablet 10/08/16 Unknown Rx Ciprofloxacin HCl [Ciprofloxacin 250 mg PO DAILY #14 tablet 10/08/16 Unknown Rx TAB] HYDROcodone/APAP 5-325 [[place] 1 each PO Q6H PRN #6 tablet 10/08/16 Unknown Rx 5-325 mg TAB] Insulin Detemir [Levemir] 5 units SUB-Q QHS units 10/08/16 Unknown Rx Metoprolol [Lopressor TAB] 50 mg PO TID tablet 10/08/16 Unknown Rx metroNIDAZOLE [Flagyl] 500 mg PO Q8HR #42 tablet 10/08/16 Unknown Rx Active Meds: Active Medications Furosemide (Lasix) 40 mg PO QDAY [facility] Last Admin: 09/11/17 12:22 Dose: 40 mg Dextrose/Sodium Chloride (D5ns) 1,000 mls @ 42 mls/hr IV DIRECT [facility] Last Admin: 09/11/17 10:45 Dose: 42 mls/hr Insulin Human Regular (Novolin R) 0 units SUB-Q ACHS [facility] PRN Reason: Protocol Last Admin: 09/11/17 12:25 Dose: Not Given Metoprolol Tartrate (Lopressor) 50 mg PO TID [facility] Last Admin: 09/11/17 13:08 Dose: 50 mg Multivit/Ca Carb/B Cmplx/FA/Prenat (Renal Caps) 1 cap PO QDAY [facility] Last Admin: 09/11/17 12:23 Dose: 1 cap Pantoprazole Sodium (Protonix) 40 mg IV BID [facility] Pravastatin Sodium (Pravachol) 20 mg PO QHS [facility] Senna/Docusate Sodium (Senokot S) 1 tab PO PRN PRN PRN Reason: Constipation Review of Systems Constitutional: no fever, no chills Cardiovascular: no chest pain, no orthopnea, no palpitations Respiratory: no cough, no hemoptysis, no shortness of breath Gastrointestinal: nausea, vomiting, melena Exam - Vital Signs Vital signs: Vital Signs Pulse Ox 100 09/11/17 05:48 - General Appearance General appearance: other (Awake & alert) EENT: ATNC, PERRL Neck: Present: neck supple Respiratory: Clear to Ascultation, Other (Rt IJ Permcath in place) Heart: regular, S1S2 Gastrointestinal: Present: other (Soft, Nontender) Neurologic: other (Alert & responsive) Results - Lab Results 09/11/17 06:21 09/11/17 06:21 Most recent lab results Calcium 9.1 mg/dL (8.4-10.2) 09/11/17 06:21 Assessment and Plan ESRD - HD today & through adm Leukocytosis - Cxs & Abx ?GIB - Mx per GI Anemia - F/u H/H. No Heparin on HD. Epogen on HD Thanks, will f/u with you
[2017-09-11] MEDS ORDERED: NACL 0.9% 100 ML IV PRN (15:22)
[2017-09-11] MEDS ORDERED: HEPARIN IV PRN (15:22)
[2017-09-11] MEDS ORDERED: ZOSYN/NS 3.375GM/50ML 3.375 GM/50 ML BAG IV SCH (16:00)
[2017-09-11] MEDS: ZOSYN/NS 2.25 GM/50ML 2.25 GM/50 ML BAG IV SCH ×2 (17:00→22:18)
[2017-09-11] MEDS ORDERED: ZOFRAN IV PRN (17:00)
--- NOTE | 2017-09-11 17:06 | Gastroenterology Consultation ---
History of Present Illness - Reason for Consult Consult date: 09/11/17 UGI bleed Requesting physician: YUMI GROVE - History of Present Illness Mr Shoemaker is a 72 yo aam with h/o ESRD and PVD who presents from senior care with multiple coffee ground emesis episodes. History gathered from chart review and patient (although a poor historian). He reports multiple episodes of dark emesis prior to arrival, and one episode since admission. He has had nausea, but denies abdominal pain. He reports having dark bm (occult negative in ED). He denies nsaid's. On plavix, not on anti-coagulation. He denies missing dialysis sessions. He is not aware of prior gi bleeding or if he has had endoscopy in the past. Past History Past Medical History: diabetes, ESRD, hypertension, PVD (S/p Trevor BKA) Social history: denies: smoking, alcohol abuse Family history: other (penitentiary resident) Medications and Allergies Allergies Allergy/AdvReac Type Severity Reaction Status Date / Time No Known Allergies Allergy Verified 11/08/15 09:09 Home Medications Medication Instructions Recorded Confirmed Last Taken Type Clopidogrel [Plavix] 75 mg PO QDAY 09/23/16 09/23/16 Unknown History Furosemide [Lasix TAB] 40 mg PO QDAY 09/23/16 09/23/16 Unknown History ISOSORBIDE MONOnitrate [Monoket] 20 mg PO BID 09/23/16 09/23/16 Unknown History Pantoprazole [Protonix TAB] 40 mg PO QDAY 09/23/16 09/23/16 Unknown History Sennosides/Docusate Sodium [Stool 1 each PO PRN PRN 09/23/16 09/23/16 Unknown History Softener Tablet] Simvastatin [Zocor TAB] 20 mg PO QHS 09/23/16 09/23/16 Unknown History Vit B Cplx C No.13/Folic AC/D3 1 each PO AC 09/23/16 09/23/16 Unknown History [Nephrocaps Qt Tablet] Apixaban [Eliquis] 2.5 mg PO BID #10 tablet 10/08/16 Unknown Rx Ciprofloxacin HCl [Ciprofloxacin 250 mg PO DAILY #14 tablet 10/08/16 Unknown Rx TAB] HYDROcodone/APAP 5-325 [[place] 1 each PO Q6H PRN #6 tablet 10/08/16 Unknown Rx 5-325 mg TAB] Insulin Detemir [Levemir] 5 units SUB-Q QHS units 10/08/16 Unknown Rx Metoprolol [Lopressor TAB] 50 mg PO TID tablet 10/08/16 Unknown Rx metroNIDAZOLE [Flagyl] 500 mg PO Q8HR #42 tablet 10/08/16 Unknown Rx Active Meds: Active Medications Epoetin Pedro (Procrit) 10,000 unit IV ILENE PRN PRN Reason: hemodialysis Heparin Sodium (Porcine) (Heparin) 5,000 unit IV ILENE PRN PRN Reason: hemodialysis Sodium Chloride (Nacl 0.9%) 100 mls @ 999 mls/hr IV ILENE PRN PRN Reason: Hypotension Piperacillin Sod/Tazobactam Sod (Zosyn/Ns 2.25 Gm/50ml) 2.25 gm in 50 mls @ 100 mls/hr IV Q8HR [facility] Insulin Human Regular (Novolin R) 0 units SUB-Q ACHS [place]ON PRN Reason: Protocol Last Admin: 09/11/17 12:25 Dose: Not Given Metoprolol Tartrate (Lopressor) 50 mg PO TID [facility] Last Admin: 09/11/17 13:08 Dose: 50 mg Morphine Sulfate (Morphine) 2 mg IV Q4H PRN PRN Reason: Pain, Moderate (4-6) Multivit/Ca Carb/B Cmplx/FA/Prenat (Renal Caps) 1 cap PO QDAY [facility] Last Admin: 09/11/17 12:23 Dose: 1 cap Ondansetron HCl (Zofran) 4 mg IV Q6H PRN PRN Reason: Nausea And Vomiting Pantoprazole Sodium (Protonix) 40 mg IV BID [facility] Pravastatin Sodium (Pravachol) 20 mg PO QHS [facility] Senna/Docusate Sodium (Senokot S) 1 tab PO PRN PRN PRN Reason: Constipation Review of Systems - Review of Systems ROS unobtainable: due to mental status Exam - Constitutional Vital Signs: Temp Pulse Resp BP Pulse Ox 98.7 F 61 20 147/62 99 09/11/17 09:30 09/11/17 15:35 09/11/17 15:35 09/11/17 13:08 09/11/17 15:35 General appearance: no acute distress, other (chronically ill appearing) - EENT ENT: other (dry mucous membranes) - Neck Neck: supple, normal ROM - Respiratory Respiratory effort: normal Respiratory: bilateral: CTA - Cardiovascular Rhythm: regular Heart Sounds: Present: S1 & S2 Extremity abnormal: other (bilateral BKA) - Gastrointestinal General gastrointestinal: Present: soft, non-tender, non-distended - Integumentary Integumentary: Present: dry - Musculoskeletal Musculoskeletal: deferred - Labs CBC & Chem 7: 09/11/17 06:21 09/11/17 06:21 Lab Results: Laboratory Results - last 24 hr 09/11/17 09/11/17 09/11/17 06:21 06:21 06:21 WBC 22.0 H RBC 3.46 L Hgb 10.7 L Hct 33.1 L MCV 96 H MCH 31 MCHC 32 RDW 19.2 H Plt Count 351 Add Manual Diff Complete Total Counted 200 Seg Neuts % (Manual) 90.5 H Band Neutrophils % 0.5 Lymphocytes % (Manual) 4.0 L Reactive Lymphs % (Man) 0 Monocytes % (Manual) 4.0 Eosinophils % (Manual) 1.0 Basophils % (Manual) 0 Metamyelocytes % 0 Myelocytes % 0 Promyelocytes % 0 Blast Cells % 0 Nucleated RBC % Not Reportable Seg Neutrophils # Man 19.9 H Band Neutrophils # 0.1 Lymphocytes # (Manual) 0.9 L Abs React Lymphs (Man) 0.0 Monocytes # (Manual) 0.9 H Eosinophils # (Manual) 0.2 Basophils # (Manual) 0.0 Metamyelocytes # 0.0 Myelocytes # 0.0 Promyelocytes # 0.0 Blast Cells # 0.0 WBC Morphology Not Reportable Hypersegmented Neuts Not Reportable Hyposegmented Neuts Not Reportable Hypogranular Neuts Not Reportable Smudge Cells Not Reportable Toxic Granulation Not Reportable Toxic Vacuolation Not Reportable Dohle Bodies Not Reportable Pelger-Huet Anomaly Not Reportable Kody Rods Not Reportable Platelet Estimate Consistent w auto Clumped Platelets Not Reportable Plt Clumps, EDTA Not Reportable Large Platelets Not Reportable Giant Platelets Not Reportable Platelet Satelliting Not Reportable Plt Morphology Comment Not Reportable RBC Morphology Not Reportable Dimorphic RBCs Not Reportable Polychromasia Not Reportable Hypochromasia Not Reportable Poikilocytosis Not Reportable Anisocytosis 1+ Microcytosis Not Reportable Macrocytosis Not Reportable Spherocytes Not Reportable Pappenheimer Bodies Not Reportable Sickle Cells Not Reportable Target Cells Not Reportable Tear Drop Cells Not Reportable Ovalocytes Not Reportable Helmet Cells Not Reportable Cramer-Calhan Bodies Not Reportable [place] Rings Not Reportable Mary Cells Not Reportable Bite Cells Not Reportable Crenated Cell Not Reportable Elliptocytes Not Reportable Acanthocytes (Spur) Not Reportable Rouleaux Not Reportable Hemoglobin C Crystals Not Reportable Schistocytes Not Reportable Malaria parasites Not Reportable Marcelino Bodies Not Reportable Hem Pathologist Commnt No PT 14.3 INR 1.06 APTT 42.6 H Sodium 138 Potassium 4.5 Chloride 93.5 L Carbon Dioxide 31 H Anion Gap 18 BUN 32 H Creatinine 4.3 H Estimated GFR 17 BUN/Creatinine Ratio 7 Glucose 121 H POC Glucose Calcium 9.1 Total Bilirubin 0.30 AST 14 ALT 11 Alkaline Phosphatase 103 Total Protein 6.7 Albumin 3.1 L Albumin/Globulin Ratio 0.9 Lipase 8 L Blood Type Antibody Screen 09/11/17 09/11/17 09/11/17 06:25 11:57 16:09 WBC RBC Hgb Hct MCV MCH MCHC RDW Plt Count Add Manual Diff Total Counted Seg Neuts % (Manual) Band Neutrophils % Lymphocytes % (Manual) Reactive Lymphs % (Man) Monocytes % (Manual) Eosinophils % (Manual) Basophils % (Manual) Metamyelocytes % Myelocytes % Promyelocytes % Blast Cells % Nucleated RBC % Seg Neutrophils # Man Band Neutrophils # Lymphocytes # (Manual) Abs React Lymphs (Man) Monocytes # (Manual) Eosinophils # (Manual) Basophils # (Manual) Metamyelocytes # Myelocytes # Promyelocytes # Blast Cells # WBC Morphology Hypersegmented Neuts Hyposegmented Neuts Hypogranular Neuts Smudge Cells Toxic Granulation Toxic Vacuolation Dohle Bodies Pelger-Huet Anomaly Kody Rods Platelet Estimate Clumped Platelets Plt Clumps, EDTA Large Platelets Giant Platelets Platelet Satelliting Plt Morphology Comment RBC Morphology Dimorphic RBCs Polychromasia Hypochromasia Poikilocytosis Anisocytosis Microcytosis Macrocytosis Spherocytes Pappenheimer Bodies Sickle Cells Target Cells Tear Drop Cells Ovalocytes Helmet Cells Cramer-Calhan Bodies [place] Rings Wynona Cells Bite Cells Crenated Cell Elliptocytes Acanthocytes (Spur) Rouleaux Hemoglobin C Crystals Schistocytes Malaria parasites Marcelino Bodies Hem Pathologist Commnt PT INR APTT Sodium Potassium Chloride Carbon Dioxide Anion Gap BUN Creatinine Estimated GFR BUN/Creatinine Ratio Glucose POC Glucose 142 H 133 H Calcium Total Bilirubin AST ALT Alkaline Phosphatase Total Protein Albumin Albumin/Globulin Ratio Lipase Blood Type O POSITIVE Antibody Screen Negative Assessment and Plan 1. UGI bleed - HD stable at this time. He has a chronic anemia, and H/H on admission is within his baseline. occult negative from below per ED. -cont PPI BID dosing -okay for liquid diet given low suspicion for active bleeding -will plan for EGD Wednesday (sooner if indicated based on clinical course) 2. ESRD 3. PVD on plavix 4. HTN
[2017-09-11] MEDS: MORPHINE IV PRN ×2 (17:21→20:25)
[2017-09-11] MEDS ORDERED: NACL 0.9 (PRIMING MACHINE ONLY DIALYSIS) MC ONE (19:40)
[2017-09-11] MEDS: PROCRIT IV PRN (20:45)
[2017-09-11] MEDS ORDERED: NON-FORMULARY (Simvastatin 20 MG) PO SCH (22:00)
[2017-09-11] MEDS ORDERED: LEVEMIR SUB-Q SCH (22:00)
[2017-09-11] MEDS: PROTONIX IV SCH (22:20)
[2017-09-11] MEDS: PRAVACHOL PO SCH (22:21)
[2017-09-12] MEDS: PRAVACHOL PO SCH ×2 (01:27→22:42)
[2017-09-12] MEDS: ZOSYN/NS 2.25 GM/50ML 2.25 GM/50 ML BAG IV SCH ×3 (05:40→22:40)
[2017-09-12] MEDS: LOPRESSOR PO SCH ×4 (08:55→22:45)
[2017-09-12] MEDS: Renal Caps PO SCH (09:02)
[2017-09-12] MEDS: PROTONIX IV SCH ×2 (09:03→22:41)
[2017-09-12 09:46] LABS: Hematocrit 32.5 % (35.5-45.6); Hemoglobin 10.6 gm/dl (11.8-15.2); Mean Corpuscular HGB Conc 33 % (32-34); Mean Corpuscular Hemoglobin 31 pg (28-32); Mean Corpuscular Volume 95 fl (84-94); Platelet Count 330 K/mm3 (140-440); Red Blood Count 3.41 M/mm3 (3.65-5.03); Red Cell Distribution Width 18.6 % (13.2-15.2)
[2017-09-12 10:03] LABS: Calcium 8.8 mg/dL (8.4-10.2)
--- NOTE | 2017-09-12 12:26 | Progress Note ---
Assessment and Plan ESRD - Tolerated HD yesterday. Next HD Tues Leukocytosis - F/u on Abx ?GIB - Mx per GI Anemia - F/u H/H, Epogen on HD Subjective Date of service: 09/12/17 Objective - Vital Signs Vital signs: Vital Signs - 12hr 09/12/17 09/12/17 09/12/17 04:16 08:11 08:55 Temperature 97.5 F L 98.5 F Pulse Rate 79 78 78 Respiratory 18 18 Rate Blood Pressure 141/56 158/54 158/54 O2 Sat by Pulse 95 99 Oximetry - General Appearance General appearance: other (Awake & alert) Neck: no JVD Respiratory: Present: Clear to Ascultation Cardiology: regular, S1S2 Gastrointestinal: normal - Lab 09/12/17 09:08 09/12/17 09:08 Most recent lab results Calcium 8.8 mg/dL (8.4-10.2) 09/12/17 09:08
--- NOTE | 2017-09-12 15:07 | Gastroenterology Progress Note ---
Assessment and Plan 1. UGI bleed - H/H stable, no signs of overt bleeding since admission. plan for EGD tomorrow, NPO at midnight. Cont PPI Subjective Date of service: 09/12/17 Principal diagnosis: UGI bleed Interval history: pt seen and examined. no further bleeding episodes since admission. denies abd pain. tolerating clears. Objective - Exam Narrative Exam: Gen: NAD CV: RRR Lungs: CTAB, non labored Abd: soft, nt, +bs Ext: bilateral BKA, left arm fistula - Constitutional Vitals: Temp Pulse Resp BP Pulse Ox 97.9 F 64 22 146/40 99 09/12/17 13:45 09/12/17 13:45 09/12/17 14:15 09/12/17 13:45 09/12/17 14:15 - Labs CBC & Chem 7: 09/12/17 09:08 09/12/17 09:08 Labs: Laboratory Results - last 24 hr 09/11/17 09/11/17 09/11/17 06:25 16:09 22:00 WBC RBC Hgb Hct MCV MCH MCHC RDW Plt Count Sodium Potassium Chloride Carbon Dioxide Anion Gap BUN Creatinine Estimated GFR BUN/Creatinine Ratio Glucose POC Glucose 133 H 140 H Calcium Blood Type O POSITIVE Antibody Screen Negative 09/12/17 09/12/17 09/12/17 06:06 08:15 09:08 WBC 18.7 H RBC 3.41 L Hgb 10.6 L Hct 32.5 L MCV 95 H MCH 31 MCHC 33 RDW 18.6 H Plt Count 330 Sodium Potassium Chloride Carbon Dioxide Anion Gap BUN Creatinine Estimated GFR BUN/Creatinine Ratio Glucose POC Glucose 99 98 Calcium Blood Type Antibody Screen 09/12/17 09/12/17 09:08 11:21 WBC RBC Hgb Hct MCV MCH MCHC RDW Plt Count Sodium 141 Potassium 4.3 Chloride 96.7 L Carbon Dioxide 26 Anion Gap 23 BUN 21 H Creatinine 3.0 H Estimated GFR 25 BUN/Creatinine Ratio 7 Glucose 122 H POC Glucose 170 H Calcium 8.8 Blood Type Antibody Screen
--- NOTE | 2017-09-12 15:17 | Progress Note ---
Assessment and Plan Upper GI bleed - Presented with coffee-ground emesis - H&H stable at this point - We'll cont on PPI twice a day - Consult GI and hold any heparin product or anticoagulation - full liquid diet, plan for EGD tomorrow End stage renal disease on dialysis - Consult has been placed for rehabilitation engineer - Electrolytes currently stable - HD per nephrology recommendation - s/p HD yesterday, he is on TTS schedule Hypertension -We'll cont home meds and monitor BP every 4 hour Paroxysmal atrial fibrillation - We'll continue beta jake for heart rate control Diabetes mellitus type 2 on insulin -For now will keep him on sliding scale of insulin Bilateral BKA -Supportive care Leukocytosis - likely due to bacteremia - will follow final blood cx result and cover with abx for now Bacteremia - cont vanc and zosyn for now, ID CONSULT DVT prophylaxis - We'll cont on SCD Brief History: This Is a 72-year-old male with h/o ESRD on HD, s/p b/l BKA, atrial fib, presented into the ER from a local senior care for coffee-ground emesis and vomiting blood. Radiological test: Chest x-ray on 09/11 showed no acute infiltrates Subjective Date of service: 09/12/17 Principal diagnosis: UGI bleed Interval history: pt seen and examined no c/o N/V blood cx one out of two positive for gm+ cocci chain and pair Objective - Exam Narrative Exam: Hospitalist Physical exam: GENERAL: elderly AAM lying on bed appeared to be in no discomfort. HEENT: Normocephalic. Atraumatic. No conjunctival congestion or icterus. Patient has moist mucous membranes. NECK: Supple. Trachea midline. CHEST/LUNGS: Clear to auscultated bilaterally, breathing nonlabored. No wheezes crackles or rhonchi. HEART/CARDIOVASCULAR: S1 and S2 positive. ABDOMEN: Abdomen is soft, nontender. Patient has normal bowel sounds. SKIN: There is no rash. Warm and dry. NEURO: Follows command. MUSCULOSKELETAL: No joint effusion or tenderness. EXTRIMITY: b/l BKA PSYCH: Cooperative. - Constitutional Vitals: Vital Signs - 12hr 09/12/17 09/12/17 09/12/17 04:16 08:11 08:55 Temperature 97.5 F L 98.5 F Pulse Rate 79 78 78 Respiratory 18 18 Rate Blood Pressure 141/56 158/54 158/54 O2 Sat by Pulse 95 99 Oximetry 09/12/17 09/12/17 13:45 14:15 Temperature 97.9 F Pulse Rate 64 Respiratory 20 22 Rate Blood Pressure 146/40 O2 Sat by Pulse 100 99 Oximetry - Labs CBC & Chem 7: 09/12/17 09:08 09/12/17 09:08 Labs: Abnormal lab results 09/11/17 09/11/17 09/12/17 Range/Units 16:09 22:00 09:08 WBC 18.7 H (4.5-11.0) K/mm3 RBC 3.41 L (3.65-5.03) M/mm3 Hgb 10.6 L (11.8-15.2) gm/dl Hct 32.5 L (35.5-45.6) % MCV 95 H (84-94) fl RDW 18.6 H (13.2-15.2) % Chloride (98-107) mmol/L BUN (9-20) mg/dL Creatinine (0.8-1.5) mg/dL Glucose (75-100) mg/dL POC Glucose 133 H 140 H (70-105) 09/12/17 09/12/17 Range/Units 09:08 11:21 WBC (4.5-11.0) K/mm3 RBC (3.65-5.03) M/mm3 Hgb (11.8-15.2) gm/dl Hct (35.5-45.6) % MCV (84-94) fl RDW (13.2-15.2) % Chloride 96.7 L (98-107) mmol/L BUN 21 H (9-20) mg/dL Creatinine 3.0 H (0.8-1.5) mg/dL Glucose 122 H (75-100) mg/dL POC Glucose 170 H (70-105)
[2017-09-12] MEDS: MORPHINE IV PRN (18:03)
[2017-09-12] MEDS: SENOKOT S PO PRN (18:03)
[2017-09-13] MEDS ORDERED: VANCOMYCIN/NS 1 GM/250 ML 1 GM/250 ML BAG IV SCH ×2 (01:00→22:00)
[2017-09-13] MEDS ORDERED: VANCOMYCIN 1,250 MG in NACL 0.9% 250ML 250 ML IV ONE (02:00)
[2017-09-13 06:39] LABS: Hematocrit 32.9 % (35.5-45.6); Hemoglobin 10.4 gm/dl (11.8-15.2); Mean Corpuscular HGB Conc 32 % (32-34); Mean Corpuscular Hemoglobin 30 pg (28-32); Mean Corpuscular Volume 96 fl (84-94); Platelet Count 331 K/mm3 (140-440); Red Blood Count 3.42 M/mm3 (3.65-5.03)
--- NOTE | 2017-09-13 06:39 | Progress Note ---
Assessment and Plan 1. ESRD: Continue hemodialysis three times a week, TTS schedule. 2. Anemia. 3. Sepsis / bacteremia: Followed by ID. Vascular consulted to remove the tunnel dialysis catheter. 4. GI bleed. Subjective Date of service: 09/13/17 Principal diagnosis: UGI bleed Interval history: Patient was seen and examined at the bedside. Objective - Vital Signs Vital signs: Vital Signs - 12hr 09/12/17 09/12/17 09/12/17 20:31 22:00 22:45 Temperature 97.9 F Pulse Rate 58 L 58 L Respiratory 18 24 Rate Blood Pressure 120/51 120/51 O2 Sat by Pulse 99 99 Oximetry - General Appearance General appearance: well-developed, well-nourished, appears stated age, other ( no distress, right IJ tunnel catheter) EENT: ATNC, PERRL, hearing intact Neck: supple Respiratory: Present: Clear to Ascultation Cardiology: S1S2, no murmurs Gastrointestinal: normoactive bowel sounds, no tenderness, no distended Integumentary: no rash Neurologic: no focal deficit, no asterixis, disoriented Musculoskeletal: other (bilateral BKA, right arm AVG) Psychiatric: mood/affect appropriate, cooperative - Lab 09/13/17 04:56 09/13/17 04:56 Most recent lab results Calcium 8.8 mg/dL (8.4-10.2) 09/12/17 09:08
[2017-09-13 06:53] LABS: Calcium 8.8 mg/dL (8.4-10.2)
[2017-09-13 07:40] LABS: Band Neutrophils # (Manual) 0.7 K/mm3; Basophils % (Manual) 0 % (0.0-1.8); Total Cells Counted 100
[2017-09-13 07:42] LABS: Anisocytosis 1+; Hypochromasia 1+
[2017-09-13] MEDS ORDERED: WATER FOR IRRIG STERILE IR ONE (07:57)
[2017-09-13] MEDS: LOPRESSOR PO SCH ×2 (08:57→14:31)
[2017-09-13] MEDS ORDERED: NACL 0.9% 1000 ML 1,000 ML IV SCH (09:00)
--- NOTE | 2017-09-13 09:06 | Anesthesia Day of Surgery ---
Anesthesia Day of Surgery - Day of Surgery Patient Examined: Yes Patient H&P Reviewed: Yes Patient is NPO: Yes
--- NOTE | 2017-09-13 09:06 | Anesthesia Consultation ---
Anesthesia Consult and Med Hx Date of service: 09/13/17 - Airway Anesthetic Teeth Evaluation: Poor ROM Head & Neck: Adequate Mental/Hyoid Distance: Adequate Mallampati Class: Class IV Intubation Access Assessment: Possibly Difficult - Pulmonary Exam CTA: Yes - Cardiac Exam Cardiac Exam: RRR - Pre-Operative Health Status ASA Pre-Surgery Classification: ASA4 Proposed Anesthetic Plan: General - Pulmonary Hx Smoking: No - Cardiovascular System Hx Hypertension: Yes - Central Nervous System CVA: Yes (3 years ago, right side weakness) Hx Psychiatric Problems: No - Endocrine Hx Renal Disease: Yes (HD TUE, THR, SAT) Hx End Stage Renal Disease: Yes Hx Non-Insulin Dependent Diabetes: Yes - Hematic Hx Anemia: No (pt denies) Hx Sickle Cell Disease: No (pt denies) - Other Systems Hx Alcohol Use: No - Additional Comments Anesthesia Medical History Comments: Poor historian. Limited known medical history stated above.
[2017-09-13] MEDS ORDERED: AMIDATE IV ONE (09:09)
--- NOTE | 2017-09-13 09:17 | Post Operative Note ---
Pre-op diagnosis: UGI bleed Post-op diagnosis: other (severe esophagitis, hiatal hernia) Findings: EGD: Moderately-severe esophagitis in the lower third of the esophagus. Normal stomach and duodenum Procedure: EGD Anesthesia: MAC Stiff Leg Operator: MICHAEL LOCKHART Estimated blood loss: none Pathology: none Condition: stable Disposition: floor
--- NOTE | 2017-09-13 09:22 | Operative Report ---
Operative Report Operative Report: ESOPHAGOGASTRODUODENOSCOPY Date of procedure: 09/13/2017 Endoscopist: Saud Parks Pre-op indication: UGI bleed (coffee ground emesis) Post-op findings: Esophagitis, hiatal hernia Anesthesia/Medications: MAC Estimated Blood Loss: none Complications: No immediate complications Procedure: After consent was obtained from the patient's son (over phone), the patent was placed in the left lateral decubitus position. The Wandrianinon upper endoscope was inserted into the patient's mouth under direct vision, and advanced to the 2nd portion of duodenum without difficulty. The views of the mucosa were good. The patient tolerated the procedure fairly well. The patient's vital signs were monitored continuously throughout the procedure. Findings: There was moderately-severe esophagitis in the mid-lower third of the esophagus. No high risk bleeding lesions. There was a hiatal hernia. The stomach appeared normal. The duodenum appeared normal. Bile was seen throughout the duodenum (no blood) Impression: 1. Moderately-severe esophagitis. Likely source of coffee ground emesis. Otherwise, no significant findings. Recommendations: -cont PPI daily -avoid nsaid's -okay to restart diet Will sign off, please call as needed or with questions.
[2017-09-13] MEDS ORDERED: XYLOCAINE MPF 2% ONE (09:30)
--- NOTE | 2017-09-13 10:24 | Post Anesthesia Evaluation ---
- Post Anesthesia Evaluation Patient Participated: Yes Airway Patent: Yes Stable Respiratory Function: Yes Temp > 96.8F: Yes Pain Manageable: Yes Adequeate Hydration: Yes Anesthesia Complications: No
[2017-09-13] MEDS: Renal Caps PO SCH (10:49)
[2017-09-13] MEDS: PROTONIX IV SCH (10:49)
[2017-09-13] MEDS: SENOKOT S PO PRN (10:57)
[2017-09-13] MEDS ORDERED: XYLOCAINE 2% INFILTRATI ONE ×2 (12:32→12:50)
--- NOTE | 2017-09-13 12:54 | Operative Report ---
Operative Report Operative Report: EXAM: REMOVAL OF TUNNELED HEMODIALYSIS CATHETER CLINICAL INDICATION: CATHETER NO LONGER NEEDED DATE: 09/13/2017 PROCEDURE: Following an explanation of the risks, benefits and alternatives; informed consent was obtained. The procedure was performed at bedside in the patient's room. The patient's right shoulder, chest wall and indwelling tunneled hemodialysis catheter were prepped and draped in the usual sterile fashion. 2% lidocaine was used for anesthesia at the catheter exit site and along the tunnel tract. The catheter cuff was freed using a combination of sharp and blunt dissection. The catheter was then removed intact. Pressure was held to T hemostasis. A sterile pressure dressing was then applied. The patient tolerated the procedure well. There were no immediate post procedure complications. IMPRESSION: 1) Removal of tunneled hemodialysis catheter
--- NOTE | 2017-09-13 13:43 | Consultation ---
History of Present Illness - Reason for Consult Consult date: 09/13/17 bacteremia Requesting physician: VANDANA PERALES - History of Present Illness 72 years old male with history of ESRD on HD via right neck HD, bilateral BKA, atrial fib, admitted on 09/11/2017 from a local custodial due to coffee- ground emesis x3 and vomiting blood. Denies any recent fever, chills, abdominal pain or rectal bleeding. Patient reports that shortness of breath. As per custodial documentation, patient was using accessory muscles to breathe, was saturating at 89-95% on 2 L, In the emergency room, initial temperature was 97.8, heart rate 88, respirations 16, O2 sat 100%. Blood pressure of 18 168/78. Her white count 22. In 10.7. Platelets 351. Creatinine 4.3. CXR neg. Microbiology: Blood cultures: 09/11 Enterococcus 3 of 4 Urine cultures: Current Antimicrobials: Zosyn 09/11 Previous Antimicrobials: Past History Past Medical History: diabetes, ESRD, hypertension, PVD (S/p Trevor BKA) Social history: denies: smoking, alcohol abuse Family history: other (prison resident) Medications and Allergies Allergies Allergy/AdvReac Type Severity Reaction Status Date / Time No Known Allergies Allergy Verified 11/08/15 09:09 Home Medications Medication Instructions Recorded Confirmed Last Taken Type Clopidogrel [Plavix] 75 mg PO QDAY 09/23/16 09/23/16 Unknown History Furosemide [Lasix TAB] 40 mg PO QDAY 09/23/16 09/23/16 Unknown History ISOSORBIDE MONOnitrate [Monoket] 20 mg PO BID 09/23/16 09/23/16 Unknown History Pantoprazole [Protonix TAB] 40 mg PO QDAY 09/23/16 09/23/16 Unknown History Sennosides/Docusate Sodium [Stool 1 each PO PRN PRN 09/23/16 09/23/16 Unknown History Softener Tablet] Simvastatin [Zocor TAB] 20 mg PO QHS 09/23/16 09/23/16 Unknown History Vit B Cplx C No.13/Folic AC/D3 1 each PO AC 09/23/16 09/23/16 Unknown History [Nephrocaps Qt Tablet] Apixaban [Eliquis] 2.5 mg PO BID #10 tablet 10/08/16 Unknown Rx Ciprofloxacin HCl [Ciprofloxacin 250 mg PO DAILY #14 tablet 10/08/16 Unknown Rx TAB] HYDROcodone/APAP 5-325 [[place] 1 each PO Q6H PRN #6 tablet 10/08/16 Unknown Rx 5-325 mg TAB] Insulin Detemir [Levemir] 5 units SUB-Q QHS units 10/08/16 Unknown Rx Metoprolol [Lopressor TAB] 50 mg PO TID tablet 10/08/16 Unknown Rx metroNIDAZOLE [Flagyl] 500 mg PO Q8HR #42 tablet 10/08/16 Unknown Rx Coreg 3.125 mg PO BID 09/12/17 09/12/17 Unknown History hydrALAZINE 50 mg PO BID 09/12/17 09/12/17 Unknown History Active Meds: Active Medications Epoetin Pedro (Procrit) 10,000 unit IV ILENE PRN PRN Reason: hemodialysis Last Admin: 09/11/17 20:45 Dose: 10,000 unit Heparin Sodium (Porcine) (Heparin) 5,000 unit IV ILENE PRN PRN Reason: hemodialysis Last Admin: 09/11/17 20:45 Dose: 5,000 unit Sodium Chloride (Nacl 0.9%) 100 mls @ 999 mls/hr IV ILENE PRN PRN Reason: Hypotension Piperacillin Sod/Tazobactam Sod (Zosyn/Ns 2.25 Gm/50ml) 2.25 gm in 50 mls @ 100 mls/hr IV Q8HR [facility] Last Admin: 09/12/17 22:40 Dose: 100 mls/hr Sodium Chloride (Nacl 0.9% 1000 Ml) 1,000 mls @ 50 mls/hr IV DIRECT [facility] Last Admin: 09/13/17 08:58 Dose: 50 mls/hr Insulin Human Regular (Novolin R) 0 units SUB-Q ACHS BRYSON PRN Reason: Protocol Last Admin: 09/13/17 06:50 Dose: Not Given Metoprolol Tartrate (Lopressor) 50 mg PO TID [facility] Last Admin: 09/13/17 08:57 Dose: Not Given Morphine Sulfate (Morphine) 2 mg IV Q4H PRN PRN Reason: Pain, Moderate (4-6) Last Admin: 09/12/17 18:03 Dose: 2 mg Multivit/Ca Carb/B Cmplx/FA/Prenat (Renal Caps) 1 cap PO QDAY [facility] Last Admin: 09/13/17 10:49 Dose: 1 cap Ondansetron HCl (Zofran) 4 mg IV Q6H PRN PRN Reason: Nausea And Vomiting Pantoprazole Sodium (Protonix) 40 mg PO DAILY [facility] Pravastatin Sodium (Pravachol) 20 mg PO QHS [facility] Last Admin: 09/12/17 22:42 Dose: 20 mg Senna/Docusate Sodium (Senokot S) 1 tab PO PRN PRN PRN Reason: Constipation Last Admin: 09/13/17 10:57 Dose: 1 tab Review of Systems ROS unobtainable: due to mental status (difficult eval ) Physical Examination - Physical Exam Narrative exam: General appearance: Alert in NAD, conversant Eyes: anicteric sclerae, moist conjunctivae; no lid-lag; PERRLA HENT: Atraumatic; oropharynx clear Neck: Trachea midline; supple, no thyromegaly or lymphadenopathy Lungs: CTA CV: RRR Abdomen: Soft, non-tender Extremities: Trevor BKA Skin: Normal temperature, turgor and texture; no rash, ulcers or subcutaneous nodules Psych: Appropriate affect, alert and oriented to person, place and time. Neuro: alert and oriented x 3. Moving all extermities Lines: No CVL / PICC - Constitutional Vitals: Vital Signs Temp Pulse Resp BP Pulse Ox 98.5 F 72 16 138/65 100 09/13/17 09:18 09/13/17 09:48 09/13/17 09:48 09/13/17 09:48 09/13/17 09:48 Temperature -Last 24 Hours Temperature 98.5 F Temperature 97.6 F Temperature 97.6 F Temperature 98.2 F Temperature 97.9 F Temperature 97.9 F Results - Labs CBC & Chem 7: 09/13/17 04:56 09/13/17 04:56 Labs: Abnormal lab results 09/12/17 09/13/17 09/13/17 Range/Units 21:46 04:56 04:56 WBC 17.0 H (4.5-11.0) K/mm3 RBC 3.42 L (3.65-5.03) M/mm3 Hgb 10.4 L (11.8-15.2) gm/dl Hct 32.9 L (35.5-45.6) % MCV 96 H (84-94) fl RDW 19.0 H (13.2-15.2) % Seg Neuts % (Manual) 71.0 H (40.0-70.0) % Lymphocytes % (Manual) 9.0 L (13.4-35.0) % Monocytes % (Manual) 9.0 H (0.0-7.3) % Eosinophils % (Manual) 7.0 H (0.0-4.3) % Seg Neutrophils # Man 12.1 H (1.8-7.7) K/mm3 Monocytes # (Manual) 1.5 H (0.0-0.8) K/mm3 Eosinophils # (Manual) 1.2 H (0.0-0.4) K/mm3 Chloride 97.3 L (98-107) mmol/L BUN 30 H (9-20) mg/dL Creatinine 4.1 H (0.8-1.5) mg/dL Glucose 72 L (75-100) mg/dL POC Glucose 111 H (70-105) Assessment and Plan Assessment: 1) Leukocytosis: from bacteremia 2) Enterococcal bacteremia: 3 of 4 bottles unclear etiology DDX: HD cath infection, UTI, endocarditis, GI 3) GI bleed: s/p EGD + Moderately-severe esophagitis in the lower third of the esophagus. 4) ESRD on HD Plan: -follow-up blood cultures ID/BARBARA -repeat blood cultures today -obtain TTE -discuss with renal need to remove HD access -obtain C-reactive protein (CRP) -check UA/urine cx -continue zosyn Thank you Dr Beth for your consultation, will follow up with you. Hellen Moscoso MD Infectious Diseases Specialist [facility] M [phone] O [phone]
[2017-09-13] MEDS: ZOSYN/NS 2.25 GM/50ML 2.25 GM/50 ML BAG IV SCH (14:00)
--- NOTE | 2017-09-13 19:54 | Progress Note ---
Assessment and Plan Upper GI bleed -No active GI bleeding -EGD done today. Mod - sever esophagitis On PPI End stage renal disease on dialysis - Consult has been placed for hospice community liaison - Electrolytes currently stable - HD on TTS per nephrology recommendation Hypertension -We'll cont home meds and monitor BP every 4 hour Paroxysmal atrial fibrillation - We'll continue beta jake for heart rate control Diabetes mellitus type 2 on insulin -For now will keep him on sliding scale of insulin Bilateral BKA -Supportive care Leukocytosis - Likely from UTI vs infect tunnelle HD cath. removed today as it is no longer in use - will follow final blood cx result and cover with abx pr ID. Bacteremia - cont zosyn for now, ID following DVT prophylaxis - We'll cont on SCD Subjective Date of service: 09/13/17 Principal diagnosis: UGI bleed Interval history: No more active bleeding Objective - Constitutional Vitals: Vital Signs - 12hr 09/13/17 09/13/17 09/13/17 08:23 08:34 08:57 Temperature 97.6 F 97.6 F Pulse Rate 70 70 70 Respiratory 21 21 Rate Blood Pressure 130/77 130/77 130/77 O2 Sat by Pulse 100 100 Oximetry 09/13/17 09/13/17 09/13/17 09:18 09:33 09:48 Temperature 98.5 F Pulse Rate 70 72 72 Respiratory 15 13 16 Rate Blood Pressure 137/60 133/62 138/65 O2 Sat by Pulse 100 100 100 Oximetry 09/13/17 09/13/17 09/13/17 10:00 14:26 14:31 Temperature Pulse Rate 74 74 Respiratory 22 20 Rate Blood Pressure 128/61 128/61 O2 Sat by Pulse 99 98 Oximetry 09/13/17 15:17 Temperature 98.9 F Pulse Rate Respiratory 19 Rate Blood Pressure 107/57 O2 Sat by Pulse Oximetry General appearance: Present: no acute distress, well-nourished - EENT Eyes: PERRL, EOM intact Ears: bilateral: normal - Neck Neck: supple, normal ROM - Respiratory Respiratory effort: normal Respiratory: bilateral: CTA - Cardiovascular Rhythm: regular Heart Sounds: Present: S1 & S2. Absent: gallop, rub Extremities: pulses intact, No edema, normal color, Full ROM - Gastrointestinal General gastrointestinal: Present: soft, non-tender, non-distended, normal bowel sounds - Genitourinary Male genitourinary: normal - Integumentary Integumentary: clear, warm, dry - Musculoskeletal Musculoskeletal: 1, strength equal bilaterally - Neurologic Neurologic: moves all extremities - Psychiatric Psychiatric: memory intact, appropriate mood/affect, intact judgment & insight - Labs CBC & Chem 7: 09/13/17 04:56 09/13/17 04:56 Labs: Abnormal lab results 09/12/17 09/13/17 09/13/17 Range/Units 21:46 04:56 04:56 WBC 17.0 H (4.5-11.0) K/mm3 RBC 3.42 L (3.65-5.03) M/mm3 Hgb 10.4 L (11.8-15.2) gm/dl Hct 32.9 L (35.5-45.6) % MCV 96 H (84-94) fl RDW 19.0 H (13.2-15.2) % Seg Neuts % (Manual) 71.0 H (40.0-70.0) % Lymphocytes % (Manual) 9.0 L (13.4-35.0) % Monocytes % (Manual) 9.0 H (0.0-7.3) % Eosinophils % (Manual) 7.0 H (0.0-4.3) % Seg Neutrophils # Man 12.1 H (1.8-7.7) K/mm3 Monocytes # (Manual) 1.5 H (0.0-0.8) K/mm3 Eosinophils # (Manual) 1.2 H (0.0-0.4) K/mm3 Chloride 97.3 L (98-107) mmol/L BUN 30 H (9-20) mg/dL Creatinine 4.1 H (0.8-1.5) mg/dL Glucose 72 L (75-100) mg/dL POC Glucose 111 H (70-105) C-Reactive Protein (0.00-1.30) mg/dL 09/13/17 09/13/17 Range/Units 14:18 16:52 WBC (4.5-11.0) K/mm3 RBC (3.65-5.03) M/mm3 Hgb (11.8-15.2) gm/dl Hct (35.5-45.6) % MCV (84-94) fl RDW (13.2-15.2) % Seg Neuts % (Manual) (40.0-70.0) % Lymphocytes % (Manual) (13.4-35.0) % Monocytes % (Manual) (0.0-7.3) % Eosinophils % (Manual) (0.0-4.3) % Seg Neutrophils # Man (1.8-7.7) K/mm3 Monocytes # (Manual) (0.0-0.8) K/mm3 Eosinophils # (Manual) (0.0-0.4) K/mm3 Chloride (98-107) mmol/L BUN (9-20) mg/dL Creatinine (0.8-1.5) mg/dL Glucose (75-100) mg/dL POC Glucose 123 H (70-105) C-Reactive Protein 19.90 H (0.00-1.30) mg/dL
[2017-09-13] MEDS ORDERED: NACL 0.9% 100 ML IV PRN (20:51)
[2017-09-13] MEDS: PRAVACHOL PO SCH (23:42)
[2017-09-14] MEDS: LOPRESSOR PO SCH ×4 (02:03→20:18)
[2017-09-14] MEDS: ZOSYN/NS 2.25 GM/50ML 2.25 GM/50 ML BAG IV SCH ×5 (02:18→23:41)
--- NOTE | 2017-09-14 09:14 | Progress Note ---
Assessment and Plan 1. ESRD: Continue hemodialysis three times a week, TTS schedule. 2. Anemia. 3. Enterococcal bacteremia: Followed by ID. S/p removal of the tunnel dialysis catheter. 4. GI bleed. Subjective Date of service: 09/14/17 Principal diagnosis: UGI bleed Interval history: Patient was seen and examined at the bedside. Objective - Vital Signs Vital signs: Vital Signs - 12hr 09/13/17 09/14/17 09/14/17 22:00 02:03 06:35 Temperature 98.2 F Pulse Rate 56 L Respiratory 24 20 Rate Blood Pressure 151/53 112/49 O2 Sat by Pulse 100 Oximetry 09/14/17 07:32 Temperature 97.9 F Pulse Rate 50 L Respiratory 20 Rate Blood Pressure 123/70 O2 Sat by Pulse 100 Oximetry - General Appearance General appearance: well-developed, appears stated age, other (no distress) EENT: ATNC Neck: supple Respiratory: Present: Clear to Ascultation Cardiology: S1S2, no murmurs Gastrointestinal: normoactive bowel sounds, no tenderness, no distended Integumentary: no rash Neurologic: no asterixis, other (able to move extremities) Musculoskeletal: other (no edema, bilateral BKA, right arm AVG ) Psychiatric: mood/affect appropriate, cooperative - Lab 09/13/17 04:56 09/13/17 04:56 Most recent lab results Calcium 8.8 mg/dL (8.4-10.2) 09/13/17 04:56
[2017-09-14] MEDS: PROTONIX PO SCH (10:00)
[2017-09-14] MEDS: Renal Caps PO SCH (10:00)
--- NOTE | 2017-09-14 12:41 | Progress Note ---
Assessment and Plan Assessment: 1) Leukocytosis: from bacteremia, better 2) Enterococcal bacteremia: 3 of 4 bottles unclear etiology ?HD cath infection. TTE no vegetations. HD access removed. CRP=19 3) GI bleed: s/p EGD + Moderately-severe esophagitis in the lower third of the esophagus. 4) ESRD on HD Plan: -follow-up blood cultures ID/BARBARA -follow-up repeat blood cultures -continue zosyn for now -upon discharge will do vancomycin 1 g IV on HD 3 times a week for 2 weeks from 09/13 until 09/26/[address] Beth for your consultation, will follow up with you. Hellen Moscoso MD Infectious Diseases Specialist [facility] M [phone] O [phone] Subjective Date of service: 09/14/17 Principal diagnosis: UGI bleed Interval history: Feels ok, on HD, no complaints. No fever. Microbiology: Blood cultures: 09/11 Enterococcus faecalis 3 of 4 09/13 ngtd Urine cultures: Current Antimicrobials: Zosyn 09/11 Objective - Exam Narrative Exam: General appearance: Alert in NAD, conversant Eyes: anicteric sclerae, moist conjunctivae; no lid-lag; PERRLA HENT: Atraumatic; oropharynx clear Neck: Trachea midline; supple, no thyromegaly or lymphadenopathy Lungs: CTA CV: RRR Abdomen: Soft, non-tender Extremities: Trevor BKA, right arm AVF Skin: Normal temperature, turgor and texture; no rash, ulcers or subcutaneous nodules Psych: Appropriate affect, alert and oriented to person, place and time. Neuro: alert and oriented x 3. Moving all extermities Lines: - Constitutional Vitals: Vital Signs Temp Pulse Resp BP Pulse Ox 98.0 F 64 22 124/66 100 09/14/17 10:17 09/14/17 12:00 09/14/17 10:09/14/17 12:00 09/14/17 07:32 Temperature -Last 24 Hours Temperature 98.0 F Temperature 97.9 F Temperature 98.2 F Temperature 98.6 F Temperature 98.9 F - Labs CBC & Chem 7: 09/13/17 04:56 09/13/17 04:56 Labs: Abnormal lab results 09/13/17 09/13/17 Range/Units 14:18 16:52 POC Glucose 123 H (70-105) C-Reactive Protein 19.90 H (0.00-1.30) mg/dL
--- NOTE | 2017-09-14 14:33 | Progress Note ---
Assessment and Plan Assessment and plan: 72-year-old male with h/o ESRD on HD, s/p b/l BKA, atrial fib, presented into the ER from a local prison for coffee-ground emesis and vomiting blood, at time of admission he had desated to 89 and was using accessory muscles to breath, c/o generalized weakness. Upper GI bleed -No active GI bleeding sp EGD done today. Mod - sever esophagitis On PPI, avoid NSAIDS, no further workup per GI End stage renal disease on dialysis continue HD TTS Hypertension continue BP meds Paroxysmal atrial fibrillation with hypercoagulable state cont rate control meds anticoagulation on hold due to GIB Diabetes mellitus type 2 on insulin -For now will keep him on sliding scale of insulin Bilateral BKA -Supportive care Enterococcal bacteremia, gram positive sepsis: sepsis - cont zosyn for now, ID following -S/p removal of the tunnel dialysis catheter. -case dw ID --upon discharge will do vancomycin 1 g IV on HD 3 times a week for 2 weeks from 09/13 until 09/26/17 Acute blood loss anemia Hemoglobin currently stable DVT prophylaxis - We'll cont on SCD History Interval history: c/o hiccups denies emesis, denies hematemeis or abdominal pain no chest pain, no sob, no fever, no POSADAS, -wants his diet advanced Hospitalist Physical - Constitutional Vitals: Temp Pulse Resp BP Pulse Ox 98.3 F 64 24 136/62 100 09/14/17 13:15 09/14/17 13:34 09/14/17 13:15 09/14/17 13:34 09/14/17 07:32 General appearance: Present: no acute distress, well-nourished, other (observed to be hiccuping) - EENT Eyes: Present: PERRL, EOM intact ENT: hearing intact - Neck Neck: Present: supple - Respiratory Respiratory effort: normal Respiratory: bilateral: CTA - Cardiovascular Heart Sounds: Present: S1 & S2 - Extremities Extremities: no ischemia Peripheral Pulses: within normal limits - Abdominal General gastrointestinal: soft, non-tender - Integumentary Integumentary: Present: clear, warm - Psychiatric Psychiatric: appropriate mood/affect, intact judgment & insight - Neurologic Neurologic: CNII-XII intact, no focal deficits Results - Labs CBC & Chem 7: 09/17/17 04:08 09/13/17 04:56 Labs: Laboratory Last Values WBC 17.0 K/mm3 (4.5-11.0) H 09/13/17 04:56 RBC 3.42 M/mm3 (3.65-5.03) L 09/13/17 04:56 Hgb 10.4 gm/dl (11.8-15.2) L 09/13/17 04:56 Hct 32.9 % (35.5-45.6) L 09/13/17 04:56 MCV 96 fl (84-94) H 09/13/17 04:56 MCH 30 pg (28-32) 09/13/17 04:56 MCHC 32 % (32-34) 09/13/17 04:56 RDW 19.0 % (13.2-15.2) H 09/13/17 04:56 Plt Count 331 K/mm3 (140-440) 09/13/17 04:56 Add Manual Diff Complete 09/13/17 04:56 Total Counted 100 09/13/17 04:56 Seg Neuts % (Manual) 71.0 % (40.0-70.0) H 09/13/17 04:56 Band Neutrophils % 4.0 % 09/13/17 04:56 Lymphocytes % (Manual) 9.0 % (13.4-35.0) L 09/13/17 04:56 Reactive Lymphs % (Man) 0 % 09/13/17 04:56 Monocytes % (Manual) 9.0 % (0.0-7.3) H 09/13/17 04:56 Eosinophils % (Manual) 7.0 % (0.0-4.3) H 09/13/17 04:56 Basophils % (Manual) 0 % (0.0-1.8) 09/13/17 04:56 Metamyelocytes % 0 % 09/13/17 04:56 Myelocytes % 0 % 09/13/17 04:56 Promyelocytes % 0 % 09/13/17 04:56 Blast Cells % 0 % 09/13/17 04:56 Nucleated RBC % Not Reportable 09/13/17 04:56 Seg Neutrophils # Man 12.1 K/mm3 (1.8-7.7) H 09/13/17 04:56 Band Neutrophils # 0.7 K/mm3 09/13/17 04:56 Lymphocytes # (Manual) 1.5 K/mm3 (1.2-5.4) 09/13/17 04:56 Abs React Lymphs (Man) 0.0 K/mm3 09/13/17 04:56 Monocytes # (Manual) 1.5 K/mm3 (0.0-0.8) H 09/13/17 04:56 Eosinophils # (Manual) 1.2 K/mm3 (0.0-0.4) H 09/13/17 04:56 Basophils # (Manual) 0.0 K/mm3 (0.0-0.1) 09/13/17 04:56 Metamyelocytes # 0.0 K/mm3 09/13/17 04:56 Myelocytes # 0.0 K/mm3 09/13/17 04:56 Promyelocytes # 0.0 K/mm3 09/13/17 04:56 Blast Cells # 0.0 K/mm3 09/13/17 04:56 WBC Morphology Not Reportable 09/13/17 04:56 Hypersegmented Neuts Not Reportable 09/13/17 04:56 Hyposegmented Neuts Not Reportable 09/13/17 04:56 Hypogranular Neuts Not Reportable 09/13/17 04:56 Smudge Cells Not Reportable 09/13/17 04:56 Toxic Granulation Not Reportable 09/13/17 04:56 Toxic Vacuolation Not Reportable 09/13/17 04:56 Dohle Bodies Not Reportable 09/13/17 04:56 Pelger-Huet Anomaly Not Reportable 09/13/17 04:56 Kody Rods Not Reportable 09/13/17 04:56 Platelet Estimate Appears normal 09/13/17 04:56 Clumped Platelets Not Reportable 09/13/17 04:56 Plt Clumps, EDTA Not Reportable 09/13/17 04:56 Large Platelets Not Reportable 09/13/17 04:56 Giant Platelets Not Reportable 09/13/17 04:56 Platelet Satelliting Not Reportable 09/13/17 04:56 Plt Morphology Comment Not Reportable 09/13/17 04:56 RBC Morphology Not Reportable 09/13/17 04:56 Dimorphic RBCs Not Reportable 09/13/17 04:56 Polychromasia Not Reportable 09/13/17 04:56 Hypochromasia 1+ 09/13/17 04:56 Poikilocytosis Not Reportable 09/13/17 04:56 Anisocytosis 1+ 09/13/17 04:56 Microcytosis Not Reportable 09/13/17 04:56 Macrocytosis Not Reportable 09/13/17 04:56 Spherocytes Not Reportable 09/13/17 04:56 Pappenheimer Bodies Not Reportable 09/13/17 04:56 Sickle Cells Not Reportable 09/13/17 04:56 Target Cells Not Reportable 09/13/17 04:56 Tear Drop Cells Not Reportable 09/13/17 04:56 Ovalocytes Not Reportable 09/13/17 04:56 Helmet Cells Not Reportable 09/13/17 04:56 Cramer-[place] Bodies Not Reportable 09/13/17 04:56 [place] Rings Not Reportable 09/13/17 04:56 Mary Cells Not Reportable 09/13/17 04:56 Bite Cells Not Reportable 09/13/17 04:56 Crenated Cell Not Reportable 09/13/17 04:56 Elliptocytes Not Reportable 09/13/17 04:56 Acanthocytes (Spur) Not Reportable 09/13/17 04:56 Rouleaux Not Reportable 09/13/17 04:56 Hemoglobin C Crystals Not Reportable 09/13/17 04:56 Schistocytes Not Reportable 09/13/17 04:56 Malaria parasites Not Reportable 09/13/17 04:56 Marcelino Bodies Not Reportable 09/13/17 04:56 Hem Pathologist Commnt No 09/13/17 04:56 PT 14.3 Sec. (12.2-14.9) 09/11/17 06:21 INR 1.06 (0.87-1.13) 09/11/17 06:21 APTT 42.6 Sec. (24.2-36.6) H 09/11/17 06:21 Sodium 140 mmol/L (137-145) 09/13/17 04:56 Potassium 4.0 mmol/L (3.6-5.0) 09/13/17 04:56 Chloride 97.3 mmol/L (98-107) L 09/13/17 04:56 Carbon Dioxide 26 mmol/L (22-30) 09/13/17 04:56 Anion Gap 21 mmol/L 09/13/17 04:56 BUN 30 mg/dL (9-20) H 09/13/17 04:56 Creatinine 4.1 mg/dL (0.8-1.5) H 09/13/17 04:56 Estimated GFR 17 ml/min 09/13/17 04:56 BUN/Creatinine Ratio 7 % 09/13/17 04:56 Glucose 72 mg/dL (75-100) L 09/13/17 04:56 POC Glucose 84 (70-105) 09/14/17 07:37 Calcium 8.8 mg/dL (8.4-10.2) 09/13/17 04:56 Total Bilirubin 0.30 mg/dL (0.1-1.2) 09/11/17 06:21 AST 14 units/L (5-40) 09/11/17 06:21 ALT 11 units/L (7-56) 09/11/17 06:21 Alkaline Phosphatase 103 units/L (35-129) 09/11/17 06:21 C-Reactive Protein 19.90 mg/dL (0.00-1.30) H 09/13/17 14:18 Total Protein 6.7 g/dL (6.3-8.2) 09/11/17 06:21 Albumin 3.1 g/dL (3.9-5) L 09/11/17 06:21 Albumin/Globulin Ratio 0.9 % 09/11/17 06:21 Lipase 8 units/L (13-60) L 09/11/17 06:21 Blood Type O POSITIVE 09/11/17 06:25 Antibody Screen Negative 09/11/17 06:25
[2017-09-14] MEDS: MORPHINE IV PRN (18:11)
[2017-09-14] MEDS: PRAVACHOL PO SCH (22:18)
[2017-09-14] MEDS: THORAZINE IM PRN (22:20)
[2017-09-15] MEDS: ZOSYN/NS 2.25 GM/50ML 2.25 GM/50 ML BAG IV SCH ×3 (06:07→23:50)
[2017-09-15] MEDS: MORPHINE IV PRN ×3 (06:13→23:57)
--- NOTE | 2017-09-15 09:15 | Discharge Summary ---
Providers - Providers Date of Admission: 09/11/17 08:49 Attending physician: MARCUS RUSH MD 09/11/17 06:36 Consult to Physician [CONS] Urgent Consulting Provider: ANASTACIO TERRY Reason For Exam: ugib Place consult to:: GI Notified:: Y Was contact made?: Yes If yes, spoke with:: Cailin MAY Time called:: 07:50 09/11/17 08:13 Consult to Physician [CONS] Urgent Consulting Provider: FEMI KIRKPATRICK Reason For Exam: esrd, ugib Place consult to:: NEPHROLOGY Notified:: yes If yes, spoke with:: DR KIRKPATRICK Time called:: 08:00 09/13/17 00:18 Consult to Physician [CONS] Routine Consulting Provider: HELLEN KANG Reason For Exam: bacteremia Place consult to:: ID Notified:: yes Comment:: avelino 09/13/17 07:00 Consult to Interventional Radiology [CONS] Routine Consulting Provider: JH YEE Reason For Exam: To remove the dialysis catheter. Place consult to:: office Notified:: yes If yes, spoke with:: van Time called:: 09:26 Comment:: avelino 09/14/17 13:25 Consult to Case Management [CONS] Stat Services Needed at Discharge: Other Notified:: web operations administrator Additional Physician Instructions: [facility] Hellen Haro MD [phone] O [phone] OUTPATIENT PARENTERAL ANTIBIOTIC THERAPY ORDERS Diagnoses: Enteroccocal septicemia Antimicrobial administration: vancomycin 1 g IV on HD 3 times a week for 2 weeks from 09/13 until 09/26/17 Lines: HD access Lab monitoring: CBC, CMP, CRP, vancomycin trough once a week preferly on Wednesday morning. Please fax results to [phone] and call [phone] for critical lab results. Hellen Haro Date: 09/14/17 Primary care physician: [employer] Hospitalization Condition: Good Disposition: DC-30 STILL A PATIENT Core Measure Documentation - Palliative Care Palliative Care/ Comfort Measures: Not Applicable Exam - Constitutional Vitals: Temp Pulse Resp BP Pulse Ox 98.1 F 84 16 130/68 98 09/15/17 07:23 09/15/17 07:23 09/15/17 07:23 09/15/17 07:23 09/15/17 07:23 Plan Follow up with: PRIMARY CARE, [Primary Care Provider] - 3-5 Days Forms: Accompanied Note
[2017-09-15] MEDS: LOPRESSOR PO SCH ×3 (11:02→23:52)
[2017-09-15] MEDS: Renal Caps PO SCH (11:02)
[2017-09-15] MEDS: PROTONIX PO SCH (11:03)
--- NOTE | 2017-09-15 11:55 | Progress Note ---
Assessment and Plan 1. ESRD: Continue hemodialysis three times a week, TTS schedule. 2. Anemia: Epogen. 3. Enterococcal bacteremia: On Zosyn. Followed by ID. S/p removal of the tunnel dialysis catheter. 4. GI bleed. Subjective Date of service: 09/15/17 Principal diagnosis: UGI bleed Interval history: Patient was seen and examined at the bedside. Objective - Vital Signs Vital signs: Vital Signs - 12hr 09/15/17 09/15/17 09/15/17 04:32 06:13 06:43 Temperature 98.9 F Pulse Rate 83 Respiratory 24 20 20 Rate Blood Pressure 147/62 O2 Sat by Pulse 96 Oximetry 09/15/17 09/15/17 07:23 11:02 Temperature 98.1 F Pulse Rate 84 84 Respiratory 16 Rate Blood Pressure 130/68 130/68 O2 Sat by Pulse 98 Oximetry - General Appearance General appearance: well-developed, appears stated age, other (no distress) EENT: ATNC, hearing intact Neck: supple Respiratory: Present: Clear to Ascultation Cardiology: S1S2, no murmurs Gastrointestinal: normoactive bowel sounds, no tenderness, no distended Integumentary: no rash Neurologic: aphasic Musculoskeletal: other (bilateral BKA, no edema, right arm AVF / AVG) Psychiatric: mood/affect appropriate - Lab 09/13/17 04:56 09/13/17 04:56 Most recent lab results Calcium 8.8 mg/dL (8.4-10.2) 09/13/17 04:56
--- NOTE | 2017-09-15 13:06 | Progress Note ---
Assessment and Plan Assessment: 1) Leukocytosis: from bacteremia, better 2) Enterococcal bacteremia: 3 of 4 bottles unclear etiology ?HD cath infection. TTE no vegetations. HD access removed. CRP=19 3) GI bleed: s/p EGD + Moderately-severe esophagitis in the lower third of the esophagus. 4) ESRD on HD Plan: -continue zosyn for now -upon discharge will do vancomycin 1 g IV on HD 3 times a week for 2 weeks from 09/13 until 09/26/17 -needs blood cultures surveillance a week and 3 weeks after IV vanco is complated I am signing off Thank you Dr Beth for your consultation, will follow up with you. Hellen Moscoso MD Infectious Diseases Specialist [facility] ([facility]) M [phone] O [phone] Subjective Date of service: 09/15/17 Principal diagnosis: UGI bleed Interval history: Feels ok, on HD, no complaints. No fever. Microbiology: Blood cultures: 09/11 Enterococcus faecalis sens to penicillin 3 of 4 09/13 ngtd Urine cultures: Current Antimicrobials: Zosyn 09/11 Objective - Exam Narrative Exam: General appearance: Alert in NAD, conversant Eyes: anicteric sclerae, moist conjunctivae; no lid-lag; PERRLA HENT: Atraumatic; oropharynx clear Neck: Trachea midline; supple, no thyromegaly or lymphadenopathy Lungs: CTA CV: RRR Abdomen: Soft, non-tender Extremities: Trevor BKA, right arm AVF Skin: Normal temperature, turgor and texture; no rash, ulcers or subcutaneous nodules Psych: Appropriate affect, alert and oriented to person, place and time. Neuro: alert and oriented x 3. Moving all extermities Lines: - Constitutional Vitals: Vital Signs Temp Pulse Resp BP Pulse Ox 98.1 F 84 16 130/68 98 09/15/17 07:23 09/15/17 11:02 09/15/17 07:23 09/15/17 11:02 09/15/17 07:23 Temperature -Last 24 Hours Temperature 98.1 F Temperature 98.9 F Temperature 98.2 F Temperature 98.3 F - Labs CBC & Chem 7: 09/13/17 04:56 09/13/17 04:56 Labs: Abnormal lab results 09/14/17 09/15/17 09/15/17 Range/Units 16:49 07:27 11:33 POC Glucose 175 H 109 H 165 H (70-105)
[2017-09-15] MEDS: PRAVACHOL PO SCH (23:52)
[2017-09-15] MEDS: THORAZINE IM PRN (23:53)
--- NOTE | 2017-09-16 01:39 | XRay Report ---
FINAL REPORT PROCEDURE: XR CHEST ROUTINE 2V TECHNIQUE: PA and lateral chest radiographs were obtained. CPT 08970 HISTORY: hypoxia COMPARISON: No prior studies are available for comparison. FINDINGS: Heart: Normal. Mediastinum/Vessels: Normal. Lungs/Pleural space: Lungs are well-expanded. There are no infiltrates. There is a 2.4 centimeter nodule at the left lung apex unchanged from prior study. Malignancy not excluded.. Bony thorax: No acute osseous abnormality. Other: IMPRESSION: The heart size is normal.. Lungs are well-expanded. There are no infiltrates. There is a 2.4 centimeter nodule at the left lung apex unchanged from prior study. Malignancy not excluded..
[2017-09-16] MEDS: ZOSYN/NS 2.25 GM/50ML 2.25 GM/50 ML BAG IV SCH ×2 (05:38→16:00)
--- NOTE | 2017-09-16 07:33 | Progress Note ---
Assessment and Plan 1. ESRD: Continue hemodialysis three times a week, TTS schedule. 2. Anemia: Epogen. 3. Enterococcal bacteremia: On Zosyn. 4. GI bleed. 5. Dysphagia. Subjective Date of service: 09/16/17 Principal diagnosis: UGI bleed Interval history: Patient was seen and examined at the bedside. Objective - Vital Signs Vital signs: Vital Signs - 12hr 09/15/17 09/15/17 09/15/17 20:00 21:21 22:00 Temperature 98.4 F Pulse Rate 125 H Respiratory 20 20 Rate Blood Pressure 139/63 138/62 O2 Sat by Pulse 92 Oximetry 09/16/17 04:46 Temperature 98.3 F Pulse Rate 91 H Respiratory 20 Rate Blood Pressure 142/66 O2 Sat by Pulse 91 Oximetry - General Appearance General appearance: well-developed, appears stated age, other (no distress) EENT: ATNC, hearing intact Neck: supple Respiratory: Present: Clear to Ascultation Cardiology: regular, S1S2, no murmurs Gastrointestinal: normoactive bowel sounds, no tenderness, no distended Integumentary: no rash Neurologic: no asterixis Musculoskeletal: other (no edema, right arm AVF / AVG) Psychiatric: mood/affect appropriate - Lab 09/17/17 04:08 09/13/17 04:56 Most recent lab results Calcium 8.8 mg/dL (8.4-10.2) 09/13/17 04:56
[2017-09-16] MEDS: LOPRESSOR PO SCH ×3 (08:29→21:22)
[2017-09-16] MEDS: PROTONIX PO SCH (09:09)
[2017-09-16] MEDS: Renal Caps PO SCH (12:09)
[2017-09-16] MEDS ORDERED: NACL 0.9 (PRIMING MACHINE ONLY DIALYSIS) MC ONE ×2 (12:40→13:53)
--- NOTE | 2017-09-16 15:25 | XRay Report ---
SUPINE KUB: History: Dobbhoff tube placement. Findings: The distal tip of the Dobbhoff tube terminates just beyond the GE junction in the proximal stomach. Consider advancement by 10 cm. The bowel gas pattern is within normal limits. IMPRESSION: Dobbhoff tube as described.
--- NOTE | 2017-09-16 17:45 | XRay Report ---
FINAL REPORT EXAM: XR ABDOMEN 1V AP HISTORY: dobhoff placement TECHNIQUE: Limited supine view of the abdomen PRIORS: None. FINDINGS: A feeding tube has been placed and is terminating in the left upper quadrant, likely in the stomach. IMPRESSION: Feeding tube terminating in the region of the stomach.
[2017-09-16] MEDS: PRAVACHOL PO SCH (21:24)
[2017-09-17] MEDS ORDERED: D50W (25GM) Syringe IV ONE (00:47)
[2017-09-17] MEDS: ZOSYN/NS 2.25 GM/50ML 2.25 GM/50 ML BAG IV SCH ×4 (00:54→22:47)
[2017-09-17 04:37] LABS: Basophils # (Auto) 0.1 K/mm3 (0.0-0.1); Basophils % (Auto) 0.7 % (0.0-1.8); Eosinophils # (Auto) 0.2 K/mm3 (0.0-0.4); Eosinophils % (Auto) 1.7 % (0.0-4.3); Hematocrit 30.6 % (35.5-45.6); Lymphocytes # (Auto) 0.8 K/mm3 (1.2-5.4); Lymphocytes % (Auto) 7.1 % (13.4-35.0); Mean Corpuscular HGB Conc 33 % (32-34); Mean Corpuscular Hemoglobin 31 pg (28-32); Mean Corpuscular Volume 96 fl (84-94); Monocytes # (Auto) 1.1 K/mm3 (0.0-0.8); Monocytes % (Auto) 9.7 % (0.0-7.3); Platelet Count 341 K/mm3 (140-440); Red Blood Count 3.19 M/mm3 (3.65-5.03); Red Cell Distribution Width 19.1 % (13.2-15.2)
[2017-09-17] MEDS ORDERED: D50W (25GM) Syringe IV PRN (07:30)
--- NOTE | 2017-09-17 07:48 | Progress Note ---
Assessment and Plan Assessment and plan: 72-year-old male with h/o ESRD on HD, s/p b/l BKA, atrial fib, presented [facility] a local [facility] for coffee-ground emesis and vomiting blood, at time of admission he had desated to 89 and was using accessory muscles to breath, c/o generalized weakness. Upper GI bleed -No active GI bleeding sp EGD done today. Mod - sever esophagitis On PPI, avoid NSAIDS, no further workup per GI End stage renal disease on dialysis continue HD TTS Hypertension continue BP meds Paroxysmal atrial fibrillation with hypercoagulable state cont rate control meds anticoagulation on hold due to GIB Diabetes mellitus type 2 on insulin -For now will keep him on sliding scale of insulin Bilateral BKA -Supportive care Enterococcal bacteremia, gram positive sepsis: sepsis - cont zosyn for now, ID following -S/p removal of the tunnel dialysis catheter. -case dw ID --upon discharge will do vancomycin 1 g IV on HD 3 times a week for 2 weeks from 09/13 until 09/26/17 Acute blood loss anemia Hemoglobin currently stable DVT prophylaxis - We'll cont on SCD History Interval history: c/o hiccups denies emesis, denies hematemeis or abdominal pain no chest pain, no sob, no fever, no POSADAS, -wants his diet advanced Hospitalist Physical - Physical exam Narrative exam: General.: Appears chronically ill HEENT: Moist mucous membranes, extraocular muscles intact, no lymphadenopathy Neck: supple Cardiac: S1-S2 heard Lungs: clear to auscultation bilaterally Abdomen: soft , nontender, nondistended, bowel sounds positive Extremities: no edema clubbing or cyanosis Skin: no rash or lesions Neurologic: no gross focal deficits Psych: appropriate behavior, appropriate mood, corporative, judgment intact - Constitutional Vitals: Temp Pulse Resp BP Pulse Ox 32.1 F L 72 18 112/53 99 09/17/17 04:46 09/17/17 04:46 09/17/17 04:46 09/17/17 04:46 09/17/17 04:46 General appearance: Present: no acute distress, well-nourished, other (observed to be hiccuping) Results - Labs CBC & Chem 7: 09/17/17 04:08 09/13/17 04:56 Labs: Laboratory Last Values WBC 10.9 K/mm3 (4.5-11.0) 09/17/17 04:08 RBC 3.19 M/mm3 (3.65-5.03) L 09/17/17 04:08 Hgb 10.0 gm/dl (11.8-15.2) L 09/17/17 04:08 Hct 30.6 % (35.5-45.6) L 09/17/17 04:08 MCV 96 fl (84-94) H 09/17/17 04:08 MCH 31 pg (28-32) 09/17/17 04:08 MCHC 33 % (32-34) 09/17/17 04:08 RDW 19.1 % (13.2-15.2) H 09/17/17 04:08 Plt Count 341 K/mm3 (140-440) 09/17/17 04:08 Lymph % (Auto) 7.1 % (13.4-35.0) L 09/17/17 04:08 [place] % (Auto) 9.7 % (0.0-7.3) H 09/17/17 04:08 Eos % (Auto) 1.7 % (0.0-4.3) 09/17/17 04:08 Baso % (Auto) 0.7 % (0.0-1.8) 09/17/17 04:08 Lymph # 0.8 K/mm3 (1.2-5.4) L 09/17/17 04:08 [place] # 1.1 K/mm3 (0.0-0.8) H 09/17/17 04:08 Eos # 0.2 K/mm3 (0.0-0.4) 09/17/17 04:08 Baso # 0.1 K/mm3 (0.0-0.1) 09/17/17 04:08 Add Manual Diff Complete 09/13/17 04:56 Total Counted 100 09/13/17 04:56 Seg Neutrophils % 80.8 % (40.0-70.0) H 09/17/17 04:08 Seg Neuts % (Manual) 71.0 % (40.0-70.0) H 09/13/17 04:56 Band Neutrophils % 4.0 % 09/13/17 04:56 Lymphocytes % (Manual) 9.0 % (13.4-35.0) L 09/13/17 04:56 Reactive Lymphs % (Man) 0 % 09/13/17 04:56 Monocytes % (Manual) 9.0 % (0.0-7.3) H 09/13/17 04:56 Eosinophils % (Manual) 7.0 % (0.0-4.3) H 09/13/17 04:56 Basophils % (Manual) 0 % (0.0-1.8) 09/13/17 04:56 Metamyelocytes % 0 % 09/13/17 04:56 Myelocytes % 0 % 09/13/17 04:56 Promyelocytes % 0 % 09/13/17 04:56 Blast Cells % 0 % 09/13/17 04:56 Nucleated RBC % Not Reportable 09/13/17 04:56 Seg Neutrophils # 8.8 K/mm3 (1.8-7.7) H 09/17/17 04:08 Seg Neutrophils # Man 12.1 K/mm3 (1.8-7.7) H 09/13/17 04:56 Band Neutrophils # 0.7 K/mm3 09/13/17 04:56 Lymphocytes # (Manual) 1.5 K/mm3 (1.2-5.4) 09/13/17 04:56 Abs React Lymphs (Man) 0.0 K/mm3 09/13/17 04:56 Monocytes # (Manual) 1.5 K/mm3 (0.0-0.8) H 09/13/17 04:56 Eosinophils # (Manual) 1.2 K/mm3 (0.0-0.4) H 09/13/17 04:56 Basophils # (Manual) 0.0 K/mm3 (0.0-0.1) 09/13/17 04:56 Metamyelocytes # 0.0 K/mm3 09/13/17 04:56 Myelocytes # 0.0 K/mm3 09/13/17 04:56 Promyelocytes # 0.0 K/mm3 09/13/17 04:56 Blast Cells # 0.0 K/mm3 09/13/17 04:56 WBC Morphology Not Reportable 09/13/17 04:56 Hypersegmented Neuts Not Reportable 09/13/17 04:56 Hyposegmented Neuts Not Reportable 09/13/17 04:56 Hypogranular Neuts Not Reportable 09/13/17 04:56 Smudge Cells Not Reportable 09/13/17 04:56 Toxic Granulation Not Reportable 09/13/17 04:56 Toxic Vacuolation Not Reportable 09/13/17 04:56 Dohle Bodies Not Reportable 09/13/17 04:56 Pelger-Huet Anomaly Not Reportable 09/13/17 04:56 Kody Rods Not Reportable 09/13/17 04:56 Platelet Estimate Appears normal 09/13/17 04:56 Clumped Platelets Not Reportable 09/13/17 04:56 Plt Clumps, EDTA Not Reportable 09/13/17 04:56 Large Platelets Not Reportable 09/13/17 04:56 Giant Platelets Not Reportable 09/13/17 04:56 Platelet Satelliting Not Reportable 09/13/17 04:56 Plt Morphology Comment Not Reportable 09/13/17 04:56 RBC Morphology Not Reportable 09/13/17 04:56 Dimorphic RBCs Not Reportable 09/13/17 04:56 Polychromasia Not Reportable 09/13/17 04:56 Hypochromasia 1+ 09/13/17 04:56 Poikilocytosis Not Reportable 09/13/17 04:56 Anisocytosis 1+ 09/13/17 04:56 Microcytosis Not Reportable 09/13/17 04:56 Macrocytosis Not Reportable 09/13/17 04:56 Spherocytes Not Reportable 09/13/17 04:56 Pappenheimer Bodies Not Reportable 09/13/17 04:56 Sickle Cells Not Reportable 09/13/17 04:56 Target Cells Not Reportable 09/13/17 04:56 Tear Drop Cells Not Reportable 09/13/17 04:56 Ovalocytes Not Reportable 09/13/17 04:56 Helmet Cells Not Reportable 09/13/17 04:56 [place] Bodies Not Reportable 09/13/17 04:56 [place] Rings Not Reportable 09/13/17 04:56 [place] Cells Not Reportable 09/13/17 04:56 Bite Cells Not Reportable 09/13/17 04:56 Crenated Cell Not Reportable 09/13/17 04:56 Elliptocytes Not Reportable 09/13/17 04:56 Acanthocytes (Spur) Not Reportable 09/13/17 04:56 Rouleaux Not Reportable 09/13/17 04:56 Hemoglobin C Crystals Not Reportable 09/13/17 04:56 Schistocytes Not Reportable 09/13/17 04:56 Malaria parasites Not Reportable 09/13/17 04:56 [place] Bodies Not Reportable 09/13/17 04:56 Hem Pathologist Commnt No 09/13/17 04:56 PT 14.3 Sec. (12.2-14.9) 09/11/17 06:21 INR 1.06 (0.87-1.13) 09/11/17 06:21 APTT 42.6 Sec. (24.2-36.6) H 09/11/17 06:21 POC ABG pH 7.396 (7.35-7.45) 09/15/17 17:08 POC ABG pCO2 48.8 (35-45) H 09/15/17 17:08 POC ABG pO2 76 (80-105) L 09/15/17 17:08 POC ABG HCO3 30.0 09/15/17 17:08 POC ABG Total CO2 31 09/15/17 17:08 POC ABG O2 Sat 95 09/15/17 17:08 POC ABG Base Excess 5 09/15/17 17:08 FiO2 21 % 09/15/17 17:08 Sodium 140 mmol/L (137-145) 09/13/17 04:56 Potassium 4.0 mmol/L (3.6-5.0) 09/13/17 04:56 Chloride 97.3 mmol/L (98-107) L 09/13/17 04:56 Carbon Dioxide 26 mmol/L (22-30) 09/13/17 04:56 Anion Gap 21 mmol/L 09/13/17 04:56 BUN 30 mg/dL (9-20) H 09/13/17 04:56 Creatinine 4.1 mg/dL (0.8-1.5) H 09/13/17 04:56 Estimated GFR 17 ml/min 09/13/17 04:56 BUN/Creatinine Ratio 7 % 09/13/17 04:56 Glucose 72 mg/dL (75-100) L 09/13/17 04:56 POC Glucose 85 (70-105) 09/17/17 05:53 Calcium 8.8 mg/dL (8.4-10.2) 09/13/17 04:56 Total Bilirubin 0.30 mg/dL (0.1-1.2) 09/11/17 06:21 AST 14 units/L (5-40) 09/11/17 06:21 ALT 11 units/L (7-56) 09/11/17 06:21 Alkaline Phosphatase 103 units/L (35-129) 09/11/17 06:21 C-Reactive Protein 19.90 mg/dL (0.00-1.30) H 09/13/17 14:18 Total Protein 6.7 g/dL (6.3-8.2) 09/11/17 06:21 Albumin 3.1 g/dL (3.9-5) L 09/11/17 06:21 Albumin/Globulin Ratio 0.9 % 09/11/17 06:21 Lipase 8 units/L (13-60) L 09/11/17 06:21 Blood Type O POSITIVE 09/11/17 06:25 Antibody Screen Negative 09/11/17 06:25
--- NOTE | 2017-09-17 07:51 | Progress Note ---
Assessment and Plan Assessment and plan: 72-year-old male with h/o ESRD on HD, s/p b/l BKA, atrial fib, presented into the ER from a local [facility] for coffee-ground emesis and vomiting blood, at time of admission he had desated to 89 and was using accessory muscles to breath, c/o generalized weakness. Dysphagia with aspiration Speech therapy input appreciated, keep patient nothing by mouth, will place NG tube and provide enteral nutrition Acute hypoxic respiratory failure related to aspiration. Has now resolved. Keep nothing by mouth Upper GI bleed -No active GI bleeding sp EGD done today. Mod - sever esophagitis On PPI, avoid NSAIDS, no further workup per GI End stage renal disease on dialysis continue HD TTS Hypertension continue BP meds Paroxysmal atrial fibrillation with hypercoagulable state cont rate control meds anticoagulation on hold due to GIB Diabetes mellitus type 2 on insulin -For now will keep him on sliding scale of insulin Bilateral BKA -Supportive care Enterococcal bacteremia, gram positive sepsis: sepsis - cont zosyn for now, ID following -S/p removal of the tunnel dialysis catheter. -case dw ID --upon discharge will do vancomycin 1 g IV on HD 3 times a week for 2 weeks from 09/13 until 09/26/17 Acute blood loss anemia Hemoglobin currently stable DVT prophylaxis - We'll cont on SCD History Interval history: When the nurses attempted to feed the patient. Patient appears to aspirate. He became very short of breath and became very tachypneic and hypoxic. At this time the patient denies these complaints. He does admit to drowsiness c/o hiccups denies emesis, denies hematemeis or abdominal pain no chest pain, , no fever, no POSADAS, Hospitalist Physical - Physical exam Narrative exam: General.: Appears chronically ill HEENT: Moist mucous membranes, extraocular muscles intact, no lymphadenopathy Neck: supple Cardiac: S1-S2 heard Lungs: clear to auscultation bilaterally Abdomen: soft , nontender, nondistended, bowel sounds positive Extremities: no edema clubbing or cyanosis Skin: no rash or lesions Neurologic: no gross focal deficits Psych: appropriate behavior, appropriate mood, corporative, judgment intact - Constitutional Vitals: Temp Pulse Resp BP Pulse Ox 32.1 F L 72 18 112/53 99 09/17/17 04:46 09/17/17 04:46 09/17/17 04:46 09/17/17 04:46 09/17/17 04:46 General appearance: Present: no acute distress, well-nourished, other (observed to be hiccuping) Results - Labs CBC & Chem 7: 09/17/17 04:08 09/13/17 04:56 Labs: Laboratory Last Values WBC 10.9 K/mm3 (4.5-11.0) 09/17/17 04:08 RBC 3.19 M/mm3 (3.65-5.03) L 09/17/17 04:08 Hgb 10.0 gm/dl (11.8-15.2) L 09/17/17 04:08 Hct 30.6 % (35.5-45.6) L 09/17/17 04:08 MCV 96 fl (84-94) H 09/17/17 04:08 MCH 31 pg (28-32) 09/17/17 04:08 MCHC 33 % (32-34) 09/17/17 04:08 RDW 19.1 % (13.2-15.2) H 09/17/17 04:08 Plt Count 341 K/mm3 (140-440) 09/17/17 04:08 Lymph % (Auto) 7.1 % (13.4-35.0) L 09/17/17 04:08 [place] % (Auto) 9.7 % (0.0-7.3) H 09/17/17 04:08 Eos % (Auto) 1.7 % (0.0-4.3) 09/17/17 04:08 Baso % (Auto) 0.7 % (0.0-1.8) 09/17/17 04:08 Lymph # 0.8 K/mm3 (1.2-5.4) L 09/17/17 04:08 [place] # 1.1 K/mm3 (0.0-0.8) H 09/17/17 04:08 Eos # 0.2 K/mm3 (0.0-0.4) 09/17/17 04:08 Baso # 0.1 K/mm3 (0.0-0.1) 09/17/17 04:08 Add Manual Diff Complete 09/13/17 04:56 Total Counted 100 09/13/17 04:56 Seg Neutrophils % 80.8 % (40.0-70.0) H 09/17/17 04:08 Seg Neuts % (Manual) 71.0 % (40.0-70.0) H 09/13/17 04:56 Band Neutrophils % 4.0 % 09/13/17 04:56 Lymphocytes % (Manual) 9.0 % (13.4-35.0) L 09/13/17 04:56 Reactive Lymphs % (Man) 0 % 09/13/17 04:56 Monocytes % (Manual) 9.0 % (0.0-7.3) H 09/13/17 04:56 Eosinophils % (Manual) 7.0 % (0.0-4.3) H 09/13/17 04:56 Basophils % (Manual) 0 % (0.0-1.8) 09/13/17 04:56 Metamyelocytes % 0 % 09/13/17 04:56 Myelocytes % 0 % 09/13/17 04:56 Promyelocytes % 0 % 09/13/17 04:56 Blast Cells % 0 % 09/13/17 04:56 Nucleated RBC % Not Reportable 09/13/17 04:56 Seg Neutrophils # 8.8 K/mm3 (1.8-7.7) H 09/17/17 04:08 Seg Neutrophils # Man 12.1 K/mm3 (1.8-7.7) H 09/13/17 04:56 Band Neutrophils # 0.7 K/mm3 09/13/17 04:56 Lymphocytes # (Manual) 1.5 K/mm3 (1.2-5.4) 09/13/17 04:56 Abs React Lymphs (Man) 0.0 K/mm3 09/13/17 04:56 Monocytes # (Manual) 1.5 K/mm3 (0.0-0.8) H 09/13/17 04:56 Eosinophils # (Manual) 1.2 K/mm3 (0.0-0.4) H 09/13/17 04:56 Basophils # (Manual) 0.0 K/mm3 (0.0-0.1) 09/13/17 04:56 Metamyelocytes # 0.0 K/mm3 09/13/17 04:56 Myelocytes # 0.0 K/mm3 09/13/17 04:56 Promyelocytes # 0.0 K/mm3 09/13/17 04:56 Blast Cells # 0.0 K/mm3 09/13/17 04:56 WBC Morphology Not Reportable 09/13/17 04:56 Hypersegmented Neuts Not Reportable 09/13/17 04:56 Hyposegmented Neuts Not Reportable 09/13/17 04:56 Hypogranular Neuts Not Reportable 09/13/17 04:56 Smudge Cells Not Reportable 09/13/17 04:56 Toxic Granulation Not Reportable 09/13/17 04:56 Toxic Vacuolation Not Reportable 09/13/17 04:56 Dohle Bodies Not Reportable 09/13/17 04:56 Pelger-Huet Anomaly Not Reportable 09/13/17 04:56 Kody Rods Not Reportable 09/13/17 04:56 Platelet Estimate Appears normal 09/13/17 04:56 Clumped Platelets Not Reportable 09/13/17 04:56 Plt Clumps, EDTA Not Reportable 09/13/17 04:56 Large Platelets Not Reportable 09/13/17 04:56 Giant Platelets Not Reportable 09/13/17 04:56 Platelet Satelliting Not Reportable 09/13/17 04:56 Plt Morphology Comment Not Reportable 09/13/17 04:56 RBC Morphology Not Reportable 09/13/17 04:56 Dimorphic RBCs Not Reportable 09/13/17 04:56 Polychromasia Not Reportable 09/13/17 04:56 Hypochromasia 1+ 09/13/17 04:56 Poikilocytosis Not Reportable 09/13/17 04:56 Anisocytosis 1+ 09/13/17 04:56 Microcytosis Not Reportable 09/13/17 04:56 Macrocytosis Not Reportable 09/13/17 04:56 Spherocytes Not Reportable 09/13/17 04:56 Pappenheimer Bodies Not Reportable 09/13/17 04:56 Sickle Cells Not Reportable 09/13/17 04:56 Target Cells Not Reportable 09/13/17 04:56 Tear Drop Cells Not Reportable 09/13/17 04:56 Ovalocytes Not Reportable 09/13/17 04:56 Helmet Cells Not Reportable 09/13/17 04:56 [place] Bodies Not Reportable 09/13/17 04:56 [place] Rings Not Reportable 09/13/17 04:56 [place] Cells Not Reportable 09/13/17 04:56 Bite Cells Not Reportable 09/13/17 04:56 Crenated Cell Not Reportable 09/13/17 04:56 Elliptocytes Not Reportable 09/13/17 04:56 Acanthocytes (Spur) Not Reportable 09/13/17 04:56 Rouleaux Not Reportable 09/13/17 04:56 Hemoglobin C Crystals Not Reportable 09/13/17 04:56 Schistocytes Not Reportable 09/13/17 04:56 Malaria parasites Not Reportable 09/13/17 04:56 Marcelino Bodies Not Reportable 09/13/17 04:56 Hem Pathologist Commnt No 09/13/17 04:56 PT 14.3 Sec. (12.2-14.9) 09/11/17 06:21 INR 1.06 (0.87-1.13) 09/11/17 06:21 APTT 42.6 Sec. (24.2-36.6) H 09/11/17 06:21 POC ABG pH 7.396 (7.35-7.45) 09/15/17 17:08 POC ABG pCO2 48.8 (35-45) H 09/15/17 17:08 POC ABG pO2 76 (80-105) L 09/15/17 17:08 POC ABG HCO3 30.0 09/15/17 17:08 POC ABG Total CO2 31 09/15/17 17:08 POC ABG O2 Sat 95 09/15/17 17:08 POC ABG Base Excess 5 09/15/17 17:08 FiO2 21 % 09/15/17 17:08 Sodium 140 mmol/L (137-145) 09/13/17 04:56 Potassium 4.0 mmol/L (3.6-5.0) 09/13/17 04:56 Chloride 97.3 mmol/L (98-107) L 09/13/17 04:56 Carbon Dioxide 26 mmol/L (22-30) 09/13/17 04:56 Anion Gap 21 mmol/L 09/13/17 04:56 BUN 30 mg/dL (9-20) H 09/13/17 04:56 Creatinine 4.1 mg/dL (0.8-1.5) H 09/13/17 04:56 Estimated GFR 17 ml/min 09/13/17 04:56 BUN/Creatinine Ratio 7 % 09/13/17 04:56 Glucose 72 mg/dL (75-100) L 09/13/17 04:56 POC Glucose 85 (70-105) 09/17/17 05:53 Calcium 8.8 mg/dL (8.4-10.2) 09/13/17 04:56 Total Bilirubin 0.30 mg/dL (0.1-1.2) 09/11/17 06:21 AST 14 units/L (5-40) 09/11/17 06:21 ALT 11 units/L (7-56) 09/11/17 06:21 Alkaline Phosphatase 103 units/L (35-129) 09/11/17 06:21 C-Reactive Protein 19.90 mg/dL (0.00-1.30) H 09/13/17 14:18 Total Protein 6.7 g/dL (6.3-8.2) 09/11/17 06:21 Albumin 3.1 g/dL (3.9-5) L 09/11/17 06:21 Albumin/Globulin Ratio 0.9 % 09/11/17 06:21 Lipase 8 units/L (13-60) L 09/11/17 06:21 Blood Type O POSITIVE 09/11/17 06:25 Antibody Screen Negative 09/11/17 06:25
--- NOTE | 2017-09-17 08:08 | Progress Note ---
Assessment and Plan 1. ESRD: Continue hemodialysis three times a week, TTS schedule. 2. Anemia: Epogen. 3. Enterococcal bacteremia: On Zosyn. 4. GI bleed. 5. Dysphagia. Subjective Date of service: 09/17/17 Principal diagnosis: UGI bleed Interval history: Patient was seen and examined at the bedside. Objective - Vital Signs Vital signs: Vital Signs - 12hr 09/16/17 09/17/17 09/17/17 21:24 04:46 07:38 Temperature 97.8 F 32.1 F L 97.5 F L Pulse Rate 72 Respiratory 18 18 20 Rate Blood Pressure 112/53 109/49 Blood Pressure 123/57 [Left] O2 Sat by Pulse 96 99 Oximetry - General Appearance General appearance: well-developed, appears stated age, other (sleeping, arousable) EENT: ATNC, hearing intact Neck: supple Respiratory: Present: Clear to Ascultation Cardiology: regular, S1S2, no murmurs Gastrointestinal: normoactive bowel sounds, no tenderness, no distended Integumentary: no rash Musculoskeletal: other (no edema, bilateral BKA, right arm AVF / AVG) - Lab 09/17/17 04:08 09/13/17 04:56 Most recent lab results Calcium 8.8 mg/dL (8.4-10.2) 09/13/17 04:56
[2017-09-17] MEDS: LOPRESSOR PO SCH ×3 (08:51→21:07)
[2017-09-17] MEDS: PROTONIX PO SCH (09:16)
[2017-09-17] MEDS: Renal Caps PO SCH (09:17)
[2017-09-17] MEDS ORDERED: SIMPLE SYRUP FEEDTUBE PRN ×2 (09:22)
[2017-09-17] MEDS ORDERED: SODIUM BICARBONATE FEEDTUBE PRN (09:22)
[2017-09-17] MEDS ORDERED: PANCREAZE DR 10,500 UNIT FEEDTUBE PRN (09:22)
--- NOTE | 2017-09-17 13:04 | Fluoroscopy Report ---
MODIFIED BARIUM SWALLOW INDICATION: Delayed swallow, dysphagia. COMPARISON: None similar. FINDINGS: Fluoroscopy with video provided by radiologist for speech therapist to assess the swallowing mechanism. Food items of various consistencies given. Penetration/aspiration noted. Few missing teeth and a radiopaque mandibular dental filling. IMPRESSION: Successful modified barium swallow. Please refer to detailed report from speech pathologist. Thank you for the opportunity to participate in this patient's care.
[2017-09-17] MEDS: MORPHINE IV PRN (13:17)
--- NOTE | 2017-09-17 14:30 | Progress Note ---
Assessment and Plan Assessment and plan: 72-year-old male with h/o ESRD on HD, s/p b/l BKA, atrial fib, [facility] coffee-ground em[facility] and vomiting blood, at time of admission he had desated to 89 and was using accessory muscles to breath, c/o generalized weakness. Metabolic encephalopathy -We'll check another arterial blood gas. He did have elevated carbon dioxide previously -We'll also check ammonia level, check an ABG. Hypoglycemia The patient is nothing by mouth, I'll put him on an exercise containing IV fluid. Unfortunately patient had pulled out his NG tube twice yesterday and did not want it in. Dysphagia with aspiration Speech therapy input appreciated, keep patient nothing by mouth, NG tube was placed twice on 09/16. The patient pulled it out twice. We'll continue to work with speech therapy, will follow up MVS today, patient might need a PEG tube prior to discharge. Acute hypoxic respiratory failure related to aspiration. Has now resolved. Keep nothing by mouth Upper GI bleed -No active GI bleeding sp EGD done today. Mod - sever esophagitis On PPI, avoid NSAIDS, no further workup per GI End stage renal disease on dialysis continue HD TTS Hypertension continue BP meds Paroxysmal atrial fibrillation with hypercoagulable state cont rate control meds anticoagulation on hold due to GIB Diabetes mellitus type 2 on insulin -For now will keep him on sliding scale of insulin Bilateral BKA -Supportive care Enterococcal bacteremia, gram positive sepsis: sepsis - cont zosyn for now, ID following -S/p removal of the tunnel dialysis catheter. -case dw ID --upon discharge will do vancomycin 1 g IV on HD 3 times a week for 2 weeks from 09/13 until 09/26/17 Acute blood loss anemia Hemoglobin currently stable DVT prophylaxis - We'll cont on SCD History Interval history: When the nurses attempted to feed the patient. Patient appears to aspirate. He became very short of breath and became very tachypneic and hypoxic. At this time the patient denies these complaints. He does admit to drowsiness c/o hiccups denies emesis, denies hematemeis or abdominal pain no chest pain, , no fever, no POSADAS, Has been altered and more lethargic today Hospitalist Physical - Physical exam Narrative exam: General.: Appears chronically ill HEENT: Moist mucous membranes, extraocular muscles intact, no lymphadenopathy Neck: supple Cardiac: S1-S2 heard Lungs: clear to auscultation bilaterally Abdomen: soft , nontender, nondistended, bowel sounds positive Extremities: no edema clubbing or cyanosis Skin: no rash or lesions Neurologic: Drowsy and confused Psych: appropriate behavior, appropriate mood, corporative, judgment intact - Constitutional Vitals: Temp Pulse Resp BP Pulse Ox 97.5 F L 72 20 109/49 94 09/17/17 07:38 09/17/17 04:46 09/17/17 10:00 09/17/17 07:38 09/17/17 14:13 General appearance: Present: no acute distress, well-nourished, other (observed to be hiccuping) Results - Labs CBC & Chem 7: 09/17/17 04:08 09/13/17 04:56 Labs: Laboratory Last Values WBC 10.9 K/mm3 (4.5-11.0) 09/17/17 04:08 RBC 3.19 M/mm3 (3.65-5.03) L 09/17/17 04:08 Hgb 10.0 gm/dl (11.8-15.2) L 09/17/17 04:08 Hct 30.6 % (35.5-45.6) L 09/17/17 04:08 MCV 96 fl (84-94) H 09/17/17 04:08 MCH 31 pg (28-32) 09/17/17 04:08 MCHC 33 % (32-34) 09/17/17 04:08 RDW 19.1 % (13.2-15.2) H 09/17/17 04:08 Plt Count 341 K/mm3 (140-440) 09/17/17 04:08 Lymph % (Auto) 7.1 % (13.4-35.0) L 09/17/17 04:08 Miner % (Auto) 9.7 % (0.0-7.3) H 09/17/17 04:08 Eos % (Auto) 1.7 % (0.0-4.3) 09/17/17 04:08 Baso % (Auto) 0.7 % (0.0-1.8) 09/17/17 04:08 Lymph # 0.8 K/mm3 (1.2-5.4) L 09/17/17 04:08 Miner # 1.1 K/mm3 (0.0-0.8) H 09/17/17 04:08 Eos # 0.2 K/mm3 (0.0-0.4) 09/17/17 04:08 Baso # 0.1 K/mm3 (0.0-0.1) 09/17/17 04:08 Add Manual Diff Complete 09/13/17 04:56 Total Counted 100 09/13/17 04:56 Seg Neutrophils % 80.8 % (40.0-70.0) H 09/17/17 04:08 Seg Neuts % (Manual) 71.0 % (40.0-70.0) H 09/13/17 04:56 Band Neutrophils % 4.0 % 09/13/17 04:56 Lymphocytes % (Manual) 9.0 % (13.4-35.0) L 09/13/17 04:56 Reactive Lymphs % (Man) 0 % 09/13/17 04:56 Monocytes % (Manual) 9.0 % (0.0-7.3) H 09/13/17 04:56 Eosinophils % (Manual) 7.0 % (0.0-4.3) H 09/13/17 04:56 Basophils % (Manual) 0 % (0.0-1.8) 09/13/17 04:56 Metamyelocytes % 0 % 09/13/17 04:56 Myelocytes % 0 % 09/13/17 04:56 Promyelocytes % 0 % 09/13/17 04:56 Blast Cells % 0 % 09/13/17 04:56 Nucleated RBC % Not Reportable 09/13/17 04:56 Seg Neutrophils # 8.8 K/mm3 (1.8-7.7) H 09/17/17 04:08 Seg Neutrophils # Man 12.1 K/mm3 (1.8-7.7) H 09/13/17 04:56 Band Neutrophils # 0.7 K/mm3 09/13/17 04:56 Lymphocytes # (Manual) 1.5 K/mm3 (1.2-5.4) 09/13/17 04:56 Abs React Lymphs (Man) 0.0 K/mm3 09/13/17 04:56 Monocytes # (Manual) 1.5 K/mm3 (0.0-0.8) H 09/13/17 04:56 Eosinophils # (Manual) 1.2 K/mm3 (0.0-0.4) H 09/13/17 04:56 Basophils # (Manual) 0.0 K/mm3 (0.0-0.1) 09/13/17 04:56 Metamyelocytes # 0.0 K/mm3 09/13/17 04:56 Myelocytes # 0.0 K/mm3 09/13/17 04:56 Promyelocytes # 0.0 K/mm3 09/13/17 04:56 Blast Cells # 0.0 K/mm3 09/13/17 04:56 WBC Morphology Not Reportable 09/13/17 04:56 Hypersegmented Neuts Not Reportable 09/13/17 04:56 Hyposegmented Neuts Not Reportable 09/13/17 04:56 Hypogranular Neuts Not Reportable 09/13/17 04:56 Smudge Cells Not Reportable 09/13/17 04:56 Toxic Granulation Not Reportable 09/13/17 04:56 Toxic Vacuolation Not Reportable 09/13/17 04:56 Dohle Bodies Not Reportable 09/13/17 04:56 Pelger-Huet Anomaly Not Reportable 09/13/17 04:56 Kody Rods Not Reportable 09/13/17 04:56 Platelet Estimate Appears normal 09/13/17 04:56 Clumped Platelets Not Reportable 09/13/17 04:56 Plt Clumps, EDTA Not Reportable 09/13/17 04:56 Large Platelets Not Reportable 09/13/17 04:56 Giant Platelets Not Reportable 09/13/17 04:56 Platelet Satelliting Not Reportable 09/13/17 04:56 Plt Morphology Comment Not Reportable 09/13/17 04:56 RBC Morphology Not Reportable 09/13/17 04:56 Dimorphic RBCs Not Reportable 09/13/17 04:56 Polychromasia Not Reportable 09/13/17 04:56 Hypochromasia 1+ 09/13/17 04:56 Poikilocytosis Not Reportable 09/13/17 04:56 Anisocytosis 1+ 09/13/17 04:56 Microcytosis Not Reportable 09/13/17 04:56 Macrocytosis Not Reportable 09/13/17 04:56 Spherocytes Not Reportable 09/13/17 04:56 Pappenheimer Bodies Not Reportable 09/13/17 04:56 Sickle Cells Not Reportable 09/13/17 04:56 Target Cells Not Reportable 09/13/17 04:56 Tear Drop Cells Not Reportable 09/13/17 04:56 Ovalocytes Not Reportable 09/13/17 04:56 Helmet Cells Not Reportable 09/13/17 04:56 [place] Bodies Not Reportable 09/13/17 04:56 [place] Rings Not Reportable 09/13/17 04:56 [place] Cells Not Reportable 09/13/17 04:56 Bite Cells Not Reportable 09/13/17 04:56 Crenated Cell Not Reportable 09/13/17 04:56 Elliptocytes Not Reportable 09/13/17 04:56 Acanthocytes (Spur) Not Reportable 09/13/17 04:56 Rouleaux Not Reportable 09/13/17 04:56 Hemoglobin C Crystals Not Reportable 09/13/17 04:56 Schistocytes Not Reportable 09/13/17 04:56 Malaria parasites Not Reportable 09/13/17 04:56 Marcelino Bodies Not Reportable 09/13/17 04:56 Hem Pathologist Commnt No 09/13/17 04:56 PT 14.3 Sec. (12.2-14.9) 09/11/17 06:21 INR 1.06 (0.87-1.13) 09/11/17 06:21 APTT 42.6 Sec. (24.2-36.6) H 09/11/17 06:21 POC ABG pH 7.396 (7.35-7.45) 09/15/17 17:08 POC ABG pCO2 48.8 (35-45) H 09/15/17 17:08 POC ABG pO2 76 (80-105) L 09/15/17 17:08 POC ABG HCO3 30.0 09/15/17 17:08 POC ABG Total CO2 31 09/15/17 17:08 POC ABG O2 Sat 95 09/15/17 17:08 POC ABG Base Excess 5 09/15/17 17:08 FiO2 21 % 09/15/17 17:08 Sodium 140 mmol/L (137-145) 09/13/17 04:56 Potassium 4.0 mmol/L (3.6-5.0) 09/13/17 04:56 Chloride 97.3 mmol/L (98-107) L 09/13/17 04:56 Carbon Dioxide 26 mmol/L (22-30) 09/13/17 04:56 Anion Gap 21 mmol/L 09/13/17 04:56 BUN 30 mg/dL (9-20) H 09/13/17 04:56 Creatinine 4.1 mg/dL (0.8-1.5) H 09/13/17 04:56 Estimated GFR 17 ml/min 09/13/17 04:56 BUN/Creatinine Ratio 7 % 09/13/17 04:56 Glucose 72 mg/dL (75-100) L 09/13/17 04:56 POC Glucose 73 (70-105) 09/17/17 12:38 Calcium 8.8 mg/dL (8.4-10.2) 09/13/17 04:56 Total Bilirubin 0.30 mg/dL (0.1-1.2) 09/11/17 06:21 AST 14 units/L (5-40) 09/11/17 06:21 ALT 11 units/L (7-56) 09/11/17 06:21 Alkaline Phosphatase 103 units/L (35-129) 09/11/17 06:21 C-Reactive Protein 19.90 mg/dL (0.00-1.30) H 09/13/17 14:18 Total Protein 6.7 g/dL (6.3-8.2) 09/11/17 06:21 Albumin 3.1 g/dL (3.9-5) L 09/11/17 06:21 Albumin/Globulin Ratio 0.9 % 09/11/17 06:21 Lipase 8 units/L (13-60) L 09/11/17 06:21 Blood Type O POSITIVE 09/11/17 06:25 Antibody Screen Negative 09/11/17 06:25
[2017-09-17] MEDS ORDERED: D5/0.45NS 1,000 ML IV SCH (15:00)
--- NOTE | 2017-09-17 15:25 | XRay Report ---
PORTABLE CHEST INDICATION: Shortness of breath. COMPARISON: 09/15/2017 FINDINGS: Portable, frontal chest radiograph again demonstrates left upper lobe approximately 2.3 cm peripheral round density without visible central lucency at this time. Mild atelectasis or scarring in the mid to lower lungs slightly more prominent, right more than left. No pleural effusions or CHF. Normal cardiomediastinal silhouette. Left axillary/distal subclavian as also right axillary stents. Few bony degenerative changes. Contrast now noted in the stomach. CONCLUSION: Left upper lobe nodule/mass again noted with various other findings, as above. Please also correlate clinically and further with CT, as appropriate. Thank you for the opportunity to participate in this patient's care.
[2017-09-17 15:37] LABS: Calcium 8.3 mg/dL (8.4-10.2)
--- NOTE | 2017-09-17 20:18 | Cat Scan Report ---
FINAL REPORT PROCEDURE: CT HEAD/BRAIN WO CON TECHNIQUE: Computerized tomography of the head was performed without contrast material. HISTORY: ams COMPARISON: No prior studies are available for comparison. FINDINGS: Skull and scalp: Normal. Paranasal sinuses: Moderate fluid each mastoid. Ventricles and subarachnoid spaces: Normal. Cerebrum: No evidence of hemorrhage, acute infarction or mass . Cerebellum and brainstem: No evidence of hemorrhage, acute infarction or mass. Vasculature: Normal. Comments: Moderate diffuse atrophy with moderate low attenuated microischemic change and central lacunar infarct disease. Encephalomalacia in the left cerebellum. Small area of encephalomalacia left donny. No hyperdense MCA sign seen. IMPRESSION: Bilateral mastoiditis. No acute intracranial pathology seen at this time. Atrophy with microischemic change and areas of encephalomalacia. No bleed.
[2017-09-17] MEDS: PRAVACHOL PO SCH (22:46)
[2017-09-18] MEDS: ZOSYN/NS 2.25 GM/50ML 2.25 GM/50 ML BAG IV SCH ×3 (07:08→22:13)
--- NOTE | 2017-09-18 07:08 | Progress Note ---
Assessment and Plan 1. ESRD: Continue hemodialysis three times a week, TTS schedule. 2. Anemia: Epogen. 3. Enterococcal bacteremia: On Zosyn. 4. GI bleed. 5. Dysphagia. Subjective Date of service: 09/18/17 Principal diagnosis: UGI bleed Interval history: Patient was seen and examined at the bedside. I'm doing ok. Objective - Vital Signs Vital signs: Vital Signs - 12hr 09/17/17 09/17/17 09/17/17 20:41 21:07 22:00 Temperature 97.8 F Pulse Rate 65 Respiratory 18 20 Rate Blood Pressure 127/54 127/54 09/18/17 05:43 Temperature 97.6 F Pulse Rate Respiratory 18 Rate Blood Pressure 113/52 - General Appearance General appearance: well-developed, appears stated age, other (no distress) EENT: ATNC, PERRL, hearing intact Neck: supple Respiratory: Present: Clear to Ascultation Cardiology: regular, S1S2, no murmurs Gastrointestinal: normoactive bowel sounds, no tenderness, no distended Integumentary: no rash, warm and dry Neurologic: no asterixis, confused, disoriented Musculoskeletal: other (bilateral BKA, no edema, right arm AVG / AVF) Psychiatric: cooperative - Lab 09/17/17 04:08 09/17/17 14:45 Most recent lab results Calcium 8.3 mg/dL (8.4-10.2) L 09/17/17 14:45
--- NOTE | 2017-09-18 08:49 | Cat Scan Report ---
FINAL REPORT EXAM: CT CHEST W CON HISTORY: lung mass TECHNIQUE: A CT of the chest was performed from thoracic inlet to diaphragm. 100 cc Omnipaque 300 IV was administered. Coronal and sagittal reformatted images were obtained. PRIORS: None. FINDINGS: There is a 2.3 x 2.4 cm mass in the left upper lobe demonstrating some spiculated borders. This is worrisome for malignancy. Recommend tissue diagnosis. There is a small right pleural effusion. There is trace left pleural fluid. There is some infiltrate versus atelectasis in the right lower lobe. There is atelectasis at the left lung base. There is no pneumothorax seen. There is no significant mediastinal or hilar mass seen. There is gallbladder distention with cholelithiasis. There is abnormal wall thickening of the gastric antrum which is worrisome for gastritis. Associated ulcer disease not excluded. IMPRESSION: 2.3 x 2.4 cm left upper lobe mass is worrisome for malignancy. Tissue diagnosis is recommended. Small right and trace left pleural effusions. Right lower lobe infiltrate versus atelectasis. Left dependent atelectasis. Gallbladder distention and cholelithiasis. Gastric antral wall thickening is worrisome for gastritis. Associated ulcer disease not excluded.
[2017-09-18] MEDS: LOPRESSOR PO SCH ×4 (09:31→20:42)
[2017-09-18] MEDS: PROTONIX PO SCH (09:31)
[2017-09-18] MEDS: Renal Caps PO SCH (09:31)
[2017-09-18] MEDS ORDERED: NACL 0.9% 1000 ML 2,000 ML ONE (12:16)
[2017-09-18] MEDS: PROCRIT IV PRN (13:54)
--- NOTE | 2017-09-18 15:06 | Progress Note ---
Assessment and Plan Assessment and plan: 72-year-old male with h/o ESRD on HD, s/p b/l BKA, atrial fib, [facility] local [facility] for coffee-ground emesis and vomiting blood, at time of admission he had desated to 89 and was using accessory muscles to breath, c/o generalized weakness. lung nodule Pulm consult pending Metabolic encephalopathy was likely due to pain meds now resolved Hypoglycemia was due to NPO, now resolved Dysphagia with aspiration Speech therapy input appreciated, keep patient nothing by mouth, NG tube was placed twice on 09/16. The patient pulled it out twice. improved, has been restarted on diet Acute hypoxic respiratory failure related to aspiration. Has now resolved. Upper GI bleed -No active GI bleeding sp EGD done today. Mod - sever esophagitis On PPI, avoid NSAIDS, no further workup per GI End stage renal disease on dialysis continue HD TTS Hypertension continue BP meds Paroxysmal atrial fibrillation with hypercoagulable state cont rate control meds anticoagulation on hold due to GIB Diabetes mellitus type 2 on insulin -For now will keep him on sliding scale of insulin Bilateral BKA -Supportive care Enterococcal bacteremia, gram positive sepsis: sepsis - cont zosyn for now, ID following -S/p removal of the tunnel dialysis catheter. -case dw ID --upon discharge will do vancomycin 1 g IV on HD 3 times a week for 2 weeks from 09/13 until 09/26/17 Acute blood loss anemia Hemoglobin currently stable DVT prophylaxis - We'll cont on SCD History Interval history: now tolerating diet, denies emesis, denies hematemeis or abdominal pain no chest pain, , no fever, no POSADAS, mentation now improved Hospitalist Physical - Physical exam Narrative exam: General.: Appears chronically ill HEENT: Moist mucous membranes, extraocular muscles intact, no lymphadenopathy Neck: supple Cardiac: S1-S2 heard Lungs: clear to auscultation bilaterally Abdomen: soft , nontender, nondistended, bowel sounds positive Extremities: no edema clubbing or cyanosis Skin: no rash or lesions Neurologic: alert and moves all extremities Psych: appropriate behavior, appropriate mood, corporative, judgment intact - Constitutional Vitals: Temp Pulse Resp BP Pulse Ox 97.3 F L 55 L 18 105/58 100 09/18/17 14:10 09/18/17 14:10 09/18/17 14:10 09/18/17 14:10 09/18/17 07:45 General appearance: Present: no acute distress, well-nourished, other (observed to be hiccuping) Results - Labs CBC & Chem 7: 09/17/17 04:08 09/17/17 14:45 Labs: Laboratory Last Values WBC 10.9 K/mm3 (4.5-11.0) 09/17/17 04:08 RBC 3.19 M/mm3 (3.65-5.03) L 09/17/17 04:08 Hgb 10.0 gm/dl (11.8-15.2) L 09/17/17 04:08 Hct 30.6 % (35.5-45.6) L 09/17/17 04:08 MCV 96 fl (84-94) H 09/17/17 04:08 MCH 31 pg (28-32) 09/17/17 04:08 MCHC 33 % (32-34) 09/17/17 04:08 RDW 19.1 % (13.2-15.2) H 09/17/17 04:08 Plt Count 341 K/mm3 (140-440) 09/17/17 04:08 Lymph % (Auto) 7.1 % (13.4-35.0) L 09/17/17 04:08 [place] % (Auto) 9.7 % (0.0-7.3) H 09/17/17 04:08 Eos % (Auto) 1.7 % (0.0-4.3) 09/17/17 04:08 Baso % (Auto) 0.7 % (0.0-1.8) 09/17/17 04:08 Lymph # 0.8 K/mm3 (1.2-5.4) L 09/17/17 04:08 [place] # 1.1 K/mm3 (0.0-0.8) H 09/17/17 04:08 Eos # 0.2 K/mm3 (0.0-0.4) 09/17/17 04:08 Baso # 0.1 K/mm3 (0.0-0.1) 09/17/17 04:08 Add Manual Diff Complete 09/13/17 04:56 Total Counted 100 09/13/17 04:56 Seg Neutrophils % 80.8 % (40.0-70.0) H 09/17/17 04:08 Seg Neuts % (Manual) 71.0 % (40.0-70.0) H 09/13/17 04:56 Band Neutrophils % 4.0 % 09/13/17 04:56 Lymphocytes % (Manual) 9.0 % (13.4-35.0) L 09/13/17 04:56 Reactive Lymphs % (Man) 0 % 09/13/17 04:56 Monocytes % (Manual) 9.0 % (0.0-7.3) H 09/13/17 04:56 Eosinophils % (Manual) 7.0 % (0.0-4.3) H 09/13/17 04:56 Basophils % (Manual) 0 % (0.0-1.8) 09/13/17 04:56 Metamyelocytes % 0 % 09/13/17 04:56 Myelocytes % 0 % 09/13/17 04:56 Promyelocytes % 0 % 09/13/17 04:56 Blast Cells % 0 % 09/13/17 04:56 Nucleated RBC % Not Reportable 09/13/17 04:56 Seg Neutrophils # 8.8 K/mm3 (1.8-7.7) H 09/17/17 04:08 Seg Neutrophils # Man 12.1 K/mm3 (1.8-7.7) H 09/13/17 04:56 Band Neutrophils # 0.7 K/mm3 09/13/17 04:56 Lymphocytes # (Manual) 1.5 K/mm3 (1.2-5.4) 09/13/17 04:56 Abs React Lymphs (Man) 0.0 K/mm3 09/13/17 04:56 Monocytes # (Manual) 1.5 K/mm3 (0.0-0.8) H 09/13/17 04:56 Eosinophils # (Manual) 1.2 K/mm3 (0.0-0.4) H 09/13/17 04:56 Basophils # (Manual) 0.0 K/mm3 (0.0-0.1) 09/13/17 04:56 Metamyelocytes # 0.0 K/mm3 09/13/17 04:56 Myelocytes # 0.0 K/mm3 09/13/17 04:56 Promyelocytes # 0.0 K/mm3 09/13/17 04:56 Blast Cells # 0.0 K/mm3 09/13/17 04:56 WBC Morphology Not Reportable 09/13/17 04:56 Hypersegmented Neuts Not Reportable 09/13/17 04:56 Hyposegmented Neuts Not Reportable 09/13/17 04:56 Hypogranular Neuts Not Reportable 09/13/17 04:56 Smudge Cells Not Reportable 09/13/17 04:56 Toxic Granulation Not Reportable 09/13/17 04:56 Toxic Vacuolation Not Reportable 09/13/17 04:56 Dohle Bodies Not Reportable 09/13/17 04:56 Pelger-Huet Anomaly Not Reportable 09/13/17 04:56 Kody Rods Not Reportable 09/13/17 04:56 Platelet Estimate Appears normal 09/13/17 04:56 Clumped Platelets Not Reportable 09/13/17 04:56 Plt Clumps, EDTA Not Reportable 09/13/17 04:56 Large Platelets Not Reportable 09/13/17 04:56 Giant Platelets Not Reportable 09/13/17 04:56 Platelet Satelliting Not Reportable 09/13/17 04:56 Plt Morphology Comment Not Reportable 09/13/17 04:56 RBC Morphology Not Reportable 09/13/17 04:56 Dimorphic RBCs Not Reportable 09/13/17 04:56 Polychromasia Not Reportable 09/13/17 04:56 Hypochromasia 1+ 09/13/17 04:56 Poikilocytosis Not Reportable 09/13/17 04:56 Anisocytosis 1+ 09/13/17 04:56 Microcytosis Not Reportable 09/13/17 04:56 Macrocytosis Not Reportable 09/13/17 04:56 Spherocytes Not Reportable 09/13/17 04:56 Pappenheimer Bodies Not Reportable 09/13/17 04:56 Sickle Cells Not Reportable 09/13/17 04:56 Target Cells Not Reportable 09/13/17 04:56 Tear Drop Cells Not Reportable 09/13/17 04:56 Ovalocytes Not Reportable 09/13/17 04:56 Helmet Cells Not Reportable 09/13/17 04:56 Cramer-[place] Bodies Not Reportable 09/13/17 04:56 [place] Rings Not Reportable 09/13/17 04:56 [place] Cells Not Reportable 09/13/17 04:56 Bite Cells Not Reportable 09/13/17 04:56 Crenated Cell Not Reportable 09/13/17 04:56 Elliptocytes Not Reportable 09/13/17 04:56 Acanthocytes (Spur) Not Reportable 09/13/17 04:56 Rouleaux Not Reportable 09/13/17 04:56 Hemoglobin C Crystals Not Reportable 09/13/17 04:56 Schistocytes Not Reportable 09/13/17 04:56 Malaria parasites Not Reportable 09/13/17 04:56 Marcelino Bodies Not Reportable 09/13/17 04:56 Hem Pathologist Commnt No 09/13/17 04:56 PT 14.3 Sec. (12.2-14.9) 09/11/17 06:21 INR 1.06 (0.87-1.13) 09/11/17 06:21 APTT 42.6 Sec. (24.2-36.6) H 09/11/17 06:21 POC ABG pH 7.414 (7.35-7.45) 09/17/17 15:02 POC ABG pCO2 44.8 (35-45) 09/17/17 15:02 POC ABG pO2 116 (80-105) H 09/17/17 15:02 POC ABG HCO3 28.6 09/17/17 15:02 POC ABG Total CO2 30 09/17/17 15:02 POC ABG O2 Sat 99 09/17/17 15:02 POC ABG Base Excess 4 09/17/17 15:02 FiO2 2 % 09/17/17 15:02 Sodium 143 mmol/L (137-145) 09/17/17 14:45 Potassium 4.2 mmol/L (3.6-5.0) 09/17/17 14:45 Chloride 99.2 mmol/L (98-107) 09/17/17 14:45 Carbon Dioxide 26 mmol/L (22-30) 09/17/17 14:45 Anion Gap 22 mmol/L 09/17/17 14:45 BUN 22 mg/dL (9-20) H 09/17/17 14:45 Creatinine 3.7 mg/dL (0.8-1.5) H 09/17/17 14:45 Estimated GFR 20 ml/min 09/17/17 14:45 BUN/Creatinine Ratio 6 % 09/17/17 14:45 Glucose 85 mg/dL (75-100) 09/17/17 14:45 POC Glucose 82 (70-105) 09/18/17 07:43 Calcium 8.3 mg/dL (8.4-10.2) L 09/17/17 14:45 Total Bilirubin 0.30 mg/dL (0.1-1.2) 09/11/17 06:21 AST 14 units/L (5-40) 09/11/17 06:21 ALT 11 units/L (7-56) 09/11/17 06:21 Alkaline Phosphatase 103 units/L (35-129) 09/11/17 06:21 Ammonia 28.0 umol/L (25-60) 09/17/17 14:45 C-Reactive Protein 19.90 mg/dL (0.00-1.30) H 09/13/17 14:18 Total Protein 6.7 g/dL (6.3-8.2) 09/11/17 06:21 Albumin 3.1 g/dL (3.9-5) L 09/11/17 06:21 Albumin/Globulin Ratio 0.9 % 09/11/17 06:21 Lipase 8 units/L (13-60) L 09/11/17 06:21 Blood Type O POSITIVE 09/11/17 06:25 Antibody Screen Negative 09/11/17 06:25
--- NOTE | 2017-09-18 17:42 | Consultation ---
History of Present Illness Consult date: 09/18/17 Reason for consult: lung mass History of present illness: Mr. Shoemaker is a 72-year-old -[place] male with known history of diabetes hypertension end-stage renal disease on hemodialysis was admitted to the hospital several days ago with evidence of enterococcal bacteremia and currently being treated with antibiotic. A recent chest x-ray showed evidence of a left upper lobe lung mass. A CT scan of the chest has confirmed this finding and has this consultation. Patient denied any shortness of breath or significant cough. He has a long-standing history of cigarette smoking which she has quit 5 years ago. Past History Past Medical History: diabetes, ESRD, hypertension, PVD (S/p Trevor BKA) Social history: denies: smoking, alcohol abuse Family history: other (retirement resident) Medications and Allergies Allergies Allergy/AdvReac Type Severity Reaction Status Date / Time No Known Allergies Allergy Verified 11/08/15 09:09 Home Medications Medication Instructions Recorded Confirmed Last Taken Type Pantoprazole [Protonix TAB] 40 mg PO QDAY 09/23/16 09/15/17 Unknown History Sennosides/Docusate Sodium [Stool 1 each PO PRN PRN 09/23/16 09/15/17 Unknown History Softener Tablet] Simvastatin [Zocor TAB] 20 mg PO QHS 09/23/16 09/15/17 Unknown History Vit B Cplx C No.13/Folic AC/D3 1 each PO AC 09/23/16 09/15/17 Unknown History [Nephrocaps Qt Tablet] Apixaban [Eliquis] 2.5 mg PO BID #10 tablet 10/08/16 09/15/17 Unknown Rx Metoprolol [Lopressor TAB] 50 mg PO TID tablet 10/08/16 09/15/17 Unknown Rx HYDROcodone/APAP 5-325 [[place] 1 each PO Q6H PRN #6 tablet 09/15/17 Unknown Rx 5-325 mg TAB] Insulin Regular, Human [HumuLIN R] 0 units SUB-Q ACHS units 09/15/17 Unknown Rx Vancomycin 1,000 mg IV 3XW 11 Days mg 09/15/17 Unknown Rx Active Meds: Active Medications Lipase/Protease/Amylase (Pancreaze Dr 10,500 Unit) 1 each FEEDTUBE PRN PRN PRN Reason: For Clogged Feeding Tube Chlorpromazine HCl (Thorazine) 25 mg IM Q6H PRN PRN Reason: Hiccups Last Admin: 09/15/17 23:53 Dose: 25 mg Dextrose (D50w (25gm) Syringe) 50 ml IV PRN PRN PRN Reason: Hypoglycemia Epoetin Pedro (Procrit) 10,000 unit IV ILENE PRN PRN Reason: hemodialysis Last Admin: 09/18/17 13:54 Dose: 10,000 unit Heparin Sodium (Porcine) (Heparin) 5,000 unit IV ILENE PRN PRN Reason: hemodialysis Last Admin: 09/11/17 20:45 Dose: 5,000 unit Piperacillin Sod/Tazobactam Sod (Zosyn/Ns 2.25 Gm/50ml) 2.25 gm in 50 mls @ 100 mls/hr IV Q8HR [facility] Stop: 09/26/17 15:59 Last Admin: 09/18/17 17:11 Dose: 100 mls/hr Sodium Chloride (Nacl 0.9%) 100 mls @ 999 mls/hr IV ILENE PRN PRN Reason: Hypotension Dextrose/Sodium Chloride (D5/0.45ns) 1,000 mls @ 42 mls/hr IV DIRECT [facility] Insulin Human Regular (Novolin R) 0 units SUB-Q ACHS [place] PRN Reason: Protocol Last Admin: 09/18/17 17:12 Dose: 1 units Metoprolol Tartrate (Lopressor) 50 mg PO TID [facility] Last Admin: 09/18/17 15:32 Dose: 50 mg Multivit/Ca Carb/B Cmplx/FA/Prenat (Renal Caps) 1 cap PO QDAY [facility] Last Admin: 09/18/17 09:31 Dose: 1 cap Ondansetron HCl (Zofran) 4 mg IV Q6H PRN PRN Reason: Nausea And Vomiting Pantoprazole Sodium (Protonix) 40 mg PO DAILY [facility] Last Admin: 09/18/17 09:31 Dose: 40 mg Pravastatin Sodium (Pravachol) 20 mg PO QHS [facility] Last Admin: 09/17/17 22:46 Dose: 20 mg Senna/Docusate Sodium (Senokot S) 1 tab PO PRN PRN PRN Reason: Constipation Last Admin: 09/13/17 10:57 Dose: 1 tab Simple Syrup (Simple Syrup) 15 ml FEEDTUBE PRN PRN PRN Reason: Hypoglycemia Simple Syrup (Simple Syrup) 30 ml FEEDTUBE PRN PRN PRN Reason: Hypoglycemia Sodium Bicarbonate (Sodium Bicarbonate) 325 mg FEEDTUBE PRN PRN PRN Reason: For Clogged Feeding Tube Physical Examination Vital signs: Vital Signs Pulse Ox 100 09/11/17 05:48 General appearance: no acute distress, alert Eyes: non-icteric ENT: oropharynx moist Neck: supple Ascultation: Bilateral: clear, diminished breath sounds Cardiovascular: regular rate and rhythm Gastrointestinal: normoactive bowel sounds, non-tender Integumentary: normal Extremities: no cyanosis Results - Laboratory Findings CBC and BMP: 09/17/17 04:08 09/17/17 14:45 ABG POC ABG pH 7.414 (7.35-7.45) 09/17/17 15:02 POC ABG pCO2 44.8 (35-45) 09/17/17 15:02 POC ABG pO2 116 (80-105) H 09/17/17 15:02 POC ABG HCO3 28.6 09/17/17 15:02 POC ABG Total CO2 30 09/17/17 15:02 POC ABG O2 Sat 99 09/17/17 15:02 PT/INR, D-dimer PT 14.3 Sec. (12.2-14.9) 09/11/17 06:21 INR 1.06 (0.87-1.13) 09/11/17 06:21 Abnormal lab findings: Abnormal Labs 09/11/17 09/11/17 09/11/17 06:21 06:21 06:21 WBC 22.0 H RBC 3.46 L Hgb 10.7 L Hct 33.1 L MCV 96 H RDW 19.2 H Lymph % (Auto) [place] % (Auto) Lymph # [place] # Seg Neutrophils % Seg Neuts % (Manual) 90.5 H Lymphocytes % (Manual) 4.0 L Monocytes % (Manual) Eosinophils % (Manual) Seg Neutrophils # Seg Neutrophils # Man 19.9 H Lymphocytes # (Manual) 0.9 L Monocytes # (Manual) 0.9 H Eosinophils # (Manual) APTT 42.6 H POC ABG pCO2 POC ABG pO2 Chloride 93.5 L Carbon Dioxide 31 H BUN 32 H Creatinine 4.3 H Glucose 121 H POC Glucose Calcium C-Reactive Protein Albumin 3.1 L Lipase 8 L 09/11/17 09/11/17 09/11/17 11:57 16:09 22:00 WBC RBC Hgb Hct MCV RDW Lymph % (Auto) [place] % (Auto) Lymph # [place] # Seg Neutrophils % Seg Neuts % (Manual) Lymphocytes % (Manual) Monocytes % (Manual) Eosinophils % (Manual) Seg Neutrophils # Seg Neutrophils # Man Lymphocytes # (Manual) Monocytes # (Manual) Eosinophils # (Manual) APTT POC ABG pCO2 POC ABG pO2 Chloride Carbon Dioxide BUN Creatinine Glucose POC Glucose 142 H 133 H 140 H Calcium C-Reactive Protein Albumin Lipase 09/12/17 09/12/17 09/12/17 09:08 09:08 11:21 WBC 18.7 H RBC 3.41 L Hgb 10.6 L Hct 32.5 L MCV 95 H RDW 18.6 H Lymph % (Auto) [place] % (Auto) Lymph # [place] # Seg Neutrophils % Seg Neuts % (Manual) Lymphocytes % (Manual) Monocytes % (Manual) Eosinophils % (Manual) Seg Neutrophils # Seg Neutrophils # Man Lymphocytes # (Manual) Monocytes # (Manual) Eosinophils # (Manual) APTT POC ABG pCO2 POC ABG pO2 Chloride 96.7 L Carbon Dioxide BUN 21 H Creatinine 3.0 H Glucose 122 H POC Glucose 170 H Calcium C-Reactive Protein Albumin Lipase 09/12/17 09/13/17 09/13/17 21:46 04:56 04:56 WBC 17.0 H RBC 3.42 L Hgb 10.4 L Hct 32.9 L MCV 96 H RDW 19.0 H Lymph % (Auto) [place] % (Auto) Lymph # [place] # Seg Neutrophils % Seg Neuts % (Manual) 71.0 H Lymphocytes % (Manual) 9.0 L Monocytes % (Manual) 9.0 H Eosinophils % (Manual) 7.0 H Seg Neutrophils # Seg Neutrophils # Man 12.1 H Lymphocytes # (Manual) Monocytes # (Manual) 1.5 H Eosinophils # (Manual) 1.2 H APTT POC ABG pCO2 POC ABG pO2 Chloride 97.3 L Carbon Dioxide BUN 30 H Creatinine 4.1 H Glucose 72 L POC Glucose 111 H Calcium C-Reactive Protein Albumin Lipase 09/13/17 09/13/17 09/14/17 14:18 16:52 16:49 WBC RBC Hgb Hct MCV RDW Lymph % (Auto) [place] % (Auto) Lymph # [place] # Seg Neutrophils % Seg Neuts % (Manual) Lymphocytes % (Manual) Monocytes % (Manual) Eosinophils % (Manual) Seg Neutrophils # Seg Neutrophils # Man Lymphocytes # (Manual) Monocytes # (Manual) Eosinophils # (Manual) APTT POC ABG pCO2 POC ABG pO2 Chloride Carbon Dioxide BUN Creatinine Glucose POC Glucose 123 H 175 H Calcium C-Reactive Protein 19.90 H Albumin Lipase 09/15/17 09/15/17 09/15/17 07:27 11:33 16:50 WBC RBC Hgb Hct MCV RDW Lymph % (Auto) [place] % (Auto) Lymph # [place] # Seg Neutrophils % Seg Neuts % (Manual) Lymphocytes % (Manual) Monocytes % (Manual) Eosinophils % (Manual) Seg Neutrophils # Seg Neutrophils # Man Lymphocytes # (Manual) Monocytes # (Manual) Eosinophils # (Manual) APTT POC ABG pCO2 POC ABG pO2 Chloride Carbon Dioxide BUN Creatinine Glucose POC Glucose 109 H 165 H 121 H Calcium C-Reactive Protein Albumin Lipase 09/15/17 09/16/17 09/17/17 17:08 14:10 00:45 WBC RBC Hgb Hct MCV RDW Lymph % (Auto) [place] % (Auto) Lymph # [place] # Seg Neutrophils % Seg Neuts % (Manual) Lymphocytes % (Manual) Monocytes % (Manual) Eosinophils % (Manual) Seg Neutrophils # Seg Neutrophils # Man Lymphocytes # (Manual) Monocytes # (Manual) Eosinophils # (Manual) APTT POC ABG pCO2 48.8 H POC ABG pO2 76 L Chloride Carbon Dioxide BUN Creatinine Glucose POC Glucose 129 H 64 L Calcium C-Reactive Protein Albumin Lipase 09/17/17 09/17/17 09/17/17 04:08 14:45 15:02 WBC RBC 3.19 L Hgb 10.0 L Hct 30.6 L MCV 96 H RDW 19.1 H Lymph % (Auto) 7.1 L [place] % (Auto) 9.7 H Lymph # 0.8 L [place] # 1.1 H Seg Neutrophils % 80.8 H Seg Neuts % (Manual) Lymphocytes % (Manual) Monocytes % (Manual) Eosinophils % (Manual) Seg Neutrophils # 8.8 H Seg Neutrophils # Man Lymphocytes # (Manual) Monocytes # (Manual) Eosinophils # (Manual) APTT POC ABG pCO2 POC ABG pO2 116 H Chloride Carbon Dioxide BUN 22 H Creatinine 3.7 H Glucose POC Glucose Calcium 8.3 L C-Reactive Protein Albumin Lipase 09/17/17 09/18/17 22:18 16:25 WBC RBC Hgb Hct MCV RDW Lymph % (Auto) [place] % (Auto) Lymph # [place] # Seg Neutrophils % Seg Neuts % (Manual) Lymphocytes % (Manual) Monocytes % (Manual) Eosinophils % (Manual) Seg Neutrophils # Seg Neutrophils # Man Lymphocytes # (Manual) Monocytes # (Manual) Eosinophils # (Manual) APTT POC ABG pCO2 POC ABG pO2 Chloride Carbon Dioxide BUN Creatinine Glucose POC Glucose 113 H 183 H Calcium C-Reactive Protein Albumin Lipase - Diagnostic Findings Chest x-ray: image reviewed (left upper lobe density) CT scan - chest: image reviewed (left upper lobe pleural-based mass lesion about 2-3 cm diameter) Assessment and Plan Impression: Left upper lobe lung mass suspicious of malignancy Former smoker rule out COPD Enterococcal bacteremia End-stage renal disease and hemodialysis Status post bilateral BKA Diabetes mellitus Hypertension. Recommendations: CT-guided needle biopsy of left upper lung mass next week Pulmonary function testing etc. as outpatient.
[2017-09-18] MEDS: PRAVACHOL PO SCH (22:11)
[2017-09-19] MEDS: ZOSYN/NS 2.25 GM/50ML 2.25 GM/50 ML BAG IV SCH ×3 (06:10→22:58)
--- NOTE | 2017-09-19 07:22 | Progress Note ---
Assessment and Plan 1. ESRD: Continue hemodialysis three times a week, TTS schedule. 2. Anemia: Epogen. 3. Enterococcal bacteremia: On Zosyn. 4. GI bleed. 5. Left upper lobe lung mass. Subjective Date of service: 09/19/17 Principal diagnosis: UGI bleed Interval history: Patient was seen and examined at the bedside. Patient is doing ok. Objective - Vital Signs Vital signs: Vital Signs - 12hr 09/18/17 09/18/17 09/18/17 20:01 20:42 22:00 Temperature 98.6 F Pulse Rate Respiratory 18 Rate Respiratory 20 Rate [Leg] Respiratory 20 Rate [Lower Back] Blood Pressure 101/48 101/48 O2 Sat by Pulse Oximetry 09/19/17 09/19/17 09/19/17 02:04 02:30 04:31 Temperature 97.5 F L Pulse Rate 60 67 Respiratory 16 20 Rate Respiratory Rate [Leg] Respiratory Rate [Lower Back] Blood Pressure 98/55 O2 Sat by Pulse 100 100 100 Oximetry - General Appearance General appearance: well-developed, appears stated age, other (no distress) EENT: ATNC, PERRL, hearing intact Neck: supple Respiratory: Present: Clear to Ascultation Cardiology: S1S2, no murmurs Gastrointestinal: normoactive bowel sounds, no tenderness, no distended Integumentary: no rash, warm and dry Neurologic: no asterixis Musculoskeletal: other (no edema, bilateral BKA, right arm AVG) Psychiatric: mood/affect appropriate, cooperative - Lab 09/17/17 04:08 09/17/17 14:45 Most recent lab results Calcium 8.3 mg/dL (8.4-10.2) L 09/17/17 14:45
[2017-09-19] MEDS: LOPRESSOR PO SCH ×3 (08:00→21:17)
[2017-09-19] MEDS: Renal Caps PO SCH (09:34)
[2017-09-19] MEDS: PROTONIX PO SCH (09:34)
--- NOTE | 2017-09-19 10:14 | Progress Note ---
Assessment and Plan Assessment and plan: 72-year-old male with h/o ESRD on HD, s/p b/l BKA, atrial fib, presented into the ER from a local care home for coffee-ground emesis and vomiting blood, at time of admission he had desated to 89 and was using accessory muscles to breath, c/o generalized weakness. lung nodule Pulm consult pending CT scan is concerning for malignancy, will need tissue biopsy Metabolic encephalopathy was likely due to pain meds now resolved Hypoglycemia was due to NPO, now resolved Dysphagia with aspiration Speech therapy input appreciated, keep patient nothing by mouth, NG tube was placed twice on 09/16. The patient pulled it out twice. improved, has been restarted on diet Acute hypoxic respiratory failure related to aspiration. Has now resolved. Upper GI bleed -No active GI bleeding sp EGD done today. Mod - sever esophagitis On PPI, avoid NSAIDS, no further workup per GI End stage renal disease on dialysis continue HD TTS Hypertension continue BP meds Paroxysmal atrial fibrillation with hypercoagulable state cont rate control meds anticoagulation on hold due to GIB Diabetes mellitus type 2 on insulin -For now will keep him on sliding scale of insulin Bilateral BKA -Supportive care Enterococcal bacteremia, gram positive sepsis: sepsis - cont zosyn for now, ID following -S/p removal of the tunnel dialysis catheter. -case dw ID --upon discharge will do vancomycin 1 g IV on HD 3 times a week for 2 weeks from 09/13 until 09/26/17 Acute blood loss anemia Hemoglobin currently stable DVT prophylaxis - We'll cont on SCD DIspo; SNF History Interval history: now tolerating diet, denies emesis, denies hematemeis or abdominal pain no chest pain, , no fever, no POSADAS, mentation now improved Hospitalist Physical - Physical exam Narrative exam: General.: Appears chronically ill HEENT: Moist mucous membranes, extraocular muscles intact, no lymphadenopathy Neck: supple Cardiac: S1-S2 heard Lungs: clear to auscultation bilaterally Abdomen: soft , nontender, nondistended, bowel sounds positive Extremities: no edema clubbing or cyanosis Skin: no rash or lesions Neurologic: alert and moves all extremities Psych: appropriate behavior, appropriate mood, corporative, judgment intact - Constitutional Vitals: Temp Pulse Resp BP Pulse Ox 97.9 F 54 L 20 91/43 100 09/19/17 07:23 09/19/17 08:00 09/19/17 07:23 09/19/17 08:00 09/19/17 08:32 General appearance: Present: no acute distress, well-nourished, other (observed to be hiccuping) Results - Labs CBC & Chem 7: 09/17/17 04:08 09/17/17 14:45 Labs: Laboratory Last Values WBC 10.9 K/mm3 (4.5-11.0) 09/17/17 04:08 RBC 3.19 M/mm3 (3.65-5.03) L 09/17/17 04:08 Hgb 10.0 gm/dl (11.8-15.2) L 09/17/17 04:08 Hct 30.6 % (35.5-45.6) L 09/17/17 04:08 MCV 96 fl (84-94) H 09/17/17 04:08 MCH 31 pg (28-32) 09/17/17 04:08 MCHC 33 % (32-34) 09/17/17 04:08 RDW 19.1 % (13.2-15.2) H 09/17/17 04:08 Plt Count 341 K/mm3 (140-440) 09/17/17 04:08 Lymph % (Auto) 7.1 % (13.4-35.0) L 09/17/17 04:08 [place] % (Auto) 9.7 % (0.0-7.3) H 09/17/17 04:08 Eos % (Auto) 1.7 % (0.0-4.3) 09/17/17 04:08 Baso % (Auto) 0.7 % (0.0-1.8) 09/17/17 04:08 Lymph # 0.8 K/mm3 (1.2-5.4) L 09/17/17 04:08 [place] # 1.1 K/mm3 (0.0-0.8) H 09/17/17 04:08 Eos # 0.2 K/mm3 (0.0-0.4) 09/17/17 04:08 Baso # 0.1 K/mm3 (0.0-0.1) 09/17/17 04:08 Add Manual Diff Complete 09/13/17 04:56 Total Counted 100 09/13/17 04:56 Seg Neutrophils % 80.8 % (40.0-70.0) H 09/17/17 04:08 Seg Neuts % (Manual) 71.0 % (40.0-70.0) H 09/13/17 04:56 Band Neutrophils % 4.0 % 09/13/17 04:56 Lymphocytes % (Manual) 9.0 % (13.4-35.0) L 09/13/17 04:56 Reactive Lymphs % (Man) 0 % 09/13/17 04:56 Monocytes % (Manual) 9.0 % (0.0-7.3) H 09/13/17 04:56 Eosinophils % (Manual) 7.0 % (0.0-4.3) H 09/13/17 04:56 Basophils % (Manual) 0 % (0.0-1.8) 09/13/17 04:56 Metamyelocytes % 0 % 09/13/17 04:56 Myelocytes % 0 % 09/13/17 04:56 Promyelocytes % 0 % 09/13/17 04:56 Blast Cells % 0 % 09/13/17 04:56 Nucleated RBC % Not Reportable 09/13/17 04:56 Seg Neutrophils # 8.8 K/mm3 (1.8-7.7) H 09/17/17 04:08 Seg Neutrophils # Man 12.1 K/mm3 (1.8-7.7) H 09/13/17 04:56 Band Neutrophils # 0.7 K/mm3 09/13/17 04:56 Lymphocytes # (Manual) 1.5 K/mm3 (1.2-5.4) 09/13/17 04:56 Abs React Lymphs (Man) 0.0 K/mm3 09/13/17 04:56 Monocytes # (Manual) 1.5 K/mm3 (0.0-0.8) H 09/13/17 04:56 Eosinophils # (Manual) 1.2 K/mm3 (0.0-0.4) H 09/13/17 04:56 Basophils # (Manual) 0.0 K/mm3 (0.0-0.1) 09/13/17 04:56 Metamyelocytes # 0.0 K/mm3 09/13/17 04:56 Myelocytes # 0.0 K/mm3 09/13/17 04:56 Promyelocytes # 0.0 K/mm3 09/13/17 04:56 Blast Cells # 0.0 K/mm3 09/13/17 04:56 WBC Morphology Not Reportable 09/13/17 04:56 Hypersegmented Neuts Not Reportable 09/13/17 04:56 Hyposegmented Neuts Not Reportable 09/13/17 04:56 Hypogranular Neuts Not Reportable 09/13/17 04:56 Smudge Cells Not Reportable 09/13/17 04:56 Toxic Granulation Not Reportable 09/13/17 04:56 Toxic Vacuolation Not Reportable 09/13/17 04:56 Dohle Bodies Not Reportable 09/13/17 04:56 Pelger-Huet Anomaly Not Reportable 09/13/17 04:56 Kody Rods Not Reportable 09/13/17 04:56 Platelet Estimate Appears normal 09/13/17 04:56 Clumped Platelets Not Reportable 09/13/17 04:56 Plt Clumps, EDTA Not Reportable 09/13/17 04:56 Large Platelets Not Reportable 09/13/17 04:56 Giant Platelets Not Reportable 09/13/17 04:56 Platelet Satelliting Not Reportable 09/13/17 04:56 Plt Morphology Comment Not Reportable 09/13/17 04:56 RBC Morphology Not Reportable 09/13/17 04:56 Dimorphic RBCs Not Reportable 09/13/17 04:56 Polychromasia Not Reportable 09/13/17 04:56 Hypochromasia 1+ 09/13/17 04:56 Poikilocytosis Not Reportable 09/13/17 04:56 Anisocytosis 1+ 09/13/17 04:56 Microcytosis Not Reportable 09/13/17 04:56 Macrocytosis Not Reportable 09/13/17 04:56 Spherocytes Not Reportable 09/13/17 04:56 Pappenheimer Bodies Not Reportable 09/13/17 04:56 Sickle Cells Not Reportable 09/13/17 04:56 Target Cells Not Reportable 09/13/17 04:56 Tear Drop Cells Not Reportable 09/13/17 04:56 Ovalocytes Not Reportable 09/13/17 04:56 Helmet Cells Not Reportable 09/13/17 04:56 Cramer-Micco Bodies Not Reportable 09/13/17 04:56 [place] Rings Not Reportable 09/13/17 04:56 [place] Cells Not Reportable 09/13/17 04:56 Bite Cells Not Reportable 09/13/17 04:56 Crenated Cell Not Reportable 09/13/17 04:56 Elliptocytes Not Reportable 09/13/17 04:56 Acanthocytes (Spur) Not Reportable 09/13/17 04:56 Rouleaux Not Reportable 09/13/17 04:56 Hemoglobin C Crystals Not Reportable 09/13/17 04:56 Schistocytes Not Reportable 09/13/17 04:56 Malaria parasites Not Reportable 09/13/17 04:56 Marcelino Bodies Not Reportable 09/13/17 04:56 Hem Pathologist Commnt No 09/13/17 04:56 PT 14.3 Sec. (12.2-14.9) 09/11/17 06:21 INR 1.06 (0.87-1.13) 09/11/17 06:21 APTT 42.6 Sec. (24.2-36.6) H 09/11/17 06:21 POC ABG pH 7.414 (7.35-7.45) 09/17/17 15:02 POC ABG pCO2 44.8 (35-45) 09/17/17 15:02 POC ABG pO2 116 (80-105) H 09/17/17 15:02 POC ABG HCO3 28.6 09/17/17 15:02 POC ABG Total CO2 30 09/17/17 15:02 POC ABG O2 Sat 99 09/17/17 15:02 POC ABG Base Excess 4 09/17/17 15:02 FiO2 2 % 09/17/17 15:02 Sodium 143 mmol/L (137-145) 09/17/17 14:45 Potassium 4.2 mmol/L (3.6-5.0) 09/17/17 14:45 Chloride 99.2 mmol/L (98-107) 09/17/17 14:45 Carbon Dioxide 26 mmol/L (22-30) 09/17/17 14:45 Anion Gap 22 mmol/L 09/17/17 14:45 BUN 22 mg/dL (9-20) H 09/17/17 14:45 Creatinine 3.7 mg/dL (0.8-1.5) H 09/17/17 14:45 Estimated GFR 20 ml/min 09/17/17 14:45 BUN/Creatinine Ratio 6 % 09/17/17 14:45 Glucose 85 mg/dL (75-100) 09/17/17 14:45 POC Glucose 122 (70-105) H 09/19/17 07:29 Calcium 8.3 mg/dL (8.4-10.2) L 09/17/17 14:45 Total Bilirubin 0.30 mg/dL (0.1-1.2) 09/11/17 06:21 AST 14 units/L (5-40) 09/11/17 06:21 ALT 11 units/L (7-56) 09/11/17 06:21 Alkaline Phosphatase 103 units/L (35-129) 09/11/17 06:21 Ammonia 28.0 umol/L (25-60) 09/17/17 14:45 C-Reactive Protein 19.90 mg/dL (0.00-1.30) H 09/13/17 14:18 Total Protein 6.7 g/dL (6.3-8.2) 09/11/17 06:21 Albumin 3.1 g/dL (3.9-5) L 09/11/17 06:21 Albumin/Globulin Ratio 0.9 % 09/11/17 06:21 Lipase 8 units/L (13-60) L 09/11/17 06:21 Blood Type O POSITIVE 09/11/17 06:25 Antibody Screen Negative 09/11/17 06:25 - Imaging and Cardiology CT scan - chest: image reviewed (2 .3x2/4 left upper lung mass with spiculated borders)
--- NOTE | 2017-09-19 15:49 | Progress Note ---
Assessment and Plan Impression: Left upper lobe lung mass suspicious of malignancy Former smoker rule out COPD Enterococcal bacteremia End-stage renal disease and hemodialysis Status post bilateral BKA Diabetes mellitus Hypertension. Recommendations: CT-guided needle biopsy of left upper lung mass next week Pulmonary function testing etc. as outpatient. Subjective Date of service: 09/19/17 Principal diagnosis: UGI bleed Interval history: No new complaints Objective Vital Signs - 12hr 09/19/17 09/19/17 09/19/17 04:31 07:23 08:00 Temperature 97.5 F L 97.9 F Pulse Rate 67 54 L 54 L Respiratory 20 20 Rate Blood Pressure 98/55 91/43 91/43 O2 Sat by Pulse 100 96 Oximetry 09/19/17 08:32 Temperature Pulse Rate Respiratory Rate Blood Pressure O2 Sat by Pulse 100 Oximetry Constitutional: no acute distress, alert Eyes: non-icteric ENT: oropharynx moist Neck: supple Ascultation: Bilateral: clear, diminished breath sounds Cardiovascular: regular rate and rhythm Gastrointestinal: normoactive bowel sounds, non-tender Integumentary: normal Extremities: no cyanosis CBC and BMP: 09/17/17 04:08 09/17/17 14:45 ABG, PT/INR, D-dimer: ABG POC ABG pH 7.414 (7.35-7.45) 09/17/17 15:02 POC ABG pCO2 44.8 (35-45) 09/17/17 15:02 POC ABG pO2 116 (80-105) H 09/17/17 15:02 POC ABG HCO3 28.6 09/17/17 15:02 POC ABG Total CO2 30 09/17/17 15:02 POC ABG O2 Sat 99 09/17/17 15:02 PT/INR, D-dimer PT 14.3 Sec. (12.2-14.9) 09/11/17 06:21 INR 1.06 (0.87-1.13) 09/11/17 06:21 Abnormal lab findings: Abnormal Labs 09/11/17 09/11/17 09/11/17 06:21 06:21 06:21 WBC 22.0 H RBC 3.46 L Hgb 10.7 L Hct 33.1 L MCV 96 H RDW 19.2 H Lymph % (Auto) Hall % (Auto) Lymph # Hall # Seg Neutrophils % Seg Neuts % (Manual) 90.5 H Lymphocytes % (Manual) 4.0 L Monocytes % (Manual) Eosinophils % (Manual) Seg Neutrophils # Seg Neutrophils # Man 19.9 H Lymphocytes # (Manual) 0.9 L Monocytes # (Manual) 0.9 H Eosinophils # (Manual) APTT 42.6 H POC ABG pCO2 POC ABG pO2 Chloride 93.5 L Carbon Dioxide 31 H BUN 32 H Creatinine 4.3 H Glucose 121 H POC Glucose Calcium C-Reactive Protein Albumin 3.1 L Lipase 8 L 09/11/17 09/11/17 09/11/17 11:57 16:09 22:00 WBC RBC Hgb Hct MCV RDW Lymph % (Auto) Hall % (Auto) Lymph # Hall # Seg Neutrophils % Seg Neuts % (Manual) Lymphocytes % (Manual) Monocytes % (Manual) Eosinophils % (Manual) Seg Neutrophils # Seg Neutrophils # Man Lymphocytes # (Manual) Monocytes # (Manual) Eosinophils # (Manual) APTT POC ABG pCO2 POC ABG pO2 Chloride Carbon Dioxide BUN Creatinine Glucose POC Glucose 142 H 133 H 140 H Calcium C-Reactive Protein Albumin Lipase 09/12/17 09/12/17 09/12/17 09:08 09:08 11:21 WBC 18.7 H RBC 3.41 L Hgb 10.6 L Hct 32.5 L MCV 95 H RDW 18.6 H Lymph % (Auto) Hall % (Auto) Lymph # Hall # Seg Neutrophils % Seg Neuts % (Manual) Lymphocytes % (Manual) Monocytes % (Manual) Eosinophils % (Manual) Seg Neutrophils # Seg Neutrophils # Man Lymphocytes # (Manual) Monocytes # (Manual) Eosinophils # (Manual) APTT POC ABG pCO2 POC ABG pO2 Chloride 96.7 L Carbon Dioxide BUN 21 H Creatinine 3.0 H Glucose 122 H POC Glucose 170 H Calcium C-Reactive Protein Albumin Lipase 09/12/17 09/13/17 09/13/17 21:46 04:56 04:56 WBC 17.0 H RBC 3.42 L Hgb 10.4 L Hct 32.9 L MCV 96 H RDW 19.0 H Lymph % (Auto) Hall % (Auto) Lymph # Hall # Seg Neutrophils % Seg Neuts % (Manual) 71.0 H Lymphocytes % (Manual) 9.0 L Monocytes % (Manual) 9.0 H Eosinophils % (Manual) 7.0 H Seg Neutrophils # Seg Neutrophils # Man 12.1 H Lymphocytes # (Manual) Monocytes # (Manual) 1.5 H Eosinophils # (Manual) 1.2 H APTT POC ABG pCO2 POC ABG pO2 Chloride 97.3 L Carbon Dioxide BUN 30 H Creatinine 4.1 H Glucose 72 L POC Glucose 111 H Calcium C-Reactive Protein Albumin Lipase 09/13/17 09/13/17 09/14/17 14:18 16:52 16:49 WBC RBC Hgb Hct MCV RDW Lymph % (Auto) Hall % (Auto) Lymph # Hall # Seg Neutrophils % Seg Neuts % (Manual) Lymphocytes % (Manual) Monocytes % (Manual) Eosinophils % (Manual) Seg Neutrophils # Seg Neutrophils # Man Lymphocytes # (Manual) Monocytes # (Manual) Eosinophils # (Manual) APTT POC ABG pCO2 POC ABG pO2 Chloride Carbon Dioxide BUN Creatinine Glucose POC Glucose 123 H 175 H Calcium C-Reactive Protein 19.90 H Albumin Lipase 09/15/17 09/15/17 09/15/17 07:27 11:33 16:50 WBC RBC Hgb Hct MCV RDW Lymph % (Auto) Hall % (Auto) Lymph # Hall # Seg Neutrophils % Seg Neuts % (Manual) Lymphocytes % (Manual) Monocytes % (Manual) Eosinophils % (Manual) Seg Neutrophils # Seg Neutrophils # Man Lymphocytes # (Manual) Monocytes # (Manual) Eosinophils # (Manual) APTT POC ABG pCO2 POC ABG pO2 Chloride Carbon Dioxide BUN Creatinine Glucose POC Glucose 109 H 165 H 121 H Calcium C-Reactive Protein Albumin Lipase 09/15/17 09/16/17 09/17/17 17:08 14:10 00:45 WBC RBC Hgb Hct MCV RDW Lymph % (Auto) Hall % (Auto) Lymph # Hall # Seg Neutrophils % Seg Neuts % (Manual) Lymphocytes % (Manual) Monocytes % (Manual) Eosinophils % (Manual) Seg Neutrophils # Seg Neutrophils # Man Lymphocytes # (Manual) Monocytes # (Manual) Eosinophils # (Manual) APTT POC ABG pCO2 48.8 H POC ABG pO2 76 L Chloride Carbon Dioxide BUN Creatinine Glucose POC Glucose 129 H 64 L Calcium C-Reactive Protein Albumin Lipase 09/17/17 09/17/17 09/17/17 04:08 14:45 15:02 WBC RBC 3.19 L Hgb 10.0 L Hct 30.6 L MCV 96 H RDW 19.1 H Lymph % (Auto) 7.1 L Hall % (Auto) 9.7 H Lymph # 0.8 L Hall # 1.1 H Seg Neutrophils % 80.8 H Seg Neuts % (Manual) Lymphocytes % (Manual) Monocytes % (Manual) Eosinophils % (Manual) Seg Neutrophils # 8.8 H Seg Neutrophils # Man Lymphocytes # (Manual) Monocytes # (Manual) Eosinophils # (Manual) APTT POC ABG pCO2 POC ABG pO2 116 H Chloride Carbon Dioxide BUN 22 H Creatinine 3.7 H Glucose POC Glucose Calcium 8.3 L C-Reactive Protein Albumin Lipase 09/17/17 09/18/17 09/19/17 22:18 16:25 07:29 WBC RBC Hgb Hct MCV RDW Lymph % (Auto) Hall % (Auto) Lymph # Hall # Seg Neutrophils % Seg Neuts % (Manual) Lymphocytes % (Manual) Monocytes % (Manual) Eosinophils % (Manual) Seg Neutrophils # Seg Neutrophils # Man Lymphocytes # (Manual) Monocytes # (Manual) Eosinophils # (Manual) APTT POC ABG pCO2 POC ABG pO2 Chloride Carbon Dioxide BUN Creatinine Glucose POC Glucose 113 H 183 H 122 H Calcium C-Reactive Protein Albumin Lipase 09/19/17 11:47 WBC RBC Hgb Hct MCV RDW Lymph % (Auto) Hall % (Auto) Lymph # Hall # Seg Neutrophils % Seg Neuts % (Manual) Lymphocytes % (Manual) Monocytes % (Manual) Eosinophils % (Manual) Seg Neutrophils # Seg Neutrophils # Man Lymphocytes # (Manual) Monocytes # (Manual) Eosinophils # (Manual) APTT POC ABG pCO2 POC ABG pO2 Chloride Carbon Dioxide BUN Creatinine Glucose POC Glucose 121 H Calcium C-Reactive Protein Albumin Lipase
[2017-09-19] MEDS: PRAVACHOL PO SCH (22:58)
[2017-09-20] MEDS: ZOSYN/NS 2.25 GM/50ML 2.25 GM/50 ML BAG IV SCH ×3 (06:30→22:43)
--- NOTE | 2017-09-20 08:56 | Progress Note ---
Assessment and Plan 1. ESRD: Continue hemodialysis three times a week, TTS schedule. 2. Anemia: Epogen. 3. Enterococcal bacteremia: On Zosyn. 4. GI bleed. 5. Left upper lobe lung mass. Subjective Date of service: 09/20/17 Principal diagnosis: UGI bleed Interval history: Patient was seen and examined at the bedside. Patient is doing ok. Objective - Vital Signs Vital signs: Vital Signs - 12hr 09/19/17 09/19/17 09/20/17 21:17 23:00 07:30 Temperature 99.0 F Pulse Rate 68 65 Respiratory 20 18 Rate Respiratory 20 Rate [Leg] Blood Pressure 110/52 125/65 O2 Sat by Pulse 100 97 Oximetry 09/20/17 08:11 Temperature Pulse Rate Respiratory Rate Respiratory Rate [Leg] Blood Pressure O2 Sat by Pulse 97 Oximetry - General Appearance General appearance: well-developed, appears stated age, other (no distress) EENT: ATNC, PERRL, hearing intact Neck: supple Respiratory: Present: Clear to Ascultation Cardiology: S1S2, no murmurs Gastrointestinal: normoactive bowel sounds, no tenderness, no distended Neurologic: no asterixis, confused Musculoskeletal: other (no edema, bilateral BKA, right arm AVG) Psychiatric: mood/affect appropriate, cooperative - Lab 09/17/17 04:08 09/17/17 14:45 Most recent lab results Calcium 8.3 mg/dL (8.4-10.2) L 09/17/17 14:45
[2017-09-20] MEDS: LOPRESSOR PO SCH ×3 (09:00→22:42)
[2017-09-20] MEDS: PROTONIX PO SCH (11:00)
[2017-09-20] MEDS: Renal Caps PO SCH (11:00)
--- NOTE | 2017-09-20 11:33 | Progress Note ---
Assessment and Plan /lung nodule Pulm consult pending CT scan is concerning for malignancy, will need tissue biopsy /Upper GI bleed - Presented with coffee-ground emesis - H&H stable at this point - We'll cont on PPI twice a day - Consulted GI and hold any heparin product or anticoagulation - sp EGD showed Mod - sever esophagitis - no further workup per GI /End stage renal disease on dialysis - Consult has been placed for ocular care aide - Electrolytes currently stable - HD per nephrology recommendation - he is on TTS schedule /Hypertension -We'll cont home meds and monitor BP every 4 hour /Paroxysmal atrial fibrillation - We'll continue beta jake for heart rate control /Diabetes mellitus type 2 on insulin -For now will keep him on sliding scale of insulin /Bilateral BKA -Supportive care /Leukocytosis - likely due to bacteremia - will follow final blood cx result and cover with abx for now /Enterococcal bacteremia, gram positive sepsis: sepsis - cont zosyn for now, ID following -S/p removal of the tunnel dialysis catheter. -case dw ID --upon discharge will do vancomycin 1 g IV on HD 3 times a week for 2 weeks from 09/13 until 09/26/17 /Dysphagia with aspiration Speech therapy input appreciated, keep patient nothing by mouth, NG tube was placed twice on 09/16. The patient pulled it out twice. improved, has been restarted on diet /Acute hypoxic respiratory failure related to aspiration. Has now resolved. /DVT prophylaxis - We'll cont on SCD Brief History: This Is a 72-year-old male with h/o ESRD on HD, s/p b/l BKA, atrial fib, presented into the ER from a local long-term for coffee-ground emesis and vomiting blood. at time of admission he had desated to 89 and was using accessory muscles to breath, c/o generalized weakness. Repeat CXR on 09/15/17 is concerning for lung nodule. He is waiting for lung biopsy Radiological test: Chest x-ray on 09/11 showed no acute infiltrates Chest x-ray on 09/15/2017 showed no infiltrates and 2.4 cm nodule at the left lung apex. 09/18/2017 showed 2.3 x 2.4 cm left upper lobe mass which is worrisome for malignancy tissue diagnosis is recommended. History Interval history: Patient seen and examined Tolerating diet, denies emesis, denies hematemeis or abdominal pain no chest pain, , no fever, no POSADAS, mentation now improved Hospitalist Physical General.: Appears chronically ill HEENT: Moist mucous membranes, extraocular muscles intact, no lymphadenopathy Neck: supple Cardiac: S1-S2 heard Lungs: clear to auscultation bilaterally Abdomen: soft , nontender, nondistended, bowel sounds positive Extremities: no edema clubbing or cyanosis Skin: no rash or lesions Neurologic: alert and moves all extremities Psych: appropriate behavior, appropriate mood, corporative, judgment intact Subjective Date of service: 09/20/17 Principal diagnosis: UGI bleed Objective - Constitutional Vitals: Vital Signs - 12hr 09/20/17 09/20/17 07:30 08:11 Temperature 99.0 F Pulse Rate 65 Respiratory 18 Rate Blood Pressure 125/65 O2 Sat by Pulse 97 97 Oximetry - Labs CBC & Chem 7: 09/17/17 04:08 09/17/17 14:45 Labs: Abnormal lab results 09/19/17 09/19/17 09/20/17 Range/Units 11:47 16:26 07:34 POC Glucose 121 H 121 H 62 L (70-105)
--- NOTE | 2017-09-20 14:40 | Progress Note ---
Assessment and Plan Impression: Left upper lobe lung mass suspicious of malignancy Former smoker rule out COPD Enterococcal bacteremia End-stage renal disease and hemodialysis Status post bilateral BKA Diabetes mellitus Hypertension. Recommendations: CT-guided needle biopsy of left upper lung mass on Wednesday (for hemodialysis tomorrow) Pulmonary function testing etc. as outpatient. Subjective Date of service: 09/20/17 Principal diagnosis: UGI bleed Interval history: No new complaints Objective Vital Signs - 12hr 09/20/17 09/20/17 09/20/17 07:30 08:11 13:01 Temperature 99.0 F 99.0 F Pulse Rate 65 60 Respiratory 18 18 Rate Blood Pressure 125/65 118/44 O2 Sat by Pulse 97 97 96 Oximetry Constitutional: no acute distress, alert Eyes: non-icteric ENT: oropharynx moist Neck: supple Ascultation: Bilateral: clear, diminished breath sounds Cardiovascular: regular rate and rhythm Gastrointestinal: normoactive bowel sounds, non-tender Integumentary: normal Extremities: no cyanosis CBC and BMP: 09/17/17 04:08 09/17/17 14:45 ABG, PT/INR, D-dimer: ABG POC ABG pH 7.414 (7.35-7.45) 09/17/17 15:02 POC ABG pCO2 44.8 (35-45) 09/17/17 15:02 POC ABG pO2 116 (80-105) H 09/17/17 15:02 POC ABG HCO3 28.6 09/17/17 15:02 POC ABG Total CO2 30 09/17/17 15:02 POC ABG O2 Sat 99 09/17/17 15:02 PT/INR, D-dimer PT 14.3 Sec. (12.2-14.9) 09/11/17 06:21 INR 1.06 (0.87-1.13) 09/11/17 06:21 Abnormal lab findings: Abnormal Labs 09/11/17 09/11/17 09/11/17 06:21 06:21 06:21 WBC 22.0 H RBC 3.46 L Hgb 10.7 L Hct 33.1 L MCV 96 H RDW 19.2 H Lymph % (Auto) [place] % (Auto) Lymph # [place] # Seg Neutrophils % Seg Neuts % (Manual) 90.5 H Lymphocytes % (Manual) 4.0 L Monocytes % (Manual) Eosinophils % (Manual) Seg Neutrophils # Seg Neutrophils # Man 19.9 H Lymphocytes # (Manual) 0.9 L Monocytes # (Manual) 0.9 H Eosinophils # (Manual) APTT 42.6 H POC ABG pCO2 POC ABG pO2 Chloride 93.5 L Carbon Dioxide 31 H BUN 32 H Creatinine 4.3 H Glucose 121 H POC Glucose Calcium C-Reactive Protein Albumin 3.1 L Lipase 8 L 09/11/17 09/11/17 09/11/17 11:57 16:09 22:00 WBC RBC Hgb Hct MCV RDW Lymph % (Auto) [place] % (Auto) Lymph # [place] # Seg Neutrophils % Seg Neuts % (Manual) Lymphocytes % (Manual) Monocytes % (Manual) Eosinophils % (Manual) Seg Neutrophils # Seg Neutrophils # Man Lymphocytes # (Manual) Monocytes # (Manual) Eosinophils # (Manual) APTT POC ABG pCO2 POC ABG pO2 Chloride Carbon Dioxide BUN Creatinine Glucose POC Glucose 142 H 133 H 140 H Calcium C-Reactive Protein Albumin Lipase 09/12/17 09/12/17 09/12/17 09:08 09:08 11:21 WBC 18.7 H RBC 3.41 L Hgb 10.6 L Hct 32.5 L MCV 95 H RDW 18.6 H Lymph % (Auto) [place] % (Auto) Lymph # [place] # Seg Neutrophils % Seg Neuts % (Manual) Lymphocytes % (Manual) Monocytes % (Manual) Eosinophils % (Manual) Seg Neutrophils # Seg Neutrophils # Man Lymphocytes # (Manual) Monocytes # (Manual) Eosinophils # (Manual) APTT POC ABG pCO2 POC ABG pO2 Chloride 96.7 L Carbon Dioxide BUN 21 H Creatinine 3.0 H Glucose 122 H POC Glucose 170 H Calcium C-Reactive Protein Albumin Lipase 09/12/17 09/13/17 09/13/17 21:46 04:56 04:56 WBC 17.0 H RBC 3.42 L Hgb 10.4 L Hct 32.9 L MCV 96 H RDW 19.0 H Lymph % (Auto) [place] % (Auto) Lymph # [place] # Seg Neutrophils % Seg Neuts % (Manual) 71.0 H Lymphocytes % (Manual) 9.0 L Monocytes % (Manual) 9.0 H Eosinophils % (Manual) 7.0 H Seg Neutrophils # Seg Neutrophils # Man 12.1 H Lymphocytes # (Manual) Monocytes # (Manual) 1.5 H Eosinophils # (Manual) 1.2 H APTT POC ABG pCO2 POC ABG pO2 Chloride 97.3 L Carbon Dioxide BUN 30 H Creatinine 4.1 H Glucose 72 L POC Glucose 111 H Calcium C-Reactive Protein Albumin Lipase 09/13/17 09/13/17 09/14/17 14:18 16:52 16:49 WBC RBC Hgb Hct MCV RDW Lymph % (Auto) [place] % (Auto) Lymph # [place] # Seg Neutrophils % Seg Neuts % (Manual) Lymphocytes % (Manual) Monocytes % (Manual) Eosinophils % (Manual) Seg Neutrophils # Seg Neutrophils # Man Lymphocytes # (Manual) Monocytes # (Manual) Eosinophils # (Manual) APTT POC ABG pCO2 POC ABG pO2 Chloride Carbon Dioxide BUN Creatinine Glucose POC Glucose 123 H 175 H Calcium C-Reactive Protein 19.90 H Albumin Lipase 09/15/17 09/15/17 09/15/17 07:27 11:33 16:50 WBC RBC Hgb Hct MCV RDW Lymph % (Auto) [place] % (Auto) Lymph # [place] # Seg Neutrophils % Seg Neuts % (Manual) Lymphocytes % (Manual) Monocytes % (Manual) Eosinophils % (Manual) Seg Neutrophils # Seg Neutrophils # Man Lymphocytes # (Manual) Monocytes # (Manual) Eosinophils # (Manual) APTT POC ABG pCO2 POC ABG pO2 Chloride Carbon Dioxide BUN Creatinine Glucose POC Glucose 109 H 165 H 121 H Calcium C-Reactive Protein Albumin Lipase 09/15/17 09/16/17 09/17/17 17:08 14:10 00:45 WBC RBC Hgb Hct MCV RDW Lymph % (Auto) [place] % (Auto) Lymph # [place] # Seg Neutrophils % Seg Neuts % (Manual) Lymphocytes % (Manual) Monocytes % (Manual) Eosinophils % (Manual) Seg Neutrophils # Seg Neutrophils # Man Lymphocytes # (Manual) Monocytes # (Manual) Eosinophils # (Manual) APTT POC ABG pCO2 48.8 H POC ABG pO2 76 L Chloride Carbon Dioxide BUN Creatinine Glucose POC Glucose 129 H 64 L Calcium C-Reactive Protein Albumin Lipase 09/17/17 09/17/17 09/17/17 04:08 14:45 15:02 WBC RBC 3.19 L Hgb 10.0 L Hct 30.6 L MCV 96 H RDW 19.1 H Lymph % (Auto) 7.1 L [place] % (Auto) 9.7 H Lymph # 0.8 L [place] # 1.1 H Seg Neutrophils % 80.8 H Seg Neuts % (Manual) Lymphocytes % (Manual) Monocytes % (Manual) Eosinophils % (Manual) Seg Neutrophils # 8.8 H Seg Neutrophils # Man Lymphocytes # (Manual) Monocytes # (Manual) Eosinophils # (Manual) APTT POC ABG pCO2 POC ABG pO2 116 H Chloride Carbon Dioxide BUN 22 H Creatinine 3.7 H Glucose POC Glucose Calcium 8.3 L C-Reactive Protein Albumin Lipase 09/17/17 09/18/17 09/19/17 22:18 16:25 07:29 WBC RBC Hgb Hct MCV RDW Lymph % (Auto) [place] % (Auto) Lymph # [place] # Seg Neutrophils % Seg Neuts % (Manual) Lymphocytes % (Manual) Monocytes % (Manual) Eosinophils % (Manual) Seg Neutrophils # Seg Neutrophils # Man Lymphocytes # (Manual) Monocytes # (Manual) Eosinophils # (Manual) APTT POC ABG pCO2 POC ABG pO2 Chloride Carbon Dioxide BUN Creatinine Glucose POC Glucose 113 H 183 H 122 H Calcium C-Reactive Protein Albumin Lipase 09/19/17 09/19/17 09/20/17 11:47 16:26 07:34 WBC RBC Hgb Hct MCV RDW Lymph % (Auto) [place] % (Auto) Lymph # [place] # Seg Neutrophils % Seg Neuts % (Manual) Lymphocytes % (Manual) Monocytes % (Manual) Eosinophils % (Manual) Seg Neutrophils # Seg Neutrophils # Man Lymphocytes # (Manual) Monocytes # (Manual) Eosinophils # (Manual) APTT POC ABG pCO2 POC ABG pO2 Chloride Carbon Dioxide BUN Creatinine Glucose POC Glucose 121 H 121 H 62 L Calcium C-Reactive Protein Albumin Lipase
[2017-09-20] MEDS: PRAVACHOL PO SCH (22:43)
[2017-09-21] MEDS: ZOSYN/NS 2.25 GM/50ML 2.25 GM/50 ML BAG IV SCH ×3 (07:02→21:12)
--- NOTE | 2017-09-21 08:12 | Progress Note ---
Assessment and Plan 1. ESRD: Continue hemodialysis three times a week, TTS schedule. 2. Anemia: Epogen. 3. Enterococcal bacteremia: On Zosyn. 4. GI bleed. 5. Left upper lobe lung mass. Subjective Date of service: 09/21/17 Principal diagnosis: UGI bleed Interval history: Patient was seen and examined at the bedside. Patient is doing ok. Objective - Vital Signs Vital signs: Vital Signs - 12hr 09/20/17 09/20/17 22:00 22:42 Pulse Rate 54 L Respiratory 20 Rate Respiratory 16 Rate [Leg] - General Appearance General appearance: well-developed, appears stated age, other (no distress) EENT: ATNC, PERRL, hearing intact Neck: supple Respiratory: Present: Clear to Ascultation Cardiology: regular, S1S2, no murmurs Gastrointestinal: normoactive bowel sounds, no tenderness, no distended Integumentary: no rash, warm and dry Neurologic: no asterixis Musculoskeletal: other (bilateral BKA, no edema, right arm AVF / AVG) Psychiatric: mood/affect appropriate, cooperative - Lab 09/17/17 04:08 09/17/17 14:45 Most recent lab results Calcium 8.3 mg/dL (8.4-10.2) L 09/17/17 14:45
[2017-09-21] MEDS: LOPRESSOR PO SCH ×3 (08:56→20:57)
[2017-09-21] MEDS: Renal Caps PO SCH (10:24)
[2017-09-21] MEDS: PROTONIX PO SCH (10:24)
[2017-09-21] MEDS ORDERED: NACL 0.9 (PRIMING MACHINE ONLY DIALYSIS) MC ONE ×2 (10:45→12:32)
--- NOTE | 2017-09-21 14:28 | Progress Note ---
Assessment and Plan Imp: 1. Lung mass 2. ESRD 3. Permcath infection -> bacteremia/sepsis, better 4. Esophagitis -> UGIB, better Rec: 1. Awaiting Ct guided biopsy of FELICITA mass; NPO after MN; patient willing to proceed w/ procedure Plan of care reviewed with patient, he understands/agrees Subjective Date of service: 09/21/17 Principal diagnosis: UGI bleed Interval history: No events. Awake, alert. On RA. Finished HD. No complaints. Active Medications Lipase/Protease/Amylase (Pancreyobanye Dr 10,500 Unit) 1 each FEEDTUBE PRN PRN PRN Reason: For Clogged Feeding Tube Chlorpromazine HCl (Thorazine) 25 mg IM Q6H PRN PRN Reason: Hiccups Last Admin: 09/15/17 23:53 Dose: 25 mg Dextrose (D50w (25gm) Syringe) 50 ml IV PRN PRN PRN Reason: Hypoglycemia Epoetin Pedro (Procrit) 10,000 unit IV ILENE PRN PRN Reason: hemodialysis Last Admin: 09/18/17 13:54 Dose: 10,000 unit Heparin Sodium (Porcine) (Heparin) 5,000 unit IV ILENE PRN PRN Reason: hemodialysis Last Admin: 09/11/17 20:45 Dose: 5,000 unit Piperacillin Sod/Tazobactam Sod (Zosyn/Ns 2.25 Gm/50ml) 2.25 gm in 50 mls @ 100 mls/hr IV Q8HR BRYSON Stop: 09/26/17 15:59 Last Admin: 09/21/17 07:02 Dose: 100 mls/hr Sodium Chloride (Nacl 0.9%) 100 mls @ 999 mls/hr IV ILENE PRN PRN Reason: Hypotension Dextrose/Sodium Chloride (D5/0.45ns) 1,000 mls @ 42 mls/hr IV DIRECT [facility] Insulin Human Regular (Novolin R) 0 units SUB-Q ACHS BRYSON PRN Reason: Protocol Last Admin: 09/21/17 11:53 Dose: Not Given Metoprolol Tartrate (Lopressor) 50 mg PO TID [facility] Last Admin: 09/21/17 08:56 Dose: Not Given Multivit/Ca Carb/B Cmplx/FA/Prenat (Renal Caps) 1 cap PO QDAY [facility] Last Admin: 09/21/17 10:24 Dose: Not Given Ondansetron HCl (Zofran) 4 mg IV Q6H PRN PRN Reason: Nausea And Vomiting Pantoprazole Sodium (Protonix) 40 mg PO DAILY [facility] Last Admin: 09/21/17 10:24 Dose: Not Given Pravastatin Sodium (Pravachol) 20 mg PO QHS [facility] Last Admin: 09/20/17 22:43 Dose: 20 mg Senna/Docusate Sodium (Senokot S) 1 tab PO PRN PRN PRN Reason: Constipation Last Admin: 09/13/17 10:57 Dose: 1 tab Simple Syrup (Simple Syrup) 15 ml FEEDTUBE PRN PRN PRN Reason: Hypoglycemia Simple Syrup (Simple Syrup) 30 ml FEEDTUBE PRN PRN PRN Reason: Hypoglycemia Sodium Bicarbonate (Sodium Bicarbonate) 325 mg FEEDTUBE PRN PRN PRN Reason: For Clogged Feeding Tube Objective Vital Signs - 12hr 09/21/17 07:43 Temperature 98.8 F Pulse Rate 55 L Respiratory 18 Rate Blood Pressure 116/46 O2 Sat by Pulse 97 Oximetry Constitutional: no acute distress, alert Eyes: non-icteric ENT: oropharynx moist Neck: supple Ascultation: Bilateral: clear Cardiovascular: regular rate and rhythm (no mrg) Gastrointestinal: normoactive bowel sounds, non-tender Integumentary: normal Extremities: no cyanosis, no edema, pink and warm, other (s/p BKA bilaterally) Neurologic: normal mental status, non-focal exam, pupils equal and round Psychiatric: mood appropriate, affect normal CBC and BMP: 09/17/17 04:08 09/17/17 14:45 ABG, PT/INR, D-dimer: ABG POC ABG pH 7.414 (7.35-7.45) 09/17/17 15:02 POC ABG pCO2 44.8 (35-45) 09/17/17 15:02 POC ABG pO2 116 (80-105) H 09/17/17 15:02 POC ABG HCO3 28.6 09/17/17 15:02 POC ABG Total CO2 30 09/17/17 15:02 POC ABG O2 Sat 99 09/17/17 15:02 PT/INR, D-dimer PT 14.3 Sec. (12.2-14.9) 09/11/17 06:21 INR 1.06 (0.87-1.13) 09/11/17 06:21 Abnormal lab findings: Abnormal Labs 09/11/17 09/11/17 09/11/17 06:21 06:21 06:21 WBC 22.0 H RBC 3.46 L Hgb 10.7 L Hct 33.1 L MCV 96 H RDW 19.2 H Lymph % (Auto) [place] % (Auto) Lymph # [place] # Seg Neutrophils % Seg Neuts % (Manual) 90.5 H Lymphocytes % (Manual) 4.0 L Monocytes % (Manual) Eosinophils % (Manual) Seg Neutrophils # Seg Neutrophils # Man 19.9 H Lymphocytes # (Manual) 0.9 L Monocytes # (Manual) 0.9 H Eosinophils # (Manual) APTT 42.6 H POC ABG pCO2 POC ABG pO2 Chloride 93.5 L Carbon Dioxide 31 H BUN 32 H Creatinine 4.3 H Glucose 121 H POC Glucose Calcium C-Reactive Protein Albumin 3.1 L Lipase 8 L 09/11/17 09/11/17 09/11/17 11:57 16:09 22:00 WBC RBC Hgb Hct MCV RDW Lymph % (Auto) [place] % (Auto) Lymph # [place] # Seg Neutrophils % Seg Neuts % (Manual) Lymphocytes % (Manual) Monocytes % (Manual) Eosinophils % (Manual) Seg Neutrophils # Seg Neutrophils # Man Lymphocytes # (Manual) Monocytes # (Manual) Eosinophils # (Manual) APTT POC ABG pCO2 POC ABG pO2 Chloride Carbon Dioxide BUN Creatinine Glucose POC Glucose 142 H 133 H 140 H Calcium C-Reactive Protein Albumin Lipase 09/12/17 09/12/17 09/12/17 09:08 09:08 11:21 WBC 18.7 H RBC 3.41 L Hgb 10.6 L Hct 32.5 L MCV 95 H RDW 18.6 H Lymph % (Auto) [place] % (Auto) Lymph # [place] # Seg Neutrophils % Seg Neuts % (Manual) Lymphocytes % (Manual) Monocytes % (Manual) Eosinophils % (Manual) Seg Neutrophils # Seg Neutrophils # Man Lymphocytes # (Manual) Monocytes # (Manual) Eosinophils # (Manual) APTT POC ABG pCO2 POC ABG pO2 Chloride 96.7 L Carbon Dioxide BUN 21 H Creatinine 3.0 H Glucose 122 H POC Glucose 170 H Calcium C-Reactive Protein Albumin Lipase 09/12/17 09/13/17 09/13/17 21:46 04:56 04:56 WBC 17.0 H RBC 3.42 L Hgb 10.4 L Hct 32.9 L MCV 96 H RDW 19.0 H Lymph % (Auto) [place] % (Auto) Lymph # [place] # Seg Neutrophils % Seg Neuts % (Manual) 71.0 H Lymphocytes % (Manual) 9.0 L Monocytes % (Manual) 9.0 H Eosinophils % (Manual) 7.0 H Seg Neutrophils # Seg Neutrophils # Man 12.1 H Lymphocytes # (Manual) Monocytes # (Manual) 1.5 H Eosinophils # (Manual) 1.2 H APTT POC ABG pCO2 POC ABG pO2 Chloride 97.3 L Carbon Dioxide BUN 30 H Creatinine 4.1 H Glucose 72 L POC Glucose 111 H Calcium C-Reactive Protein Albumin Lipase 09/13/17 09/13/17 09/14/17 14:18 16:52 16:49 WBC RBC Hgb Hct MCV RDW Lymph % (Auto) [place] % (Auto) Lymph # [place] # Seg Neutrophils % Seg Neuts % (Manual) Lymphocytes % (Manual) Monocytes % (Manual) Eosinophils % (Manual) Seg Neutrophils # Seg Neutrophils # Man Lymphocytes # (Manual) Monocytes # (Manual) Eosinophils # (Manual) APTT POC ABG pCO2 POC ABG pO2 Chloride Carbon Dioxide BUN Creatinine Glucose POC Glucose 123 H 175 H Calcium C-Reactive Protein 19.90 H Albumin Lipase 09/15/17 09/15/17 09/15/17 07:27 11:33 16:50 WBC RBC Hgb Hct MCV RDW Lymph % (Auto) [place] % (Auto) Lymph # [place] # Seg Neutrophils % Seg Neuts % (Manual) Lymphocytes % (Manual) Monocytes % (Manual) Eosinophils % (Manual) Seg Neutrophils # Seg Neutrophils # Man Lymphocytes # (Manual) Monocytes # (Manual) Eosinophils # (Manual) APTT POC ABG pCO2 POC ABG pO2 Chloride Carbon Dioxide BUN Creatinine Glucose POC Glucose 109 H 165 H 121 H Calcium C-Reactive Protein Albumin Lipase 09/15/17 09/16/17 09/17/17 17:08 14:10 00:45 WBC RBC Hgb Hct MCV RDW Lymph % (Auto) [place] % (Auto) Lymph # [place] # Seg Neutrophils % Seg Neuts % (Manual) Lymphocytes % (Manual) Monocytes % (Manual) Eosinophils % (Manual) Seg Neutrophils # Seg Neutrophils # Man Lymphocytes # (Manual) Monocytes # (Manual) Eosinophils # (Manual) APTT POC ABG pCO2 48.8 H POC ABG pO2 76 L Chloride Carbon Dioxide BUN Creatinine Glucose POC Glucose 129 H 64 L Calcium C-Reactive Protein Albumin Lipase 09/17/17 09/17/17 09/17/17 04:08 14:45 15:02 WBC RBC 3.19 L Hgb 10.0 L Hct 30.6 L MCV 96 H RDW 19.1 H Lymph % (Auto) 7.1 L [place] % (Auto) 9.7 H Lymph # 0.8 L [place] # 1.1 H Seg Neutrophils % 80.8 H Seg Neuts % (Manual) Lymphocytes % (Manual) Monocytes % (Manual) Eosinophils % (Manual) Seg Neutrophils # 8.8 H Seg Neutrophils # Man Lymphocytes # (Manual) Monocytes # (Manual) Eosinophils # (Manual) APTT POC ABG pCO2 POC ABG pO2 116 H Chloride Carbon Dioxide BUN 22 H Creatinine 3.7 H Glucose POC Glucose Calcium 8.3 L C-Reactive Protein Albumin Lipase 09/17/17 09/18/17 09/19/17 22:18 16:25 07:29 WBC RBC Hgb Hct MCV RDW Lymph % (Auto) [place] % (Auto) Lymph # [place] # Seg Neutrophils % Seg Neuts % (Manual) Lymphocytes % (Manual) Monocytes % (Manual) Eosinophils % (Manual) Seg Neutrophils # Seg Neutrophils # Man Lymphocytes # (Manual) Monocytes # (Manual) Eosinophils # (Manual) APTT POC ABG pCO2 POC ABG pO2 Chloride Carbon Dioxide BUN Creatinine Glucose POC Glucose 113 H 183 H 122 H Calcium C-Reactive Protein Albumin Lipase 09/19/17 09/19/17 09/20/17 11:47 16:26 07:34 WBC RBC Hgb Hct MCV RDW Lymph % (Auto) [place] % (Auto) Lymph # [place] # Seg Neutrophils % Seg Neuts % (Manual) Lymphocytes % (Manual) Monocytes % (Manual) Eosinophils % (Manual) Seg Neutrophils # Seg Neutrophils # Man Lymphocytes # (Manual) Monocytes # (Manual) Eosinophils # (Manual) APTT POC ABG pCO2 POC ABG pO2 Chloride Carbon Dioxide BUN Creatinine Glucose POC Glucose 121 H 121 H 62 L Calcium C-Reactive Protein Albumin Lipase 09/20/17 17:03 WBC RBC Hgb Hct MCV RDW Lymph % (Auto) [place] % (Auto) Lymph # [place] # Seg Neutrophils % Seg Neuts % (Manual) Lymphocytes % (Manual) Monocytes % (Manual) Eosinophils % (Manual) Seg Neutrophils # Seg Neutrophils # Man Lymphocytes # (Manual) Monocytes # (Manual) Eosinophils # (Manual) APTT POC ABG pCO2 POC ABG pO2 Chloride Carbon Dioxide BUN Creatinine Glucose POC Glucose 156 H Calcium C-Reactive Protein Albumin Lipase Chest x-ray: report reviewed, image reviewed CT scan - chest: report reviewed, image reviewed
--- NOTE | 2017-09-21 18:29 | Progress Note ---
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 -case dw ID --upon discharge will do vancomycin 1 g IV on HD 3 times a week for 2 weeks from 09/13 until 09/26/17 /Dysphagia with aspiration Speech therapy input appreciated, keep patient nothing by mouth, NG tube was placed twice on 09/16. The patient pulled it out twice. improved, has been restarted on diet /Acute hypoxic respiratory failure related to aspiration. Has now resolved. /DVT prophylaxis - We'll cont on SCD Brief History: This Is a 72-year-old male with h/o ESRD on HD, s/p b/l BKA, atrial fib, [facility] a local [facility] for coffee-ground emesis and vomiting blood. at time of admission he had desated to 89 and was using accessory muscles to breath, c/o generalized weakness. Repeat CXR on 09/15/17 is concerning for lung nodule. He is waiting for lung biopsy Radiological test: Chest x-ray on 09/11 showed no acute infiltrates Chest x-ray on 09/15/2017 showed no infiltrates and 2.4 cm nodule at the left lung apex. 09/18/2017 showed 2.3 x 2.4 cm left upper lobe mass which is worrisome for malignancy tissue diagnosis is recommended. History Interval history: Patient seen and examined Tolerating diet, denies emesis, denies hematemeis or abdominal pain no chest pain, , no fever, no POSADAS, mentation now improved Hospitalist Physical General.: Appears chronically ill HEENT: Moist mucous membranes, extraocular muscles intact, no lymphadenopathy Neck: supple Cardiac: S1-S2 heard Lungs: clear to auscultation bilaterally Abdomen: soft , nontender, nondistended, bowel sounds positive Extremities: no edema clubbing or cyanosis Skin: no rash or lesions Neurologic: alert and moves all extremities Psych: appropriate behavior, appropriate mood, corporative, judgment intact Subjective Date of service: 09/21/17 Principal diagnosis: UGI bleed Objective - Constitutional Vitals: Vital Signs - 12hr 09/21/17 09/21/17 09/21/17 07:43 10:00 10:15 Temperature 98.8 F 98.2 F Pulse Rate 55 L 56 L Respiratory 18 18 Rate Blood Pressure 116/46 120/56 O2 Sat by Pulse 97 100 Oximetry 09/21/17 09/21/17 09/21/17 10:30 10:45 11:00 Temperature Pulse Rate 59 L 71 63 Respiratory Rate Blood Pressure 116/59 103/52 110/71 O2 Sat by Pulse Oximetry 09/21/17 09/21/17 09/21/17 11:15 11:30 11:45 Temperature Pulse Rate 65 63 78 Respiratory Rate Blood Pressure 106/62 101/57 114/64 O2 Sat by Pulse Oximetry 09/21/17 09/21/17 09/21/17 12:00 12:15 12:30 Temperature Pulse Rate 61 59 L 63 Respiratory Rate Blood Pressure 109/64 101/57 92/66 O2 Sat by Pulse Oximetry 09/21/17 09/21/17 09/21/17 12:45 13:00 13:15 Temperature Pulse Rate 68 65 62 Respiratory Rate Blood Pressure 114/62 97/56 91/73 O2 Sat by Pulse Oximetry 09/21/17 13:20 Temperature 98.4 F Pulse Rate 65 Respiratory 18 Rate Blood Pressure 107/62 O2 Sat by Pulse Oximetry - Labs CBC & Chem 7: 09/17/17 04:08 09/17/17 14:45
[2017-09-21] MEDS: PRAVACHOL PO SCH (21:12)
[2017-09-22 01:43] LABS: Hematocrit 32.1 % (35.5-45.6); Hemoglobin 10.4 gm/dl (11.8-15.2); Mean Corpuscular HGB Conc 32 % (32-34); Mean Corpuscular Hemoglobin 31 pg (28-32); Mean Corpuscular Volume 95 fl (84-94); Platelet Count 428 K/mm3 (140-440); Red Blood Count 3.39 M/mm3 (3.65-5.03); Red Cell Distribution Width 18.6 % (13.2-15.2)
[2017-09-22 01:54] LABS: INR 1.07 (0.87-1.13)
[2017-09-22 01:59] LABS: Calcium 8.1 mg/dL (8.4-10.2)
[2017-09-22] MEDS: ZOSYN/NS 2.25 GM/50ML 2.25 GM/50 ML BAG IV SCH ×3 (05:58→22:32)
[2017-09-22] MEDS: LOPRESSOR PO SCH ×3 (08:00→21:50)
--- NOTE | 2017-09-22 08:25 | Progress Note ---
Assessment and Plan 1. ESRD: Continue hemodialysis three times a week, TTS schedule. 2. Anemia: Hb remains stable. Epogen if needed. 3. Enterococcal bacteremia: On Zosyn. 4. GI bleed. 5. Left upper lobe lung mass: Scheduled to get biopsy of the mass today. Subjective Date of service: 09/22/17 Principal diagnosis: UGI bleed Interval history: Patient was seen and examined at the bedside. Patient is doing ok. Objective - Vital Signs Vital signs: Vital Signs - 12hr 09/21/17 09/22/17 09/22/17 20:57 04:26 07:31 Temperature 97.3 F L Pulse Rate 64 Respiratory 18 Rate Blood Pressure 116/50 117/45 O2 Sat by Pulse 98 Oximetry - General Appearance General appearance: well-developed, appears stated age, other (no distress) EENT: ATNC, PERRL, hearing intact Neck: supple Respiratory: Present: Clear to Ascultation Cardiology: S1S2, no murmurs Gastrointestinal: normoactive bowel sounds, no tenderness, no distended Integumentary: no rash, warm and dry Neurologic: no asterixis, confused Musculoskeletal: other (no edema, right arm AVF, bilateral BKA) Psychiatric: mood/affect appropriate, cooperative - Lab 09/22/17 01:12 09/22/17 01:12 Most recent lab results Calcium 8.1 mg/dL (8.4-10.2) L 09/22/17 01:12
[2017-09-22] MEDS ORDERED: SUBLIMAZE IV ONE (09:10)
[2017-09-22] MEDS ORDERED: VERSED IV ONE (09:10)
--- NOTE | 2017-09-22 10:36 | Procedure Note ---
Date of procedure: 09/22/17 Pre-op diagnosis: Left lung mass Post-op diagnosis: same Procedure: CT left lung biopsy Findings: 2cm FELICITA mass Anesthesia: other (moderate sedation, local) Surgeon: LETICIA TABARES Estimated blood loss: none Pathology: list (20 gauge core x 2) Specimen disposition: to lab Condition: stable Disposition: floor
[2017-09-22] MEDS: Renal Caps PO SCH (11:00)
[2017-09-22] MEDS: PROTONIX PO SCH (11:00)
--- NOTE | 2017-09-22 11:55 | Progress Note ---
Assessment and Plan Assessment and plan: Patient is a 72-year-old man from [facility] with a history of end-stage renal disease on hemodialysis, status post bilateral BKA, atrial fibrillation, hypertension and peripheral vascular disease who presented with nausea vomiting of coffee-ground emesis and found to have a pulse oximetry 89% on 2 L. 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 - Electrolytes currently stable - HD per nephrology recommendation - he is on TTS schedule /Hypertension -We'll cont home meds and monitor BP every 4 hour /Paroxysmal atrial fibrillation - We'll continue beta jake for heart rate control - not on a/c now due to UGIB /Diabetes mellitus type 2 on insulin -For now will keep him on sliding scale of insulin /Bilateral BKA -Supportive care /Leukocytosis-->Sepsis GN bacteremia, ?line infection - likely due to bacteremia - will follow final blood cx result and cover with abx for now /Enterococcal bacteremia, gram positive sepsis: sepsis - cont zosyn for now, ID following -S/p removal of the tunnel dialysis catheter. -case dw ID --upon discharge will do vancomycin 1 g IV on HD 3 times a week for 2 weeks from 09/13 until 09/26/17 /Dysphagia with aspiration Speech therapy input appreciated, keep patient nothing by mouth, NG tube was placed twice on 09/16. The patient pulled it out twice. improved, has been restarted on diet /Acute hypoxic respiratory failure related to aspiration pneumonitis, poa, on abx. Has now resolved. /DVT prophylaxis - We'll cont on SCD 09/13/17 EGD "Operative Report: ESOPHAGOGASTRODUODENOSCOPY Date of procedure: 09/13/2017 Endoscopist: Saud Parks Pre-op indication: UGI bleed (coffee ground emesis) Post-op findings: Esophagitis, hiatal hernia Anesthesia/Medications: MAC Estimated Blood Loss: none Complications: No immediate complications Procedure: After consent was obtained from the patient's son (over phone), the patent was placed in the left lateral decubitus position. The fujinon upper endoscope was inserted into the patient's mouth under direct vision, and advanced to the 2nd portion of duodenum without difficulty. The views of the mucosa were good. The patient tolerated the procedure fairly well. The patient's vital signs were monitored continuously throughout the procedure. Findings: There was moderately-severe esophagitis in the mid-lower third of the esophagus. No high risk bleeding lesions. There was a hiatal hernia. The stomach appeared normal. The duodenum appeared normal. Bile was seen throughout the duodenum (no blood) Impression: 1. Moderately-severe esophagitis. Likely source of coffee ground emesis. Otherwise, no significant findings. Recommendations: -cont PPI daily -avoid nsaid's -okay to restart diet Will sign off, please call as needed or with questions." per Saud Byrd Operative Report: EXAM: REMOVAL OF TUNNELED HEMODIALYSIS CATHETER CLINICAL INDICATION: CATHETER NO LONGER NEEDED DATE: 09/13/2017 PROCEDURE: Following an explanation of the risks, benefits and alternatives; informed consent was obtained. The procedure was performed at bedside in the patient's room. The patient's right shoulder, chest wall and indwelling tunneled hemodialysis catheter were prepped and draped in the usual sterile fashion. 2% lidocaine was used for anesthesia at the catheter exit site and along the tunnel tract. The catheter cuff was freed using a combination of sharp and blunt dissection. The catheter was then removed intact. Pressure was held to T hemostasis. A sterile pressure dressing was then applied. The patient tolerated the procedure well. There were no immediate post procedure complications. IMPRESSION: 1) Removal of tunneled hemodialysis catheter" Dr. Weaver History Interval history: Patient was seen and examined. Follow-up on current diagnosis. Overnight uneventful. Patient denies any chest pain, shortness breath, nausea/vomiting or severe headaches. Imaging, nursing note, chart, labs and old chart reviewed. Discussed with patient. He was to go home. Hospitalist Physical - Physical exam Narrative exam: GEN: Thin frail chronically debilitated man BMI 19 NAD, AWAKE, ALERT, ORIENTATED 3 HEENT: NCAT, EOMI, PERRL, OP Clear NECK: supple, no adenopathy, no thyromegaly, no JVD CVS/HEART: Regular bradycardic heart rate 58 NORMAL S1S2, NO JVD, pulses present bilaterally CHEST/LUNGS: Symmetrical chest expansion, good air entry bilaterally GI/Abdomen: soft, NTND, good bowel sounds, no guarding or rebound /Bladder: no suprapubic tenderness, no CVA or paraspinal tenderness EXT/Skin: no c/c/e, no obvious rash MSK: Bilateral BKA Neuro: CN 2-12 grossly intact, no new focal deficits Psych: calm - Constitutional Vitals: Temp Pulse Resp BP Pulse Ox 97.2 F L 58 L 16 110/39 100 09/22/17 10:10 09/22/17 10:40 09/22/17 10:40 09/22/17 10:40 09/22/17 10:40 General appearance: Present: no acute distress Results - Labs CBC & Chem 7: 09/22/17 01:12 09/22/17 01:12 Labs: Laboratory Last Values WBC 8.7 K/mm3 (4.5-11.0) 09/22/17 01:12 RBC 3.39 M/mm3 (3.65-5.03) L 09/22/17 01:12 Hgb 10.4 gm/dl (11.8-15.2) L 09/22/17 01:12 Hct 32.1 % (35.5-45.6) L 09/22/17 01:12 MCV 95 fl (84-94) H 09/22/17 01:12 MCH 31 pg (28-32) 09/22/17 01:12 MCHC 32 % (32-34) 09/22/17 01:12 RDW 18.6 % (13.2-15.2) H 09/22/17 01:12 Plt Count 428 K/mm3 (140-440) 09/22/17 01:12 Lymph % (Auto) 7.1 % (13.4-35.0) L 09/17/17 04:08 [place] % (Auto) 9.7 % (0.0-7.3) H 09/17/17 04:08 Eos % (Auto) 1.7 % (0.0-4.3) 09/17/17 04:08 Baso % (Auto) 0.7 % (0.0-1.8) 09/17/17 04:08 Lymph # 0.8 K/mm3 (1.2-5.4) L 09/17/17 04:08 [place] # 1.1 K/mm3 (0.0-0.8) H 09/17/17 04:08 Eos # 0.2 K/mm3 (0.0-0.4) 09/17/17 04:08 Baso # 0.1 K/mm3 (0.0-0.1) 09/17/17 04:08 Add Manual Diff Complete 09/13/17 04:56 Total Counted 100 09/13/17 04:56 Seg Neutrophils % 80.8 % (40.0-70.0) H 09/17/17 04:08 Seg Neuts % (Manual) 71.0 % (40.0-70.0) H 09/13/17 04:56 Band Neutrophils % 4.0 % 09/13/17 04:56 Lymphocytes % (Manual) 9.0 % (13.4-35.0) L 09/13/17 04:56 Reactive Lymphs % (Man) 0 % 09/13/17 04:56 Monocytes % (Manual) 9.0 % (0.0-7.3) H 09/13/17 04:56 Eosinophils % (Manual) 7.0 % (0.0-4.3) H 09/13/17 04:56 Basophils % (Manual) 0 % (0.0-1.8) 09/13/17 04:56 Metamyelocytes % 0 % 09/13/17 04:56 Myelocytes % 0 % 09/13/17 04:56 Promyelocytes % 0 % 09/13/17 04:56 Blast Cells % 0 % 09/13/17 04:56 Nucleated RBC % Not Reportable 09/13/17 04:56 Seg Neutrophils # 8.8 K/mm3 (1.8-7.7) H 09/17/17 04:08 Seg Neutrophils # Man 12.1 K/mm3 (1.8-7.7) H 09/13/17 04:56 Band Neutrophils # 0.7 K/mm3 09/13/17 04:56 Lymphocytes # (Manual) 1.5 K/mm3 (1.2-5.4) 09/13/17 04:56 Abs React Lymphs (Man) 0.0 K/mm3 09/13/17 04:56 Monocytes # (Manual) 1.5 K/mm3 (0.0-0.8) H 09/13/17 04:56 Eosinophils # (Manual) 1.2 K/mm3 (0.0-0.4) H 09/13/17 04:56 Basophils # (Manual) 0.0 K/mm3 (0.0-0.1) 09/13/17 04:56 Metamyelocytes # 0.0 K/mm3 09/13/17 04:56 Myelocytes # 0.0 K/mm3 09/13/17 04:56 Promyelocytes # 0.0 K/mm3 09/13/17 04:56 Blast Cells # 0.0 K/mm3 09/13/17 04:56 WBC Morphology Not Reportable 09/13/17 04:56 Hypersegmented Neuts Not Reportable 09/13/17 04:56 Hyposegmented Neuts Not Reportable 09/13/17 04:56 Hypogranular Neuts Not Reportable 09/13/17 04:56 Smudge Cells Not Reportable 09/13/17 04:56 Toxic Granulation Not Reportable 09/13/17 04:56 Toxic Vacuolation Not Reportable 09/13/17 04:56 Dohle Bodies Not Reportable 09/13/17 04:56 Pelger-Huet Anomaly Not Reportable 09/13/17 04:56 Kody Rods Not Reportable 09/13/17 04:56 Platelet Estimate Appears normal 09/13/17 04:56 Clumped Platelets Not Reportable 09/13/17 04:56 Plt Clumps, EDTA Not Reportable 09/13/17 04:56 Large Platelets Not Reportable 09/13/17 04:56 Giant Platelets Not Reportable 09/13/17 04:56 Platelet Satelliting Not Reportable 09/13/17 04:56 Plt Morphology Comment Not Reportable 09/13/17 04:56 RBC Morphology Not Reportable 09/13/17 04:56 Dimorphic RBCs Not Reportable 09/13/17 04:56 Polychromasia Not Reportable 09/13/17 04:56 Hypochromasia 1+ 09/13/17 04:56 Poikilocytosis Not Reportable 09/13/17 04:56 Anisocytosis 1+ 09/13/17 04:56 Microcytosis Not Reportable 09/13/17 04:56 Macrocytosis Not Reportable 09/13/17 04:56 Spherocytes Not Reportable 09/13/17 04:56 Pappenheimer Bodies Not Reportable 09/13/17 04:56 Sickle Cells Not Reportable 09/13/17 04:56 Target Cells Not Reportable 09/13/17 04:56 Tear Drop Cells Not Reportable 09/13/17 04:56 Ovalocytes Not Reportable 09/13/17 04:56 Helmet Cells Not Reportable 09/13/17 04:56 [place] Bodies Not Reportable 09/13/17 04:56 Kinsey Rings Not Reportable 09/13/17 04:56 Mary Cells Not Reportable 09/13/17 04:56 Bite Cells Not Reportable 09/13/17 04:56 Crenated Cell Not Reportable 09/13/17 04:56 Elliptocytes Not Reportable 09/13/17 04:56 Acanthocytes (Spur) Not Reportable 09/13/17 04:56 Rouleaux Not Reportable 09/13/17 04:56 Hemoglobin C Crystals Not Reportable 09/13/17 04:56 Schistocytes Not Reportable 09/13/17 04:56 Malaria parasites Not Reportable 09/13/17 04:56 Marcelino Bodies Not Reportable 09/13/17 04:56 Hem Pathologist Commnt No 09/13/17 04:56 PT 14.5 Sec. (12.2-14.9) 09/22/17 01:12 INR 1.07 (0.87-1.13) 09/22/17 01:12 APTT 42.6 Sec. (24.2-36.6) H 09/11/17 06:21 POC ABG pH 7.414 (7.35-7.45) 09/17/17 15:02 POC ABG pCO2 44.8 (35-45) 09/17/17 15:02 POC ABG pO2 116 (80-105) H 09/17/17 15:02 POC ABG HCO3 28.6 09/17/17 15:02 POC ABG Total CO2 30 09/17/17 15:02 POC ABG O2 Sat 99 09/17/17 15:02 POC ABG Base Excess 4 09/17/17 15:02 FiO2 2 % 09/17/17 15:02 Sodium 134 mmol/L (137-145) L D 09/22/17 01:12 Potassium 3.5 mmol/L (3.6-5.0) L 09/22/17 01:12 Chloride 91.7 mmol/L (98-107) L 09/22/17 01:12 Carbon Dioxide 29 mmol/L (22-30) 09/22/17 01:12 Anion Gap 17 mmol/L 09/22/17 01:12 BUN 11 mg/dL (9-20) 09/22/17 01:12 Creatinine 3.5 mg/dL (0.8-1.5) H 09/22/17 01:12 Estimated GFR 21 ml/min 09/22/17 01:12 BUN/Creatinine Ratio 3 % 09/22/17 01:12 Glucose 77 mg/dL (75-100) 09/22/17 01:12 POC Glucose 79 (70-105) 09/22/17 07:21 Calcium 8.1 mg/dL (8.4-10.2) L 09/22/17 01:12 Total Bilirubin 0.30 mg/dL (0.1-1.2) 09/11/17 06:21 AST 14 units/L (5-40) 09/11/17 06:21 ALT 11 units/L (7-56) 09/11/17 06:21 Alkaline Phosphatase 103 units/L (35-129) 09/11/17 06:21 Ammonia 28.0 umol/L (25-60) 09/17/17 14:45 C-Reactive Protein 19.90 mg/dL (0.00-1.30) H 09/13/17 14:18 Total Protein 6.7 g/dL (6.3-8.2) 09/11/17 06:21 Albumin 3.1 g/dL (3.9-5) L 09/11/17 06:21 Albumin/Globulin Ratio 0.9 % 09/11/17 06:21 Lipase 8 units/L (13-60) L 09/11/17 06:21 Blood Type O POSITIVE 09/11/17 06:25 Antibody Screen Negative 09/11/17 06:25
--- NOTE | 2017-09-22 13:40 | Progress Note ---
Assessment and Plan Imp: 1. Lung mass 2. ESRD 3. Permcath infection -> bacteremia/sepsis, better 4. Esophagitis -> UGIB, better Rec: 1. F/u biopsy pathology 2. Outpatient PET, etc. 3. Monitor Plan of care reviewed with patient, he understands/agrees Subjective Date of service: 09/22/17 Principal diagnosis: UGI bleed Interval history: No events. Awake, alert. On RA. Had CT guided biopsy. No SOB, chest pain. No complaints. Active Medications Lipase/Protease/Amylase (Pancreaze Dr 10,500 Unit) 1 each FEEDTUBE PRN PRN PRN Reason: For Clogged Feeding Tube Chlorpromazine HCl (Thorazine) 25 mg IM Q6H PRN PRN Reason: Hiccups Last Admin: 09/15/17 23:53 Dose: 25 mg Dextrose (D50w (25gm) Syringe) 50 ml IV PRN PRN PRN Reason: Hypoglycemia Epoetin Pedro (Procrit) 10,000 unit IV ILENE PRN PRN Reason: hemodialysis Last Admin: 09/18/17 13:54 Dose: 10,000 unit Heparin Sodium (Porcine) (Heparin) 5,000 unit IV ILENE PRN PRN Reason: hemodialysis Last Admin: 09/11/17 20:45 Dose: 5,000 unit Piperacillin Sod/Tazobactam Sod (Zosyn/Ns 2.25 Gm/50ml) 2.25 gm in 50 mls @ 100 mls/hr IV Q8HR [facility] Stop: 09/26/17 15:59 Last Admin: 09/22/17 05:58 Dose: 100 mls/hr Sodium Chloride (Nacl 0.9%) 100 mls @ 999 mls/hr IV ILENE PRN PRN Reason: Hypotension Dextrose/Sodium Chloride (D5/0.45ns) 1,000 mls @ 42 mls/hr IV DIRECT [facility] Insulin Human Regular (Novolin R) 0 units SUB-Q ACHS BRYSON PRN Reason: Protocol Last Admin: 09/21/17 21:22 Dose: Not Given Metoprolol Tartrate (Lopressor) 50 mg PO TID [facility] Last Admin: 09/21/17 20:57 Dose: Not Given Multivit/Ca Carb/B Cmplx/FA/Prenat (Renal Caps) 1 cap PO QDAY [facility] Last Admin: 09/21/17 10:24 Dose: Not Given Ondansetron HCl (Zofran) 4 mg IV Q6H PRN PRN Reason: Nausea And Vomiting Pantoprazole Sodium (Protonix) 40 mg PO DAILY [facility] Last Admin: 09/21/17 10:24 Dose: Not Given Pravastatin Sodium (Pravachol) 20 mg PO QHS [facility] Last Admin: 09/21/17 21:12 Dose: 20 mg Senna/Docusate Sodium (Senokot S) 1 tab PO PRN PRN PRN Reason: Constipation Last Admin: 09/13/17 10:57 Dose: 1 tab Simple Syrup (Simple Syrup) 15 ml FEEDTUBE PRN PRN PRN Reason: Hypoglycemia Simple Syrup (Simple Syrup) 30 ml FEEDTUBE PRN PRN PRN Reason: Hypoglycemia Sodium Bicarbonate (Sodium Bicarbonate) 325 mg FEEDTUBE PRN PRN PRN Reason: For Clogged Feeding Tube Objective Vital Signs - 12hr 09/22/17 09/22/17 09/22/17 04:26 07:16 07:31 Temperature 97.3 F L 98.7 F Temperature [ Post-Procedure] Pulse Rate 57 L Pulse Rate [ Intra-Procedure ] Pulse Rate [ Post-Procedure] Pulse Rate [Pre -Procedure] Respiratory 18 20 Rate Respiratory Rate [Intra- Procedure] Respiratory Rate [Post- Procedure] Respiratory Rate [Pre- Procedure] Blood Pressure 117/45 116/53 Blood Pressure [Intra- Procedure] Blood Pressure [Post-Procedure ] Blood Pressure [Pre-Procedure] O2 Sat by Pulse 99 98 Oximetry O2 Sat by Pulse Oximetry [ Intra-Procedure ] O2 Sat by Pulse Oximetry [Post -Procedure] O2 Sat by Pulse Oximetry [Pre- Procedure] 09/22/17 09/22/17 09/22/17 09:55 10:00 10:05 Temperature Temperature [ Post-Procedure] Pulse Rate Pulse Rate [ 56 L 59 L Intra-Procedure ] Pulse Rate [ Post-Procedure] Pulse Rate [Pre 56 L -Procedure] Respiratory Rate Respiratory 11 L 14 Rate [Intra- Procedure] Respiratory Rate [Post- Procedure] Respiratory 18 Rate [Pre- Procedure] Blood Pressure Blood Pressure 123/48 102/37 [Intra- Procedure] Blood Pressure [Post-Procedure ] Blood Pressure 111/53 [Pre-Procedure] O2 Sat by Pulse Oximetry O2 Sat by Pulse 97 100 Oximetry [ Intra-Procedure ] O2 Sat by Pulse Oximetry [Post -Procedure] O2 Sat by Pulse 100 Oximetry [Pre- Procedure] 09/22/17 09/22/17 09/22/17 10:10 10:25 10:40 Temperature Temperature [ 97.2 F L Post-Procedure] Pulse Rate Pulse Rate [ Intra-Procedure ] Pulse Rate [ 60 55 L 58 L Post-Procedure] Pulse Rate [Pre -Procedure] Respiratory Rate Respiratory Rate [Intra- Procedure] Respiratory 11 L 11 L 16 Rate [Post- Procedure] Respiratory Rate [Pre- Procedure] Blood Pressure Blood Pressure [Intra- Procedure] Blood Pressure 102/39 109/37 110/39 [Post-Procedure ] Blood Pressure [Pre-Procedure] O2 Sat by Pulse Oximetry O2 Sat by Pulse Oximetry [ Intra-Procedure ] O2 Sat by Pulse 100 100 100 Oximetry [Post -Procedure] O2 Sat by Pulse Oximetry [Pre- Procedure] Constitutional: no acute distress, alert Eyes: non-icteric ENT: oropharynx moist Neck: supple Effort: normal Ascultation: Bilateral: clear Cardiovascular: regular rate and rhythm (no mrg) Gastrointestinal: normoactive bowel sounds, non-tender Integumentary: normal Extremities: no cyanosis, no edema, pink and warm, other (s/p BKA bilaterally) Neurologic: normal mental status, non-focal exam, pupils equal and round Psychiatric: mood appropriate, affect normal CBC and BMP: 09/22/17 01:12 09/22/17 01:12 ABG, PT/INR, D-dimer: ABG POC ABG pH 7.414 (7.35-7.45) 09/17/17 15:02 POC ABG pCO2 44.8 (35-45) 09/17/17 15:02 POC ABG pO2 116 (80-105) H 09/17/17 15:02 POC ABG HCO3 28.6 09/17/17 15:02 POC ABG Total CO2 30 09/17/17 15:02 POC ABG O2 Sat 99 09/17/17 15:02 PT/INR, D-dimer PT 14.5 Sec. (12.2-14.9) 09/22/17 01:12 INR 1.07 (0.87-1.13) 09/22/17 01:12 Abnormal lab findings: Abnormal Labs 09/11/17 09/11/17 09/11/17 06:21 06:21 06:21 WBC 22.0 H RBC 3.46 L Hgb 10.7 L Hct 33.1 L MCV 96 H RDW 19.2 H Lymph % (Auto) [place] % (Auto) Lymph # [place] # Seg Neutrophils % Seg Neuts % (Manual) 90.5 H Lymphocytes % (Manual) 4.0 L Monocytes % (Manual) Eosinophils % (Manual) Seg Neutrophils # Seg Neutrophils # Man 19.9 H Lymphocytes # (Manual) 0.9 L Monocytes # (Manual) 0.9 H Eosinophils # (Manual) APTT 42.6 H POC ABG pCO2 POC ABG pO2 Sodium Potassium Chloride 93.5 L Carbon Dioxide 31 H BUN 32 H Creatinine 4.3 H Glucose 121 H POC Glucose Calcium C-Reactive Protein Albumin 3.1 L Lipase 8 L 09/11/17 09/11/17 09/11/17 11:57 16:09 22:00 WBC RBC Hgb Hct MCV RDW Lymph % (Auto) [place] % (Auto) Lymph # [place] # Seg Neutrophils % Seg Neuts % (Manual) Lymphocytes % (Manual) Monocytes % (Manual) Eosinophils % (Manual) Seg Neutrophils # Seg Neutrophils # Man Lymphocytes # (Manual) Monocytes # (Manual) Eosinophils # (Manual) APTT POC ABG pCO2 POC ABG pO2 Sodium Potassium Chloride Carbon Dioxide BUN Creatinine Glucose POC Glucose 142 H 133 H 140 H Calcium C-Reactive Protein Albumin Lipase 09/12/17 09/12/17 09/12/17 09:08 09:08 11:21 WBC 18.7 H RBC 3.41 L Hgb 10.6 L Hct 32.5 L MCV 95 H RDW 18.6 H Lymph % (Auto) [place] % (Auto) Lymph # [place] # Seg Neutrophils % Seg Neuts % (Manual) Lymphocytes % (Manual) Monocytes % (Manual) Eosinophils % (Manual) Seg Neutrophils # Seg Neutrophils # Man Lymphocytes # (Manual) Monocytes # (Manual) Eosinophils # (Manual) APTT POC ABG pCO2 POC ABG pO2 Sodium Potassium Chloride 96.7 L Carbon Dioxide BUN 21 H Creatinine 3.0 H Glucose 122 H POC Glucose 170 H Calcium C-Reactive Protein Albumin Lipase 09/12/17 09/13/17 09/13/17 21:46 04:56 04:56 WBC 17.0 H RBC 3.42 L Hgb 10.4 L Hct 32.9 L MCV 96 H RDW 19.0 H Lymph % (Auto) [place] % (Auto) Lymph # [place] # Seg Neutrophils % Seg Neuts % (Manual) 71.0 H Lymphocytes % (Manual) 9.0 L Monocytes % (Manual) 9.0 H Eosinophils % (Manual) 7.0 H Seg Neutrophils # Seg Neutrophils # Man 12.1 H Lymphocytes # (Manual) Monocytes # (Manual) 1.5 H Eosinophils # (Manual) 1.2 H APTT POC ABG pCO2 POC ABG pO2 Sodium Potassium Chloride 97.3 L Carbon Dioxide BUN 30 H Creatinine 4.1 H Glucose 72 L POC Glucose 111 H Calcium C-Reactive Protein Albumin Lipase 09/13/17 09/13/17 09/14/17 14:18 16:52 16:49 WBC RBC Hgb Hct MCV RDW Lymph % (Auto) [place] % (Auto) Lymph # [place] # Seg Neutrophils % Seg Neuts % (Manual) Lymphocytes % (Manual) Monocytes % (Manual) Eosinophils % (Manual) Seg Neutrophils # Seg Neutrophils # Man Lymphocytes # (Manual) Monocytes # (Manual) Eosinophils # (Manual) APTT POC ABG pCO2 POC ABG pO2 Sodium Potassium Chloride Carbon Dioxide BUN Creatinine Glucose POC Glucose 123 H 175 H Calcium C-Reactive Protein 19.90 H Albumin Lipase 09/15/17 09/15/17 09/15/17 07:27 11:33 16:50 WBC RBC Hgb Hct MCV RDW Lymph % (Auto) [place] % (Auto) Lymph # [place] # Seg Neutrophils % Seg Neuts % (Manual) Lymphocytes % (Manual) Monocytes % (Manual) Eosinophils % (Manual) Seg Neutrophils # Seg Neutrophils # Man Lymphocytes # (Manual) Monocytes # (Manual) Eosinophils # (Manual) APTT POC ABG pCO2 POC ABG pO2 Sodium Potassium Chloride Carbon Dioxide BUN Creatinine Glucose POC Glucose 109 H 165 H 121 H Calcium C-Reactive Protein Albumin Lipase 09/15/17 09/16/17 09/17/17 17:08 14:10 00:45 WBC RBC Hgb Hct MCV RDW Lymph % (Auto) [place] % (Auto) Lymph # [place] # Seg Neutrophils % Seg Neuts % (Manual) Lymphocytes % (Manual) Monocytes % (Manual) Eosinophils % (Manual) Seg Neutrophils # Seg Neutrophils # Man Lymphocytes # (Manual) Monocytes # (Manual) Eosinophils # (Manual) APTT POC ABG pCO2 48.8 H POC ABG pO2 76 L Sodium Potassium Chloride Carbon Dioxide BUN Creatinine Glucose POC Glucose 129 H 64 L Calcium C-Reactive Protein Albumin Lipase 09/17/17 09/17/17 09/17/17 04:08 14:45 15:02 WBC RBC 3.19 L Hgb 10.0 L Hct 30.6 L MCV 96 H RDW 19.1 H Lymph % (Auto) 7.1 L [place] % (Auto) 9.7 H Lymph # 0.8 L [place] # 1.1 H Seg Neutrophils % 80.8 H Seg Neuts % (Manual) Lymphocytes % (Manual) Monocytes % (Manual) Eosinophils % (Manual) Seg Neutrophils # 8.8 H Seg Neutrophils # Man Lymphocytes # (Manual) Monocytes # (Manual) Eosinophils # (Manual) APTT POC ABG pCO2 POC ABG pO2 116 H Sodium Potassium Chloride Carbon Dioxide BUN 22 H Creatinine 3.7 H Glucose POC Glucose Calcium 8.3 L C-Reactive Protein Albumin Lipase 09/17/17 09/18/17 09/19/17 22:18 16:25 07:29 WBC RBC Hgb Hct MCV RDW Lymph % (Auto) [place] % (Auto) Lymph # [place] # Seg Neutrophils % Seg Neuts % (Manual) Lymphocytes % (Manual) Monocytes % (Manual) Eosinophils % (Manual) Seg Neutrophils # Seg Neutrophils # Man Lymphocytes # (Manual) Monocytes # (Manual) Eosinophils # (Manual) APTT POC ABG pCO2 POC ABG pO2 Sodium Potassium Chloride Carbon Dioxide BUN Creatinine Glucose POC Glucose 113 H 183 H 122 H Calcium C-Reactive Protein Albumin Lipase 09/19/17 09/19/17 09/20/17 11:47 16:26 07:34 WBC RBC Hgb Hct MCV RDW Lymph % (Auto) [place] % (Auto) Lymph # [place] # Seg Neutrophils % Seg Neuts % (Manual) Lymphocytes % (Manual) Monocytes % (Manual) Eosinophils % (Manual) Seg Neutrophils # Seg Neutrophils # Man Lymphocytes # (Manual) Monocytes # (Manual) Eosinophils # (Manual) APTT POC ABG pCO2 POC ABG pO2 Sodium Potassium Chloride Carbon Dioxide BUN Creatinine Glucose POC Glucose 121 H 121 H 62 L Calcium C-Reactive Protein Albumin Lipase 09/20/17 09/22/17 09/22/17 17:03 01:12 01:12 WBC RBC 3.39 L Hgb 10.4 L Hct 32.1 L MCV 95 H RDW 18.6 H Lymph % (Auto) [place] % (Auto) Lymph # [place] # Seg Neutrophils % Seg Neuts % (Manual) Lymphocytes % (Manual) Monocytes % (Manual) Eosinophils % (Manual) Seg Neutrophils # Seg Neutrophils # Man Lymphocytes # (Manual) Monocytes # (Manual) Eosinophils # (Manual) APTT POC ABG pCO2 POC ABG pO2 Sodium 134 L D Potassium 3.5 L Chloride 91.7 L Carbon Dioxide BUN Creatinine 3.5 H Glucose POC Glucose 156 H Calcium 8.1 L C-Reactive Protein Albumin Lipase Chest x-ray: report reviewed, image reviewed (no obvious PTX)
--- NOTE | 2017-09-22 13:48 | XRay Report ---
AP CHEST: HISTORY: Left upper lobe mass, recent CT-guided biopsy Recent CT-guided biopsy of a 2 cm left upper lobe mass was performed. There is no evidence for pneumothorax. The remainder of the lungs are generally clear with mild chronic interstitial changes. Heart size is normal. IMPRESSION: No evidence for pneumothorax.
--- NOTE | 2017-09-22 13:52 | Cat Scan Report ---
CT BIOPSY LUNG LEFT HISTORY: Left upper lobe mass. DESCRIPTION OF PROCEDURE: Informed consent was obtained. Sterile technique was utilized. 1% lidocaine for skin anesthesia. Moderate sedation was accomplished with Versed and fentanyl. The patient was sedated for 15 minutes. Independent cardiorespiratory monitoring by RN. Intraobserver time was [address] guidance, a 19-gauge introducer needle was advanced to the leading edge of the 2 cm left upper lobe mass. 2 separate 20-gauge core biopsies were obtained for pathology. The samples were deemed adequate by the pathologist on site. No complications. IMPRESSION: Successful CT-guided biopsy of the 2 cm left upper lobe mass.
[2017-09-22] MEDS: PRAVACHOL PO SCH (22:31)
[2017-09-23] MEDS: ZOSYN/NS 2.25 GM/50ML 2.25 GM/50 ML BAG IV SCH ×2 (05:17→16:00)
[2017-09-23] MEDS: LOPRESSOR PO SCH ×2 (08:31→15:50)
[2017-09-23] MEDS: Renal Caps PO SCH (09:55)
[2017-09-23] MEDS: PROTONIX PO SCH (09:55)
--- NOTE | 2017-09-23 12:15 | Progress Note ---
Assessment and Plan 1. ESRD: Continue hemodialysis three times a week, TTS schedule. 2. Anemia: Hb remains stable. Epogen if needed. 3. Enterococcal bacteremia: On Zosyn. 4. GI bleed. 5. Left upper lobe lung mass: S/p biopsy. Subjective Date of service: 09/23/17 Principal diagnosis: UGI bleed Interval history: Patient was seen and examined at the bedside. Patient is doing ok. Objective - Vital Signs Vital signs: Vital Signs - 12hr 09/23/17 09/23/17 09/23/17 04:34 07:33 08:31 Temperature 97.6 F 98.7 F Pulse Rate 59 L Respiratory 18 18 Rate Blood Pressure 98/44 100/47 100/47 O2 Sat by Pulse 93 Oximetry 09/23/17 09/23/17 09/23/17 10:00 10:15 10:30 Temperature 98.2 F Pulse Rate 53 L 48 L 48 L Respiratory 16 Rate Blood Pressure 107/51 119/54 109/57 O2 Sat by Pulse Oximetry 09/23/17 09/23/17 09/23/17 10:45 11:00 11:15 Temperature Pulse Rate 49 L 52 L 54 L Respiratory Rate Blood Pressure 116/53 111/54 104/54 O2 Sat by Pulse Oximetry - General Appearance General appearance: well-developed, appears stated age, other (no distress) EENT: ATNC, PERRL, hearing intact Neck: supple Respiratory: Present: Clear to Ascultation Cardiology: regular, S1S2, no murmurs Gastrointestinal: normoactive bowel sounds, no tenderness, no distended Integumentary: no rash, warm and dry Neurologic: no asterixis Musculoskeletal: other (bilateral BKA, right arm AVG) Psychiatric: mood/affect appropriate, cooperative - Lab 09/22/17 01:12 09/22/17 01:12 Most recent lab results Calcium 8.1 mg/dL (8.4-10.2) L 09/22/17 01:12
[2017-09-23] MEDS: PROCRIT IV PRN (13:24)
[2017-09-23] MEDS ORDERED: NACL 0.9 (PRIMING MACHINE ONLY DIALYSIS) MC ONE (13:25)
--- NOTE | 2017-09-23 13:39 | Progress Note ---
Assessment and Plan Assessment and plan: Patient is a 72-year-old man from [facility] with a history of end-stage renal disease on hemodialysis, status post bilateral BKA, atrial fibrillation, hypertension and peripheral vascular disease who presented with nausea vomiting of coffee-ground emesis and found to have a pulse oximetry 89% on 2 L. 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 - Electrolytes currently stable - HD per nephrology recommendation - he is on TTS schedule /Hypertension -We'll cont home meds and monitor BP every 4 hour /Paroxysmal atrial fibrillation - We'll continue beta jake for heart rate control - not on a/c now due to UGIB /Diabetes mellitus type 2 on insulin -For now will keep him on sliding scale of insulin /Bilateral BKA -Supportive care /Leukocytosis-->Sepsis GN bacteremia, ?line infection - likely due to bacteremia - will follow final blood cx result and cover with abx for now /Enterococcal bacteremia, gram positive sepsis: sepsis - cont zosyn for now, ID following -S/p removal of the tunnel dialysis catheter. -case dw ID --upon discharge will do vancomycin 1 g IV on HD 3 times a week for 2 weeks from 09/13 until 09/26/17 /Dysphagia with aspiration Speech therapy input appreciated, keep patient nothing by mouth, NG tube was placed twice on 09/16. The patient pulled it out twice. improved, has been restarted on diet /Acute hypoxic respiratory failure related to aspiration pneumonitis, poa, on abx. Has now resolved. /DVT prophylaxis - We'll cont on SCD 09/13/17 EGD "Operative Report: ESOPHAGOGASTRODUODENOSCOPY Date of procedure: 09/13/2017 Endoscopist: Saud Parks Pre-op indication: UGI bleed (coffee ground emesis) Post-op findings: Esophagitis, hiatal hernia Anesthesia/Medications: MAC Estimated Blood Loss: none Complications: No immediate complications Procedure: After consent was obtained from the patient's son (over phone), the patent was placed in the left lateral decubitus position. The fujinon upper endoscope was inserted into the patient's mouth under direct vision, and advanced to the 2nd portion of duodenum without difficulty. The views of the mucosa were good. The patient tolerated the procedure fairly well. The patient's vital signs were monitored continuously throughout the procedure. Findings: There was moderately-severe esophagitis in the mid-lower third of the esophagus. No high risk bleeding lesions. There was a hiatal hernia. The stomach appeared normal. The duodenum appeared normal. Bile was seen throughout the duodenum (no blood) Impression: 1. Moderately-severe esophagitis. Likely source of coffee ground emesis. Otherwise, no significant findings. Recommendations: -cont PPI daily -avoid nsaid's -okay to restart diet Will sign off, please call as needed or with questions." per Saud Byrd Operative Report: EXAM: REMOVAL OF TUNNELED HEMODIALYSIS CATHETER CLINICAL INDICATION: CATHETER NO LONGER NEEDED DATE: 09/13/2017 PROCEDURE: Following an explanation of the risks, benefits and alternatives; informed consent was obtained. The procedure was performed at bedside in the patient's room. The patient's right shoulder, chest wall and indwelling tunneled hemodialysis catheter were prepped and draped in the usual sterile fashion. 2% lidocaine was used for anesthesia at the catheter exit site and along the tunnel tract. The catheter cuff was freed using a combination of sharp and blunt dissection. The catheter was then removed intact. Pressure was held to T hemostasis. A sterile pressure dressing was then applied. The patient tolerated the procedure well. There were no immediate post procedure complications. IMPRESSION: 1) Removal of tunneled hemodialysis catheter" Dr. Weaver 09/23/17: Disposition back to [place] History Interval history: Patient was seen and examined. Follow-up on current diagnosis. Overnight uneventful. Patient denies any chest pain, shortness breath, nausea/vomiting or severe headaches. Imaging, nursing note, chart, labs and old chart reviewed. Discussed with patient. He was to go home. Hospitalist Physical - Physical exam Narrative exam: GEN: Thin frail chronically debilitated man BMI 19 NAD, AWAKE, ALERT, ORIENTATED 3 HEENT: NCAT, EOMI, PERRL, OP Clear NECK: supple, no adenopathy, no thyromegaly, no JVD CVS/HEART: Regular bradycardic heart rate 58 NORMAL S1S2, NO JVD, pulses present bilaterally CHEST/LUNGS: Symmetrical chest expansion, good air entry bilaterally GI/Abdomen: soft, NTND, good bowel sounds, no guarding or rebound /Bladder: no suprapubic tenderness, no CVA or paraspinal tenderness EXT/Skin: no c/c/e, no obvious rash MSK: Bilateral BKA Neuro: CN 2-12 grossly intact, no new focal deficits Psych: calm - Constitutional Vitals: Temp Pulse Resp BP Pulse Ox 98.2 F 62 16 110/53 93 09/23/17 10:00 09/23/17 12:45 09/23/17 10:00 09/23/17 12:45 09/23/17 04:34 General appearance: Present: no acute distress Results - Labs CBC & Chem 7: 09/22/17 01:12 09/22/17 01:12 Labs: Laboratory Last Values WBC 8.7 K/mm3 (4.5-11.0) 09/22/17 01:12 RBC 3.39 M/mm3 (3.65-5.03) L 09/22/17 01:12 Hgb 10.4 gm/dl (11.8-15.2) L 09/22/17 01:12 Hct 32.1 % (35.5-45.6) L 09/22/17 01:12 MCV 95 fl (84-94) H 09/22/17 01:12 MCH 31 pg (28-32) 09/22/17 01:12 MCHC 32 % (32-34) 09/22/17 01:12 RDW 18.6 % (13.2-15.2) H 09/22/17 01:12 Plt Count 428 K/mm3 (140-440) 09/22/17 01:12 Lymph % (Auto) 7.1 % (13.4-35.0) L 09/17/17 04:08 Stokes % (Auto) 9.7 % (0.0-7.3) H 09/17/17 04:08 Eos % (Auto) 1.7 % (0.0-4.3) 09/17/17 04:08 Baso % (Auto) 0.7 % (0.0-1.8) 09/17/17 04:08 Lymph # 0.8 K/mm3 (1.2-5.4) L 09/17/17 04:08 Stokes # 1.1 K/mm3 (0.0-0.8) H 09/17/17 04:08 Eos # 0.2 K/mm3 (0.0-0.4) 09/17/17 04:08 Baso # 0.1 K/mm3 (0.0-0.1) 09/17/17 04:08 Add Manual Diff Complete 09/13/17 04:56 Total Counted 100 09/13/17 04:56 Seg Neutrophils % 80.8 % (40.0-70.0) H 09/17/17 04:08 Seg Neuts % (Manual) 71.0 % (40.0-70.0) H 09/13/17 04:56 Band Neutrophils % 4.0 % 09/13/17 04:56 Lymphocytes % (Manual) 9.0 % (13.4-35.0) L 09/13/17 04:56 Reactive Lymphs % (Man) 0 % 09/13/17 04:56 Monocytes % (Manual) 9.0 % (0.0-7.3) H 09/13/17 04:56 Eosinophils % (Manual) 7.0 % (0.0-4.3) H 09/13/17 04:56 Basophils % (Manual) 0 % (0.0-1.8) 09/13/17 04:56 Metamyelocytes % 0 % 09/13/17 04:56 Myelocytes % 0 % 09/13/17 04:56 Promyelocytes % 0 % 09/13/17 04:56 Blast Cells % 0 % 09/13/17 04:56 Nucleated RBC % Not Reportable 09/13/17 04:56 Seg Neutrophils # 8.8 K/mm3 (1.8-7.7) H 09/17/17 04:08 Seg Neutrophils # Man 12.1 K/mm3 (1.8-7.7) H 09/13/17 04:56 Band Neutrophils # 0.7 K/mm3 09/13/17 04:56 Lymphocytes # (Manual) 1.5 K/mm3 (1.2-5.4) 09/13/17 04:56 Abs React Lymphs (Man) 0.0 K/mm3 09/13/17 04:56 Monocytes # (Manual) 1.5 K/mm3 (0.0-0.8) H 09/13/17 04:56 Eosinophils # (Manual) 1.2 K/mm3 (0.0-0.4) H 09/13/17 04:56 Basophils # (Manual) 0.0 K/mm3 (0.0-0.1) 09/13/17 04:56 Metamyelocytes # 0.0 K/mm3 09/13/17 04:56 Myelocytes # 0.0 K/mm3 09/13/17 04:56 Promyelocytes # 0.0 K/mm3 09/13/17 04:56 Blast Cells # 0.0 K/mm3 09/13/17 04:56 WBC Morphology Not Reportable 09/13/17 04:56 Hypersegmented Neuts Not Reportable 09/13/17 04:56 Hyposegmented Neuts Not Reportable 09/13/17 04:56 Hypogranular Neuts Not Reportable 09/13/17 04:56 Smudge Cells Not Reportable 09/13/17 04:56 Toxic Granulation Not Reportable 09/13/17 04:56 Toxic Vacuolation Not Reportable 09/13/17 04:56 Dohle Bodies Not Reportable 09/13/17 04:56 Pelger-Huet Anomaly Not Reportable 09/13/17 04:56 Kody Rods Not Reportable 09/13/17 04:56 Platelet Estimate Appears normal 09/13/17 04:56 Clumped Platelets Not Reportable 09/13/17 04:56 Plt Clumps, EDTA Not Reportable 09/13/17 04:56 Large Platelets Not Reportable 09/13/17 04:56 Giant Platelets Not Reportable 09/13/17 04:56 Platelet Satelliting Not Reportable 09/13/17 04:56 Plt Morphology Comment Not Reportable 09/13/17 04:56 RBC Morphology Not Reportable 09/13/17 04:56 Dimorphic RBCs Not Reportable 09/13/17 04:56 Polychromasia Not Reportable 09/13/17 04:56 Hypochromasia 1+ 09/13/17 04:56 Poikilocytosis Not Reportable 09/13/17 04:56 Anisocytosis 1+ 09/13/17 04:56 Microcytosis Not Reportable 09/13/17 04:56 Macrocytosis Not Reportable 09/13/17 04:56 Spherocytes Not Reportable 09/13/17 04:56 Pappenheimer Bodies Not Reportable 09/13/17 04:56 Sickle Cells Not Reportable 09/13/17 04:56 Target Cells Not Reportable 09/13/17 04:56 Tear Drop Cells Not Reportable 09/13/17 04:56 Ovalocytes Not Reportable 09/13/17 04:56 Helmet Cells Not Reportable 09/13/17 04:56 Cramer-Hannibal Bodies Not Reportable 09/13/17 04:56 Omar Rings Not Reportable 09/13/17 04:56 Mary Cells Not Reportable 09/13/17 04:56 Bite Cells Not Reportable 09/13/17 04:56 Crenated Cell Not Reportable 09/13/17 04:56 Elliptocytes Not Reportable 09/13/17 04:56 Acanthocytes (Spur) Not Reportable 09/13/17 04:56 Rouleaux Not Reportable 09/13/17 04:56 Hemoglobin C Crystals Not Reportable 09/13/17 04:56 Schistocytes Not Reportable 09/13/17 04:56 Malaria parasites Not Reportable 09/13/17 04:56 Marcelino Bodies Not Reportable 09/13/17 04:56 Hem Pathologist Commnt No 09/13/17 04:56 PT 14.5 Sec. (12.2-14.9) 09/22/17 01:12 INR 1.07 (0.87-1.13) 09/22/17 01:12 APTT 42.6 Sec. (24.2-36.6) H 09/11/17 06:21 POC ABG pH 7.414 (7.35-7.45) 09/17/17 15:02 POC ABG pCO2 44.8 (35-45) 09/17/17 15:02 POC ABG pO2 116 (80-105) H 09/17/17 15:02 POC ABG HCO3 28.6 09/17/17 15:02 POC ABG Total CO2 30 09/17/17 15:02 POC ABG O2 Sat 99 09/17/17 15:02 POC ABG Base Excess 4 09/17/17 15:02 FiO2 2 % 09/17/17 15:02 Sodium 134 mmol/L (137-145) L D 09/22/17 01:12 Potassium 3.5 mmol/L (3.6-5.0) L 09/22/17 01:12 Chloride 91.7 mmol/L (98-107) L 09/22/17 01:12 Carbon Dioxide 29 mmol/L (22-30) 09/22/17 01:12 Anion Gap 17 mmol/L 09/22/17 01:12 BUN 11 mg/dL (9-20) 09/22/17 01:12 Creatinine 3.5 mg/dL (0.8-1.5) H 09/22/17 01:12 Estimated GFR 21 ml/min 09/22/17 01:12 BUN/Creatinine Ratio 3 % 09/22/17 01:12 Glucose 77 mg/dL (75-100) 09/22/17 01:12 POC Glucose 71 (70-105) 09/23/17 07:37 Calcium 8.1 mg/dL (8.4-10.2) L 09/22/17 01:12 Total Bilirubin 0.30 mg/dL (0.1-1.2) 09/11/17 06:21 AST 14 units/L (5-40) 09/11/17 06:21 ALT 11 units/L (7-56) 09/11/17 06:21 Alkaline Phosphatase 103 units/L (35-129) 09/11/17 06:21 Ammonia 28.0 umol/L (25-60) 09/17/17 14:45 C-Reactive Protein 19.90 mg/dL (0.00-1.30) H 09/13/17 14:18 Total Protein 6.7 g/dL (6.3-8.2) 09/11/17 06:21 Albumin 3.1 g/dL (3.9-5) L 09/11/17 06:21 Albumin/Globulin Ratio 0.9 % 09/11/17 06:21 Lipase 8 units/L (13-60) L 09/11/17 06:21 Blood Type O POSITIVE 09/11/17 06:25 Antibody Screen Negative 09/11/17 06:25
--- NOTE | 2017-09-23 13:42 | Discharge Summary ---
Providers - Providers Date of Admission: 09/11/17 08:49 Date of discharge: 09/23/17 Attending physician: PENNIE CHAVARRIA 09/11/17 06:36 Consult to Physician [CONS] Urgent Consulting Provider: ANASTACIO TERRY Reason For Exam: ugib Place consult to:: GI Notified:: Y Was contact made?: Yes If yes, spoke with:: Cailin MAY Time called:: 07:50 09/11/17 08:13 Consult to Physician [CONS] Urgent Consulting Provider: FEMI KIRKPATRICK Reason For Exam: esrd, ugib Place consult to:: NEPHROLOGY Notified:: yes If yes, spoke with:: DR KIRKPATRICK Time called:: 08:00 09/13/17 00:18 Consult to Physician [CONS] Routine Consulting Provider: HELLEN KANG Reason For Exam: bacteremia Place consult to:: ID Notified:: yes Comment:: avelino 09/13/17 07:00 Consult to Interventional Radiology [CONS] Routine Consulting Provider: JH YEE Reason For Exam: To remove the dialysis catheter. Place consult to:: office Notified:: yes If yes, spoke with:: van Time called:: 09:26 Comment:: avelino 09/14/17 13:25 Consult to Case Management [CONS] Stat Services Needed at Discharge: Other Notified:: partner integration planner Additional Physician Instructions: [facility] Hellen Haro MD M [phone] O [phone] OUTPATIENT PARENTERAL ANTIBIOTIC THERAPY ORDERS Diagnoses: Enteroccocal septicemia Antimicrobial administration: vancomycin 1 g IV on HD 3 times a week for 2 weeks from 09/13 until 09/26/17 Lines: HD access Lab monitoring: CBC, CMP, CRP, vancomycin trough once a week preferly on Wednesday morning. Please fax results to [phone] and call [phone] for critical lab results. Hellen Haro Date: 09/14/17 09/15/17 19:03 Speech Therapy Evaluation and Treat [CONS] Routine Reason For Exam: desaturation while eating, frequent cough 09/17/17 07:48 Consult to Dietitian/Nutrition [CONS] Routine Physician Instructions: Reason For Exam: Reason for Consult: Write/Manage Tube Feeding 09/17/17 22:57 Consult to Physician [CONS] Routine Consulting Provider: STEPH CORTEZ Reason For Exam: Lung mass Place consult to:: answering service Notified:: yes Phone number called:: [phone] If yes, spoke with:: sommer Time called:: 09:41 Comment:: avelino Primary care physician: MANAGER UNIT Hospitalization Condition: Stable Hospital course: Patient is a 72-year-old man from [facility] with a history of end-stage renal disease on hemodialysis, status post bilateral BKA, atrial fibrillation, hypertension and peripheral vascular disease who presented with nausea vomiting of coffee-ground emesis and found to have a pulse oximetry 89% on 2 L. 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 - Electrolytes currently stable - HD per nephrology recommendation - he is on TTS schedule /Hypertension -We'll cont home meds and monitor BP every 4 hour /Paroxysmal atrial fibrillation - We'll continue beta jake for heart rate control - not on a/c now due to UGIB /Diabetes mellitus type 2 on insulin -For now will keep him on sliding scale of insulin /Bilateral BKA -Supportive care /Leukocytosis-->Sepsis GN bacteremia, ?line infection - likely due to bacteremia - will follow final blood cx result and cover with abx for now /Enterococcal bacteremia, gram positive sepsis: sepsis - cont zosyn for now, ID following -S/p removal of the tunnel dialysis catheter. -case dw ID --upon discharge will do vancomycin 1 g IV on HD 3 times a week for 2 weeks from 09/13 until 09/26/17 /Dysphagia with aspiration Speech therapy input appreciated, keep patient nothing by mouth, NG tube was placed twice on 09/16. The patient pulled it out twice. improved, has been restarted on diet /Acute hypoxic respiratory failure related to aspiration pneumonitis, poa, on abx. Has now resolved. /DVT prophylaxis - We'll cont on SCD 09/13/17 EGD "Operative Report: ESOPHAGOGASTRODUODENOSCOPY Date of procedure: 09/13/2017 Endoscopist: Saud Parks Pre-op indication: UGI bleed (coffee ground emesis) Post-op findings: Esophagitis, hiatal hernia Anesthesia/Medications: MAC Estimated Blood Loss: none Complications: No immediate complications Procedure: After consent was obtained from the patient's son (over phone), the patent was placed in the left lateral decubitus position. The fujinon upper endoscope was inserted into the patient's mouth under direct vision, and advanced to the 2nd portion of duodenum without difficulty. The views of the mucosa were good. The patient tolerated the procedure fairly well. The patient's vital signs were monitored continuously throughout the procedure. Findings: There was moderately-severe esophagitis in the mid-lower third of the esophagus. No high risk bleeding lesions. There was a hiatal hernia. The stomach appeared normal. The duodenum appeared normal. Bile was seen throughout the duodenum (no blood) Impression: 1. Moderately-severe esophagitis. Likely source of coffee ground emesis. Otherwise, no significant findings. Recommendations: -cont PPI daily -avoid nsaid's -okay to restart diet Will sign off, please call as needed or with questions." per Saud Byrd Operative Report: EXAM: REMOVAL OF TUNNELED HEMODIALYSIS CATHETER CLINICAL INDICATION: CATHETER NO LONGER NEEDED DATE: 09/13/2017 PROCEDURE: Following an explanation of the risks, benefits and alternatives; informed consent was obtained. The procedure was performed at bedside in the patient's room. The patient's right shoulder, chest wall and indwelling tunneled hemodialysis catheter were prepped and draped in the usual sterile fashion. 2% lidocaine was used for anesthesia at the catheter exit site and along the tunnel tract. The catheter cuff was freed using a combination of sharp and blunt dissection. The catheter was then removed intact. Pressure was held to T hemostasis. A sterile pressure dressing was then applied. The patient tolerated the procedure well. There were no immediate post procedure complications. IMPRESSION: 1) Removal of tunneled hemodialysis catheter" Dr. Weaver 09/23/17: Disposition back to [facility] Disposition: [id number]/[place]-[id number] SNF [facility] CERT Time spent for discharge: 35 minutes Core Measure Documentation - Palliative Care Palliative Care/ Comfort Measures: Not Applicable - Core Measures Any of the following diagnoses?: none - VTE Discharge Requirements Deep Vein Thrombosis/Pulmonary Embolism Present on Admission: No Has pt received <5 days of overlap therapy or INR<2.0: No Anticoagulant overlap therapy prescribed at discharge: No Contraindication No Overlap Therapy order at DC: Not Indicated Exam - Physical Exam Narrative exam: GEN: Thin frail chronically debilitated man BMI 19 NAD, AWAKE, ALERT, ORIENTATED 3 HEENT: NCAT, EOMI, PERRL, OP Clear NECK: supple, no adenopathy, no thyromegaly, no JVD CVS/HEART: Regular bradycardic heart rate 58 NORMAL S1S2, NO JVD, pulses present bilaterally CHEST/LUNGS: Symmetrical chest expansion, good air entry bilaterally GI/Abdomen: soft, NTND, good bowel sounds, no guarding or rebound /Bladder: no suprapubic tenderness, no CVA or paraspinal tenderness EXT/Skin: no c/c/e, no obvious rash MSK: Bilateral BKA Neuro: CN 2-12 grossly intact, no new focal deficits Psych: calm - Constitutional Vitals: Temp Pulse Resp BP Pulse Ox 98.2 F 62 16 110/53 93 09/23/17 10:00 09/23/17 12:45 09/23/17 10:00 09/23/17 12:45 09/23/17 04:34 Plan Activity: up only with assistance, fall precautions Diet: renal Follow up with: PRIMARY MD MEGHNA [Primary Care Provider] - 3-5 Days FEMI KIRKPATRICK MD [Staff Physician] - 7 Days ANASTACIO TERRY MD [Staff Physician] - 7 Days STEPH CORTEZ MD [Staff Physician] - 7 Days Forms: Accompanied Note Prescriptions: HYDROcodone/APAP 5-325 [[place] 5-325 mg TAB] 1 each PO Q6H PRN #6 tablet PRN Reason: Pain, Moderate (4-6) Vancomycin 1,000 mg IV 3XW 11 Days mg
--- NOTE | 2017-09-23 14:41 | Progress Note ---
Assessment and Plan Imp: 1. Lung mass 2. ESRD 3. Permcath infection -> bacteremia/sepsis, better 4. Esophagitis -> UGIB, better Rec: 1. F/u biopsy pathology 2. Outpatient PET, etc. 3. Can go home pulm-lares; needs to see us in 1 week for bx results Plan of care reviewed with patient, he understands/agrees Subjective Date of service: 09/23/17 Principal diagnosis: UGI bleed Interval history: No events. Awake, alert. On RA. Had CT guided biopsy. No SOB, chest pain. No complaints. Active Medications Lipase/Protease/Amylase (Pancreaze Dr 10,500 Unit) 1 each FEEDTUBE PRN PRN PRN Reason: For Clogged Feeding Tube Chlorpromazine HCl (Thorazine) 25 mg IM Q6H PRN PRN Reason: Hiccups Last Admin: 09/15/17 23:53 Dose: 25 mg Dextrose (D50w (25gm) Syringe) 50 ml IV PRN PRN PRN Reason: Hypoglycemia Epoetin Pedro (Procrit) 10,000 unit IV ILENE PRN PRN Reason: hemodialysis Last Admin: 09/23/17 13:24 Dose: 10,000 unit Heparin Sodium (Porcine) (Heparin) 5,000 unit IV ILENE PRN PRN Reason: hemodialysis Last Admin: 09/11/17 20:45 Dose: 5,000 unit Piperacillin Sod/Tazobactam Sod (Zosyn/Ns 2.25 Gm/50ml) 2.25 gm in 50 mls @ 100 mls/hr IV Q8HR BRYSON Stop: 09/26/17 15:59 Last Admin: 09/23/17 05:17 Dose: 100 mls/hr Sodium Chloride (Nacl 0.9%) 100 mls @ 999 mls/hr IV ILENE PRN PRN Reason: Hypotension Dextrose/Sodium Chloride (D5/0.45ns) 1,000 mls @ 42 mls/hr IV DIRECT [facility] Insulin Human Regular (Novolin R) 0 units SUB-Q ACHS BRYSON PRN Reason: Protocol Last Admin: 09/23/17 08:30 Dose: Not Given Metoprolol Tartrate (Lopressor) 50 mg PO TID BRSYON Last Admin: 09/23/17 08:31 Dose: Not Given Multivit/Ca Carb/B Cmplx/FA/Prenat (Renal Caps) 1 cap PO QDAY [facility] Last Admin: 09/23/17 09:55 Dose: 1 cap Ondansetron HCl (Zofran) 4 mg IV Q6H PRN PRN Reason: Nausea And Vomiting Pantoprazole Sodium (Protonix) 40 mg PO DAILY [facility] Last Admin: 09/23/17 09:55 Dose: 40 mg Pravastatin Sodium (Pravachol) 20 mg PO QHS [facility] Last Admin: 09/22/17 22:31 Dose: 20 mg Senna/Docusate Sodium (Senokot S) 1 tab PO PRN PRN PRN Reason: Constipation Last Admin: 09/13/17 10:57 Dose: 1 tab Simple Syrup (Simple Syrup) 15 ml FEEDTUBE PRN PRN PRN Reason: Hypoglycemia Simple Syrup (Simple Syrup) 30 ml FEEDTUBE PRN PRN PRN Reason: Hypoglycemia Sodium Bicarbonate (Sodium Bicarbonate) 325 mg FEEDTUBE PRN PRN PRN Reason: For Clogged Feeding Tube Objective Vital Signs - 12hr 09/23/17 09/23/17 09/23/17 04:34 07:33 08:31 Temperature 97.6 F 98.7 F Pulse Rate 59 L Respiratory 18 18 Rate Blood Pressure 98/44 100/47 100/47 O2 Sat by Pulse 93 Oximetry 09/23/17 09/23/17 09/23/17 10:00 10:15 10:30 Temperature 98.2 F Pulse Rate 53 L 48 L 48 L Respiratory 16 Rate Blood Pressure 107/51 119/54 109/57 O2 Sat by Pulse Oximetry 09/23/17 09/23/17 09/23/17 10:45 11:00 11:15 Temperature Pulse Rate 49 L 52 L 54 L Respiratory Rate Blood Pressure 116/53 111/54 104/54 O2 Sat by Pulse Oximetry 09/23/17 09/23/17 09/23/17 11:30 11:45 12:00 Temperature Pulse Rate 76 55 L 81 Respiratory Rate Blood Pressure 97/51 99/48 118/56 O2 Sat by Pulse Oximetry 09/23/17 09/23/17 09/23/17 12:15 12:30 12:45 Temperature Pulse Rate 63 61 62 Respiratory Rate Blood Pressure 112/59 110/53 110/53 O2 Sat by Pulse Oximetry Constitutional: no acute distress, alert Eyes: non-icteric ENT: oropharynx moist Neck: supple Effort: normal Ascultation: Bilateral: rhonchi (few rhonchi bilaterally) Cardiovascular: regular rate and rhythm (no mrg) Gastrointestinal: normoactive bowel sounds, non-tender Integumentary: normal Extremities: no cyanosis, no edema, pink and warm, other (s/p BKA bilaterally) Neurologic: normal mental status, non-focal exam, pupils equal and round Psychiatric: mood appropriate, affect normal CBC and BMP: 09/22/17 01:12 09/22/17 01:12 ABG, PT/INR, D-dimer: ABG POC ABG pH 7.414 (7.35-7.45) 09/17/17 15:02 POC ABG pCO2 44.8 (35-45) 09/17/17 15:02 POC ABG pO2 116 (80-105) H 09/17/17 15:02 POC ABG HCO3 28.6 09/17/17 15:02 POC ABG Total CO2 30 09/17/17 15:02 POC ABG O2 Sat 99 09/17/17 15:02 PT/INR, D-dimer PT 14.5 Sec. (12.2-14.9) 09/22/17 01:12 INR 1.07 (0.87-1.13) 09/22/17 01:12 Abnormal lab findings: Abnormal Labs 09/11/17 09/11/17 09/11/17 06:21 06:21 06:21 WBC 22.0 H RBC 3.46 L Hgb 10.7 L Hct 33.1 L MCV 96 H RDW 19.2 H Lymph % (Auto) [place] % (Auto) Lymph # [place] # Seg Neutrophils % Seg Neuts % (Manual) 90.5 H Lymphocytes % (Manual) 4.0 L Monocytes % (Manual) Eosinophils % (Manual) Seg Neutrophils # Seg Neutrophils # Man 19.9 H Lymphocytes # (Manual) 0.9 L Monocytes # (Manual) 0.9 H Eosinophils # (Manual) APTT 42.6 H POC ABG pCO2 POC ABG pO2 Sodium Potassium Chloride 93.5 L Carbon Dioxide 31 H BUN 32 H Creatinine 4.3 H Glucose 121 H POC Glucose Calcium C-Reactive Protein Albumin 3.1 L Lipase 8 L 09/11/17 09/11/17 09/11/17 11:57 16:09 22:00 WBC RBC Hgb Hct MCV RDW Lymph % (Auto) [place] % (Auto) Lymph # [place] # Seg Neutrophils % Seg Neuts % (Manual) Lymphocytes % (Manual) Monocytes % (Manual) Eosinophils % (Manual) Seg Neutrophils # Seg Neutrophils # Man Lymphocytes # (Manual) Monocytes # (Manual) Eosinophils # (Manual) APTT POC ABG pCO2 POC ABG pO2 Sodium Potassium Chloride Carbon Dioxide BUN Creatinine Glucose POC Glucose 142 H 133 H 140 H Calcium C-Reactive Protein Albumin Lipase 09/12/17 09/12/17 09/12/17 09:08 09:08 11:21 WBC 18.7 H RBC 3.41 L Hgb 10.6 L Hct 32.5 L MCV 95 H RDW 18.6 H Lymph % (Auto) [place] % (Auto) Lymph # [place] # Seg Neutrophils % Seg Neuts % (Manual) Lymphocytes % (Manual) Monocytes % (Manual) Eosinophils % (Manual) Seg Neutrophils # Seg Neutrophils # Man Lymphocytes # (Manual) Monocytes # (Manual) Eosinophils # (Manual) APTT POC ABG pCO2 POC ABG pO2 Sodium Potassium Chloride 96.7 L Carbon Dioxide BUN 21 H Creatinine 3.0 H Glucose 122 H POC Glucose 170 H Calcium C-Reactive Protein Albumin Lipase 09/12/17 09/13/17 09/13/17 21:46 04:56 04:56 WBC 17.0 H RBC 3.42 L Hgb 10.4 L Hct 32.9 L MCV 96 H RDW 19.0 H Lymph % (Auto) [place] % (Auto) Lymph # [place] # Seg Neutrophils % Seg Neuts % (Manual) 71.0 H Lymphocytes % (Manual) 9.0 L Monocytes % (Manual) 9.0 H Eosinophils % (Manual) 7.0 H Seg Neutrophils # Seg Neutrophils # Man 12.1 H Lymphocytes # (Manual) Monocytes # (Manual) 1.5 H Eosinophils # (Manual) 1.2 H APTT POC ABG pCO2 POC ABG pO2 Sodium Potassium Chloride 97.3 L Carbon Dioxide BUN 30 H Creatinine 4.1 H Glucose 72 L POC Glucose 111 H Calcium C-Reactive Protein Albumin Lipase 09/13/17 09/13/17 09/14/17 14:18 16:52 16:49 WBC RBC Hgb Hct MCV RDW Lymph % (Auto) [place] % (Auto) Lymph # [place] # Seg Neutrophils % Seg Neuts % (Manual) Lymphocytes % (Manual) Monocytes % (Manual) Eosinophils % (Manual) Seg Neutrophils # Seg Neutrophils # Man Lymphocytes # (Manual) Monocytes # (Manual) Eosinophils # (Manual) APTT POC ABG pCO2 POC ABG pO2 Sodium Potassium Chloride Carbon Dioxide BUN Creatinine Glucose POC Glucose 123 H 175 H Calcium C-Reactive Protein 19.90 H Albumin Lipase 09/15/17 09/15/17 09/15/17 07:27 11:33 16:50 WBC RBC Hgb Hct MCV RDW Lymph % (Auto) [place] % (Auto) Lymph # [place] # Seg Neutrophils % Seg Neuts % (Manual) Lymphocytes % (Manual) Monocytes % (Manual) Eosinophils % (Manual) Seg Neutrophils # Seg Neutrophils # Man Lymphocytes # (Manual) Monocytes # (Manual) Eosinophils # (Manual) APTT POC ABG pCO2 POC ABG pO2 Sodium Potassium Chloride Carbon Dioxide BUN Creatinine Glucose POC Glucose 109 H 165 H 121 H Calcium C-Reactive Protein Albumin Lipase 09/15/17 09/16/17 09/17/17 17:08 14:10 00:45 WBC RBC Hgb Hct MCV RDW Lymph % (Auto) [place] % (Auto) Lymph # [place] # Seg Neutrophils % Seg Neuts % (Manual) Lymphocytes % (Manual) Monocytes % (Manual) Eosinophils % (Manual) Seg Neutrophils # Seg Neutrophils # Man Lymphocytes # (Manual) Monocytes # (Manual) Eosinophils # (Manual) APTT POC ABG pCO2 48.8 H POC ABG pO2 76 L Sodium Potassium Chloride Carbon Dioxide BUN Creatinine Glucose POC Glucose 129 H 64 L Calcium C-Reactive Protein Albumin Lipase 09/17/17 09/17/17 09/17/17 04:08 14:45 15:02 WBC RBC 3.19 L Hgb 10.0 L Hct 30.6 L MCV 96 H RDW 19.1 H Lymph % (Auto) 7.1 L [place] % (Auto) 9.7 H Lymph # 0.8 L [place] # 1.1 H Seg Neutrophils % 80.8 H Seg Neuts % (Manual) Lymphocytes % (Manual) Monocytes % (Manual) Eosinophils % (Manual) Seg Neutrophils # 8.8 H Seg Neutrophils # Man Lymphocytes # (Manual) Monocytes # (Manual) Eosinophils # (Manual) APTT POC ABG pCO2 POC ABG pO2 116 H Sodium Potassium Chloride Carbon Dioxide BUN 22 H Creatinine 3.7 H Glucose POC Glucose Calcium 8.3 L C-Reactive Protein Albumin Lipase 09/17/17 09/18/17 09/19/17 22:18 16:25 07:29 WBC RBC Hgb Hct MCV RDW Lymph % (Auto) [place] % (Auto) Lymph # [place] # Seg Neutrophils % Seg Neuts % (Manual) Lymphocytes % (Manual) Monocytes % (Manual) Eosinophils % (Manual) Seg Neutrophils # Seg Neutrophils # Man Lymphocytes # (Manual) Monocytes # (Manual) Eosinophils # (Manual) APTT POC ABG pCO2 POC ABG pO2 Sodium Potassium Chloride Carbon Dioxide BUN Creatinine Glucose POC Glucose 113 H 183 H 122 H Calcium C-Reactive Protein Albumin Lipase 09/19/17 09/19/17 09/20/17 11:47 16:26 07:34 WBC RBC Hgb Hct MCV RDW Lymph % (Auto) [place] % (Auto) Lymph # [place] # Seg Neutrophils % Seg Neuts % (Manual) Lymphocytes % (Manual) Monocytes % (Manual) Eosinophils % (Manual) Seg Neutrophils # Seg Neutrophils # Man Lymphocytes # (Manual) Monocytes # (Manual) Eosinophils # (Manual) APTT POC ABG pCO2 POC ABG pO2 Sodium Potassium Chloride Carbon Dioxide BUN Creatinine Glucose POC Glucose 121 H 121 H 62 L Calcium C-Reactive Protein Albumin Lipase 09/20/17 09/22/17 09/22/17 17:03 01:12 01:12 WBC RBC 3.39 L Hgb 10.4 L Hct 32.1 L MCV 95 H RDW 18.6 H Lymph % (Auto) [place] % (Auto) Lymph # [place] # Seg Neutrophils % Seg Neuts % (Manual) Lymphocytes % (Manual) Monocytes % (Manual) Eosinophils % (Manual) Seg Neutrophils # Seg Neutrophils # Man Lymphocytes # (Manual) Monocytes # (Manual) Eosinophils # (Manual) APTT POC ABG pCO2 POC ABG pO2 Sodium 134 L D Potassium 3.5 L Chloride 91.7 L Carbon Dioxide BUN Creatinine 3.5 H Glucose POC Glucose 156 H Calcium 8.1 L C-Reactive Protein Albumin Lipase 09/22/17 17:17 WBC RBC Hgb Hct MCV RDW Lymph % (Auto) [place] % (Auto) Lymph # [place] # Seg Neutrophils % Seg Neuts % (Manual) Lymphocytes % (Manual) Monocytes % (Manual) Eosinophils % (Manual) Seg Neutrophils # Seg Neutrophils # Man Lymphocytes # (Manual) Monocytes # (Manual) Eosinophils # (Manual) APTT POC ABG pCO2 POC ABG pO2 Sodium Potassium Chloride Carbon Dioxide BUN Creatinine Glucose POC Glucose 131 H Calcium C-Reactive Protein Albumin Lipase Chest x-ray: report reviewed, image reviewed
[2017-09-23 19:54] VITALS: BP 95/48
== END 2017-09-23 20:35 | DRG 264 ==
LOC: ED 05:33 → 2B-ACE 08:49 → UNDODISIN 09-15 14:10
PROVIDERS: ADMIT Internal Medicine; ATTEND Internal Medicine
PROC: 0DJ08ZZ Inspection of Upper Intestinal Tract, Via Natural or Artificial Opening Endoscopic (ICD-10-PCS; principal; 2017-09-13)
PROC: 05PY33Z Removal of Infusion Device from Upper Vein, Percutaneous Approach (ICD-10-PCS; 2017-09-13)
PROC: 4A033R1 Measurement of Arterial Saturation, Peripheral, Percutaneous Approach (ICD-10-PCS; 2017-09-17)
PROC: 5A1D70Z Performance of Urinary Filtration, Intermittent, Less than 6 Hours Per Day (ICD-10-PCS; 2017-09-18)
PROC: 5A1D70Z Performance of Urinary Filtration, Intermittent, Less than 6 Hours Per Day (ICD-10-PCS; 2017-09-21)
PROC: 0BBG8ZX Excision of Left Upper Lung Lobe, Via Natural or Artificial Opening Endoscopic, Diagnostic (ICD-10-PCS; 2017-09-23)
PROC: 5A1D70Z Performance of Urinary Filtration, Intermittent, Less than 6 Hours Per Day (ICD-10-PCS; 2017-09-23)
PROC: 0JPT3XZ Removal of Tunneled Vascular Access Device from Trunk Subcutaneous Tissue and Fascia, Percutaneous Approach (ICD-10-PCS; 2017-09-23)
DX: T82.7XXA Infection and inflammatory reaction due to other cardiac and vascular devices, implants and grafts, initial encounter (principal); A41.9 Sepsis, unspecified organism; J96.01 Acute respiratory failure with hypoxia; N18.6 End stage renal disease; G93.41 Metabolic encephalopathy; A41.89 Other specified sepsis; K92.0 Hematemesis; I12.0 Hypertensive chronic kidney disease with stage 5 chronic kidney disease or end stage renal disease; D62 Acute posthemorrhagic anemia; D68.59 Other primary thrombophilia; C34.92 Malignant neoplasm of unspecified part of left bronchus or lung; K20.9 Esophagitis, unspecified; K44.9 Diaphragmatic hernia without obstruction or gangrene; I48.0 Paroxysmal atrial fibrillation; E11.22 Type 2 diabetes mellitus with diabetic chronic kidney disease; J44.9 Chronic obstructive pulmonary disease, unspecified; R13.10 Dysphagia, unspecified; E11.649 Type 2 diabetes mellitus with hypoglycemia without coma; E11.51 Type 2 diabetes mellitus with diabetic peripheral angiopathy without gangrene; Z89.512 Acquired absence of left leg below knee; Z99.2 Dependence on renal dialysis; Z89.511 Acquired absence of right leg below knee; Z82.49 Family history of ischemic heart disease and other diseases of the circulatory system; Z79.01 Long term (current) use of anticoagulants; Z87.891 Personal history of nicotine dependence; Z86.73 Personal history of transient ischemic attack (TIA), and cerebral infarction without residual deficits; Y83.8 Other surgical procedures as the cause of abnormal reaction of the patient, or of later complication, without mention of misadventure at the time of the procedure; Y92.89 Other specified places as the place of occurrence of the external cause
CPT/HCPCS: 36415; 36600; 70450; 71010; 71020; 71260; 74000; 74230; 77012; 80048; 80053; 82140; 82271; 82803; 82962; 83690; 85007; 85025; 85027; 85610; 85730; 86140; 86850; 86900; 86901; 87040; 87076; 87186; 88305; 88333; 88341; 88342; 93005; 93010; 93306; 94760; 96374; 96375; A9270-GY; C9113; G8996-GN; G8997-GN; J0885; J1644; J1815; J2250; J2270; J2405; J2543; J2597; J3010; J3230; J3370; J7030; J7040; J7042; J7050; Q9967

== ENCOUNTER 2017-12-23 13:18 | Emergency (ER) | payer MEDICARE ==
--- NOTE | 2017-12-23 13:32 | Emergency Department Report ---
HPI - General Time Seen by Provider: 12/23/17 13:20 - HPI HPI: Patient is a 72-year-old male that was brought in via EMS from dialysis for bradycardia. Patient denies pain, shortness of breath, chest pain, dizziness, headache, symptoms. Patient has no complaints at this time. The patient stated he does not want to be here. Patient states he does not know why the dialysis and EMS brought him to the hospital. Patient states he wants to go back to the correction. Patient is A& O 4 ED Past Medical Hx - Past Medical History Previous Medical History?: Yes Hx Hypertension: Yes Hx Diabetes: Yes Hx Renal Disease: Yes (HD TUE, THR, SAT) Hx Sickle Cell Disease: No (pt denies) - Surgical History Past Surgical History?: Yes Additional Surgical History: FISTULA LEFT ARM. BACK SURGERY - Family History Family history: hypertension - Social History Smoking Status: Former Smoker Substance Use Type: None - Medications Home Medications: Home Medications Medication Instructions Recorded Confirmed Last Taken Type Pantoprazole [Protonix TAB] 40 mg PO QDAY 09/23/16 09/15/17 Unknown History Sennosides/Docusate Sodium [Stool 1 each PO PRN PRN 09/23/16 09/15/17 Unknown History Softener Tablet] Simvastatin [Zocor TAB] 20 mg PO QHS 09/23/16 09/15/17 Unknown History Vit B Cplx C No.13/Folic AC/D3 1 each PO AC 09/23/16 09/15/17 Unknown History [Nephrocaps Qt Tablet] Apixaban [Eliquis] 2.5 mg PO BID #10 tablet 10/08/16 09/15/17 Unknown Rx Metoprolol [Lopressor TAB] 50 mg PO TID tablet 10/08/16 09/15/17 Unknown Rx HYDROcodone/APAP 5-325 [[place] 1 each PO Q6H PRN #6 tablet 09/15/17 Unknown Rx 5-325 mg TAB] Insulin Regular, Human [HumuLIN R] 0 units SUB-Q ACHS units 09/15/17 Unknown Rx Vancomycin 1,000 mg IV 3XW 11 Days mg 09/15/17 Unknown Rx ED Review of Systems ROS: Stated complaint: BRADYCARDIA Other details as noted in HPI Physical Exam - Physical Exam Physical Exam: General: Well appearing, well nourished, in no distress. AAOx4, normal mood and affect . Skin: Good turgor, no rash, unusual bruising or prominent lesions Head: Normocephalic, atraumatic, no visible or palpable masses, depressions, or scaring. Eyes: Visual acuity intact, conjunctiva clear, sclera non-icteric, EOM intact, PERRL, fundi have normal optic discs and vessels, no exudates or hemorrhages Nose: No external lesions, mucosa non-inflamed, septum and turbinates normal Mouth: Mucous membranes moist, no mucosal lesions. Pharynx: Mucosa non-inflamed, no tonsillar hypertrophy or exudate Neck: Supple, without lesions, bruits, or adenopathy, thyroid non-enlarged and non-tender Heart: No cardiomegaly or thrills; regular rate and rhythm, no murmur or gallop. pos petr Lungs: Clear to auscultation and percussion Abdomen: Bowel sounds normal, no tenderness, organomegaly, masses, or hernia Back: Spine normal without deformity or tenderness, no CVA tenderness Extremities: pos amputations... no deformities, cyanosis, edema or varicosities , peripheral pulses intact. pos thrill rt upper ext. Musculoskeletal: normal inspection except for bilateral below the knee amputations Neurologic: CN 2-12 normal. Sensation to pain, touch, and proprioception normal. s. Psychiatric: Oriented X4, intact recent and remote memory, judgment and insight , normal mood and affect. ED Medical Decision Making - Medical Decision Making Patient stable. Patient refused workup. Patient signed AMA. Risk explained to patient. Patient voiced understanding. - Differential Diagnosis bradycardia. Critical care attestation.: If time is entered above; I have spent that time in minutes in the direct care of this critically ill patient, excluding procedure time. ED Disposition Clinical Impression: Bradycardia Disposition: DC-07 LEFT AGAINST MED ADVICE Is pt being admited?: No Does the pt Need Aspirin: No Time of Disposition: 14:17
[2017-12-23 13:36] VITALS: BP 172/67
== END 2017-12-23 15:25 | disposition left against medical advice (07) ==
LOC: ED 13:18
DX: R00.1 Bradycardia, unspecified (principal); I12.9 Hypertensive chronic kidney disease with stage 1 through stage 4 chronic kidney disease, or unspecified chronic kidney disease; E11.22 Type 2 diabetes mellitus with diabetic chronic kidney disease; Z99.2 Dependence on renal dialysis; Z87.891 Personal history of nicotine dependence
CPT/HCPCS: 99283

== ENCOUNTER 2018-04-29 13:01 | Emergency (ER) | payer MEDICARE ==
[2018-04-29 14:32] LABS: Basophils % (Auto) 0.7 % (0.0-1.8); Eosinophils # (Auto) 0.4 K/mm3 (0.0-0.4); Eosinophils % (Auto) 6.9 % (0.0-4.3); Hematocrit 35.1 % (35.5-45.6); Hemoglobin 12.1 gm/dl (11.8-15.2); Lymphocytes # (Auto) 0.8 K/mm3 (1.2-5.4); Lymphocytes % (Auto) 12.7 % (13.4-35.0); Mean Corpuscular HGB Conc 34 % (32-34); Mean Corpuscular Hemoglobin 34 pg (28-32); Mean Corpuscular Volume 99 fl (84-94); Monocytes # (Auto) 0.7 K/mm3 (0.0-0.8); Monocytes % (Auto) 11.1 % (0.0-7.3); Red Blood Count 3.57 M/mm3 (3.65-5.03); Red Cell Distribution Width 15.9 % (13.2-15.2)
[2018-04-29 14:43] LABS: INR 1.17 (0.87-1.13)
[2018-04-29 14:44] LABS: Partial Thromboplastin Time 38.1 Sec. (24.2-36.6)
[2018-04-29 14:52] LABS: Albumin 3.3 g/dL (3.9-5); Calcium 9.2 mg/dL (8.4-10.2)
[2018-04-29 15:28] LABS: Platelet Count 165 K/mm3 (140-440)
--- NOTE | 2018-04-29 15:50 | Emergency Department Report ---
HPI - General Chief Complaint: Recheck/Abnormal Lab/Rx Time Seen by Provider: 04/29/18 13:46 - HPI HPI: 72-year-old -[place] male presents to the emergency department from his [facility] via EMS with complaint of abnormal labs that show a platelet count of 36. This is from labs that were drawn yesterday morning. The patient himself says he was sent here because "something is low." However he actually has no complaints at this time. He has a history of insulin- dependent diabetes, hypertension, end-stage renal disease on hemodialysis Wednesday//Wednesday, paroxysmal A. fib on anticoagulation, bilateral below -knee amputation, previous PE. The patient also has a history of recently diagnosed lung cancer. He has not yet started any type of chemotherapy or radiation and says that this starts on May 11. He says that his oncologist is through the [facility] system. The rest of the lab work that was sent with the patient appears unremarkable. The patient denies any spontaneous bleeding. ED Past Medical Hx - Past Medical History Hx Hypertension: Yes Hx Diabetes: Yes Hx Renal Disease: Yes (HD TUE, THR, SAT) Hx Sickle Cell Disease: No (pt denies) - Surgical History Additional Surgical History: FISTULA LEFT ARM, fistula right arm. BACK SURGERY - Social History Smoking Status: Never Smoker Substance Use Type: None - Medications Home Medications: Home Medications Medication Instructions Recorded Confirmed Last Taken Type Pantoprazole [Protonix TAB] 40 mg PO QDAY 09/23/16 09/15/17 Unknown History Sennosides/Docusate Sodium [Stool 1 each PO PRN PRN 09/23/16 09/15/17 Unknown History Softener Tablet] Simvastatin [Zocor TAB] 20 mg PO QHS 09/23/16 09/15/17 Unknown History Vit B Cplx C No.13/Folic AC/D3 1 each PO AC 09/23/16 09/15/17 Unknown History [Nephrocaps Qt Tablet] Apixaban [Eliquis] 2.5 mg PO BID #10 tablet 10/08/16 09/15/17 Unknown Rx Metoprolol [Lopressor TAB] 50 mg PO TID tablet 10/08/16 09/15/17 Unknown Rx HYDROcodone/APAP 5-325 [[place] 1 each PO Q6H PRN #6 tablet 09/15/17 Unknown Rx 5-325 mg TAB] Insulin Regular, Human [HumuLIN R] 0 units SUB-Q ACHS units 09/15/17 Unknown Rx Vancomycin 1,000 mg IV 3XW 11 Days mg 09/15/17 Unknown Rx ED Review of Systems ROS: Stated complaint: ABNORMAL LABS Other details as noted in HPI Comment: All other systems reviewed and negative Constitutional: denies: chills, fever Eyes: denies: eye pain, eye discharge, vision change ENT: denies: ear pain, throat pain Respiratory: denies: cough, shortness of breath, wheezing Cardiovascular: denies: chest pain, palpitations Gastrointestinal: denies: abdominal pain, nausea, diarrhea Genitourinary: denies: urgency, dysuria Musculoskeletal: denies: back pain, joint swelling, arthralgia Skin: denies: rash, lesions Neurological: denies: headache, weakness, paresthesias Physical Exam - Physical Exam Vital Signs: Vital Signs 04/29/18 13:32 Temperature 98.8 F Pulse Rate 62 Respiratory 18 Rate Blood Pressure 148/54 O2 Sat by Pulse 100 Oximetry Physical Exam: GENERAL: The patient is well-developed well-nourished. HENT: Normocephalic. Atraumatic. Patient has moist mucous membranes. EYES: Extraocular motions are intact. Pupils equal reactive to light bilaterally. NECK: Supple. Trachea is midline. CHEST/LUNGS: Clear to auscultation. There is no respiratory distress noted. HEART/CARDIOVASCULAR: Regular. There is no tachycardia. There is no murmur. ABDOMEN: Abdomen is soft, nontender. Patient has normal bowel sounds. SKIN: Skin is warm and dry. NEURO: The patient is awake, alert. The patient is cooperative. The patient has no focal neurologic deficits. The patient has normal speech. MUSCULOSKELETAL: There is no tenderness or deformity. There is no evidence of acute injury. ED Course Vital Signs 04/29/18 13:32 Temperature 98.8 F Pulse Rate 62 Respiratory 18 Rate Blood Pressure 148/54 O2 Sat by Pulse 100 Oximetry ED Medical Decision Making - Lab Data Result diagrams: 04/29/18 14:07 04/29/18 14:07 - Medical Decision Making Patient was sent in secondary to some labs he had done yesterday that showed thrombocytopenia with a platelet count of 32. However the platelet count today is about 160. Other than the chronic kidney disease, the rest the labs are mostly unremarkable. Vital signs stable. The patient has no bleeding whatsoever and no complaints. He appears safe for discharge back to his nursing facility. He is instructed to continue his dialysis regiment, follow- up with his primary care physician and oncologist, but to return to the emergency department with any bleeding or with any acute distress. - Differential Diagnosis ITP, TTP, Malignancy Critical Care Time: No Critical care attestation.: If time is entered above; I have spent that time in minutes in the direct care of this critically ill patient, excluding procedure time. ED Disposition Clinical Impression: End-stage renal disease on hemodialysis, Thrombocytopenia Disposition: TO HOME OR SELFCARE Is pt being admited?: No Condition: Stable Instructions: Chronic Kidney Disease (ED), Thrombocytopenia (ED) Additional Instructions: Please follow-up with your primary care physician and oncologist. Continue with your normal dialysis regimen. Return to the emergency Department with any worsening of your symptoms or any acute distress. Your platelet count today was 165, which appears greatly improved from the lab were provided and drawn from yesterday. Referrals: MAGNOLIA COFFMAN MD [Primary Care Provider] - 3-5 Days Time of Disposition: 15:53
[2018-04-29 16:30] VITALS: BP 138/86
== END 2018-04-29 18:18 | disposition home or self-care (01) ==
LOC: ED 13:01
DX: D69.6 Thrombocytopenia, unspecified (principal); I12.0 Hypertensive chronic kidney disease with stage 5 chronic kidney disease or end stage renal disease; E11.22 Type 2 diabetes mellitus with diabetic chronic kidney disease; N18.6 End stage renal disease; Z99.2 Dependence on renal dialysis; Z79.4 Long term (current) use of insulin
CPT/HCPCS: 36415; 80053; 85025; 85610; 85730; 86850; 86900; 86901; 99283